=== PATIENT | male | born 1950 | race Caucasian/White ===

== ENCOUNTER 2019-09-14 17:38 | Emergency (ER) | payer MEDICARE, OTHER ==
[~2019-09-14] VITALS: Ht 180 cm; Wt 86.8 kg
[2019-09-14] MEDS ORDERED: NS IV 1000 ML 1,000 ML IV SCH (18:11)
[2019-09-14 18:12] LABS: BASOPHILS % (AUTO) 0 % (0-10); EOSINOPHILS # (AUTO) 0.1 10^3/uL (0.0-0.3); EOSINOPHILS % (AUTO) 1 % (0-10); HEMATOCRIT 42 % (40-54); HEMOGLOBIN 14.8 G/DL (13.3-17.7); LYMPHOCYTES # (AUTO) 1.3 X 10^3 (1.0-4.0); LYMPHOCYTES % (AUTO) 12 % (12-44); MEAN CORPUSCULAR HEMOGLOBIN 29 PG (25-34); MEAN CORPUSCULAR HGB CONC 36 G/DL (32-36); MEAN CORPUSCULAR VOLUME 82 FL (80-99); MEAN PLATELET VOLUME 10.9 FL (7.4-10.4); MONOCYTES # (AUTO) 0.8 X 10^3 (0.0-1.0); MONOCYTES % (AUTO) 8 % (0-12); NEUTROPHILS # (AUTO) 8.5 X 10^3 (1.8-7.8); NEUTROPHILS % (AUTO) 79 % (42-75); PLATELET COUNT 208 10^3/uL (130-400); WHITE BLOOD COUNT 10.7 10^3/uL (4.3-11.0)
[2019-09-14 18:16] LABS: ALBUMIN 4.2 GM/DL (3.2-4.5); CHLORIDE 102 MMOL/L (98-107); POTASSIUM 4.2 MMOL/L (3.6-5.0); SODIUM 138 MMOL/L (135-145)
[2019-09-14 18:17] LABS: CALCIUM 9.3 MG/DL (8.5-10.1)
[2019-09-14 18:18] LABS: GLUCOSE 229 MG/DL (70-105); TOTAL PROTEIN 7.4 GM/DL (6.4-8.2)
[2019-09-14 18:19] LABS: CARBON DIOXIDE 24 MMOL/L (21-32)
[2019-09-14 18:20] LABS: BILIRUBIN,TOTAL 0.8 MG/DL (0.1-1.0)
[2019-09-14 18:22] LABS: ALKALINE PHOSPHATASE 77 U/L (40-136); CREATININE SERUM 1.18 MG/DL (0.60-1.30); GFR ESTIMATED > 60
[2019-09-14 18:23] LABS: BUN/CREATININE RATIO 23
[2019-09-14 18:25] LABS: ALANINE AMINOTRANSFERASE 22 U/L (0-55)
[2019-09-14] MEDS ORDERED: ESCI20TA45 (18:28)
[2019-09-14] MEDS ORDERED: BUSP10TA95 (18:28)
[2019-09-14] MEDS ORDERED: METF500T19 (18:28)
[2019-09-14] MEDS ORDERED: GLIP10TA24 (18:28)
[2019-09-14] MEDS ORDERED: ROSU40TA23 (18:28)
--- NOTE | 2019-09-14 18:57 | ED Neurological Problem ---
General Chief Complaint: Altered Mental Status Stated Complaint: DIZZINESS/HX DIABETES AND DEMENTIA Nursing Triage Note: PT PRESENTS TO ED WITH COMPLAINTS OF NOT FEELING WELL/MALAISE SINCE YESTERDAY. PT SON REPORTS PT HAS BEEN DIZZY, GENRALLY WEAK, AND HAD TROUBLE WITH AMBULATION. Nursing Sepsis Screen: No Definite Risk History of Present Illness Date Seen by Provider: Sep 14, 2019 Time Seen by Provider: 18:00 Initial Comments 69-year-old male presents for vertigo. Patient has a history of dementia. He was brought by his son who reported by phone that he has been having some weakness when walking and unstable gait. He denies any falls. He does have a history of diabetes and his blood sugars have been 300-400. He was increased on his metformin to twice daily. He denies eating today. He does not use a walker or cane. He recently moved here (8 months ago) and his son had not contact with him over the last 10-15 years and is now his caregiver. Son reports a stroke, approx 8 years ago. He goes to [facility]. Timing/Duration: 24 hours Associated Symptoms: trouble walking Allergies and Home Medications Allergies Coded Allergies: No Known Drug Allergies (Unverified , 09/14/19) Patient Home Medication List Home Medication List Reviewed: Yes Review of Systems Review of Systems Constitutional: no symptoms reported, see HPI; No fever; malaise, weakness Eyes: No Symptoms Reported, Decreased Acuity (secondary to diabetic retinopathy) Ears, Nose, Mouth, Throat: no symptoms reported, see HPI Respiratory: no symptoms reported, see HPI; No cough Cardiovascular: no symptoms reported, see HPI Gastrointestinal: no symptoms reported, see HPI, loss of appetite Genitourinary: no symptoms reported, see HPI Musculoskeletal: see HPI; No muscle cramps, No muscle weakness All Other Systems Reviewed Negative Unless Noted: Yes Past Qqpqytu-Ponzel-Gljxkg Hx Past Med/Social Hx: Reviewed Nursing Past Med/Soc Hx Patient Social History Alcohol Use: Denies Use Recreational Drug Use: No Smoking Status: Former Smoker Former Smoker, Quit: Nov 25, 1984 Recent Foreign Travel: No Contact w/Someone Who Travel: No Recent Infectious Disease Expo: No Recent Hopitalizations: No Physical Abuse: No Sexual Abuse: No Mistreated: No Fear: No Seasonal Allergies Seasonal Allergies: No Past Medical History Surgeries: No Respiratory: No Cardiac: Yes High Cholesterol, Hypertension Neurological: Yes Dementia, Stroke Genitourinary: No Gastrointestinal: No Musculoskeletal: No Endocrine: Yes Diabetes, Non-Insulin dep Psychosocial: No Integumentary: No Blood Disorders: No Physical Exam Vital Signs Vital Signs - First Documented 09/14/19 17:57 Temp 36.0 Pulse 70 Resp 20 B/P (MAP) 171/97 (121) Pulse Ox 95 Capillary Refill : Less Than 3 Seconds Height, Weight, BMI Height: '" Weight: lbs. oz. kg; 26.00 BMI Method: General Appearance: WD/WN, no apparent distress HEENT: PERRL/EOMI, normal ENT inspection, TMs normal, pharynx normal, other (head normocephalic with no evidence of contusion or ecchymosis, oral mucosa pink and dry. No facial drooping. ) Neck: non-tender, full range of motion, supple, normal inspection Respiratory: chest non-tender, lungs clear, normal breath sounds, no respiratory distress Cardiovascular: normal peripheral pulses, regular rate, rhythm Gastrointestinal: normal bowel sounds, non tender, soft, no organomegaly Extremities: normal range of motion, non-tender, normal inspection Neurologic/Psychiatric: no motor/sensory deficits, alert, normal mood/affect, oriented x 3, abnormal gait (unsteady but no weakness. ) Crainal Nerves: normal hearing, normal speech, PERRL Coordination/Gait: normal finger to nose Motor/Sensory: no motor deficit, no sensory deficit, no pronator drift Skin: normal color, warm/dry Progress/Results/Core Measures Results/Orders Lab Results Laboratory Tests Test 09/14/19 17:56 09/14/19 17:57 Range/Units White Blood Count 10.7 4.3-11.0 10^3/uL Red Blood Count 5.10 4.35-5.85 10^6/uL Hemoglobin 14.8 13.3-17.7 G/DL Hematocrit 42 40-54 % Mean Corpuscular Volume 82 80-99 FL Mean Corpuscular Hemoglobin 29 25-34 PG Mean Corpuscular Hemoglobin Concent 36 32-36 G/DL Red Cell Distribution Width 14.0 10.0-14.5 % Platelet Count 208 130-400 10^3/uL Mean Platelet Volume 10.9 H 7.4-10.4 FL Neutrophils (%) (Auto) 79 H 42-75 % Lymphocytes (%) (Auto) 12 12-44 % Monocytes (%) (Auto) 8 0-12 % Eosinophils (%) (Auto) 1 0-10 % Basophils (%) (Auto) 0 0-10 % Neutrophils # (Auto) 8.5 H 1.8-7.8 X 10^3 Lymphocytes # (Auto) 1.3 1.0-4.0 X 10^3 Monocytes # (Auto) 0.8 0.0-1.0 X 10^3 Eosinophils # (Auto) 0.1 0.0-0.3 10^3/uL Basophils # (Auto) 0.0 0.0-0.1 10^3/uL Sodium Level 138 135-145 MMOL/L Potassium Level 4.2 3.6-5.0 MMOL/L Chloride Level 102 98-107 MMOL/L Carbon Dioxide Level 24 21-32 MMOL/L Anion Gap 12 5-14 MMOL/L Blood Urea Nitrogen 27 H 7-18 MG/DL Creatinine 1.18 0.60-1.30 MG/DL Estimat Glomerular Filtration Rate > 60 BUN/Creatinine Ratio 23 Glucose Level 229 H 70-105 MG/DL Calcium Level 9.3 8.5-10.1 MG/DL Corrected Calcium 9.1 8.5-10.1 MG/DL Total Bilirubin 0.8 0.1-1.0 MG/DL Aspartate Amino Transf (AST/SGOT) 20 5-34 U/L Alanine Aminotransferase (ALT/SGPT) 22 0-55 U/L Alkaline Phosphatase 77 40-136 U/L Troponin I < 0.028 <0.028 NG/ML Total Protein 7.4 6.4-8.2 GM/DL Albumin 4.2 3.2-4.5 GM/DL Glucometer 222 H 70-110 MG/DL My Orders Orders - GONZALO BUCK Accucheck Stat ONCE (09/14/19 17:46) Cbc With Automated Diff (09/14/19 18:05) Comprehensive Metabolic Panel (09/14/19 18:05) Troponin I (09/14/19 18:05) Ed Iv/Invasive Line Start (09/14/19 18:11) Ns Iv 1000 Ml (Sodium Chloride 0.9%) (09/14/19 18:11) Ct Head Wo-R/O Stroke (09/14/19 18:46) Vital Signs/I&O 09/14/19 17:57 Temp 36.0 Pulse 70 Resp 20 B/P (MAP) 171/97 (121) Pulse Ox 95 Blood Pressure Mean: 121 FSBG Bedside Testing Finger Stick Blood Glucose: 222 Progress Progress Note : Time: 18:00 Progress Note Patient seen and evaluated, will obtain labs, EKG and give 1 L normal saline per IV. 1844 spoke to patient, will Obtain CT of the Head. 1899 Ambulated patient, gait is unsteady. Discussed need for walker to prevent falls. 1929 Discharge plan discussed with patient and son by phone. Needs follow up with MRI if symptoms are not improving. May need to consider LTC or Assisted Living, as soon reports he is unable to live with him. Initial ECG Impression Date: Sep 14, 2019 Initial ECG Impression Time: 17:59 Initial ECG Rate: 71 Initial ECG Rhythm: Normal Sinus Initial ECG Intervals: Normal Initial ECG Intervals AR 179, QRSD 89, QTC 406, QTc 442. [place] P 42, QRS -34, T 85 Initial ECG Impression: Normal Initial ECG Comparisson: No Previous ECG Available Diagnostic Imaging Diagonstic Imaging: CT Plain Films/CT/US/NM/MRI: head Comments NAME: MOSHE WHEELER [facility] REC#: [id number] PT STATUS: REG ER : 1950 PHYSICIAN: GONZALO BUCK ADMIT DATE: 09/14/19/ER Draft Date of Exam:09/14/19 CT HEAD WO-R/O STROKE PROCEDURE: CT head wo r/o stroke. TECHNIQUE: Multiple contiguous axial images were obtained through the brain without the use of intravenous contrast. Auto Exposure Controls were utilized during the CT exam to meet ALARA standards for radiation dose reduction. INDICATION: Not feeling well, malaise since yesterday. Dizziness, generally weak and trouble with ambulation. CORRELATION STUDY: None FINDINGS: Generalized prominence of the ventricles and sulci is present. Cavum septum pellucidum vergae of no clinical significance. Rather prominent scattered areas of particularly periventricular hypoattenuation may reflect a small vessel ischemic disease. This is rather prominent in severity. More focal area of decreased attenuation at the left occipital lobe is noted and may reflect a previous area of infarct. Suspect for prior thalamic lacunar type infarcts. No midline shift or mass effect. No intracranial hemorrhage. No hyperdense MCA sign. Bony calvarium intact with paranasal sinuses generally clear. IMPRESSION: 1. Negative for acute intracranial abnormality. 2. There is, however, generalized atrophic changes with what appears to be likely significantly advanced changes reflecting small vessels ischemic disease. This could obscure potential subtle lesion. Given overall symptoms and findings, consideration for follow-up MRI would be recommended. 3. Findings compatible with likely prior infarct with more focal encephalomalacia left occipital lobe. Dictated on workstation # [id number] Dict: 09/14/191902 Trans: 09/14/191913 MARII [id number] Interpreted by: ASHLEY RESTREPO DO Electronically signed by: Departure Impression Primary Impression: Unsteady gait Disposition: 01 HOME, SELF-CARE Condition: Stable Departure-Patient Inst. Decision time for Depature: 19:30 Referrals: [facility] [place],LOCAL PHYSICIAN (PCP) Primary Care Physician Patient Instructions: Dementia (DC), Preventing Falls in the Older Adult Add. Discharge Instructions: Use a walker at all times. Follow up with [facility] for MRI, if symptoms are not improving. Eat regularly scheduled meals. Take your medications, as prescribed. Return to the emergency department for new, urgent health care needs. All discharge instructions reviewed with patient and/or family. Voiced understanding. Scripts Walker (Ultra-Light Rollator) 1 Each Each EACH BC DAILY PRN for DIZZINESS, #1 0 Refills Prov: GONZALO BUCK 09/14/19 GONZALO BUCK Sep 14, 2019 18:57
--- NOTE | 2019-09-14 19:16 | Diagnostic Imaging Report ---
PROCEDURE: CT head wo r/o stroke. TECHNIQUE: Multiple contiguous axial images were obtained through the brain without the use of intravenous contrast. Auto Exposure Controls were utilized during the CT exam to meet ALARA standards for radiation dose reduction. INDICATION: Not feeling well, malaise since yesterday. Dizziness, generally weak and trouble with ambulation. CORRELATION STUDY: None FINDINGS: Generalized prominence of the ventricles and sulci is present. Cavum septum pellucidum vergae of no clinical significance. Rather prominent scattered areas of particularly periventricular hypoattenuation may reflect a small vessel ischemic disease. This is rather prominent in severity. More focal area of decreased attenuation at the left occipital lobe is noted and may reflect a previous area of infarct. Suspect for prior thalamic lacunar type infarcts. No midline shift or mass effect. No intracranial hemorrhage. No hyperdense MCA sign. Bony calvarium intact with paranasal sinuses generally clear. IMPRESSION: 1. Negative for acute intracranial abnormality. 2. There is, however, generalized atrophic changes with what appears to be likely significantly advanced changes reflecting small vessels ischemic disease. This could obscure potential subtle lesion. Given overall symptoms and findings, consideration for follow-up MRI would be recommended. 3. Findings compatible with likely prior infarct with more focal encephalomalacia left occipital lobe. Dictated by: Dictated on workstation # [id number]
[2019-09-14] MEDS ORDERED: WALK1EAC23 BC (19:29)
[2019-09-14 20:00] VITALS: BP 167/87
--- OUTSIDE RECORDS SUMMARY | 2019-09-15 10:30 | XMS REPORT | Continuity of Care Document ---
Author Organization Unknown Address Unknown Phone Unavailable Allergies Active Description Code Type Severity Reaction Onset Reported/Identified Relationship to Patient Clinical Status Yes No Known Drug Allergies [id number] Drug Allergy Unknown N/A 09/14/2019 Medications There is no data. Problems There is no data. Procedures There is no data. Results Test Result Range CMP - 02/25/19 10:55 GLUCOSE 231 mg/dL 65-99 UREA NITROGEN (BUN) 26 mg/dL 7-25 CREATININE 1.08 mg/dL 0.70-1.25 eGFR NON-AFR. [place] 71 mL/min/1.73m2 > OR = 60 eGFR 82 mL/min/1.73m2 > OR = 60 BUN/CREATININE RATIO 24 (calc) 6-22 SODIUM 138 mmol/L 135-146 POTASSIUM 4.3 mmol/L 3.5-5.3 CHLORIDE 103 mmol/L 98-110 CARBON DIOXIDE 26 mmol/L 20-32 CALCIUM 9.1 mg/dL 8.6-10.3 PROTEIN, TOTAL 6.8 g/dL 6.1-8.1 ALBUMIN 4.1 g/dL 3.6-5.1 GLOBULIN 2.7 g/dL (calc) 1.9-3.7 ALBUMIN/GLOBULIN RATIO 1.5 (calc) 1.0-2. 5 BILIRUBIN, TOTAL 0.7 mg/dL 0.2-1.2 ALKALINE PHOSPHATASE 91 U/L 40-115 AST 20 U/L 10-35 ALT 24 U/L 9-46 A1C - 06/17/19 15:44 HEMOGLOBIN A1c 11.9 % of total Hgb <5.7 Complete blood count (CBC) with automate d white blood cell (WBC) differential - 09/14/19 17:56 Blood leukocytes automated count (number/volume) 10.7 10*3/uL 4.3-11.0 Blood erythrocytes automated count (number/volume) 5.10 10*6/uL 4.35-5.85 Venous blood hemoglobin measurement (mass/volume) 14.8 g/dL 13.3-17.7 Blood hematocrit (volume fraction) 42 % 40-54 Automated erythrocyte mean corpuscular volume 82 [ foz_us] 80-99 Automated erythrocyte mean corpuscular h emoglobin (mass per erythrocyte) 29 pg 25-34 Automated erythrocyte mean corpuscular h emoglobin concentration measurement (mass/volume) 36 g/dL 32-36 Automated erythrocyte distribution width ratio 14. 0 % 10.0- 14.5 Automated blood platelet count (count/volume) 208 10*3/uL 130-400 Automated blood platelet mean volume measurement 10.9 [foz_us] 7.4-10.4 Automated blood neutrophils/100 leukocytes 79 % 42-75 Automated blood lymphocytes/100 leukocytes 12 % 12-44 Blood monocytes/100 leukocytes 8 % 0-12 Automated blood eosinophils/100 leukocytes 1 % 0-10 Automated blood basophils/100 leukocytes 0 % 0-10 Blood neutrophils automated count (number/volume) 8.5 10*3 1.8-7.8 Blood lymphocytes automated count (number/volume) 1.3 10*3 1.0-4.0 Blood monocytes automated count (number/volume) 0. 8 10*3 0.0-1.0 Automated eosinophil count 0.1 10*3/uL 0 .0-0.3 Automated blood basophil count (count/volume) 0.0 10*3/uL 0.0-0.1 Comprehensive metabolic panel - 09/14/19 17:56 Serum or plasma sodium measurement (moles/volume) 138 mmol/L 135-145 Serum or plasma potassium measurement (moles/volume) 4.2 mmol/L 3.6-5.0 Serum or plasma chloride measurement (moles/volume) 102 mmol/L 98-107 Carbon dioxide 24 mmol/L 21-32 Serum or plasma anion gap determination (moles/volume) 12 mmol/L 5-14 Serum or plasma urea nitrogen measurement (mass/volume ) 27 mg/dL 7-18 Serum or plasma creatinine measurement (mass/volume) 1.18 mg/dL 0.60-1.30 Serum or plasma urea nitrogen/creatinine mass ratio 23 NRG Serum or plasma creatinine measurement w ith calculation of estimated glomerular filtration rate > NRG Serum or plasma glucose measurement (mass/volume) 229 mg/dL 70-105 Serum or plasma calcium measurement (mass/volume) 9.3 mg/dL 8.5-10.1 Serum or plasma total bilirubin measurement (mass/volu me) 0.8 mg/dL 0.1-1.0 Serum or plasma alkaline phosphatase alvaro surement (enzymatic activity/volume) 77 U/L 40-136 Serum or plasma aspartate aminotransfera se measurement (enzymatic activity/volume) 20 U/L 5-34 Serum or plasma alanine aminotransferase measurement (enzymatic activity/volume) 22 U/L 0-55 Serum or plasma protein measurement (mass/volume) 7.4 g/dL 6.4-8.2 Serum or plasma albumin measurement (mass/volume) 4.2 g/dL 3.2-4.5 CALCIUM CORRECTED 9.1 mg/dL 8.5-10.1 Serum or plasma troponin i.cardiac measu rement (mass/volume) - 09/14/19 17:56 Serum or plasma troponin i.cardiac measurement (mass/v olume) < ng/mL <0.028 Capillary blood glucose measurement by g lucometer (mass/volume) - 09/14/19 17:57 Capillary blood glucose measurement by glucometer (mas s/volume) 222 mg/dL 70-110 Encounters ACCT No. Visit Date/Time Discharge Status Pt. Type Provider Facility Loc./Unit Complaint [id number] 06/17/2019 15:20:00 06/17/2019 23:59: 59 [facility] Outpatient [facility] [id number] 06/17/2019 15:20:00 Document Registration [id number] 02/25/2019 10:20:00 Document Registration [id number] 09/14/2019 17:41:00 020 20:00:00 DIS Emergency GONZALO BUCK [facility] ER DIZZINESS/HX DIABETES A ND DEMENTIA
== END 2019-09-14 20:00 | disposition home or self-care (01) ==
LOC: ER 17:41
DX: R26.81 Unsteadiness on feet (principal); E11.9 Type 2 diabetes mellitus without complications; F03.90 Unspecified dementia, unspecified severity, without behavioral disturbance, psychotic disturbance, mood disturbance, and anxiety; E78.00 Pure hypercholesterolemia, unspecified; I10 Essential (primary) hypertension; Z79.84 Long term (current) use of oral hypoglycemic drugs; Z86.73 Personal history of transient ischemic attack (TIA), and cerebral infarction without residual deficits; Z87.891 Personal history of nicotine dependence
CPT/HCPCS: 36415; 70450; 80053; 82962; 84484; 85025; 93005

== ENCOUNTER 2019-09-17 17:29 | Inpatient (IN) | payer MEDICARE ==
[~2019-09-17] VITALS: Ht 180.3 cm; Wt 84.3 kg
[~2019-09-17 17:29] MED LIST: BUSP10TA95 PO; ESCI20TA45 PO; GLIP10TA24 PO; METF500T19 PO; ROSU40TA23 PO; WALK1EAC23 BC
[2019-09-17] MEDS ORDERED: CATHETER FLUSH 10 ML SYR IV PRN (18:15)
[2019-09-17] MEDS ORDERED: HOLD METFORMIN - RECEIVED CONTRAST 20 ML VIAL IV SCH (18:15)
[2019-09-17] MEDS ORDERED: IOHEXOL 350 MG/ML 100 ML (OMNIPAQUE 350) VIAL IV ONE (18:15)
[2019-09-17] MEDS ORDERED: NS 100 ML (IVPB) BAG IV ONE (18:15)
[2019-09-17 18:21] LABS: BASOPHILS % (AUTO) 0 % (0-10); EOSINOPHILS % (AUTO) 0 % (0-10); HEMATOCRIT 40 % (40-54); HEMOGLOBIN 13.7 G/DL (13.3-17.7); LYMPHOCYTES # (AUTO) 1.1 X 10^3 (1.0-4.0); LYMPHOCYTES % (AUTO) 12 % (12-44); MEAN CORPUSCULAR HEMOGLOBIN 29 PG (25-34); MEAN CORPUSCULAR HGB CONC 35 G/DL (32-36); MEAN CORPUSCULAR VOLUME 83 FL (80-99); MEAN PLATELET VOLUME 11.1 FL (7.4-10.4); MONOCYTES # (AUTO) 0.9 X 10^3 (0.0-1.0); MONOCYTES % (AUTO) 9 % (0-12); NEUTROPHILS # (AUTO) 7.7 X 10^3 (1.8-7.8); NEUTROPHILS % (AUTO) 79 % (42-75); PLATELET COUNT 202 10^3/uL (130-400); WHITE BLOOD COUNT 9.7 10^3/uL (4.3-11.0)
[2019-09-17 18:30] LABS: CHLORIDE 106 MMOL/L (98-107); POTASSIUM 4.1 MMOL/L (3.6-5.0); SODIUM 138 MMOL/L (135-145)
[2019-09-17 18:31] LABS: INR 0.9 (0.8-1.4); PROTHROMBIN TIME PATIENT 12.3 SEC (12.2-14.7)
[2019-09-17 18:32] LABS: CALCIUM 9.2 MG/DL (8.5-10.1)
[2019-09-17 18:33] LABS: GLUCOSE 176 MG/DL (70-105); TOTAL PROTEIN 7.1 GM/DL (6.4-8.2)
[2019-09-17 18:34] LABS: CARBON DIOXIDE 21 MMOL/L (21-32)
[2019-09-17 18:35] LABS: BILIRUBIN,TOTAL 0.9 MG/DL (0.1-1.0)
[2019-09-17 18:36] LABS: ALKALINE PHOSPHATASE 90 U/L (40-136)
[2019-09-17 18:37] LABS: CREATININE SERUM 1.26 MG/DL (0.60-1.30); GFR ESTIMATED 57
[2019-09-17 18:38] LABS: BUN/CREATININE RATIO 26
[2019-09-17 18:40] LABS: ALANINE AMINOTRANSFERASE 19 U/L (0-55)
--- OUTSIDE RECORDS SUMMARY | 2019-09-17 18:46 | XMS REPORT | Continuity of Care Document ---
Author Organization Unknown Address Unknown Phone Unavailable Allergies Active Description Code Type Severity Reaction Onset Reported/Identified Relationship to Patient Clinical Status Yes No Known Drug Allergies [id number] Drug Allergy Unknown N/A 09/14/2019 Medications There is no data. Problems Date Dx Coded Attending Type Code Diagnosis Diagnosed By 09/15/2019 GONZALO BUCKP Ot E11.9 TYPE 2 DIABETES MELLITUS WITHOUT COMPLIC 09/15/2019 [facility]O [facility] Ot E78.00 PURE HYPERCHOLESTEROLEMIA, UNSPECIFIED 09/15/2019 CIELO, GONZALO [facility] VOLUNTEER Ot F03.90 UNSPECIFIED DEMENTIA WITHOUT BEHAVIORAL 09/15/2019 CIELO GONZALO [facility] V[facility]UNTEER Ot I10 ESSENTIAL (PRIMARY) HYPERTENSION 09/15/2019 CIELO GONZALO [facility] VOLUNTEER Ot R26.81 UNSTEADINESS ON FEET 09/15/2019 CIELO GON[facility]ALO [facility]OSP[facility] VOLUNTEER Ot R42 DIZZINESS AND GIDDINESS 09/15/2019 CIELO GONZALO [facility] VOLUNTEER 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 Results Test Result Range CMP - 02/25/19 10:55 GLUCOSE 231 mg/dL 65-99 UREA NITROGEN (BUN) 26 mg/dL 7-25 CREATININE 1.08 mg/dL 0.70-1.25 eGFR NON-AFR. ETHIOPIAN 71 mL/min/1.73m2 > OR = 60 eGFR [...] by glucometer (mas s/volume) 222 mg/dL 70-110 Complete blood count (CBC) with automate d white blood cell (WBC) differential - 09/17/19 18:15 Blood leukocytes automated count (number/volume) 9.7 10*3/uL 4.3-11.0 Blood erythrocytes automated count (number/volume) 4.77 10*6/uL 4.35-5.85 Venous blood hemoglobin measurement (mass/volume) 13.7 g/dL 13.3-17.7 Blood hematocrit (volume fraction) 40 % 40-54 Automated erythrocyte mean corpuscular volume 83 [ foz_us] 80-99 Automated erythrocyte mean corpuscular h emoglobin (mass per erythrocyte) 29 pg 25-34 Automated erythrocyte mean corpuscular h emoglobin concentration measurement (mass/volume) 35 g/dL 32-36 Automated erythrocyte distribution width ratio 14. 0 % 10.0- 14.5 Automated blood platelet count (count/volume) 202 10*3/uL 130-400 Automated blood platelet mean volume measurement 11.1 [foz_us] 7.4-10.4 Automated blood neutrophils/100 leukocytes 79 % 42-75 Automated blood lymphocytes/100 leukocytes 12 % 12-44 Blood monocytes/100 leukocytes 9 % 0-12 Automated blood eosinophils/100 leukocytes 0 % 0-10 Automated blood basophils/100 leukocytes 0 % 0-10 Blood neutrophils automated count (number/volume) 7.7 10*3 1.8-7.8 Blood lymphocytes automated count (number/volume) 1.1 10*3 1.0-4.0 Blood monocytes automated count (number/volume) 0. 9 10*3 0.0-1.0 Automated eosinophil count 0.0 10*3/uL 0 .0-0.3 Automated blood basophil count (count/volume) 0.0 10*3/uL 0.0-0.1 Comprehensive metabolic panel - 09/17/19 18:15 Serum or plasma sodium measurement (moles/volume) 138 mmol/L 135-145 Serum or plasma potassium measurement (moles/volume) 4.1 mmol/L 3.6-5.0 Serum or plasma chloride measurement (moles/volume) 106 mmol/L 98-107 Carbon dioxide 21 mmol/L 21-32 Serum or plasma anion gap determination (moles/volume) 11 mmol/L 5-14 Serum or plasma urea nitrogen measurement (mass/volume ) 33 mg/dL 7-18 Serum or plasma creatinine measurement (mass/volume) 1.26 mg/dL 0.60-1.30 Serum or plasma urea nitrogen/creatinine mass ratio 26 NRG Serum or plasma creatinine measurement w ith calculation of estimated glomerular filtration rate 57 NRG Serum or plasma glucose measurement (mass/volume) 176 mg/dL 70-105 Serum or plasma calcium measurement (mass/volume) 9.2 mg/dL 8.5-10.1 Serum or plasma total bilirubin measurement (mass/volu me) 0.9 mg/dL 0.1-1.0 Serum or plasma alkaline phosphatase alvaro surement (enzymatic activity/volume) 90 U/L 40-136 Serum or plasma aspartate aminotransfera se measurement (enzymatic activity/volume) 20 U/L 5-34 Serum or plasma alanine aminotransferase measurement (enzymatic activity/volume) 19 U/L 0-55 Serum or plasma protein measurement (mass/volume) 7.1 g/dL 6.4-8.2 Serum or plasma albumin measurement (mass/volume) 4.0 g/dL 3.2-4.5 CALCIUM CORRECTED 9.2 mg/dL 8.5-10.1 PT panel in platelet poor plasma by coag ulation assay - 09/17/19 18:15 Prothrombin time (PT) in platelet poor plasma by coagu lation assay 12.3 s 12.2-14.7 INR in platelet poor plasma or blood by coagulation as say 0.9 0.8-1.4 Encounters ACCT No. Visit Date/Time Discharge Status Pt. Type Provider Facility Loc./Unit Complaint [id number] 06/17/2019 15:20:00 06/17/2019 23:59: 59 [facility] Outpatient [facility] [id number] 06/17/2019 15:20:00 Document Registration [id number] 02/25/2019 10:20:00 Document Registration [id number] 09/14/2019 17:41:00 020 20:00:00 DIS Outpatient GONZALO BUCK Vi a [facility] ER DIZZINESS/HX DIABETES A ND DEMENTIA [id number] 09/17/2019 18:24:00 Document Registration
--- NOTE | 2019-09-17 19:08 | Diagnostic Imaging Report ---
PROCEDURE: CT angiography of the head and CT angiography of the neck with and without contrast. TECHNIQUE: Contiguous noncontrast images were obtained from the skull base through the vertex. After intravenous contrast administration, helical CT angiography of the neck was performed. Source data was reformatted into 3D MIP projections. Delayed post contrast acquisition was also obtained. Auto Exposure Controls were utilized during the CT exam to meet ALARA standards for radiation dose reduction. INDICATION: Left-sided weakness times approximately 4 days. COMPARISON: CT head 09/14/2019 FINDINGS: CT HEAD: Generalized atrophic changes mild prominence of ventricles and sulci. Cavum septum pellucidum vergae of no clinical significance. Prominent scattered patchy areas decreased attenuation are again demonstrated while nonspecific likely reflect small vessel ischemic disease. There is again demonstration more focal area at the left occipital lobe likely owing to prior area of infarct. Definitive new areas decreased attenuation suggest edema is not demonstrated. No midline shift or mass effect. No intracranial hemorrhage. CTA NECK: Aorta: Aortic arch is limited in evaluation with artifact present. Does appear relatively normal, with standard three vessel branching pattern. Right Common/Internal/External Carotid Artery: Brachycephalic trunk patent. Mild calcification distally. The carotid bifurcation does demonstrate mild calcified soft tissue plaque. However, high degree stenosis does not appear to be suggested. The internal and external carotid arteries are patent. Left Common/Internal/External Carotid Artery: Mild soft plaque at the origin of the left common carotid artery without significant stenosis. Remainder of the common carotid arteries are patent. There is mild plaquing at the carotid bifurcation without significant stenosis. Internal and external carotid arteries are patent. Vertebral arteries: Very slightly dominant left vertebral artery is present. Vertebral arteries appear to terminate level of the basilar artery. Non-vascular: Lung apices demonstrates minimal hypoventilation adjacent pleural surface dependently. Airway is patent within the neck. Soft tissue neck otherwise relatively unremarkable. Cervical spine with minimal degenerative changes given the patient's age. CTA HEAD: Anterior Circulation: There is [id number] calcification of the terminal ICAs but without high degree stenosis. The bilateral middle cerebral arteries are patent and without stenosis. The anterior cerebral arteries are patent and without stenosis. Posterior Circulation: The bilateral intracranial segments of the vertebral arteries are patent. The basilar artery is patent and without stenosis. The posterior cerebral arteries are patent. Post Contrast Head: No concerning enhancement on delayed post-contrast imaging. IMPRESSION: 1. Mild intracranial ICA calcification. Otherwise, negative appearing CTA of the head. 2. Mild calcification carotid bifurcations. Otherwise, negative appearing CTA of the neck. 3. Given the overall findings and continued symptoms, if further imaging evaluation is desired, MRI is recommended. Dictated by: Dictated on workstation # [id number]
--- NOTE | 2019-09-17 19:37 | NUR ---
Pt son, Zain Cleveland called at this time to get verbal consent to [facility] and this RN for lumbar puncture procedure.
[2019-09-17 19:45] LABS: BILIRUBIN,URINE NEGATIVE (NEGATIVE); CLARITY,URINE CLEAR; COLOR,URINE YELLOW; GLUCOSE, URINE (UA) NEGATIVE (NEGATIVE); KETONES,URINE TRACE (NEGATIVE); LEUKOCYTE ESTERASE ,URINE TRACE (NEGATIVE); NITRITE,URINE POSITIVE (NEGATIVE); PROTEIN,URINE 1+ (NEGATIVE)
[2019-09-17] MEDS ORDERED: cloNIDine 0.1 MG (CATAPRES) TAB PO ONE (19:45)
[2019-09-17 19:58] LABS: AMPHETAMINE SCREEN, URINE NEGATIVE (NEGATIVE); BARBITURATE SCREEN URINE NEGATIVE (NEGATIVE); BENZODIAZEPINES SCREEN URINE NEGATIVE (NEGATIVE); CANNABINOID SCREEN, URINE NEGATIVE (NEGATIVE); COCAINE SCREEN URINE NEGATIVE (NEGATIVE); METHADONE STAT NEGATIVE (NEGATIVE); METHAMPHETAMINE SCREEN URINE S NEGATIVE (NEGATIVE); OPIATE SCREEN URINE NEGATIVE (NEGATIVE); OXYCODONE STAT NEGATIVE (NEGATIVE); PROPOXYPHENE STAT NEGATIVE (NEGATIVE); TRICYCLIC ANTIDEPRESSANTS SCRE NEGATIVE (NEGATIVE)
[2019-09-17 20:14] LABS: BACTERIA,URINE MODERATE /HPF; HYALINE CASTS, URINE RARE /LPF; WBC,URINE 50-100 /HPF
[2019-09-17] MEDS ORDERED: cefTRIAXone FOR IV USE 1,000 MG in WATER (STERILE) FOR INJECTION 10 ML IV ONE (20:30)
[2019-09-17] MEDS ORDERED: ONDANSETRON 4 MG (ZOFRAN) ORAL DISSOLVE TAB PO PRN (21:30)
[2019-09-17] MEDS ORDERED: fentaNYL INJECTION 100 MCG/2 ML AMP IVP PRN (21:30)
[2019-09-17] MEDS ORDERED: ONDANSETRON 4 MG/2 ML (SDV) Z0FRAN IVP PRN (21:30)
[2019-09-17] MEDS ORDERED: MELATONIN 3 MG TABLET PO PRN (21:30)
[2019-09-17] MEDS ORDERED: ALPRAZolam 0.25 MG (XANAX) TAB PO PRN (21:30)
[2019-09-17] MEDS ORDERED: cloNIDine 0.1 MG (CATAPRES) TAB PO PRN (21:30)
[2019-09-17] MEDS ORDERED: LOPERAMIDE 2 MG (IMODIUM) TABLET PO PRN (21:30)
[2019-09-17] MEDS ORDERED: diphenhydrAMINE 25 MG TAB (BENADRYL) PO PRN (21:30)
[2019-09-17] MEDS ORDERED: HYDROcodone/APAP 5 MG/325 MG (LORTAB) TAB PO PRN (21:30)
[2019-09-17] MEDS ORDERED: cefTRIAXone FOR IV USE 1,000 MG in WATER (STERILE) FOR INJECTION 10 ML IV SCH (21:30)
[2019-09-17] MEDS ORDERED: ACETAMINOPHEN 500 MG TAB (TYLENOL) PO PRN (21:30)
[2019-09-17] MEDS ORDERED: DOCUSATE SODIUM 100 MG (COLACE) CAP PO PRN (21:30)
[2019-09-17] MEDS ORDERED: CALCIUM CARBONATE 500 MG (TUMS) TAB.CHEW PO PRN (21:30)
--- OUTSIDE RECORDS SUMMARY | 2019-09-17 21:34 | XMS REPORT | Continuity of Care Document ---
Author Organization Unknown Address Unknown Phone Unavailable Allergies Active Description Code Type Severity Reaction Onset Reported/Identified Relationship to Patient Clinical Status Yes No Known Drug Allergies [id number] Drug Allergy Unknown N/A 09/14/2019 Medications There is no data. Problems Date Dx Coded Attending Type Code Diagnosis Diagnosed By 09/15/2019 GONZALO BUCKP Ot E11.9 TYPE 2 DIABETES MELLITUS WITHOUT COMPLIC 09/15/2019 CIELO GONZALO HORTICULTURE/FLORICULTURE TEACHER Ot E78.00 PURE HYPERCHOLESTEROLEMIA, UNSPECIFIED 09/15/2019 CIELO, GONZALO HORTICULTURE/FLORICULTURE TEACHER Ot F03.90 UNSPECIFIED DEMENTIA WITHOUT BEHAVIORAL 09/15/2019 CIELO GONZALO HORTICULTURE/FLORICULTURE TEACHER Ot I10 ESSENTIAL (PRIMARY) HYPERTENSION 09/15/2019 CIELO GONZALO HORTICULTURE/FLORICULTURE TEACHER Ot R26.81 UNSTEADINESS ON FEET 09/15/2019 CIELO GONZALO HORTICULTURE/FLORICULTURE TEACHER Ot R42 DIZZINESS AND GIDDINESS 09/15/2019 CIELO GONZALO HORTICULTURE/FLORICULTURE TEACHER Ot 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 Results Test Result Range CMP - 02/25/19 10:55 GLUCOSE 231 mg/dL 65-99 UREA NITROGEN (BUN) 26 mg/dL 7-25 CREATININE 1.08 mg/dL 0.70-1.25 eGFR NON-AFR. IRISH 71 mL/min/1.73m2 > OR = 60 eGFR [...] blood by coagulation as say 0.9 0.8-1.4 Serum or plasma ethanol measurement (mas s/volume) - 09/17/19 18:15 Serum or plasma ethanol measurement (mass/volume) < mg/dL <10 Urine drug screening test - 09/17/19 19: 39 Urine phencyclidine detection by screening method NEGATIVE NEGATIVE Urine benzodiazepines detection by screening method NEGATIVE NEGATIVE Urine cocaine detection NEGATIVE NEGATI VE Urine amphetamines detection by screening method N EGATIVE NEGATIVE Urine methamphetamine detection by screening method NEGATIVE NEGATIVE Urine cannabinoids detection by screening method N EGATIVE NEGATIVE Urine opiates detection by screening method NEGATI VE NEGATIVE Urine barbiturates detection NEGATIVE N EGATIVE Screening urine tricyclic antidepressants detection NEGATIVE NEGATIVE Urine methadone detection by screening method NEGA TIVE NEGATIVE Urine oxycodone detection NEGATIVE NEGA TIVE Urine propoxyphene detection NEGATIVE N EGATIVE Complete urinalysis with reflex to cultu re - 09/17/19 19:39 Urine color determination YELLOW NRG Urine clarity determination CLEAR NR G Urine pH measurement by test strip 5.0 5-9 Specific gravity of urine by test strip 1.015 1.016-1.022 Urine protein assay by test strip, semi-quantitative 1+ NEGATIVE Urine glucose detection by automated test strip NE GATIVE NEGATIVE Erythrocytes detection in urine sediment by light micr oscopy TRACE-I NEGATIVE Urine ketones detection by automated test strip TR ZAC NEGATIVE Urine nitrite detection by test strip POSITIVE NEGATIVE Urine total bilirubin detection by test strip NEGA TIVE NEGATIVE Urine urobilinogen measurement by automated test strip (mass/volume) 0.2 mg/dL < = 1.0 Urine leukocyte esterase detection by dipstick TRA CE NEGATIVE Automated urine sediment erythrocyte cou nt by microscopy (number/high power field) NONE NRG Automated urine sediment leukocyte count by microscopy (number/high power field) [HPF] NRG Bacteria detection in urine sediment by light microsco py MODERATE NRG Crystals detection in urine sediment by light microsco py NONE NRG Casts detection in urine sediment by light microscopy PRESENT NRG Mucus detection in urine sediment by light microscopy NEGATIVE NRG Complete urinalysis with reflex to culture YES NRG Hyaline casts detection in urine sediment by light mimi roscopy RARE NRG Renal epithelial cells detection in urin e sediment by light microscopy 5-10 NRG Encounters ACCT No. Visit Date/Time Discharge Status Pt. Type Provider Facility Loc./Unit Complaint [id number] 06/17/2019 15:20:00 06/17/2019 23:59: 59 [id number] 06/17/2019 15:20:00 Document Registration [id number] 02/25/2019 10:20:00 Document Registration [id number] 09/14/2019 17:41:00 020 20:00:00 DIS Outpatient GONZALO BUCK a [facility] ER DIZZINESS/HX DIABETES A ND DEMENTIA [id number] 09/17/2019 18:24:00 Document Registration
[2019-09-17 21:39] LABS: APPEARANCE,CSF CLEAR
[2019-09-17 21:40] LABS: COLOR,CSF PINK; LYMPHOCYTES,CSF 32 %; RED BLOOD CELL,CSF 4850 CELLS (0-0); WHITE BLOOD CELL,CSF 6 CELLS (0-5)
[2019-09-17 21:41] LABS: CSF TUBE NUMBER 4
[2019-09-17 21:42] LABS: CSF GLUCOSE 94 MG/DL (50-80); CSF TOTAL PROTEIN 40 MG/DL (15-40)
--- NOTE | 2019-09-17 21:50 | NUR ---
MOSHE WHEELER admitted to room 414-1, with an admitting diagnosis of UTI and Gait Instability, on 09/17/19 from ED via wheelchair, accompanied by staff.MOSHE WHEELER introduced to surroundings, call light, bed controls, phone, TV, temperature control, lights, meal times, smoking policy, visitor policy, side rail policy, bathrooms and showers. Patient Rights given to patient in the handbook. MOSHE WHEELER verbalizes understanding that [facility] is not responsible for the loss or damage to any personal effects or valuables that are kept in the patients posession during their hospitalization. MOSHE WHEELER verbalizes understanding of Interdisciplinary Patient Education. Patient and/or family were informed about the Rapid Response Team and its purpose.
[2019-09-17 21:56] VITALS: BP 160/86
[2019-09-17] MEDS: ENOXAPARIN 40 MG/0.4 ML (LOVENOX) SYR SC SCH (22:36)
[2019-09-17] MEDS: NS IV 1000 ML 1,000 ML IV SCH (22:37)
[2019-09-18 00:13] VITALS: BP 146/78
[2019-09-18 04:00] VITALS: BP 147/79
--- NOTE | 2019-09-18 05:12 | NUR ---
Changed Rocephin medication time. First dose given at ED at 09/17 2029. Originally scheduled another dose for 09/16 2129. Changed dose date and time to 09/17 2129.
[2019-09-18 05:23] LABS: BASOPHILS % (AUTO) 0 % (0-10); EOSINOPHILS # (AUTO) 0.1 10^3/uL (0.0-0.3); EOSINOPHILS % (AUTO) 1 % (0-10); HEMATOCRIT 38 % (40-54); HEMOGLOBIN 12.8 G/DL (13.3-17.7); LYMPHOCYTES # (AUTO) 1.6 X 10^3 (1.0-4.0); LYMPHOCYTES % (AUTO) 21 % (12-44); MEAN CORPUSCULAR HEMOGLOBIN 28 PG (25-34); MEAN CORPUSCULAR HGB CONC 34 G/DL (32-36); MEAN CORPUSCULAR VOLUME 84 FL (80-99); MEAN PLATELET VOLUME 11.3 FL (7.4-10.4); MONOCYTES # (AUTO) 0.9 X 10^3 (0.0-1.0); MONOCYTES % (AUTO) 11 % (0-12); NEUTROPHILS # (AUTO) 5.1 X 10^3 (1.8-7.8); NEUTROPHILS % (AUTO) 67 % (42-75); PLATELET COUNT 187 10^3/uL (130-400); WHITE BLOOD COUNT 7.6 10^3/uL (4.3-11.0)
[2019-09-18 05:36] LABS: ALANINE AMINOTRANSFERASE 16 U/L (0-55); ALBUMIN 3.7 GM/DL (3.2-4.5); ALKALINE PHOSPHATASE 80 U/L (40-136); BILIRUBIN,TOTAL 0.7 MG/DL (0.1-1.0); BUN/CREATININE RATIO 26; CALCIUM 8.8 MG/DL (8.5-10.1); CARBON DIOXIDE 22 MMOL/L (21-32); CHLORIDE 105 MMOL/L (98-107); CREATININE SERUM 1.16 MG/DL (0.60-1.30); GFR ESTIMATED > 60; GLUCOSE 156 MG/DL (70-105); POTASSIUM 3.7 MMOL/L (3.6-5.0); SODIUM 139 MMOL/L (135-145); TOTAL PROTEIN 6.4 GM/DL (6.4-8.2)
[2019-09-18] MEDS: inSUlin ASPART (NovoLOG) 1 UNIT/0.01 ML (CHARGE PER UNIT) SC SCH ×4 (06:26→22:36)
[2019-09-18 08:00] VITALS: BP 149/66
[2019-09-18] MEDS: SENNA W/DOCUSATE (SENOKOT S) TABLET PO SCH ×2 (08:22→22:07)
--- NOTE | 2019-09-18 09:29 | Diagnostic Imaging Report ---
CLINICAL HISTORY: Gait instability. COMPARISON: 09/17/2019. TECHNIQUE: 3 views of the cervical spine. FINDINGS: There is no acute fracture or dislocation of the cervical spine. Alignment is anatomic. The vertebral body heights are normal. Views of the dens demonstrate no acute abnormalities. The surrounding soft tissues are unremarkable. IMPRESSION: 1. No acute fracture or dislocation in the cervical spine. Dictated by: Dictated on workstation # [id number]
--- NOTE | 2019-09-18 09:29 | Diagnostic Imaging Report ---
EXAMINATION: Lumbosacral spine 2 or 3 views HISTORY: Gait instability. COMPARISON: None available. FINDINGS: There is no acute fracture or dislocation of the lumbar spine. Alignment is anatomic. The vertebral body heights are well maintained. Mild degenerative changes are present in the lumbar spine. Endplate degenerative changes are present at the L3-L4 level. The included soft tissues are unremarkable. IMPRESSION: 1. No acute fracture or dislocation in the lumbar spine. 2. Mild degenerative changes in the lumbar spine with endplate degenerative changes at the L3-L4 level. Dictated by: Dictated on workstation # [id number]
--- NOTE | 2019-09-18 10:11 | Physical Therapy Evaluation ---
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 6-Fyeerhrtib-szulfas completes the activity by him/herself with no assistance from a helper. 5-Set-up or Clean-up Assistance-helper sets up or cleans up; patient completes activity. [place] assists only prior to or following the activity. 4-Supervision or Touching Assistance-helper provides verbal cues and/or touching/steadying and/or contact guard assistance as patient completes activity. Assistance may be provided throughout the activity or intermittently. 3-Partial/Moderate Assistance-helper does LESS THAN HALF the effort. [place] lifts, holds or supports trunk or limbs, but provides less than half the effort. 2-Substantial/Maximal Assistance-helper does MORE THAN HALF the effort. [place] lifts or holds trunk or limbs and provides more than half the effort. 6-Jokszqsib-admedj does ALL the effort. Patient does none of the effort to complete the activity. Or, the assistance of 2 or more helpers is required for the patient to complete the activity. If activity was not attempted, code reason: 7-Patient Refused. 9-Not Applicable-not attempted and the patient did not perform the activity before the current illness, exacerbation or injury. 10-Not Attempted due to Environmental Limitations-(lack of equipment, weather restraints, etc.). 88-Not Attempted due to Medical Conditions or Safety Concerns. Bed Mobility: 5 Transfers (B,C,W/C): 5 Gait: 5 Indoor Mobility (Ambulation): Independent Stairs: Not Applicalbe Prior Devices Use: None patient reports he does not use a FWW PT Evaluation-Current Subjective Patient agrees to PT. Objective Patient Orientation: Confused Attachments: IV ROM/Strength ROM Lower Extremities bilateral LE WFL Strength Lower Extremities left LE 3+/5 grossly/right LE 4/5 grossly Integumentary/Posture Integumentary refer to nursing notes Bowel Incontinence: No Bladder Incontinence: No Posture WFL Neuromuscular (Tone, Coordination, Reflexes) noted left lean in sit and stand with inability to self correct Sensory Vision: Functional Hearing: Impaired Sensation Right Lower Extremit: Impaired Sensation Left Lower Extremity: Impaired Transfers Roll Left to Right (QC): 5 Sit to Lying (QC): 5 Lying to Sitting/Side of Bed(Q: 5 Sit to Stand (QC): 3 patient requires assistance to maintain upright sitting EOB and in stand due to left lean Gait Does the Patient Walk?: Yes Mode of Locomotion: Walk Anticipated Mode of Locomotion: Walk Walk 10 feet (QC): 2 Walk 50 ft with 2 Turns(QC): 2 Walk 150 ft (QC): 2 Gait Assistive Device: FWW Comments/Gait Description noted left foot inversion with gait and severe left lean with PT correct Balance Sitting Static: Fair Sitting Dynamic: Fair Standing Static: Fair Standing Dynamic: Fair (Fair-) Assessment/Needs 69 y.o. male, will benefit from skilled PT to address functional strength and mobility to return to home or care facility at maximum LOF. Patient is currently not safe to return to home due to severity of left lean and confusion. Rehab Potential: Guarded PT Senior Care Goals Senior Care Goals PT Senior Care Goals Time Frame: October 03, 2019 Roll Left & Right (QC): 5 Sit to Lying (QC): 5 Lying-Sitting on Side/Bed(QC): 5 Sit to Stand (QC): 5 Chair/Ylv-fp-Uzlna Xfer(QC): 5 Toilet Transfer (QC): 5 Walk 10 feet (QC): 5 Walk 50ft with 2 Turns (QC): 5 Walk 150 ft (QC): 5 PT Plan Problem List Problem List: Activity Tolerance, Functional Strength, Safety, Balance, Gait, Transfer Treatment/Plan Treatment Plan: Continue Plan of Care Treatment Plan: Bed Mobility, Education, Functional Activity [place], Functional Strength, Gait, Safety, Therapeutic Exercise, Transfers Treatment Duration: October 03, 2019 Frequency: 6 times per week Estimated Hrs Per Day: .5 hour per day Discharge Recommendations Therapy Discharge Recommendati: Other, See Comments (usp facility) Time/GCodes Time In: 920 Time Out: 930 Total Billed Treatment Time: 10 [facility] Sep 18, 2019 10:11
--- NOTE | 2019-09-18 10:42 | NUR ---
ANNIE/SAE visited with patient for social service consult. The patient was in bed but it appeared that he was attempting to get out of the bed when this ss walked in. He started asking this ss if she found the phone numbers. ANNIE/SS informed him of who this ss was and that he had not met this ss before. He verbalized understanding and was willing to talk with this ss. The patient verbalized that believes he is living with his son and is able to get around well at this time. He reports that he is here in the hospital due to a fall at home. ANNIE/SS discussed with the patient if he uses any devices at home to help him get around. He reports that he is able to get around on his own without a wheelchair or walker; however, he stated his daughter was looking into getting him a walker. The patient reported that he is able to bath and dress himself at this time without any assistance. ANNIE/SS asked the patient if he ever had home health in the past and he stated he did not believe so. ANNIE/SAE is unsure if any of this information is accurate due to reported confusion from the patients nurse. ANNIE/SS asked permission to contact the patients son Zain Sanchez for updates and discharge planning. The patient verbalized "yes". ANNIE/SS attempted to contact Rolando Sanchez ([phone]) but he did not answer. A voice mail was left with contact information. Will continue to follow. Addendum: 09/18/19 at 1539 by [facility] ANNIE/SAE contacted the patients son to inform him that the patient will go to Inpatient Rehab tomorrow morning. He verbalized understanding. ANNIE/SS also called Suhas BARRY in [place] ([phone]) to follow up on a walker per the sons request. ANNIE/SS spoke with Dary who stated Lauren Pratt is the one who wrote the script and she would follow up with her to get additional information and documentation. Dary is calling the son to inform him of this. No other needs.
[2019-09-18] MEDS ORDERED: GADOBUTROL 10 MMOL/10 ML (GADAVIST) VIAL IV ONE (11:00)
--- NOTE | 2019-09-18 11:11 | ED General ---
General Chief Complaint: General Problems/Pain Stated Complaint: UTI, GAIT INSTABILITY Nursing Triage Note: PT TO [facility] 5 WITH COMPLAINT OF LEFT SIDED WEAKNESS. STATES HAS BEEN GOING ON SINCE SATURDAY AFTER BEING DISCHARGED FROM ER. Nursing Sepsis Screen: No Definite Risk Source of Information: Patient, Family Exam Limitations: No Limitations History of Present Illness Date Seen by Provider: Sep 17, 2019 Time Seen by Provider: 17:42 Initial Comments 69-year-old male with history of CVA about 8 years ago who moved here to live with his son about 8 months ago presents to ER 3 days ago for unsteady gait. Workup here was unremarkable he was discharged home. Comes back today by son his caregiver reports of left facial droop and unsteady gait, not improved and maybe a bit worsened since Saturday. Patient has some dementia, doesn't report any complaints.Spoke with son who states pt lives by himself because they dont have room in their house. Reports this was a rather sudden in onset gait instability on Saturday morning Timing/Duration: 2-3 Days Severity: Moderate Associated Systoms: Denies Symptoms Allergies and Home Medications Allergies Coded Allergies: No Known Drug Allergies (Unverified , 09/14/19) Patient Home Medication List Home Medication List Reviewed: Yes Review of Systems Review of Systems Constitutional: see HPI; No chills, No fever; other (not sure of the accuracy of this review of systems given his mild dementia) EENTM: see HPI Respiratory: no symptoms reported Cardiovascular: no symptoms reported Genitourinary: no symptoms reported Musculoskeletal: no symptoms reported Skin: no symptoms reported Psychiatric/Neurological: No Symptoms Reported Hematologic/Lymphatic: No Symptoms Reported Immunological/Allergic: no symptoms reported Past Ptkwiab-Reraiw-Stlkgk Hx Patient Social History Alcohol Use: Denies Use Recreational Drug Use: No Smoking Status: Former Smoker Former Smoker, Quit: Nov 25, 1984 Recent Foreign Travel: No Contact w/Someone Who Travel: No Recent Infectious Disease Expo: No Recent Hopitalizations: No Immunizations Up To Date Tetanus Booster (TDap): Unknown PED Vaccines UTD: Yes Seasonal Allergies Seasonal Allergies: No Past Medical History Surgeries: No Respiratory: No Cardiac: Yes High Cholesterol, Hypertension Neurological: Yes Dementia, Stroke Genitourinary: No Gastrointestinal: No Musculoskeletal: No Endocrine: Yes Diabetes, Non-Insulin dep Psychosocial: No Integumentary: No Blood Disorders: No Physical Exam Vital Signs Vital Signs - First Documented 09/17/19 17:33 Temp 36.5 Pulse 75 Resp 21 B/P (MAP) 168/103 (124) Pulse Ox 98 O2 Delivery Room Air Capillary Refill : Less Than 3 Seconds Height, Weight, BMI Height: '" Weight: lbs. oz. kg; 25.93 BMI Method: General Appearance: No Apparent Distress, WD/WN, Other (there is no nystagmus. There is no upper extremities ataxia with a normal finger to nose test. However upon standing, he stands up with plenty of enthusiasm out of the wheelchair but upon standing nearly falls over and is unable to transfer to the bed without standby assistance steadying him.) Eyes: Bilateral Eye Normal Inspection, Bilateral Eye PERRL, Bilateral Eye EOMI HEENT: PERRL/EOMI, Normal ENT Inspection Neck: Full Range of Motion, Normal Inspection Respiratory: Normal Breath Sounds, No Accessory Muscle Use Cardiovascular: Regular Rate, Rhythm, Normal Peripheral Pulses Gastrointestinal: Normal Bowel Sounds, Non Tender, Soft Extremity: Normal Capillary Refill, Normal Inspection Neurologic/Psychiatric: Alert, Other (nose the month is August, believes the year is 2004.) Skin: Normal Color, Warm/Dry, Other (minor ecchymosis superior aspect gluteal cleft and minor ecchymosis left posterior thorax.) Focused Exam Lactate Level 09/17/19 20:54: Lactic Acid Level 1.38 Procedures/Interventions Discussed Risk,Benefits: Yes Patient Consents: Yes Position: Lying, L4-5 Sterile Technique: Yes Opening Pressure: 8cmh20 Fluid Color: clear bloody traumatic tap-clearing of blood between first and fourth tubes Progress/Results/Core Measures Suspected Sepsis Recent Fever Within 48 Hours: No Infection Criteria Present: Documented Infection New/Unexplained Altered Menta: No Sepsis Screen: No Definite Risk SIRS Temperature: Pulse: 64 Respiratory Rate: 16 Laboratory Tests 09/17/19 18:15: White Blood Count 9.7 09/18/19 04:57: White Blood Count 7.6 Blood Pressure 149 /66 Mean: 93 09/17/19 20:54: Lactic Acid Level 1.38 Laboratory Tests 09/17/19 18:15: Creatinine 1.26, INR Comment 0.9, Platelet Count 202, Total Bilirubin 0.9 09/18/19 04:57: Creatinine 1.16, Platelet Count 187, Total Bilirubin 0.7 Results/Orders Lab Results Laboratory Tests Test 09/17/19 18:15 09/17/19 19:39 09/17/19 20:16 09/17/19 20:54 Range/Units White Blood Count 9.7 4.3-11.0 10^3/uL Red Blood Count 4.77 4.35-5.85 10^6/uL Hemoglobin 13.7 13.3-17.7 G/DL Hematocrit 40 40-54 % Mean Corpuscular Volume 83 80-99 FL Mean Corpuscular Hemoglobin 29 25-34 PG Mean Corpuscular Hemoglobin Concent 35 32-36 G/DL Red Cell Distribution Width 14.0 10.0-14.5 % Platelet Count 202 130-400 10^3/uL Mean Platelet Volume 11.1 H 7.4-10.4 FL Neutrophils (%) (Auto) 79 H 42-75 % Lymphocytes (%) (Auto) 12 12-44 % Monocytes (%) (Auto) 9 0-12 % Eosinophils (%) (Auto) 0 0-10 % Basophils (%) (Auto) 0 0-10 % Neutrophils # (Auto) 7.7 1.8-7.8 X 10^3 Lymphocytes # (Auto) 1.1 1.0-4.0 X 10^3 Monocytes # (Auto) 0.9 0.0-1.0 X 10^3 Eosinophils # (Auto) 0.0 0.0-0.3 10^3/uL Basophils # (Auto) 0.0 0.0-0.1 10^3/uL Prothrombin Time 12.3 12.2-14.7 SEC INR Comment 0.9 0.8-1.4 Sodium Level 138 135-145 MMOL/L Potassium Level 4.1 3.6-5.0 MMOL/L Chloride Level 106 98-107 MMOL/L Carbon Dioxide Level 21 21-32 MMOL/L Anion Gap 11 5-14 MMOL/L Blood Urea Nitrogen 33 H 7-18 MG/DL Creatinine 1.26 0.60-1.30 MG/DL Estimat Glomerular Filtration Rate 57 BUN/Creatinine Ratio 26 Glucose Level 176 H 70-105 MG/DL Calcium Level 9.2 8.5-10.1 MG/DL Corrected Calcium 9.2 8.5-10.1 MG/DL Total Bilirubin 0.9 0.1-1.0 MG/DL Aspartate Amino Transf (AST/SGOT) 20 5-34 U/L Alanine Aminotransferase (ALT/SGPT) 19 0-55 U/L Alkaline Phosphatase 90 40-136 U/L Total Protein 7.1 6.4-8.2 GM/DL Albumin 4.0 3.2-4.5 GM/DL Serum Alcohol < 10 <10 MG/DL Urine Color YELLOW Urine Clarity CLEAR Urine pH 5.0 5-9 Urine Specific [place] 1.015 L 1.016-1.022 Urine Protein 1+ H NEGATIVE Urine Glucose (UA) NEGATIVE NEGATIVE Urine Ketones TRACE H NEGATIVE Urine Nitrite POSITIVE H NEGATIVE Urine Bilirubin NEGATIVE NEGATIVE Urine Urobilinogen 0.2 < = 1.0 MG/DL Urine Leukocyte Esterase TRACE H NEGATIVE Urine RBC (Auto) TRACE-I NEGATIVE Urine RBC NONE /HPF Urine WBC 50-100 H /HPF Urine Renal Epithelial Cells 5-10 /HPF Urine Crystals NONE /LPF Urine Bacteria MODERATE H /HPF Urine Casts PRESENT /LPF Urine Hyaline Casts RARE /LPF Urine Mucus NEGATIVE /LPF Urine Culture Indicated YES Urine Opiates Screen NEGATIVE NEGATIVE Urine Oxycodone Screen NEGATIVE NEGATIVE Urine Methadone Screen NEGATIVE NEGATIVE Urine Propoxyphene Screen NEGATIVE NEGATIVE Urine Barbiturates Screen NEGATIVE NEGATIVE Ur Tricyclic Antidepressants Screen NEGATIVE NEGATIVE Urine Phencyclidine Screen NEGATIVE NEGATIVE Urine Amphetamines Screen NEGATIVE NEGATIVE Urine Methamphetamines Screen NEGATIVE NEGATIVE Urine Benzodiazepines Screen NEGATIVE NEGATIVE Urine Cocaine Screen NEGATIVE NEGATIVE Urine Cannabinoids Screen NEGATIVE NEGATIVE CSF Tube Number 4 CSF Appearance CLEAR CSF Color PINK CSF WBC 6 H 0-5 CELLS CSF RBC 4850 H 0-0 CELLS CSF Lymphocytes 32 % CSF Mononuclear WBCs 25 % CSF Polynuclear WBCs 9 % CSF Glucose 94 H 50-80 MG/DL CSF Total Protein 40 15-40 MG/DL Lactic Acid Level 1.38 0.50-2.00 MMOL/L Test 09/18/19 04:57 09/18/19 05:30 Range/Units White Blood Count 7.6 4.3-11.0 10^3/uL Red Blood Count 4.51 4.35-5.85 10^6/uL Hemoglobin 12.8 L 13.3-17.7 G/DL Hematocrit 38 L 40-54 % Mean Corpuscular Volume 84 80-99 FL Mean Corpuscular Hemoglobin 28 25-34 PG Mean Corpuscular Hemoglobin Concent 34 32-36 G/DL Red Cell Distribution Width 14.0 10.0-14.5 % Platelet Count 187 130-400 10^3/uL Mean Platelet Volume 11.3 H 7.4-10.4 FL Neutrophils (%) (Auto) 67 42-75 % Lymphocytes (%) (Auto) 21 12-44 % Monocytes (%) (Auto) 11 0-12 % Eosinophils (%) (Auto) 1 0-10 % Basophils (%) (Auto) 0 0-10 % Neutrophils # (Auto) 5.1 1.8-7.8 X 10^3 Lymphocytes # (Auto) 1.6 1.0-4.0 X 10^3 Monocytes # (Auto) 0.9 0.0-1.0 X 10^3 Eosinophils # (Auto) 0.1 0.0-0.3 10^3/uL Basophils # (Auto) 0.0 0.0-0.1 10^3/uL Sodium Level 139 135-145 MMOL/L Potassium Level 3.7 3.6-5.0 MMOL/L Chloride Level 105 98-107 MMOL/L Carbon Dioxide Level 22 21-32 MMOL/L Anion Gap 12 5-14 MMOL/L Blood Urea Nitrogen 30 H 7-18 MG/DL Creatinine 1.16 0.60-1.30 MG/DL Estimat Glomerular Filtration Rate > 60 BUN/Creatinine Ratio 26 Glucose Level 156 H 70-105 MG/DL Calcium Level 8.8 8.5-10.1 MG/DL Corrected Calcium 9.0 8.5-10.1 MG/DL Total Bilirubin 0.7 0.1-1.0 MG/DL Aspartate Amino Transf (AST/SGOT) 17 5-34 U/L Alanine Aminotransferase (ALT/SGPT) 16 0-55 U/L Alkaline Phosphatase 80 40-136 U/L Total Protein 6.4 6.4-8.2 GM/DL Albumin 3.7 3.2-4.5 GM/DL Glucometer 157 H 70-110 MG/DL Micro Results Microbiology 09/17/19 Gram Stain - Final, Resulted 09/17/19 CSF Culture - Preliminary, Resulted No growth My Orders Orders - MACY ORONA ADMINISTRATION ASSISTANT Cbc With Automated Diff (09/17/19 17:32) Comprehensive Metabolic Panel (09/17/19 17:32) Protime With Inr (09/17/19 17:32) Alcohol (09/17/19 17:32) Ua Culture If Indicated (09/17/19 17:32) Drug Screen Stat (Urine) (09/17/19 17:32) Ekg Tracing (09/17/19 17:32) Ct Angio Head/Neck (09/17/19 17:41) Iohexol Injection (Omnipaque 350 Mg/Ml 1 (09/17/19 18:15) Received Contrast (Hold Metformin- Contr (09/17/19 18:15) Sodium Chloride Flush (Catheter Flush Sy (09/17/19 18:15) Ns (Ivpb) (Sodium Chloride 0.9% Ivpb Bag (09/17/19 18:15) Csf Cell Count (09/17/19 19:32) Csf Glucose (09/17/19 19:32) Csf Total Protein (09/17/19 19:32) Csf Culture (09/17/19 19:32) Multiple Sclerosis Panel (09/17/19 19:32) Oligoclonal Bands Csf (09/17/19 19:32) Clonidine Tablet (Catapres Tablet) (09/17/19 19:45) Urine Culture (09/17/19 19:39) Ceftriaxone For Iv Use (Rocephin For I (09/17/19 20:30) Blood Culture (09/17/19 20:49) Lactic Acid Analyzer (09/17/19 20:49) Vital Signs/I&O 09/18/19 09/18/19 09/18/19 09/18/19 00:13 01:00 04:00 06:37 Temp 37.3 37.0 Pulse 75 72 64 61 Resp 22 20 B/P (MAP) 146/78 (100) 147/79 (101) Pulse Ox 94 96 O2 Delivery Room Air Room Air 09/18/19 09/18/19 08:00 08:00 Temp 36.6 Pulse 64 Resp 16 B/P (MAP) 149/66 (93) Pulse Ox 96 96 O2 Delivery Room Air Room Air Capillary Refill : Less Than 3 Seconds Blood Pressure Mean: 93 Point of Care Testing Finger Stick Blood Glucose: 157 Blood Glucose Action Taken: RN Notified Diagnostic Imaging Diagonstic Imaging: CT Time of Consult: 20:23 Departure Communication (Admissions) Family Conversation Spoke with Dr. Tomlin, will admit, she would like MRI ordered for the morning, physical therapy consult, lumbar puncture. Lumbar puncture was done with Dr. Little at the bedside. We obtained telephone consent from the patient's son Rolando by myself and RN Yadira, discussed with him the risks of bleeding infection and post dural puncture headache. He agrees to proceed. There is questionable at best left facial droop, when asked to smile is not noticeable at all. His NIH score is 3, that's 1 point for level of consciousness questions. He gets 1 point for motor function of the leg. There is minor drift of the right leg when holding and off the bed, the left leg is normal. Gets 1 point for mild to moderate aphasia when he describes what is happening in the picture. Impression Primary Impression: Gait instability Additional Impressions: Urinary tract infection Dementia Disposition: ADMITTED INPATIENT Condition: Stable Admissions Decision to Admit Reason: Admit from ER (General) Decision to Admit/Date: Sep 17, 2019 Time/Decision to Admit Time: 19:39 Departure-Patient Inst. Referrals: BELINDA WILSON (PCP) Primary Care Physician MACY ORONA APRN Sep 18, 2019 11:11
[2019-09-18] MEDS: NS IV 1000 ML 1,000 ML IV SCH (11:28)
--- NOTE | 2019-09-18 11:32 | Diagnostic Imaging Report ---
PROCEDURE: MR imaging of the brain with and without contrast. TECHNIQUE: Multiplanar, multisequence MR imaging of the brain was performed with and without contrast. INDICATION: Gait instability. COMPARISON: No prior MRI brain studies available for comparison. Comparison is made with recent head CT performed one day earlier. Diffusion weighted images demonstrate several small foci of diffusion restriction consistent with acute infarcts. There is a small focus of diffusion restriction in the right para midline brainstem. Two tiny foci adjacent to one another in the left parietal subcortical white matter are noted consistent with small infarcts. There is a tiny focus of diffusion restriction in the splenium of the corpus callosum in the right para midline location. No acute intra-axial or extra-axial hemorrhage is identified. The normal expected flow-voids within the carotid siphons are seen. There are extensive periventricular and subcortical white matter changes consistent with chronic microvascular ischemia. Postcontrast images demonstrate a small ill-defined region of enhancement in the left thalamus. There is also minimal enhancement in the right benitez radiata adjacent to the caudate head. This most likely represents enhancement within subacute infarcts. No other abnormality is seen. IMPRESSION: Findings consistent with acute and subacute infarcts, as described. Follow-up MRI brain with and without contrast in 3-4 months to confirm clearing/stability is recommended. Extensive chronic white matter changes are noted. No acute intracranial hemorrhage is detected. Dictated by: Dictated on workstation # [id number]
--- NOTE | 2019-09-18 11:47 | NUR ---
SPOKE WITH THE PT, WENT THRU THE EXT MED HISTORY,AND SPOKE WITH [facility] TO COMPLETE THE MED REC THE PT WAS NOT ABLE TO TELL ME HIS MEDICATIONS OR EVEN WHERE HE GETS THEM (EXT MED HISTORY SHOWS [facility]) BUT SAID I SHOULD CALL HIS SON HE COULD TELL ME THE INFORMATION. I TRIED TO CALL HIS SON FARZAD AND HAD TO LEAVE A MESSAGE. I SPOKE WITH THE NURSE AT [facility] AND SHE FAXED ME A CURRENT MED LIST (I ATTACHED A COPY TO HIS CHART) ALL THE MEDICATIONS MATCHED THE EXT MED HISTORY. I COMPLETED THE MED REC TO THE BEST OF MY ABILITY USING THIS INFORMATION Addendum: 09/18/19 at 1326 by NGA SHUKLA [facility] THE PATIENTS SON DID CALL ME BACK AND LET ME KNOW THAT THE PT TAKES ASPIRIN 81MG DAILY AND WE WENT THRU THE EXT MED HISTORY AND ALL WAS CORRECT.
--- NOTE | 2019-09-18 11:48 | History & Physical-Hospitalist ---
History of Present Illness HPI/Chief Complaint CC: Instability with AMS HPI: This is a 69yoWM who recently moved here to live with his son for additional support who presented to the ER the day after he was seen for instability and given a walker when all w/u was negative. Patient could not walk so he met criteria for admit so an LP was performed at my request to complete w/u and he was admitted and placed on Rocephin for UTI and MRI obtained revealed acute on chronic cortical strokes so stroke protocol was initiated and will be assessed for IRF admit. Patient slightly confused so I attempted to maryanne his son twice but no answer. Patient will start home meds and will be monitored closely after seen by therapies. Source: RN/MD, old records Exam Limitations: clinical condition Date Seen 09/18/19 Time Seen by a Provider: 10:00 Attending Physician Nelda Tomlin David M Pa Referring Physician Date of Admission Sep 17, 2019 at 20:22 Home Medications & Allergies Home Medications Reviewed patient Home Medication Reconciliation performed by pharmacy medication reconciliations centrifugal chiller technician and/or nursing. Patients Allergies have been reviewed. Allergies Allergies Coded Allergies No Known Drug Allergies (Unverified09/14/19) Past Kmqgpzf-Ymivze-Sszgli Hx Past Med/Social Hx: Reviewed Nursing Past Med/Soc Hx, Reviewed and Corrections made Patient Social History Marrital Status: single Employed/Student: retired Alcohol Use: Denies Use Recreational Drug Use: No Smoking Status: Former Smoker Former Smoker, Quit: Nov 25, 1984 Recent Foreign Travel: No Contact w/other who traveled: No Recent Hopitalizations: No Recent Infectious Disease Expo: No Immunizations Up To Date Tetanus Booster (TDap): Unknown Pediatric: Yes Seasonal Allergies Seasonal Allergies: No Past Medical History Cardiac: High Cholesterol, Hypertension Neurological: Dementia, Stroke Endocrine: Diabetes, Non-Insulin dep History of Blood Disorders: No Review of Systems Constitutional: see HPI, dizziness, malaise, weakness Psychiatric/Neurological: Anxiety, Numbness, Tingling, Tremors, Weakness Physical Exam Physical Exam Vital Signs Vital Signs - First Documented 09/17/19 17:33 Temp 36.5 Pulse 75 Resp 21 B/P (MAP) 168/103 (124) Pulse Ox 98 O2 Delivery Room Air Capillary Refill : Less Than 3 Seconds Height, Weight, BMI Height: '" Weight: lbs. oz. kg; 25.93 BMI Method: General Appearance: No Apparent Distress, WD/WN, Chronically ill Eyes: Right Eye Normal Inspection, Right Eye PERRL HEENT: PERRL/EOMI, Normal ENT Inspection, Pharynx Normal, Moist Mucous Membranes Neck: Full Range of Motion, Normal Inspection, Non Tender Respiratory: Chest Non Tender, Lungs Clear, Normal Breath Sounds, No Accessory Muscle Use, No Respiratory Distress Cardiovascular: Regular Rate, Rhythm, No Edema, No Gallop, No JVD, No Murmur, Normal Peripheral Pulses Gastrointestinal: Normal Bowel Sounds, No Organomegaly, No Pulsatile Mass, Non Tender, Soft Back: Normal Inspection, No CVA Tenderness, No Vertebral Tenderness Extremity: Normal Capillary Refill, Normal Inspection, Normal Range of Motion, Non Tender, No Calf Tenderness, No Pedal Edema Neurologic/Psychiatric: Alert, Oriented x3, Normal Mood/Affect, Abnormal Gait, Motor Weakness (generalized all extremities) Skin: Normal Color, Warm/Dry Lymphatic: No Adenopathy Results Results/Procedures Labs Laboratory Tests 09/17/19 18:15 09/18/19 04:57 Patient resulted labs reviewed. Assessment/Plan Admission Diagnosis Assessment: Acute and subacute strokes on MRI with negative CT scan Instability unable to walk in previous independent patient Dementia DM HTN HLP Plan: CVA protocol Rehab tomorrow Admission Status: Inpatient Order (span 2 midnights) Reason for Inpatient Admission: CVA Diagnosis/Problems Diagnosis/Problems (1) CVA (cerebrovascular accident) (2) Diabetes (3) Hyperlipemia (4) Risk for falls (5) Gait instability Status: Acute (6) Urinary tract infection Status: Acute (7) Dementia Status: Acute Clinical Quality Measures DVT/VTE Risk/Contraindication: Risk Factor Score Per Nursin RFS Level Per Nursing on Admit: 4+=Very High NELDA TOMLIN DO Sep 18, 2019 11:48
--- NOTE | 2019-09-18 11:58 | Occupational Therapy Eval ---
OT Evaluation-General/PLF Medical Diagnosis Admission Date Sep 17, 2019 at 20:22 Medical Diagnosis: UIT/gait instability Onset Date: Sep 17, 2019 Therapy Diagnosis Therapy Diagnosis: decreased self care skills Precautions Precautions/Isolations: Fall Prevention Safety Interventions: Bed Exit Alarm Referral Physician: Nabor Medical History Pertinent Medical History: CVA (10 years old), DM, Dementia, HTN Reviewed History: Yes Social History Home: Single Level (son reports patient lives independently?) ADL-Prior Level of Function SCALE: Activities may be completed with or without assistive devices. 7-Tljnfwfccu-eylqukr completes the activity by him/herself with no assistance from a helper. 5-Set-up or Clean-up Assistance-helper sets up or cleans up; patient completes activity. [place] assists only prior to or following the activity. 4-Supervision or Touching Assistance-helper provides verbal cues and/or touching/steadying and/or contact guard assistance as patient completes activity. Assistance may be provided throughout the activity or intermittently. 3-Partial/Moderate Assistance-helper does LESS THAN HALF the effort. [place] lifts, holds or supports trunk or limbs, but provides less than half the effort. 2-Substantial/Maximal Assistance-helper does MORE THAN HALF the effort. [place] lifts or holds trunk or limbs and provides more than half the effort. 1-Ocwskcwfd-nhzjfa does ALL the effort. Patient does none of the effort to complete the activity. Or, the assistance of 2 or more helpers is required for the patient to complete the activity. If activity was not attempted, code reason: 7-Patient Refused. 9-Not Applicable-not attempted and the patient did not perform the activity before the current illness, exacerbation or injury. 10-Not Attempted due to Environmental Limitations-(lack of equipment, weather restraints, etc.). 88-Not Attempted due to Medical Conditions or Safety Concerns. ADL PLOF Comments Pt reports being independent with basic self care. States he does not drive and has assist with shopping. Self Care: Independent DME/Equipment: Shower Drive Self: No OT Current Status Subjective Pt in bed, agrees to therapy. Pt has no reports of pain. Mental Status/Objective Patient Orientation: Person, Confused (oriented to person only. States he is in [place] and it is 1994.) Attachments: IV Current Glasses/Contacts: Yes Hand Dominance: Right Upper Extremity ROM grossly WFL Upper Extremity Coordination Decreased ADL-Treatment ADL-Current Pt supine to sit with SBA and increased time using bed rail. Pt sat EOB during UE assessment. Pt leans to left in sitting and requires occasional assistance to correct. Pt attempted to don sock, but has impaired balance and unable to complete task without assist. Sit to stand with min assist. Pt leans to left in standing. Able to take sidesteps to HOB with FWW and assist to maintain balance. Sit to supine with SBA. Pt resting in bed with needs met after session. Education OT Patient Education: Rehab process Teaching Methods: Discussion Response to Teaching: Reinforcement Needed OT Climatologist Goals [facility] Goals Time Frame: October 02, 2019 Eating (QC): 6 Oral Hygiene (QC): 6 Toileting Hygiene (QC): 5 Upper Body Dressing (QC): 5 Lower Body Dressing (QC): 5 Additional Goals: 2-Verbalize Understanding, 3-ImproveStrength/[place] 1=Demonstrate adherence to instructed precautions during ADL tasks. 2=Patient will verbalize/demonstrate understanding of assistive devices/modifications for ADL. 3=Patient will improve strength/tolerance for activity to enable patient to perform ADL's. OT Education/Plan Problem List/Assessment Assessment: Decreased Activ Tolerance, Decreased Safety Aware, Decreased UE Strength, Dependent Transfers, Impaired Funct Balance, Impaired I ADL's, Impaired Self-Care Skills Pt demonstrates decreased strength, ADL functioning, balance, mobility, and activity tolerance. Pt to benefit from skilled OT intervention for ADL training, transfers, strengthening, and safety education to increase level of independence and allow safe discharge Discharge Recommendations Plan/Recommendations: Continue POC Treatment Plan/Plan of Care Treatment,Training & Education: Yes Patient would benefit from OT for education, treatment and training to promote independence in ADL's, mobility, safety and/or upper extremity function for ADL's. Plan of Care: ADL Retraining, Functional Mobility, UE Funct Exercise/Act Treatment Duration: October 02, 2019 Frequency: 5 times per week Estimated Hrs Per Day: .25 hour per day Rehab Potential: Fair Time/GCodes Start Time: 11:25 Stop Time: 11:41 Total Time Billed (hr/min): 16 Billed Treatment Time 1 visit, EVM(16minutes) GARRY CLARK OT Sep 18, 2019 11:58
[2019-09-18 12:00] VITALS: BP 142/73
[2019-09-18 12:24] LABS: HDL CHOLESTEROL 31 MG/DL (40-60)
[2019-09-18 12:27] LABS: TRIGLYCERIDES 158 MG/DL (<150); VLDL CHOLESTEROL 32 MG/DL (5-40)
[2019-09-18 12:32] LABS: CHOLESTEROL 113 MG/DL (< 200)
[2019-09-18] MEDS: busPIRone 10 MG (BUSPAR) TAB PO SCH ×2 (12:42→22:07)
[2019-09-18] MEDS: ASPIRIN E.C. 81 MG (ECOTRIN) TAB PO SCH (12:42)
--- NOTE | 2019-09-18 13:14 | NUR ---
"RD ASSESSMENT PMHx: CVA; dementia; hypercholesterolemia; HTN; DM PT INTERACTION: Pt was awake and pleasant during consult for MST score. Note pt has PMH of dementia, per chart review. Pt states current appetite is alright, and has been this way for some time. Note PO intake of 75% x1meal, per chart review. Pt states following a regular diet at home, and has no issues with chewing/swallowing food. Pt states no recent issues with nausea, vomiting, constipation, or diarrhea at this time, and that his last BM was 09/16. Note pt currently on bowel regimen of Senna BID, per chart review. Pt states unsure of recent wt changes. Note unable to determine recent wt hx, per chart review. Pt states current DM management is pretty good. Note unable to determine recent HbA1c, per chart review. ABNORMAL NUTRITION-RELATED LAB VALUES LOW: HIGH: BUN 30; glu 156 Est. kcal needs: 3753-3217 kcal | 25-30 kcal/kg Est. Pro needs: 67-84 g Pro | 0.8-1.0 g Pro/kg PES STATEMENT: Given current PO intake, no nutrition diagnosis at this time (NO-1.1) INTERVENTION: Continue with current diet order of CHO 45g/m 3snack diet. Discontinue current supplementation order of Ensure Enlive with meals, as pt's PO intake is 75%. Offered DM education and pt declined at this time. Will attempt to offer again prior to discharge. Will continue to follow and reassess as pt needs, intake, and status change. MONITOR/EVALUATE: PO Intake; Plan of Care; Hydration Status; Weight Status; Lab Values Lenore Bentley, MS, RD, LD"
[2019-09-18] MEDS ORDERED: ASPI-983 PO (13:24)
--- NOTE | 2019-09-18 13:34 | Consultation-Cardiology ---
HPI-Cardiology Cardiology Consultation: Date of Consultation 09/18/19 Date of Admission Attending Physician Nelda Duggan DO Admitting Physician Marshal Messer Consulting Physician Jaiden VELIZ MD HPI: Time Seen by a Provider: 12:00 Chief Complaint: Stroke 69-year-old gentleman with previous history of CVA 8 years ago, patient also has history of diabetes, hypertension and hyperlipidemia. He presented to the ER with unsteady gait previously use to walk on his own. Also his son gives a history of left facial droop and unsteady gait not improving, actually getting worse. Mild dementia. Patient lives on his own independently. Patient denied any cardiac symptoms including syncope, near-syncope, chest pain, shortness of breath. Denied active smoking. No pertinent family history. Review of Systems-Cardiology Review of Systems Constitutional: As described under HPI; No As described under HPI, No no symptoms reported, No chills, No fever, No lightheadedness Eyes: No As described under HPI, No no symptoms reported, No blindness, No blurred vision, No contact lenses, No drainage, No decreased acuity, No foreign body sensation, No pain, No vision change Ears/Nose/Throat: No As described under HPI, No no symptoms reported, No chronic hearing loss, No ear discharge, No ear pain, No nasal drainage, No ulcerations Respiratory: No no symptoms reported; As described under HPI; No As described under HPI, No cough, No orthopnea, No shortness of breath, No SOB with excertion Cardiovascular: No no symptoms reported; As described under HPI; No As described under HPI, No chest pain, No edema, No irregular heart rate, No lightheadedness, No palpitations Gastrointestinal: No no symptoms reported, No As described under HPI, No abdomen distended, No abdominal pain, No blood streaked bowels, No constipation, No diarrhea, No nausea, No vomiting, No stool coloration changes Genitourinary: No As described under HPI, No burning, No dysuria, No discharge, No frequency, No flank pain, No hematuria, No urgency Skin: No rash, No skin related problems, No ulcerations Psychiatric/Neurological: As described under HPI; No anxiety, No depression, No seizure, No focal weakness, No syncope Hematologic: No bleeding abnormalities GAD-Duksjf-Vxctfw Hx Patient Social History Alcohol Use: Denies Use Recreational Drug Use: No Smoking Status: Former Smoker Recent Foreign Travel: No Recent Infectious Disease Expo: No Hospitalization with Isolation: Denies Immunizations Up To Date Tetanus Booster (TDap): Unknown Past Medical History PMH As described under Assessment. Allergies and Home Medications Allergies Coded Allergies: No Known Drug Allergies (Unverified , 09/14/19) Home Medications Aspirin 81 Mg Tablet.dr, 81 MG PO DAILY, (Reported) Atorvastatin Calcium 80 Mg Tablet, 80 MG PO HS Prescribed by: NELDA DUGGAN on 09/18/19 1351 Buspirone HCl 10 Mg Tablet, 10 MG PO TID, (Reported) Clonidine HCl 0.1 Mg Tablet, 0.1 MG PO Q4HR PRN for SBP>160 Prescribed by: NELDA DUGGAN on 09/18/19 135 Enoxaparin Sodium 40 Mg/0.4 Ml Syringe, 40 MG SC Q24H Prescribed by: NELDA DUGGAN on 09/18/19 1351 Escitalopram Oxalate 20 Mg Tablet, 20 MG PO DAILY, (Reported) Glipizide 10 Mg Tab.er.24, 10 MG PO DAILY W/ BREAKFAST, (Reported) Metformin HCl 500 Mg Tab.er.24h, 1,000 MG PO BID, (Reported) TAKES 2 (500MG) TABS TWICE DAILY Patient Home Medication List Home Medication List Reviewed: Yes Physical Exam-Cardiology Physical Exam Vital Signs/I&O 09/19/19 09/19/19 09/19/19 09/19/19 04:59 06:46 08:00 08:00 Temp 36.6 36.6 Pulse 60 70 64 Resp 19 20 B/P (MAP) 144/73 (96) 154/70 (98) Pulse Ox 96 97 96 O2 Delivery Room Air Room Air Room Air 09/19/19 10:05 Temp 36.6 Pulse 64 Resp 20 B/P (MAP) 154/70 Pulse Ox 96 O2 Delivery Room Air 09/19/19 00:00 Intake Total 400 ml Output Total 325 ml Balance 75 ml Capillary Refill : Less Than 3 Seconds Constitutional: appears stated age, AAO x 3; No apparent distress; well- developed, well-nourished HEENT: PERRL; No discharge; hearing is well preserved, oral hygience is good; No ulceration, No xanthelasmas are seen Neck: No carotid bruit; carotid pulses are 2 + bilaterally Respiratory: chest is bilaterally symmetric, lungs clear to auscultation Cardiovascular: regular rate-rhythm, S1 and S2 Gastrointestinal: soft, audible bowel sounds; No spleenomegaly Rectal: deferred Extremities: normal range of motion, non-tender, normal inspection; No clubbing, No cyanosis; no lower extremity edema bilateral; No significant edema Neurologic/Psychiatric: alert, normal mood/affect, power is 5/5 both on sides Skin: No rash, No ulcerations Data Review Labs Laboratory Tests 09/18/19 15:43: Glucometer 203H 09/18/19 20:35: Glucometer 208H 09/19/19 06:43: Glucometer 133H Microbiology 09/17/19 Blood Culture - Preliminary, Resulted No growth 09/17/19 Gram Stain - Final, Resulted 09/17/19 CSF Culture - Preliminary, Resulted No growth 09/17/19 Urine Culture - Final, Complete 3 or more isolates ECG Impression ECG Initial ECG Rhythm: Normal Sinus, PVC A/P-Cardiology Assessment/Admission Diagnosis Acute stroke, Mild dementia, Diabetes, Hyperlipidemia, PVCs Plan Acute stroke, 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 Telemetry for 48 hours for atrial fibrillation. Echocardiogram to rule out intracardiac shunting. No carotid atherosclerotic disease noted. If telemetry for 48 hours is negative for atrial fibrillation, this patient will be considered as cryptogenic stroke and long-term surveillance of atrial fibrillation will be recommended. I spoke to the patient about implantable loop recorder he understood what I was talking about. He asked appropriate questions. Informed consent was taken. Mild dementia, deferred to the primary team. Diabetes, was on metformin. Hyperlipidemia, atorvastatin. PVCs, will follow clinically. Thank you for your consultation. Please call me if you have any questions. Sulma Veliz MD, FACP, FACC, FSCAI, FHRS, CCDS Interventional Cardiology Cardiac Electrophysiology Vascular Medicine and Endovascular Interventions Clinical Quality Measures DVT/VTE Risk/Contraindication: Risk Factor Score Per Nursin RFS Level Per Nursing on Admit: 4+=Very High Jaiden VELIZ MD Sep 18, 2019 13:34
[2019-09-18] MEDS ORDERED: ATOR80TA76 PO (13:51)
[2019-09-18] MEDS ORDERED: ENOX40DI8 SC (13:51)
[2019-09-18] MEDS ORDERED: CLON0.1T PO (13:51)
[2019-09-18 16:00] VITALS: BP 138/69
[2019-09-18 19:28] VITALS: BP 159/80
[2019-09-18] MEDS ORDERED: cefTRIAXone FOR IV USE 1,000 MG in WATER (STERILE) FOR INJECTION 10 ML IV SCH (21:30)
[2019-09-19 00:05] VITALS: BP 153/70
[2019-09-19] MEDS: metFORMIN XR 500 MG (GLUCOPHAGE XR) TAB PO SCH ×2 (00:13→08:27)
[2019-09-19] MEDS: inSUlin ASPART (NovoLOG) 1 UNIT/0.01 ML (CHARGE PER UNIT) SC SCH ×2 (00:21→06:44)
[2019-09-19] MEDS: ENOXAPARIN 40 MG/0.4 ML (LOVENOX) SYR SC SCH (00:22)
[2019-09-19 04:59] VITALS: BP 144/73
[2019-09-19 08:00] VITALS: BP 154/70
[2019-09-19] MEDS ORDERED: glipiZIDE XL 10 MG (GLUCOTROL XL) TAB PO SCH (08:00)
[2019-09-19] MEDS: SENNA W/DOCUSATE (SENOKOT S) TABLET PO SCH (08:27)
[2019-09-19] MEDS: ASPIRIN E.C. 81 MG (ECOTRIN) TAB PO SCH (08:27)
[2019-09-19] MEDS: busPIRone 10 MG (BUSPAR) TAB PO SCH (08:28)
[2019-09-19 10:05] VITALS: BP 154/70
--- NOTE | 2019-09-19 10:05 | NUR ---
REPORT GIVEN TO JUAN STARR
== END 2019-09-19 10:15 | DRG 65 ==
LOC: EDUNIT# 17:29 → ER 17:30 → 4TH 20:22
PROVIDERS: ADMIT Internal Medicine; ATTEND Internal Medicine
PROC: 009U3ZX Drainage of Spinal Canal, Percutaneous Approach, Diagnostic (ICD-10-PCS; principal; 2019-09-17)
DX: I63.9 Cerebral infarction, unspecified (principal); R26.0 Ataxic gait; R29.810 Facial weakness; R47.01 Aphasia; N39.0 Urinary tract infection, site not specified; F03.90 Unspecified dementia, unspecified severity, without behavioral disturbance, psychotic disturbance, mood disturbance, and anxiety; R29.703 NIHSS score 3; I10 Essential (primary) hypertension; E11.9 Type 2 diabetes mellitus without complications; E78.5 Hyperlipidemia, unspecified; Z86.73 Personal history of transient ischemic attack (TIA), and cerebral infarction without residual deficits; I49.3 Ventricular premature depolarization; Z87.891 Personal history of nicotine dependence
CPT/HCPCS: 36415; 70496; 70498; 70553; 72040; 72100; 80053; 80061; 80306; 80320; 81000; 82040; 82042; 82784; 82945; 82962; 83605; 83873; 83916; 84157; 85025; 85610; 87040; 87070; 87088; 87205; 89051; 93005; 93306

== ENCOUNTER 2019-09-19 10:20 | Inpatient (IN) | payer MEDICARE ==
[~2019-09-19] VITALS: Ht 180.3 cm; Wt 87.0 kg
[~2019-09-19 10:20] MED LIST changes: +ACETAMINOPHEN 500 MG TAB (TYLENOL) PO PRN; +ALPRAZolam 0.25 MG (XANAX) TAB PO PRN; +ASPI-983 PO; +ATOR80TA76 PO; +BISACODYL 10 MG SUPP (DULCOLAX) PR PRN; +CALCIUM CARBONATE 500 MG (TUMS) TAB.CHEW PO PRN; +CLON0.1T PO; +DOCUSATE SODIUM 100 MG (COLACE) CAP PO PRN; +DOCUSATE SODIUM 100 MG (COLACE) CAP PO SCH; +ENOX40DI8 SC; +ENOXAPARIN 40 MG/0.4 ML (LOVENOX) SYR SC SCH; +FLEET ENEMA ADULT 1 EA BTL PR PRN; +LACTULOSE SYRUP 10GM/15ML (ENULOSE) 30ML UDC PO PRN; +LOPERAMIDE 2 MG (IMODIUM) TABLET PO PRN; +MELATONIN 3 MG TABLET PO PRN; +ONDANSETRON 4 MG (ZOFRAN) ORAL DISSOLVE TAB PO PRN; +SENNA W/DOCUSATE (SENOKOT S) TABLET PO SCH; +diphenhydrAMINE 25 MG TAB (BENADRYL) PO PRN; +guaiFENesin/CODEINE (ROBITUSSIN AC) 10ML UDC PO PRN; +polyethylene glycoL POWDER 17 GM (MIRALAX) PACK PO SCH
--- NOTE | 2019-09-19 10:20 | NUR ---
MOSHE WHEELER admitted to room 231, with an admitting diagnosis of CVA, on 09/19/19 from [facility] via WHEELCHAIR, accompanied by THERAPY. MOSHE WHEELER introduced to surroundings, call light, bed controls, phone, TV, temperature control, lights, meal times, smoking policy, visitor policy, side rail policy, bathrooms and showers. Patient Rights given to patient in the handbook. MOSHE WHEELER Miguel Ángel verbalizes understanding that [facility] is not responsible for the loss or damage to any personal effects or valuables that are kept in the patient's possession during their hospitalization. The following Patient Care Plans were discussed with the PATIENT: Discharge Planning, ALTERED CEREBRAL TISSUE PERFUSION, IMPAIRED MOBILITY, SELF CARE DEFICIT, KNOWLEDGE DEFICIT: CVA. MOSHE WHEELER Miguel Ángel verbalizes understanding of Interdisciplinary Patient Education. Patient received Patient Rights Booklet, which includes Privacy Act Statement and Data Collection Information Summary.
[2019-09-19] MEDS ORDERED: ENOXAPARIN 40 MG/0.4 ML (LOVENOX) SYR SC SCH (10:45)
[2019-09-19] MEDS ORDERED: CATHETER FLUSH 10 ML SYR IV PRN (10:45)
[2019-09-19] MEDS ORDERED: cefTRIAXone FOR IV USE 1,000 MG in WATER (STERILE) FOR INJECTION 10 ML IV SCH ×2 (10:45→21:00)
[2019-09-19] MEDS ORDERED: HOLD METFORMIN - RECEIVED CONTRAST 20 ML VIAL IV SCH (10:45)
[2019-09-19] MEDS ORDERED: ONDANSETRON 4 MG/2 ML (SDV) Z0FRAN IVP PRN (10:45)
[2019-09-19] MEDS ORDERED: ONDANSETRON 4 MG (ZOFRAN) ORAL DISSOLVE TAB PO PRN (10:45)
[2019-09-19] MEDS ORDERED: MELATONIN 3 MG TABLET PO PRN (10:45)
[2019-09-19] MEDS ORDERED: CALCIUM CARBONATE 500 MG (TUMS) TAB.CHEW PO PRN (10:45)
[2019-09-19] MEDS ORDERED: diphenhydrAMINE 25 MG TAB (BENADRYL) PO PRN (10:45)
[2019-09-19] MEDS ORDERED: ALPRAZolam 0.25 MG (XANAX) TAB PO PRN (10:45)
[2019-09-19] MEDS ORDERED: ACETAMINOPHEN 500 MG TAB (TYLENOL) PO PRN (10:45)
[2019-09-19] MEDS ORDERED: LOPERAMIDE 2 MG (IMODIUM) TABLET PO PRN (10:45)
[2019-09-19] MEDS ORDERED: DOCUSATE SODIUM 100 MG (COLACE) CAP PO PRN (10:45)
[2019-09-19] MEDS ORDERED: HYDROcodone/APAP 5 MG/325 MG (LORTAB) TAB PO PRN (10:45)
[2019-09-19] MEDS ORDERED: fentaNYL INJECTION 100 MCG/2 ML AMP IVP PRN (10:45)
--- NOTE | 2019-09-19 10:48 | Physical Therapy Evaluation ---
PT Evaluation-General Medical Diagnosis Admission Date Sep 19, 2019 at 10:20 Medical Diagnosis: CVA Onset Date: Sep 17, 2019 Therapy Diagnosis Therapy Diagnosis: decreased gait steadiness, weakness Precautions Precautions/Isolations: Standard Precautions Weight Bear Status Right Lower Extremity: Right Full Weight Bearing Left Lower Extremity: Left Full Weight Bearing Referral Physician: Dr. Tomlin Reason for Referral: Evaluation/Treatment Medical History Pertinent Medical History: CVA, DM, Dementia, HTN Current History Pt. presented to ER with unsteady gait, transfer to ARU for progressive strengthening and mobility training. Reviewed History: Yes Social History Home: Single Level Current Living Status: Alone Entry Into Home: Stairs With Railing PT Steps Into Home: 6 Prior Prior Level of Function SCALE: Activities may be completed with or without assistive devices. 2-Jigkvfjgev-raeyvom completes the activity by him/herself with no assistance from a helper. 5-Set-up or Clean-up Assistance-helper sets up or cleans up; patient completes activity. Cornish assists only prior to or following the activity. 4-Supervision or Touching Assistance-helper provides verbal cues and/or touching/steadying and/or contact guard assistance as patient completes activity. Assistance may be provided throughout the activity or intermittently. 3-Partial/Moderate Assistance-helper does LESS THAN HALF the effort. Cornish lifts, holds or supports trunk or limbs, but provides less than half the effort. 2-Substantial/Maximal Assistance-helper does MORE THAN HALF the effort. Cornish lifts or holds trunk or limbs and provides more than half the effort. 4-Daietzxgs-fjntoo does ALL the effort. Patient does none of the effort to complete the activity. Or, the assistance of 2 or more helpers is required for the patient to complete the activity. If activity was not attempted, code reason: 7-Patient Refused. 9-Not Applicable-not attempted and the patient did not perform the activity before the current illness, exacerbation or injury. 10-Not Attempted due to Environmental Limitations-(lack of equipment, weather restraints, etc.). 88-Not Attempted due to Medical Conditions or Safety Concerns. Bed Mobility: 6 Transfers (B,C,W/C): 6 Gait: 6 Stairs: 6 Indoor Mobility (Ambulation): Independent Stairs: Independent Prior Devices Use: None PT Evaluation-Current Subjective Pt. agrees to therapy, he denies pain, does not recall being told about transfer to ARU today. Pt/Family Goals home alone, son close by per report Objective Patient Orientation: Person ROM/Strength ROM Upper Extremities See OT ROM Lower Extremities WNL (B) Strength Upper Extremities See OT Strength Lower Extremities 4-/5 on L, 4+/5 on R Integumentary/Posture Integumentary grossly intact Bowel Incontinence: No Posture WFL Neuromuscular (Tone, Coordination, Reflexes) diminished Sensory Vision: Wears Glasses Hearing: Impaired Sensation Right Upper Extremit: Impaired Sensation Left Upper Extremity: Impaired Sensation Right Lower Extremit: Impaired Sensation Left Lower Extremity: Impaired Transfers Roll Left to Right (QC): 6 Sit to Lying (QC): 5 Lying to Sitting/Side of Bed(Q: 5 Sit to Stand (QC): 4 Chair/Xbp-xw-Alwhg Xfer(QC): 4 Toilet Transfer (QC): 4 Car Transfer (QC): 3 Gait Does the Patient Walk?: Yes Mode of Locomotion: Walk Anticipated Mode of Locomotion: Walk Walk 10 feet (QC): 4 Walk 50 ft with 2 Turns(QC): 3 Walk 150 ft (QC): 3 Walking 10ft/uneven surface-QC: 3 Distance: 200 ft Gait Assistive Device: FWW Comments/Gait Description leans more progressively to the L with duration of gait; ambulates on lateral edge of L foot with foot inverted; several cues needed for direction and avoiding stationary objects Wheelchair Training Wheel 50 ft with 2 turns (QC): 9 Wheel 150 ft (QC): 9 Stairs 1 Step (curb) (QC): 3 4 Steps (QC): 88 12 Steps (QC): 88 Balance Sitting Static: Good Sitting Dynamic: Fair Standing Static: Fair Standing Dynamic: Fair Picking up an Object (QC): 3 Assessment/Needs Pt. is a 69 y.o. male with CVA and who presents with decreased gait steadiness, weakness, and impulsiveness with mobility. Pt. is currently mod A for ambulation due to leaning to left and has several unsafe tendencies with transfers/ambulation. Pt. would benefit from skilled PT to improve mobility and strength for return home at prior level. Rehab Potential: Guarded PT Display Mechanic Goals Display Mechanic Goals PT Longterm Goals Time Frame: October 03, 2019 Roll Left & Right (QC): 6 Sit to Lying (QC): 6 Lying-Sitting on Side/Bed(QC): 6 Sit to Stand (QC): 6 Chair/Ikw-xh-Iohcs Xfer(QC): 6 Toilet Transfer (QC): 6 Car Transfer (QC): 6 Does the Patient Walk: Yes Walk 10 feet (QC): 6 Walk 50ft with 2 Turns (QC): 6 Walk 150 ft (QC): 6 Walking 10ft on Uneven Surface: 6 1 Step (curb) (QC): 6 4 Steps (QC): 4 12 Steps (QC): 4 Picking up an Object (QC): 6 Wheel 50 feet with 2 turns (QC: 9 Wheel 150 feet: 9 PT Plan Problem List Problem List: Activity Tolerance, Functional Strength, Safety, Balance, Gait, Transfer, Bed Mobility, ROM Treatment/Plan Treatment Plan: Continue Plan of Care Treatment Plan: Bed Mobility, Education, Functional Activity [place], Functional Strength, Gait, Safety, Therapeutic Exercise, Transfers Treatment Duration: October 03, 2019 Frequency: 6 times per week Estimated Hrs Per Day: 1.5 hours per day Patient and/or Family Agrees t: Yes Time/GCodes Time In: 1000 Time Out: 1035 Total Billed Treatment Time: 35 Total Billed Treatment 1, CHEL 35' ERMELINDA SHOOK PT Sep 19, 2019 10:48
[2019-09-19 11:22] VITALS: BP 168/73
[2019-09-19 11:24] VITALS: BP 168/73
[2019-09-19] MEDS: cloNIDine 0.1 MG (CATAPRES) TAB PO PRN (11:34)
--- NOTE | 2019-09-19 12:14 | PM&R Post Admission Assessment ---
PM&R HP Date of Visit: Sep 19, 2019 Time of Visit: 12:15 History of Present Illness CC: CVA w/debility HPI: This is a 69yoWM clinic patient of [facility] who had recently moved here to live with his son who had presented to the ER with unstable gait and w/u was unrevealing so he was sent home only to be sent back to the ER with worsened symptoms and w/u in ER was negative including CT brain so he was admitted and MRI the next day revealed acute and subacute CVA's consistent with the deficits he was experiencing with gait disturbance and fall risk and confusion. Patient does have dementia and is very [place] both contributing to the acute issue's residual. Patient was placed on ASA and statin and home meds and Dr Veliz was consulted for evaluation of cryptogenic CVA. 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 Patient quit smoking in 1984. No significant ETOH use reported. Patient has had some high BP's during his hospital stay and I will add Norvasc for that new condition. Labs remains stable. Accuchecks are monitored closely. PLOF was independent. 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) Alcohol Use: Denies Use Smoking Status: Former Smoker (quit 1984) Former Smoker, Quit: Nov 25, 1984 Recent Foreign Travel: No Contact w/other who traveled: No Recent Hopitalizations: No Recent Infectious Disease Expo: No Immunizations Up To Date Tetanus Booster (TDap): Unknown Pediatric: Yes Seasonal Allergies Seasonal Allergies: No Past Medical History Cardiac: High Cholesterol, Hypertension Neurological: Dementia, Stroke Endocrine: Diabetes, Non-Insulin dep History of Blood Disorders: No Prior Level of Function Bed Mobility: 6 Transfers: 6 Gait: 6 Stairs: 6 Indoor Mobility (Ambulation): Independent Stairs: Independent Prior Devices Use: None Current Level of Fuctioning Roll Left to Right: 6 Sit to Lyin Lying to Sitting/Side of Bed: 5 Sit to Stand: 4 Chair/Llp-up-Yhrpw Xfer: 4 Car Transfer: 3 Does the Patient Walk: Yes Mode of Locomotion: Walk Anticipated Mode of Locomotion: Walk Walk 10 feet: 4 Walk 50 ft with 2 Turns: 3 Walk 150 ft: 3 Walking 10ft on uneven surface: 3 Gait Assistive Device: FWW Wheel 50 ft with 2 turns: 9 Wheel 150 ft: 9 1 Step (curb): 3 4 Steps: 88 12 Steps: 88 Picking up an Object: 3 PM&R Allergy/Meds/Data Review Allergies Coded Allergies: No Known Drug Allergies (Unverified , 09/14/19) Home Medications Scheduled Aspirin (Aspirin EC), 81 MG PO DAILY, (Reported) Atorvastatin Calcium (Atorvastatin Calcium), 80 MG PO HS Buspirone HCl (Buspirone HCl), 10 MG PO TID, (Reported) Enoxaparin Sodium (Enoxaparin Sodium), 40 MG SC Q24H Escitalopram Oxalate (Escitalopram Oxalate), 20 MG PO DAILY, (Reported) Glipizide (Glipizide ER), 10 MG PO DAILY W/ BREAKFAST, (Reported) Metformin HCl (Metformin HCl ER), 1,000 MG PO BID, (Reported) Scheduled PRN Clonidine HCl (Clonidine HCl), 0.1 MG PO Q4HR PRN for SBP>160 Discontinued Medications Rosuvastatin Calcium (Rosuvastatin Calcium), 40 MG PO DAILY, (Reported) Current Medications Current Medications Reviewed Review of Systems Constitutional: see HPI, dizziness, malaise, weakness EENTM: no symptoms reported Respiratory: no symptoms reported Cardiovascular: no symptoms reported Gastrointestinal: no symptoms reported Genitourinary: no symptoms reported Musculoskeletal: muscle stiffness, muscle cramps, muscle twitching, muscle weakness Skin: no symptoms reported Psychiatric/Neurological: Numbness, Paresthesia, Tingling, Tremors, Weakness Physical Exam Physical Exam Vital Signs Vital Signs - First Documented 09/19/19 11:22 Temp 36.8 Pulse 61 Resp 18 B/P (MAP) 168/73 (104) Pulse Ox 96 O2 Delivery Room Air Capillary Refill : Height, Weight, BMI Height: '" Weight: lbs. oz. kg; 27.90 BMI Method: General Appearance: No Apparent Distress, WD/WN, Chronically ill Eyes: Bilateral Eye Normal Inspection, Bilateral Eye PERRL HEENT: PERRL/EOMI, Normal ENT Inspection, Pharynx Normal, Other (presbycusis) Neck: Full Range of Motion, Normal Inspection, Non Tender, Supple, Carotid Bruit Respiratory: Chest Non Tender, Lungs Clear, Normal Breath Sounds, No Accessory Muscle Use, No Respiratory Distress Cardiovascular: Regular Rate, Rhythm, No Edema, No Gallop, No JVD, No Murmur, Normal Peripheral Pulses Gastrointestinal: Normal Bowel Sounds, No Organomegaly, No Pulsatile Mass, Non Tender, Soft Back: Normal Inspection, No CVA Tenderness, No Vertebral Tenderness Extremity: Normal Capillary Refill, Normal Inspection, Normal Range of Motion, Non Tender, No Calf Tenderness, No Pedal Edema Neurologic/Psychiatric: Alert, Oriented x3, Normal Mood/Affect, sanitarian inspector II-XII Norm as Tested, Abnormal Gait, Motor Weakness (generalized weak strength bilateral legs) Skin: Normal Color, Warm/Dry Lymphatic: No Adenopathy PM&R Medical Assessment & Plan REHAB/MEDICAL ASSESSMENT AND PLAN: REHAB IMPAIRMENT GROUP: CVA ETIOLOGIC DIAGNOSIS: CVA The comorbidities that impact the patients function and/or functional outcome by: baseline dementia, DM OOC, HTN OOC, fall risk, lives alone/lives with son? REHAB PLAN: The patient is being admitted to our comprehensive inpatient rehabilitation facility and can tolerate the intensity of service consisting of at least: 180 minutes of therapy a day, 5 out of 7 days a week Rehab treatment will consist of: PT OT ST will focus on regaining deficient function from CVA in order to regain ADL's to be able to live independently The patient/family has a good understanding of our discharge process and will benefit from an interdisciplinary inpatient rehabilitation program. The patient has potential to make improvement and is in need of at least two of the following multidisciplinary therapies including but not limited to physical, occupational, speech, and prosthetics and orthotics. Additionally the patient will need services from respiratory, nutritional services, wound care, psychology, etc. (Customize this to each patient). Given the patients complex condition and risk of further medical complications, rehabilitation services cannot be safely or effectively provided at a lower level of care such as a senior living facility. BARRIERS TO DISCHARGE: Questionable living status alone versus with son, dementia, fall risk ESTIMATED LOS: 14 days DISPOSITION: Home? RELEVANT CHANGES SINCE PREADMISSION SCREENING: I have compared the patients medical and functional status at the time of the preadmission screening and there are: no changes PROGNOSIS: Good REHABILITATION GOALS: 1. PT OT ST will focus on regaining deficient function from CVA in order to regain ADL's to be able to live independently All the above goals were reviewed with the patient and he/she is in agreement. By signing this document, I acknowledge that I have personally performed a full physical examination on this patient within 24 hours of admission to this inpatient rehabilitation facility and have determined the patient to be able to tolerate the above course of treatment at an intensive level for a reasonable period of time. I will be completing a detailed individualized Plan of Care for this patient by day #4 of the patients stay based upon the Preadmission Screen, the Post-Admission Evaluation, and the therapy evaluations. Admission Dx/Comorbidities: (1) CVA (cerebrovascular accident) ICD Codes: I63.9 - Cerebral infarction, unspecified (2) Risk for falls ICD Codes: Z91.81 - History of falling (3) Hyperlipemia ICD Codes: E78.5 - Hyperlipidemia, unspecified (4) Diabetes ICD Codes: E11.9 - Type 2 diabetes mellitus without complications (5) Unsteady gait Status: Acute ICD Codes: R26.81 - Unsteadiness on feet (6) Dementia Status: Acute ICD Codes: F03.90 - Unspecified dementia without behavioral disturbance Assessment/Plan Assessment and Plan Assess & Plan/Chief Complaint Assessment: Acute and subacute strokes on MRI with negative CT scan Instability unable to walk in previous independent patient Dementia DM HTN HLP Abnl UA but Cx no pathological bacteria so will DC Rocephin Plan: CVA protocol Rehab protocol Statin ASA Cardiology consultation is appreciated SIA DUGGAN DO Sep 19, 2019 12:14
[2019-09-19] MEDS: inSUlin ASPART (NovoLOG) 1 UNIT/0.01 ML (CHARGE PER UNIT) SC SCH ×3 (12:35→21:21)
[2019-09-19] MEDS ORDERED: LIDOCAINE 1% INJ 20 ML 20 ML VIAL ONE (12:40)
[2019-09-19] MEDS ORDERED: amLODIPine 5 MG (NORVASC) TAB PO NR (12:45)
--- NOTE | 2019-09-19 13:05 | NUR ---
spoke with son Zain about planned LINQ implant agrees with plan.
--- NOTE | 2019-09-19 13:08 | Cardiology Progress Note ---
Cardiology SOAP Progress Note Subjective: No cardiac complaints. Objective: I&O/Vital Signs 09/19/19 09/19/19 11:22 11:24 Temp 36.8 36.8 Pulse 61 61 Resp 18 18 B/P (MAP) 168/73 (104) 168/73 Pulse Ox 96 96 O2 Delivery Room Air Room Air Constitutional: appears stated age, well-developed, well-nourished Respiratory: chest is bilaterally symmetric, lungs clear to auscultation Cardiovascular: regular rate-rhythm, S1 and S2 Gastrointestional: soft, audible bowel sounds Extremities: normal range of motion, non-tender, normal inspection, no lower extremity edema bilateral Neurologic/Psychiatric: alert, normal mood/affect Skin: normal color Results/Procedures: Labs Laboratory Tests 09/19/19 12:18: Glucometer 202H A/P: Assessment/Dx: Acute stroke, 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 Negative telemetry for 48 hours for atrial fibrillation. Echocardiogram showed normal LV function with negative bubble study ruling out intracardiac shunting. No significant carotid atherosclerotic disease. Very likely cryptogenic stroke. Long-term surveillance for atrial fibrillation is recommended. Implantable loop recorder was discussed with the patient. Informed consent was taken. Mild dementia, deferred to the primary team. Diabetes, was on metformin. Hyperlipidemia, atorvastatin. PVCs, will follow clinically. Thank you for your consultation. Please call me if you have any questions. Sulma Veliz MD, FACP, FACC, FSCAI, FHRS, CCDS Interventional Cardiology Cardiac Electrophysiology Vascular Medicine and Endovascular Interventions Jaiden VELIZ MD Sep 19, 2019 13:08
[2019-09-19 14:55] VITALS: BP 133/73
[2019-09-19] MEDS: busPIRone 10 MG (BUSPAR) TAB PO SCH ×2 (14:56→21:20)
[2019-09-19] MEDS: metFORMIN XR 500 MG (GLUCOPHAGE XR) TAB PO SCH (17:21)
[2019-09-19] MEDS: CATHETER FLUSH 10 ML SYR IV SCH ×2 (21:20→22:00)
[2019-09-19] MEDS: DOCUSATE SODIUM 100 MG (COLACE) CAP PO SCH (21:21)
[2019-09-19] MEDS: SENNA W/DOCUSATE (SENOKOT S) TABLET PO SCH (21:21)
[2019-09-19] MEDS: ENOXAPARIN 40 MG/0.4 ML (LOVENOX) SYR SC SCH (21:21)
[2019-09-20] MEDS: CATHETER FLUSH 10 ML SYR IV SCH (02:51)
[2019-09-20 05:02] LABS: BASOPHILS % (AUTO) 0 % (0-10); EOSINOPHILS # (AUTO) 0.1 10^3/uL (0.0-0.3); EOSINOPHILS % (AUTO) 1 % (0-10); HEMATOCRIT 37 % (40-54); HEMOGLOBIN 12.3 G/DL (13.3-17.7); LYMPHOCYTES # (AUTO) 1.3 X 10^3 (1.0-4.0); LYMPHOCYTES % (AUTO) 18 % (12-44); MEAN CORPUSCULAR HEMOGLOBIN 28 PG (25-34); MEAN CORPUSCULAR HGB CONC 33 G/DL (32-36); MEAN CORPUSCULAR VOLUME 83 FL (80-99); MEAN PLATELET VOLUME 11.4 FL (7.4-10.4); MONOCYTES # (AUTO) 0.8 X 10^3 (0.0-1.0); MONOCYTES % (AUTO) 10 % (0-12); NEUTROPHILS # (AUTO) 5.4 X 10^3 (1.8-7.8); NEUTROPHILS % (AUTO) 71 % (42-75); PLATELET COUNT 191 10^3/uL (130-400); RED CELL DISTRIBUTION WIDTH 13.9 % (10.0-14.5); WHITE BLOOD COUNT 7.6 10^3/uL (4.3-11.0)
[2019-09-20 05:27] LABS: ALANINE AMINOTRANSFERASE 13 U/L (0-55); ALBUMIN 3.5 GM/DL (3.2-4.5); ALKALINE PHOSPHATASE 71 U/L (40-136); BILIRUBIN,TOTAL 0.8 MG/DL (0.1-1.0); BUN/CREATININE RATIO 24; CALCIUM 8.7 MG/DL (8.5-10.1); CARBON DIOXIDE 24 MMOL/L (21-32); CHLORIDE 106 MMOL/L (98-107); CREATININE SERUM 1.08 MG/DL (0.60-1.30); GFR ESTIMATED > 60; GLUCOSE 81 MG/DL (70-105); POTASSIUM 3.6 MMOL/L (3.6-5.0); SODIUM 140 MMOL/L (135-145); TOTAL PROTEIN 6.1 GM/DL (6.4-8.2)
[2019-09-20] MEDS: inSUlin ASPART (NovoLOG) 1 UNIT/0.01 ML (CHARGE PER UNIT) SC SCH ×4 (05:50→20:47)
[2019-09-20] MEDS: metFORMIN XR 500 MG (GLUCOPHAGE XR) TAB PO SCH ×2 (06:05→17:08)
[2019-09-20 09:53] VITALS: BP 166/67
[2019-09-20] MEDS: DOCUSATE SODIUM 100 MG (COLACE) CAP PO SCH ×2 (09:54→20:39)
[2019-09-20] MEDS: glipiZIDE XL 10 MG (GLUCOTROL XL) TAB PO SCH (09:54)
[2019-09-20] MEDS: amLODIPine 5 MG (NORVASC) TAB PO SCH (09:54)
[2019-09-20] MEDS: busPIRone 10 MG (BUSPAR) TAB PO SCH ×3 (09:54→20:39)
[2019-09-20] MEDS: ASPIRIN E.C. 81 MG (ECOTRIN) TAB PO SCH (09:54)
[2019-09-20] MEDS: SENNA W/DOCUSATE (SENOKOT S) TABLET PO SCH ×2 (10:00→20:39)
--- NOTE | 2019-09-20 10:43 | Cardiology Progress Note ---
Cardiology SOAP Progress Note Subjective: No cardiac complaints. Objective: I&O/Vital Signs 09/20/19 09:53 Pulse 69 B/P (MAP) 166/67 (100) 09/20/19 00:00 Intake Total 500 ml Output Total 1 ml Balance 499 ml Constitutional: appears stated age, well-developed, well-nourished Respiratory: chest is bilaterally symmetric, lungs clear to auscultation Cardiovascular: regular rate-rhythm, S1 and S2 Gastrointestional: soft, audible bowel sounds Extremities: normal range of motion, non-tender, normal inspection, no lower extremity edema bilateral Neurologic/Psychiatric: alert, normal mood/affect Skin: normal color Results/Procedures: Labs Laboratory Tests 09/19/19 12:18: Glucometer 202H 09/19/19 16:53: Glucometer 188H 09/19/19 21:13: Glucometer 134H 09/20/19 04:54: White Blood Count 7.6, Red Blood Count 4.45, Hemoglobin 12.3L, Hematocrit 37L, Mean Corpuscular Volume 83, Mean Corpuscular Hemoglobin 28, Mean Corpuscular Hemoglobin Concent 33, Red Cell Distribution Width 13.9, Platelet Count 191, Mean Platelet Volume 11.4H, Neutrophils (%) (Auto) 71, Lymphocytes (%) (Auto) 18, Monocytes (%) (Auto) 10, Eosinophils (%) (Auto) 1, Basophils (%) (Auto) 0, Neutrophils # (Auto) 5.4, Lymphocytes # (Auto) 1.3, Monocytes # (Auto) 0.8, Eosinophils # (Auto) 0.1, Basophils # (Auto) 0.0, Sodium Level 140, Potassium Level 3.6, Chloride Level 106, Carbon Dioxide Level 24, Anion Gap 10, Blood Urea Nitrogen 26H, Creatinine 1.08, Estimat Glomerular Filtration Rate > 60, BUN/Creatinine Ratio 24, Glucose Level 81, Calcium Level 8.7, Corrected Calcium 9.1, Total Bilirubin 0.8, Aspartate Amino Transf (AST/SGOT) 18, Alanine Aminotransferase (ALT/SGPT) 13, Alkaline Phosphatase 71, Total Protein 6.1L, Albumin 3.5 A/P: Assessment/Dx: Acute stroke, 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 Negative telemetry for 48 hours for atrial fibrillation. Echocardiogram showed normal LV function with negative bubble study ruling out intracardiac shunting. No significant carotid atherosclerotic disease. Very likely cryptogenic stroke. Long-term survei llance for atrial fibrillation is recommended. Implantable loop recorder was discussed with the patient. Informed consent was taken. Implantable loop recorder done on 09/19/2019. DC telemetry. Mild dementia, deferred to the primary team. Diabetes, was on metformin. Hyperlipidemia, atorvastatin. PVCs, will follow clinically. Patient will see my nurse in one week from the procedure for wound check. If the patient is still here the wound check can be done in the hospital and the dressing taken off. Follow-up in 4-6 weeks. Thank you for your consultation. Please call me if you have any questions. Sulma Veliz MD, FACP, FACC, FSCAI, FHRS, CCDS Interventional Cardiology Cardiac Electrophysiology Vascular Medicine and Endovascular Interventions Jaiden VELIZ MD Sep 20, 2019 10:43
--- NOTE | 2019-09-20 13:25 | PM&R Progress Note ---
Subjective HPI/CC On Admission Date Seen by Provider: Sep 20, 2019 Time Seen by Provider: 13:00 Subjective/Events-last exam Patient sleeping a lot today Denies pain No major coughing noted Decreased impulsiveness noted No No falls Loop records placed yesterday Checked meds and labs Reviewed therapy notes Conferred with professor of environmental science of Systems General: Fatigue Neurological: Weakness, Numbness, Incoordination, Confusion Objective Exam Vital Signs Vital Signs Date Time Temp Pulse Resp B/P (MAP) Pulse Ox O2 Delivery O2 Flow Rate FiO2 09/20/19 09:53 69 166/67 (100) 09/20/19 09:00 Room Air 09/19/19 11:24 36.8 18 96 Capillary Refill : Less Than 3 Seconds General Appearance: No Apparent Distress, WD/WN, Chronically ill HEENT: PERRL/EOMI, Normal ENT Inspection, Pharynx Normal, Other (presbycusis) Neck: Full Range of Motion, Normal Inspection, Non Tender, Supple, Carotid Bruit Respiratory: Chest Non Tender, Lungs Clear, Normal Breath Sounds, No Accessory Muscle Use, No Respiratory Distress Cardiovascular: Regular Rate, Rhythm, No Edema, No Gallop, No JVD, No Murmur, Normal Peripheral Pulses Gastrointestinal: Normal Bowel Sounds, No Organomegaly, No Pulsatile Mass, Non Tender, Soft Back: Normal Inspection, No CVA Tenderness, No Vertebral Tenderness Extremity: Normal Capillary Refill, Normal Inspection, Normal Range of Motion, Non Tender, No Calf Tenderness, No Pedal Edema Neurologic/Psychiatric: Alert, Oriented x3, Normal Mood/Affect, field advisor II-XII Norm as Tested, Abnormal Gait, Motor Weakness (generalized weak strength bilateral legs) Skin: Normal Color, Warm/Dry Lymphatic: No Adenopathy Results/Procedures Lab Laboratory Tests 09/20/19 04:54 Patient resulted labs reviewed. FIM Transfers Therapy Code Descriptions/Definitions Functional [place] Measure: 0=Not Assessed/NA 4=Minimal Assistance 1=Total Assistance 5=Supervision or Setup 2=Maximal Assistance 6=Modified [place] 3=Moderate Assistance 7=Complete IndependenceSCALE: Activities may be completed with or without assistive devices. 5-Nfqwcfigvv-axuyrvu completes the activity by him/herself with no assistance from a helper. 5-Set-up or Clean-up Assistance-helper sets up or cleans up; patient completes activity. [place] assists only prior to or following the activity. 4-Supervision or Touching Assistance-helper provides verbal cues and/or touching/steadying and/or contact guard assistance as patient completes activity. Assistance may be provided throughout the activity or intermittently. 3-Partial/Moderate Assistance-helper does LESS THAN HALF the effort. [place] lifts, holds or supports trunk or limbs, but provides less than half the effort. 2-Substantial/Maximal Assistance-helper does MORE THAN HALF the effort. [place] lifts or holds trunk or limbs and provides more than half the effort. 9-Rqwihdmul-swqhhn does ALL the effort. Patient does none of the effort to complete the activity. Or, the assistance of 2 or more helpers is required for the patient to complete the activity. If activity was not attempted, code reason: 7-Patient Refused. 9-Not Applicable-not attempted and the patient did not perform the activity before the current illness, exacerbation or injury. 10-Not Attempted due to Environmental Limitations-(lack of equipment, weather restraints, etc.). 88-Not Attempted due to Medical Conditions or Safety Concerns. Roll Left to Right (QC): 6 Sit to Lying (QC): 5 Sit to Stand (QC): 4 Chair/Oxb-ut-Dvrdr Xfer(QC): 4 Car Transfer (QC): 3 Gait Training Does the Patient Walk?: Yes Walk 10 feet (QC): 4 Walk 50 ft with 2 Turns(QC): 3 Walk 150 ft (QC): 3 Walking 10ft/uneven surface-QC: 3 Gait Assistive Device: FWW Wheelchair Training Wheel 50 ft with 2 turns (QC): 9 Wheel 150 ft (QC): 9 Stair Training 1 Step (curb) (QC): 3 4 Steps (QC): 88 12 Steps (QC): 88 Balance Picking up an Object (QC): 3 Assessment/Plan Assessment and Plan Assess & Plan/Chief Complaint Assessment: Acute and subacute strokes on MRI with negative CT scan Instability unable to walk in previous independent patient Dementia DM HTN HLP Abnl UA but Cx no pathological bacteria so will DC Rocephin Plan: CVA protocol Rehab protocol Statin ASA Cardiology consultation is appreciated (1) CVA (cerebrovascular accident) (2) Risk for falls (3) Hyperlipemia (4) Diabetes (5) Unsteady gait Status: Acute (6) Dementia Status: Acute SIA DUGGAN DO Sep 20, 2019 13:25
[2019-09-20 17:06] VITALS: BP 170/84
[2019-09-20] MEDS: cloNIDine 0.1 MG (CATAPRES) TAB PO PRN (17:08)
[2019-09-20] MEDS: ENOXAPARIN 40 MG/0.4 ML (LOVENOX) SYR SC SCH (20:39)
--- NOTE | 2019-09-20 21:53 | NUR ---
REPORT GIVEN TO RO MARCUS D/T STAFFING CHANGES
[2019-09-21 05:08] VITALS: BP 147/83
[2019-09-21] MEDS: inSUlin ASPART (NovoLOG) 1 UNIT/0.01 ML (CHARGE PER UNIT) SC SCH ×5 (05:31→22:18)
[2019-09-21 06:12] LABS: BASOPHILS % (AUTO) 0 % (0-10); EOSINOPHILS # (AUTO) 0.1 10^3/uL (0.0-0.3); EOSINOPHILS % (AUTO) 2 % (0-10); HEMATOCRIT 39 % (40-54); LYMPHOCYTES # (AUTO) 1.9 X 10^3 (1.0-4.0); LYMPHOCYTES % (AUTO) 25 % (12-44); MEAN CORPUSCULAR HEMOGLOBIN 28 PG (25-34); MEAN CORPUSCULAR HGB CONC 34 G/DL (32-36); MEAN CORPUSCULAR VOLUME 84 FL (80-99); MEAN PLATELET VOLUME 11.3 FL (7.4-10.4); MONOCYTES # (AUTO) 0.8 X 10^3 (0.0-1.0); MONOCYTES % (AUTO) 10 % (0-12); NEUTROPHILS # (AUTO) 4.7 X 10^3 (1.8-7.8); NEUTROPHILS % (AUTO) 63 % (42-75); PLATELET COUNT 197 10^3/uL (130-400); RED CELL DISTRIBUTION WIDTH 13.7 % (10.0-14.5); WHITE BLOOD COUNT 7.5 10^3/uL (4.3-11.0)
[2019-09-21 06:33] LABS: ALBUMIN 3.6 GM/DL (3.2-4.5)
[2019-09-21 06:34] LABS: CHLORIDE 106 MMOL/L (98-107); POTASSIUM 3.8 MMOL/L (3.6-5.0); SODIUM 141 MMOL/L (135-145)
[2019-09-21 06:35] LABS: CALCIUM 9.1 MG/DL (8.5-10.1)
[2019-09-21 06:36] LABS: GLUCOSE 69 MG/DL (70-105); TOTAL PROTEIN 6.5 GM/DL (6.4-8.2)
[2019-09-21 06:37] LABS: CARBON DIOXIDE 24 MMOL/L (21-32)
[2019-09-21 06:38] LABS: BILIRUBIN,TOTAL 0.8 MG/DL (0.1-1.0)
[2019-09-21 06:39] LABS: ALKALINE PHOSPHATASE 78 U/L (40-136)
[2019-09-21] MEDS: metFORMIN XR 500 MG (GLUCOPHAGE XR) TAB PO SCH ×2 (06:39→18:07)
[2019-09-21 06:40] LABS: CREATININE SERUM 1.04 MG/DL (0.60-1.30); GFR ESTIMATED > 60
[2019-09-21 06:41] LABS: BUN/CREATININE RATIO 22
[2019-09-21 06:43] LABS: ALANINE AMINOTRANSFERASE 19 U/L (0-55)
--- NOTE | 2019-09-21 08:50 | ST Cognitive Linguistic Eval ---
Speech Evaluation-General Medical Diagnosis CVA Onset Date: Sep 17, 2019 Therapy Diagnosis Therapy Diagnosis: Cognitive-communication Referral Referring Physician: Dr. Tomlin Medical History Pertinent Medical History: CVA, DM, Dementia, HTN Reviewed History: Yes Social History Current Living Status: Alone Speech PLF-Current Status Prior Level of Function Patient states he lives alone, however his son assists him with his daily needs. Subjective Patient was pleasant with cognitive assessment. Language Eval: Auditory Comprehends Simple Yes/No Ques: Functional Indent/Objects Multiple [place]: Functional Ident/Pics in Multiple [place]: Functional Follows 1-Step Commands: Mild Follows Complex Directions: Moderate Follows General Conversations: Mild Language Eval: Verbal Language Completes Spontaneous Greeting: Functional Produces Auto, Serial Info: Mild Imitates Simple Words/Phrases: Mild Word Finding: Mild Requests Basic Needs: Functional States Basic Personal Info: Mild Expresses Complex Ideas: Moderate Objective Cognitive Domain Attention: WNL Memory: Moderate Problem Solving: Moderate Executive Functions: Moderate Visuospatial Skills: Mild Composite Severity Rating: Moderate Clock Drawing Severity Rating: Moderate Objective Formal/Standardized Tests [facility] Status ([facility]) Results 14/30, moderate dementia range of function Oral Motor/Speech Production Within Normal Limits Impression Patient is a pleasant 69 year old male who was admitted to the ARU s/p CVA. Patient was given the SLUMS at bedside with a score of 14/90 obtained. This score falls in the moderate dementia range of function level. Patient will require ST services for improving cognitive level of function for safety and independence. Speech Patient Assess Expression of Ideas/Wants: Frequently (2) Understanding Verbal Content: Usually Understands (3) Brief Interview-Mental Status: Yes Repetition of Three Words: Three (3) Temporal Orientation: Year: Missed by 1 year (2) Temporal Orientation: Month: Accurate within 5 days(2) Temporal Orientation: Day: Correct (1) Recall : Wear to say "Sock": No, could not recall (0) Recall : Color: No, could not recall (0) Recall : Bed: No, could not recall (0) Memory/Recall Ability: That he or she is in a hsp/hsp unit Speech Short Term Goals Short Term Goals Short Term Goals 1) Patient will complete memory tasks related to his daily needs at 80% with minimal cues. 2) Patient will complete problem solving tasks related to his daily needs at 80% with minimal cues. 3) Patient will complete safety awareness tasks related to his daily needs at 80% with minimal cues. Speech Care Home Goals Sales Account Executive Goals Patient will improve cognitive-communication necessary for safety and daily living tasks with minimal assist. Speech-Plan Patient/Family Goals Patient/Family Goals: Patient plans on returning to his prior living situation, however that will be determined at a later date with team and family input. Treatment Plan Speech Therapy Treatment Plan: Continue Plan of Care Frequency: 5 times per week Estimated Hrs Per Day: .5 hour per day Rehab Potential: Guarded Barriers to Learning: Patient's recent CVA, dementia Pt/Family Agrees to Plan: Yes Safety Risks/Education Teaching Recipient: Patient Teaching Methods: Discussion Response to Teaching: Verbalize Understanding Education Topics Provided: Safety within his room and utilization of the call light when needed Time Speech Therapy Time In: 08:30 Speech Therapy Time Out: 09:00 Total Billed Time: 15 Billed Treatment Time 1, EMIL Diamond Sep 21, 2019 08:50
--- NOTE | 2019-09-21 09:37 | PM&R Progress Note ---
Subjective HPI/CC On Admission Date Seen by Provider: Sep 21, 2019 Time Seen by Provider: 09:30 Subjective/Events-last exam Pt doing pretty well. Dementia precludes a lot of details. Bowels move about every other day. No pain is reported. Working with PT but it doesn't appear he is very active at home to begin with. Labs checked and everything is good. Blood sugar is much improved. Overall doing pretty well with a loop recorder, no complaints. Loop recorder placed Saturday Checked meds and labs Reviewed therapy notes Conferred with pomologist of Systems General: Fatigue Neurological: Weakness, Numbness, Incoordination, Confusion Objective Exam Vital Signs Vital Signs Date Time Temp Pulse Resp B/P (MAP) Pulse Ox O2 Delivery O2 Flow Rate FiO2 09/21/19 17:36 36.8 77 18 173/78 (109) 96 Room Air Capillary Refill : Less Than 3 Seconds General Appearance: No Apparent Distress, WD/WN, Chronically ill HEENT: PERRL/EOMI, Normal ENT Inspection, Pharynx Normal, Other (presbycusis) Neck: Full Range of Motion, Normal Inspection, Non Tender, Supple, Carotid Bruit Respiratory: Chest Non Tender, Lungs Clear, Normal Breath Sounds, No Accessory Muscle Use, No Respiratory Distress Cardiovascular: Regular Rate, Rhythm, No Edema, No Gallop, No JVD, No Murmur, Normal Peripheral Pulses Gastrointestinal: Normal Bowel Sounds, No Organomegaly, No Pulsatile Mass, Non Tender, Soft Back: Normal Inspection, No CVA Tenderness, No Vertebral Tenderness Extremity: Normal Capillary Refill, Normal Inspection, Normal Range of Motion, Non Tender, No Calf Tenderness, No Pedal Edema Neurologic/Psychiatric: Alert, Oriented x3, Normal Mood/Affect, high school librarian II-XII Norm as Tested, Abnormal Gait, Motor Weakness (generalized weak strength bilateral legs) Skin: Normal Color, Warm/Dry Lymphatic: No Adenopathy Results/Procedures Lab Laboratory Tests 09/21/19 05:53 Patient resulted labs reviewed. FIM Transfers Therapy Code Descriptions/Definitions Functional [place] Measure: 0=Not Assessed/NA 4=Minimal Assistance 1=Total Assistance 5=Supervision or Setup 2=Maximal Assistance 6=Modified [place] 3=Moderate Assistance 7=Complete IndependenceSCALE: Activities may be completed with or without assistive devices. 2-Uwkpaxzvzj-ofgamcz completes the activity by him/herself with no assistance from a helper. 5-Set-up or Clean-up Assistance-helper sets up or cleans up; patient completes activity. [place] assists only prior to or following the activity. 4-Supervision or Touching Assistance-helper provides verbal cues and/or touching/steadying and/or contact guard assistance as patient completes activity. Assistance may be provided throughout the activity or intermittently. 3-Partial/Moderate Assistance-helper does LESS THAN HALF the effort. [place] lifts, holds or supports trunk or limbs, but provides less than half the effort. 2-Substantial/Maximal Assistance-helper does MORE THAN HALF the effort. [place] lifts or holds trunk or limbs and provides more than half the effort. 5-Omjurfuwy-bhlywm does ALL the effort. Patient does none of the effort to complete the activity. Or, the assistance of 2 or more helpers is required for the patient to complete the activity. If activity was not attempted, code reason: 7-Patient Refused. 9-Not Applicable-not attempted and the patient did not perform the activity before the current illness, exacerbation or injury. 10-Not Attempted due to Environmental Limitations-(lack of equipment, weather restraints, etc.). 88-Not Attempted due to Medical Conditions or Safety Concerns. Roll Left to Right (QC): 6 Sit to Lying (QC): 5 Sit to Stand (QC): 4 Chair/Enp-oi-Rvihv Xfer(QC): 4 Car Transfer (QC): 3 Gait Training Does the Patient Walk?: Yes Walk 10 feet (QC): 4 Walk 50 ft with 2 Turns(QC): 3 Walk 150 ft (QC): 3 Walking 10ft/uneven surface-QC: 3 Gait Assistive Device: FWW Wheelchair Training Wheel 50 ft with 2 turns (QC): 9 Wheel 150 ft (QC): 9 Stair Training 1 Step (curb) (QC): 3 4 Steps (QC): 88 12 Steps (QC): 88 Balance Picking up an Object (QC): 3 Assessment/Plan Assessment and Plan Assess & Plan/Chief Complaint Assessment: Acute and subacute strokes on MRI with negative CT scan Instability unable to walk in previous independent patient Dementia DM HTN HLP Abnl UA but Cx no pathological bacteria so will DC Rocephin s/p Loop recorder 09/19/19 Plan: CVA protocol Rehab protocol Statin ASA Cardiology consultation is appreciated (1) CVA (cerebrovascular accident) (2) Risk for falls (3) Hyperlipemia (4) Diabetes (5) Unsteady gait Status: Acute (6) Dementia Status: Acute (7) Status post placement of implantable loop recorder SIA DUGGAN DO Sep 21, 2019 09:37
--- NOTE | 2019-09-21 09:41 | Cardiology Progress Note ---
Subjective Date Seen by Provider: Sep 21, 2019 Time Seen by Provider: 09:00 Subjective/Events-last exam Patient is in bed, denies any chest pain or dyspnea, reports generalized weakness. Review of Systems General: No Chills, No Night Sweats, No Fatigue, No Malaise, No Appetite, No Other HEENT: No Head Aches, No Visual Changes, No Eye Pain, No Ear Pain, No Dysphasia, No Sinus Congestion, No Post Nasal Drip, No Sore Throat, No Other Pulmonary: No Dyspnea, No Cough, No Pleuritic Chest Pain, No Other Cardiovascular: No: Chest Pain, Palpitations, Orthopnea, Paroxysmal Noc. Dyspnea, Edema, Lt Headedness, Other Objective-Cardiology Exam Last Set of Vital Signs Vital Signs 09/21/19 09/21/19 05:08 08:20 Temp 36.7 Pulse 57 Resp 16 B/P (MAP) 147/83 (104) Pulse Ox 97 O2 Delivery Room Air Capillary Refill : Less Than 3 Seconds I&O Intake and Output 09/21/19 00:00 Intake Total 1090 ml Balance 1090 ml Intake Oral 1090 ml # Voids 4 General: Alert, Oriented X3, Cooperative HEENT: Atraumatic, PERRLA Neck: Supple, No JVD, No Thyromegaly Lungs: Clear to Auscultation, Normal Air Movement Heart: Regular Rate, Normal S1, Normal S2, No Murmurs Abdomen: Normal Bowel Sounds, Soft, No Tenderness, No Hepatosplenomegaly, No Masses Extremities: No Clubbing, No Cyanosis, No Edema, Normal Pulses, No Tenderness/S welling Skin: No Rashes, No Breakdown, No Significant Lesion Neuro: Normal Speech, Cranial Nerves 3-12 NL, Other (gait instablility) Psych/Mental Status: Mental Status NL, Mood NL Results Lab Laboratory Tests 09/21/19 05:53 A/P-Cardiology Admission Diagnosis Cryptogenic CVA Hyperlipidemia PVC's Dementia Assessment/Plan Acute stroke, Cryptogenic CVA, 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 Negative telemetry for 48 hours for atrial fibrillation. Echocardiogram showed normal LV function with negative bubble study ruling out intracardiac shunting. No significant carotid atherosclerotic disease. Long-term surveillance for atrial fibrillation is recommended. Implantable loop recorder done on 09/19/2019. Continue on current medications and continue to monitor. Mild dementia, deferred to the primary team. Diabetes, was on metformin. Hyperlipidemia, atorvastatin. PVCs, will follow clinically. Patient was seen and evaluated with Lilian, examination performed, management plan was discussed, agree with the current scribed note, I made few changes to the note using Italic font Patient was seen at bedside, doing well, no new complaint On examination lungs were clear to auscultation, heart is regular Loop recorder site is healing well Continue on current medications and monitor Clinical Quality Measures DVT/VTE Risk/Contraindication: Risk Factor Score Per Nursin RFS Level Per Nursing on Admit: 3=High LILIAN BLANKENSHIP Sep 21, 2019 09:41 MARTHA ZHU MD Sep 21, 2019 13:17
[2019-09-21] MEDS: ASPIRIN E.C. 81 MG (ECOTRIN) TAB PO SCH (09:46)
[2019-09-21] MEDS: SENNA W/DOCUSATE (SENOKOT S) TABLET PO SCH ×2 (09:47→20:53)
[2019-09-21] MEDS: DOCUSATE SODIUM 100 MG (COLACE) CAP PO SCH ×2 (09:47→20:53)
[2019-09-21] MEDS: glipiZIDE XL 10 MG (GLUCOTROL XL) TAB PO SCH (09:47)
[2019-09-21] MEDS: amLODIPine 5 MG (NORVASC) TAB PO SCH (09:47)
[2019-09-21] MEDS: busPIRone 10 MG (BUSPAR) TAB PO SCH ×3 (09:47→20:52)
[2019-09-21] MEDS ORDERED: ROSU40TA PO (12:14)
--- NOTE | 2019-09-21 12:15 | NUR ---
THE PATIENT TRANSFERRED DOWN FROM 4TH FLOOR AND I HAD ENTERED THE MED REC ON 09-18-2019- NEW MEDICATIONS HAD BEEN ORDERED AND CHANGED-SINCE ALL THE MEDICATIONS HAD BEEN REORDERED I SET THE MED REC TO WHAT THE PT WAS TAKING BEFORE HE WAS ADMITTED. I REMOVED THE FOLLOWING MEDICATIONS SINCE THE PT WAS NOT ON THEM BEFORE BEING ADMITTED: CLONIDINE 0.1MG LOVENOX 40MG/0.4ML PT HAD BEEN TAKING ROSUVASTATIN 40MG BUT WHEN HE WAS DISCHARGED AND WENT TO IRF IT WAS CHANGED TO ATORVASTATIN 80MG (I CHANGED THIS ON THE MED REC BACK TO ROSUVASTATIN FOR DISCHARGE PURPOSES)
--- NOTE | 2019-09-21 12:59 | Physical Therapy Daily Note ---
PT Daily Note-Current Subjective Patient in bed pre tx, agrees to PT, has no complaints of pain, will be co- treating with OT due to poor patient mobility, balance, impulsiveness, high fall risk, left neglect, the need to coordinate UE and LE during activity. Appearance Patient in recliner post tx with nurse call, phone, tray, all needs met, chair alarm on. Mental Status Patient Orientation: Person, Place Transfers SCALE: Activities may be completed with or without assistive devices. 3-Axkcycqtpt-adejuwr completes the activity by him/herself with no assistance from a helper. 5-Set-up or Clean-up Assistance-helper sets up or cleans up; patient completes activity. [place] assists only prior to or following the activity. 4-Supervision or Touching Assistance-helper provides verbal cues and/or touching/steadying and/or contact guard assistance as patient completes activity. Assistance may be provided throughout the activity or intermittently. 3-Partial/Moderate Assistance-helper does LESS THAN HALF the effort. [place] lifts, holds or supports trunk or limbs, but provides less than half the effort. 2-Substantial/Maximal Assistance-helper does MORE THAN HALF the effort. [place] lifts or holds trunk or limbs and provides more than half the effort. 5-Mgkpmmiwo-vvdrbh does ALL the effort. Patient does none of the effort to complete the activity. Or, the assistance of 2 or more helpers is required for the patient to complete the activity. If activity was not attempted, code reason: 7-Patient Refused. 9-Not Applicable-not attempted and the patient did not perform the activity before the current illness, exacerbation or injury. 10-Not Attempted due to Environmental Limitations-(lack of equipment, weather restraints, etc.). 88-Not Attempted due to Medical Conditions or Safety Concerns. Roll Left & Right (QC): 6 Sit to Lying (QC): 6 Lying to Sitting/Side of Bed(Q: 6 Sit to Stand (QC): 4 Chair/Mzw-ax-Rbrea Xfer(QC): 4 Patient ambulated to the shower, patient showered, needed PT assist when changing position and standing during shower and for dressing, standing balance. Weight Bearing Right Lower Extremity: Right Full Weight Bearing Left Lower Extremity: Left Full Weight Bearing Gait Training Distance: 150', 120' Walk 10 feet (QC): 3 Walk 50 ft with 2 Turns(QC): 3 Walk 150 ft (QC): 3 Gait Assistive Device: FWW Min assist, left neglect, impulsive, needs constant redirection. Exercises standing balance activity catching ball and reaching for cones. Treatments bed mobility and transfers, ambulation, balance activity, bathing, dressing. PT performed bed mobility and transfers, ambulation, assist with balance during dressing and bathing and balance training, OT performed bathing, dressing, assist with balance training. Assessment Current Status: Fair Progress Patient is impulsive, needs constant cues and redirection. PT Sales Support Administrator Goals Half-Way Goals PT Sales Support Administrator Goals Time Frame: October 03, 2019 Roll Left & Right (QC): 6 Sit to Lying (QC): 6 Lying-Sitting on Side/Bed(QC): 6 Sit to Stand (QC): 6 Chair/Dbt-qz-Daxrl Xfer(QC): 6 Toilet Transfer (QC): 6 Car Transfer (QC): 6 Does the Patient Walk: Yes Walk 10 feet (QC): 6 Walk 50ft with 2 Turns (QC): 6 Walk 150 ft (QC): 6 Walking 10ft on Uneven Surface: 6 1 Step (curb) (QC): 6 4 Steps (QC): 4 12 Steps (QC): 4 Picking up an Object (QC): 6 Wheel 50 feet with 2 turns (QC: 9 Wheel 150 feet: 9 PT Plan Problem List Problem List: Activity Tolerance, Functional Strength, Safety, Balance, Gait, Transfer, Bed Mobility Treatment/Plan Treatment Plan: Continue Plan of Care Treatment Plan: Bed Mobility, Education, Functional Activity [place], Functional Strength, Gait, Safety, Therapeutic Exercise, Transfers Treatment Duration: October 03, 2019 Frequency: 6 times per week Estimated Hrs Per Day: 1.5 hours per day Patient and/or Family Agrees t: Yes Safety Risks/Education Patient Education: Gait Training, Transfer Techniques, Correct Positioning, Safety Issues Teaching Recipient: Patient Teaching Methods: Demonstration, Discussion Response to Teaching: Reinforcement Needed Time/GCodes Time In: 1100 Time Out: 1200 Total Billed Treatment Time: 60 Total Billed Treatment 1 visit FA 45' NM 15' Co-treated with OT from 1605-6780. CHA ORR PT Sep 21, 2019 12:59
--- NOTE | 2019-09-21 13:11 | Occupational Therapy Eval ---
OT Evaluation-General/PLF Medical Diagnosis Admission Date Sep 19, 2019 at 10:20 Medical Diagnosis: CVA Onset Date: Sep 17, 2019 Therapy Diagnosis Therapy Diagnosis: impaired ADLs/functional mobility Precautions Precautions/Isolations: Fall Prevention, Standard Precautions Safety Interventions: Bed Exit Alarm, Reorient-PRN Referral Physician: Dr. Tomlin Referral Reason: Evaluation/Treatment Medical History Pertinent Medical History: CVA, DM, Dementia, HTN Additional Medical History high cholesterol Current History pt present to ER with unstready gait. He transferred to ARU for continued medication management and skilled therapies. Reviewed History: Yes Social History Home: Single Level Current Living Status: Alone Entry Into Home: Stairs With Railing Steps Into Home: 6 ADL-Prior Level of Function SCALE: Activities may be completed with or without assistive devices. 2-Sadbmzhlsc-cwdopws completes the activity by him/herself with no assistance from a helper. 5-Set-up or Clean-up Assistance-helper sets up or cleans up; patient completes activity. [place] assists only prior to or following the activity. 4-Supervision or Touching Assistance-helper provides verbal cues and/or yousuf rena/steadying and/or contact guard assistance as patient completes activity. Assistance may be provided throughout the activity or intermittently. 3-Partial/Moderate Assistance-helper does LESS THAN HALF the effort. [place] lifts, holds or supports trunk or limbs, but provides less than half the effort. 2-Substantial/Maximal Assistance-helper does MORE THAN HALF the effort. [place] lifts or holds trunk or limbs and provides more than half the effort. 3-Epvrhxczy-zlpgqj does ALL the effort. Patient does none of the effort to complete the activity. Or, the assistance of 2 or more helpers is required for the patient to complete the activity. If activity was not attempted, code reason: 7-Patient Refused. 9-Not Applicable-not attempted and the patient did not perform the activity before the current illness, exacerbation or injury. 10-Not Attempted due to Environmental Limitations-(lack of equipment, weather restraints, etc.). 88-Not Attempted due to Medical Conditions or Safety Concerns. ADL PLOF Comments Pt reports being independent with all ADLs and functional mobility at prior level, no AE/AD. He has a tub/shower without a bath chair. Pt's son lives in town, pt enjoys going over to his son's house most evenings for a while. Self Care: Independent Functional Cognition: Independent OT Current Status Subjective Pt laying in bed at start of session, agreeable to OT evaluation and tx. Pt did not report any pain. Mental Status/Objective Patient Orientation: Person, Place, Situation Current Glasses/Contacts: Yes Hearing Aids: Yes (states he does not wear) Dentures/Partials: Yes (initially declined having dentures, took dentures out with oral hygiene) Hand Dominance: Right Upper Extremity ROM WFL, BUE shoulder flexion to approx 165 degrees, he is able to touch back of his head with his hands. Upper Extremity Coordination slightly impaired Upper Extremity Sensation pt denies tingling/numbness Upper Extremity Strength grossly 4/5 MMT ADL-Treatment Eating (QC): 6 (Per pt report he had no difficulty with breakfast. Pt able to open cheese package without difficulties) Oral Hygiene (QC): 3 (Pt brushed his teeth at tray table. He required min A for rinsing/brushing dentures.) Shower/Bathe Self (QC): 4 (CGA during stand at [facility]. pt impulsively stood without warning requiring cues for safety.) Upper Body Dressing (QC): 5 (set up) Lower Body Dressing (QC): 4 (CGA during stand at [facility]. Pt able to thread pants/underwear) On/Off Footwear (QC): 3 (Pt able to doff socks, and don with min A for orientation. OT dependently donned TEDhose for pt.) Toileting Hygiene (QC): 4 (CGA, pt able to manage clothes and hygiene.) Other Treatments [id number] OT EVAL: Pt laying in bed at start of session, OT educated pt on purpose and benefits of OT, he verbalized understanding. Pt provided information about PLOF and home set up, then participated in UE screen. Pt then transferred EOB with SBA in order to brush his teeth seated EOB. During evaluation, pt reports not having dentures, but with oral hygiene pt removed dentures with cleaning. After oral care, pt transferred back to supine with SBA. [id number] OT/PT COTREAT: OT/PT cotreat due to poor patient mobility, balance, impulsiveness, high fall risk, the need to coordinate UE and LE during activity. OT focused on UE placement, cues for safety, and ADLs while PT focused on overall gross movement, LE placement, and transfers. Pt transferred from bed into the bathroom where he completed showering/dressing/toileting. During ADLs pt impulsively stood without warning multiple times, although OT informed pt to notify her prior to stanidng. Pt then went to the therapy area in order for work on dynamic standing balance. Pt stood to catch/toss ball back and forth, as well as functional reaching with cones in all planes. Pt returned to his room. Post OT/PT cotreat, pt seated in recliner, call light in reach, all needs met with chair alarm on. Education OT Patient Education: Correct positioning, Energy conservation, Exercise program, Modified ADL techniques, Progress toward Goal/Update tx plan, Purpose of tx/functional activities, Safety issues, Transfer techniques Teaching Recipient: Patient Teaching Methods: Discussion Response to Teaching: Verbalize Understanding, Reinforcement Needed OT Life [employer] Sales Goals [facility] Goals Time Frame: October 16, 2019 Eating (QC): 6 Oral Hygiene (QC): 6 Toileting Hygiene (QC): 6 Shower/Bathe Self (QC): 6 Upper Body Dressing (QC): 6 Lower Body Dressing (QC): 6 On/Off Footwear (QC): 6 Additional Goals: 1-Demonstrate ADL Tasks, 2-Verbalize Understanding, 3- ImproveStrength/[place] 1=Demonstrate adherence to instructed precautions during ADL tasks. 2=Patient will verbalize/demonstrate understanding of assistive devices/modifications for ADL. 3=Patient will improve strength/tolerance for activity to enable patient to perform ADL's. OT Education/Plan Problem List/Assessment Assessment: Decreased Activ Tolerance, Decreased UE Strength, Impaired Funct Balance, Impaired I ADL's, Impaired Self-Care Skills Discharge Recommendations Plan/Recommendations: Continue POC Treatment Plan/Plan of Care Treatment,Training & Education: Yes Patient would benefit from OT for education, treatment and training to promote independence in ADL's, mobility, safety and/or upper extremity function for ADL's. Plan of Care: ADL Retraining, Functional Mobility, Group Exercise/Act as Ind, UE Funct Exercise/Act Treatment Duration: October 16, 2019 Frequency: At least 5 of 7 days/Wk (IRF) Estimated Hrs Per Day: 1.5 hours per day Agreement: Yes Rehab Potential: Guarded Time/GCodes Start Time: 10:30 Stop Time: 12:00 Total Time Billed (hr/min): 90 Billed Treatment Time 5570-3127 OT eval/tx [id number] OT/PT cotreat 1, EVM (15'), ADL 3 (45'), FA 2 (30') FABIO ROTHMAN OT Sep 21, 2019 13:11
--- NOTE | 2019-09-21 13:29 | NUR ---
CM/SS ADMISSION Patient admitted to ARU 09/19/19 from [facility] for CVA, acute and subacute infarcts. Additional comorbidities are, in part, NIDDM and dementia without behavioral disturbance. Patient apparently moved here about 8 months ago from [place] to be near his only child, Rolando Hoover Jr. Prior to acute onset of symptoms and hospitalization, he was reportedly independently functional. He indicates he does not drive, that his son does all errands or takes him as needed. Confirmed with son Rolando that he picks patient up everyday 5 p.m. and takes him to his house for dinner, television/visiting, then back to his apartment around 2200 for bedtime. PCP: TERE SEYMOUR, RIAZ [place] PHARMACY: [facility] INSURANCE: [employer] Medicare DME: Patient has none at this time. Will continue to explore therapy recommendations as patient progresses toward discharge. Rolando had gotten an order from Lauren Pratt for walker during one of the ED presentations. Rolando took that to [facility], they were trying to reach Lauren for paperwork. Recovery Collector contacted [facility] and will work in partnership with them to get patient a walker for discharge. BARRIERS TO DISCHARGE: Patient resides alone with intermittent visits/assistance from son. SLUMS score 14/30, moderate dementia. Risk for falls with unsteady gait as well as impulsiveness due to difference in functional status from before acute CVA. Both patient and son verbalize the goal is for him to return to his apartment as before. CONTACTS: Rolando Hoover Jr., [address] [place] [address] Visited with Rolando, he is with patient daily as noted above, 5-10 p.m. Rolando works, his fiance of 12 years takes care of her father in the evening, so Rolando and patient are alone at home during their time. Patient indicated he understood purpose and process of weekly team conference relative to discharge planning. In general, patient conversed well with sheet writer to answer simple questions and also recited his SS# without hesitation when it was needed for benefit verification.
--- NOTE | 2019-09-21 15:01 | Physical Therapy Daily Note ---
PT Daily Note-Current Subjective Patient in bed pre tx, agrees to PT, has no complaints of pain, patient seems a little more confused this afternoon. Appearance Patient in bed post tx with nurse call, phone, tray, all needs met, bed alarm on. Mental Status Patient Orientation: Person Transfers SCALE: Activities may be completed with or without assistive devices. 5-Atjhrzysat-tulfxtu completes the activity by him/herself with no assistance from a helper. 5-Set-up or Clean-up Assistance-helper sets up or cleans up; patient completes activity. [place] assists only prior to or following the activity. 4-Supervision or Touching Assistance-helper provides verbal cues and/or touching/steadying and/or contact guard assistance as patient completes activity. Assistance may be provided throughout the activity or intermittently. 3-Partial/Moderate Assistance-helper does LESS THAN HALF the effort. [place] lifts, holds or supports trunk or limbs, but provides less than half the effort. 2-Substantial/Maximal Assistance-helper does MORE THAN HALF the effort. [place] lifts or holds trunk or limbs and provides more than half the effort. 7-Bzuxrqgkg-iyuhas does ALL the effort. Patient does none of the effort to complete the activity. Or, the assistance of 2 or more helpers is required for the patient to complete the activity. If activity was not attempted, code reason: 7-Patient Refused. 9-Not Applicable-not attempted and the patient did not perform the activity before the current illness, exacerbation or injury. 10-Not Attempted due to Environmental Limitations-(lack of equipment, weather restraints, etc.). 88-Not Attempted due to Medical Conditions or Safety Concerns. Roll Left & Right (QC): 6 Sit to Lying (QC): 6 Lying to Sitting/Side of Bed(Q: 6 Sit to Stand (QC): 4 Chair/Qmf-qk-Xfmbt Xfer(QC): 3 Assist with balance during transfers, has left neglect Weight Bearing Right Lower Extremity: Right Full Weight Bearing Left Lower Extremity: Left Full Weight Bearing Gait Training Distance: 150'x2 Walk 10 feet (QC): 3 Walk 50 ft with 2 Turns(QC): 3 Walk 150 ft (QC): 3 Gait Persons Needed: 1 Gait Assistive Device: FWW Ambulates briskly but with decreased safety awareness, needs near constant cues for safety and direction, left neglect Exercises NuStep Minutes: 15 NuStep Workload: 4 Treatments bed mobility and transfers, ambulation, functional strengthening Assessment Current Status: Poor Progress Patient struggles with left neglect and safety. PT Butter Liquefier Goals Fpc Goals PT Fpc Goals Time Frame: October 03, 2019 Roll Left & Right (QC): 6 Sit to Lying (QC): 6 Lying-Sitting on Side/Bed(QC): 6 Sit to Stand (QC): 6 Chair/Tlq-av-Abjcb Xfer(QC): 6 Toilet Transfer (QC): 6 Car Transfer (QC): 6 Does the Patient Walk: Yes Walk 10 feet (QC): 6 Walk 50ft with 2 Turns (QC): 6 Walk 150 ft (QC): 6 Walking 10ft on Uneven Surface: 6 1 Step (curb) (QC): 6 4 Steps (QC): 4 12 Steps (QC): 4 Picking up an Object (QC): 6 Wheel 50 feet with 2 turns (QC: 9 Wheel 150 feet: 9 PT Plan Problem List Problem List: Activity Tolerance, Functional Strength, Safety, Balance, Gait, Transfer, Bed Mobility Treatment/Plan Treatment Plan: Continue Plan of Care Treatment Plan: Bed Mobility, Education, Functional Activity [place], Functional Strength, Gait, Safety, Therapeutic Exercise, Transfers Treatment Duration: October 03, 2019 Frequency: 6 times per week Estimated Hrs Per Day: 1.5 hours per day Patient and/or Family Agrees t: Yes Safety Risks/Education Patient Education: Gait Training, Transfer Techniques, Correct Positioning, Safety Issues Teaching Recipient: Patient Teaching Methods: Demonstration, Discussion Response to Teaching: Reinforcement Needed Time/GCodes Time In: 1430 Time Out: 1500 Total Billed Treatment Time: 30 Total Billed Treatment 1 visit EX 15' GT 15' CHA ORR PT Sep 21, 2019 15:01
--- NOTE | 2019-09-21 15:36 | NUR ---
"RD ASSESSMENT PMHx: hypercholesterolemia; HTN; dementia; stroke; DM PT INTERACTION: Pt was awake and pleasant during nutrition follow-up. Note pt has AMS, per chart review. Pt states he has been eating alright since last assessment. Note avg PO intake 81% x2d, per chart review. Pt states no issues with nausea, vomiting, constipation, or diarrhea since last assessment. Note no BM has been recorded and pt currently on bowel regimen of colace BID; and senna BID, per chart review. ABNORMAL NUTRITION-RELATED LAB VALUES LOW: glu 69 HIGH: BUN 23 Est. kcal needs: 5653-9595 kcal | 20-25 kcal/kg Est. Pro needs: 73-91 g Pro | 0.8-1.0 g Pro/kg PES STATEMENT: Given current PO intake, no nutrition diagnosis at this time (NO-1.1) INTERVENTION: Continue with current diet order of CHO 45g/m 3snack diet. Pt may benefit from more aggressive bowel regimen if constipation persists. Will continue to follow and reassess as pt needs, intake, and status change. MONITOR/EVALUATE: PO Intake; Plan of Care; Hydration Status; Weight Status; Lab Values Lenore Bentley, MS, RD, LD"
[2019-09-21] MEDS: cloNIDine 0.1 MG (CATAPRES) TAB PO PRN (16:36)
[2019-09-21 17:36] VITALS: BP 173/78
--- NOTE | 2019-09-21 20:46 | Individualized Plan of Care ---
Individualized Plan of Care Rehab Nursing IPOC Order Admission Date Sep 19, 2019 at 10:20 Current Orders Orders Admission Order(Inpt,Obs,Sdc) (09/18/19 16:31) Vital Signs: Per Unit Policy ( 08,16,00 (09/18/19 16:31) Yaya Feliciano 09,21 (09/18/19 16:31) Sequential Compression Device Q4H (09/18/19 16:31) County Manager-Inpt Rehab Con (09/18/19 16:31) Rehab Nursing Orders-Ipoc (09/18/19 16:31) Physical Therapy Rehab Orders (09/18/19 16:31) Occupational Therapy Rehab Ord (09/18/19 16:31) Speech Therapy Rehab Orders (09/18/19 16:31) Intake & Output 06,14,22 (09/18/19 16:31) Precautions (Aru) (09/18/19 16:31) Weekly Weight WEEK (09/18/19 16:31) Rehab-Intensity Of Therapy (09/18/19 16:31) Cho 60g/M 3snack (16-2000 Cesar) (09/19/19 Breakfast) Initiate Admission Nursing Pro .admission (09/18/19 16:31) Acetaminophen Tablet (Tylenol Tablet) (09/18/19 16:45) Alprazolam Tablet (Xanax Tablet) (09/18/19 16:45) Calcium Carbonate Chew Tablet (Antacid C (09/18/19 16:45) Diphenhydramine Tablet (Benadryl Tablet) (09/18/19 16:45) Docusate Sodium Capsule (Colace Capsule) (09/18/19 16:45) Bisacodyl Suppository (Dulcolax Supposit (09/18/19 16:45) Lactulose Oral Solution (Enulose Oral So (09/18/19 16:45) Na Phos/Na Biphos Enema (Fleet Enema [place] (09/18/19 16:45) Guaifenesin/Codeine Syrup (Robitussin Ac (09/18/19 16:45) Loperamide Tablet (Imodium Tablet) (09/18/19 16:45) Enoxaparin Injection (Lovenox Injection) (09/18/19 16:45) Melatonin Tablet (Melatonin Tablet) (09/18/19 16:45) Polyethylene Glycol Powder Pkt (Miralax (09/18/19 21:00) Ondansetron Oral Dissolve Tab (Zofran (09/18/19 16:45) Senna S Tablet (Senokot S Tablet) (09/18/19 21:00) Initiate Admission Nursing Pro .admission (09/18/19 16:31) Admission Arrival Bed Request (09/19/19 10:25) Patient Visit (09/19/19 ) Pt Eval High Complexity (09/19/19 ) Code/Resuscitation (09/19/19 10:34) Accucheck Achs ACHS (09/19/19 10:34) Activity (09/19/19 10:34) Ambulate 08,12,20 (09/19/19 10:34) Telemetry (09/19/19 10:34) Vital Signs: Every 4 Hours (Or (09/19/19 10:34) Cho 45g/M 3snack (12-1500 Cesar) (09/19/19 Dinner) Alprazolam Tablet (Xanax Tablet) (09/19/19 10:45) Acetaminophen Tablet (Tylenol Tablet) (09/19/19 10:45) Aspirin Enteric Coated Tablet (Ecotrin T (09/20/19 09:00) Atorvastatin Tablet (Lipitor Tablet) (09/19/19 21:00) Citalopram Tablet (Celexa Tablet) (09/20/19 09:00) Calcium Carbonate Chew Tablet (Antacid C (09/19/19 10:45) Docusate Sodium Capsule (Colace Capsule) (09/19/19 10:45) Hydrocodone/Apap 5/325 Tablet (Lortab 5 (09/19/19 10:45) Loperamide Tablet (Imodium Tablet) (09/19/19 10:45) Enoxaparin Injection (Lovenox Injection) (09/19/19 10:45) Melatonin Tablet (Melatonin Tablet) (09/19/19 10:45) Insulin Aspart (Novolog) (Novolog (Charg (09/19/19 11:00) Ondansetron Injection (Zofran Injectio (09/19/19 10:45) Ondansetron Oral Dissolve Tab (Zofran (09/19/19 10:45) Ceftriaxone For Iv Use (Rocephin For I (09/19/19 10:45) Received Contrast (Hold Metformin- Contr (09/19/19 10:45) Senna S Tablet (Senokot S Tablet) (09/19/19 21:00) Buspirone Tablet (Buspar Tablet) (09/19/19 13:00) Clonidine Tablet (Catapres Tablet) (09/19/19 10:45) Diphenhydramine Tablet (Benadryl Tablet) (09/19/19 10:45) Fentanyl Injection (Sublimaze Injection (09/19/19 10:45) Glipizide Xl Tablet (Glucotrol Xl Tablet (09/20/19 08:00) Metformin Xr Tablet (Glucophage Xr Table (09/19/19 17:00) Consult Cardiology (09/19/19 10:34) Docusate Sodium Capsule (Colace Capsule) (09/19/19 21:00) Ceftriaxone For Iv Use (Rocephin For I (09/19/19 21:00) Sodium Chloride Flush (Catheter Flush Sy (09/19/19 14:00) Enoxaparin Injection (Lovenox Injection) (09/19/19 21:00) Ambulate 08,12,20 (09/19/19 11:23) Sequential Compression Device Q4H (09/19/19 11:23) Dvt/Vte Risk - Notifiy Physici Q4H (09/19/19 11:23) Amlodipine Tablet (Norvasc Tablet) (09/20/19 09:00) Amlodipine Tablet (Norvasc Tablet) (09/19/19 12:45) Cbc With Automated Diff (09/20/19 06:00) Comprehensive Metabolic Panel (09/20/19 06:00) Lidocaine 1% Inj 20 Ml (Xylocaine 1% Inj (09/19/19 12:40) Cbc With Automated Diff (09/21/19 06:00) Comprehensive Metabolic Panel (09/21/19 06:00) Patient Visit (09/21/19 ) Speech Sound Lang Comp (09/21/19 ) Patient Visit (09/21/19 ) Functional Activities, Ea 15 (09/21/19 ) Ex Neuromuscular, Ea 15 Min (09/21/19 ) Exercise Therap, Ea 15 Min (09/21/19 ) Gait Training, Ea 15 Min (09/21/19 ) Rehab Nursing Orders: Ongoing Assess. of Cognitive Status, Ongoing Assess. of Function Status, Bladder Management, Bladder Scan, Bladder Training, Bowel Management, Bowel Training, Disease Management & Educaiton, DVT Prophylaxis, Fall Prevention, Fluid/Electrolyte/Nutrition Mgmt, Infection Prevention, Medication Management & Education, Management of Risks & Complications, Management of Skin Intergrity, Nutrition Management, Pain Management, Patient/Family Support, Safety Management, Swallow Precautions Intensity of Therapy to be met Patient to be seen: Min.3h per day/5 of 7d PT IPOC Problem List: Activity Tolerance, Functional Strength, Safety, Balance, Gait, Transfer, Bed Mobility Treatment Plan: Continue Plan of Care Bed Mobility, Education, Functional Activity [place], Functional Strength, Gait, Safety, Therapeutic Exercise, Transfers Treatment Duration: October 03, 2019 Frequency: 6 times per week Estimated Hrs Per Day: 1.5 hours per day OT IPOC Problems: Decreased Activ Tolerance, Decreased UE Strength, Impaired Funct Balance, Impaired I ADL's, Impaired Self-Care Skills OT Treatment, Training and Edu: Yes Plan of Care: ADL Retraining, Functional Mobility, Group Exercise/Act as Ind, UE Funct Exercise/Act Treatment Duration: October 16, 2019 Frequency: At least 5 of 7 days/Wk (IRF) Estimated Hrs Per Day: 1.[address] IPOC Speech Therapy Treatment Plan: Continue Plan of Care Treatment Duration: Sep 21, 2019 Frequency: Modified Program (IRF) Estimated Hrs Per Day: .5 hour per day County Manager/Case Mgmt County Manager/Case Managemen: Discharge Planning Dietitian/Farm Adviser Dietitian/Farm Adviser to monitor nutritional status and make changes and/or recommendations as needed and work with speech pathology on dietary upgrades as the occur. Physician IPOC Medical Issues being managed closely and that require the 24 hour availability of a physician: Multiple CVA's with loss of mobility with dementia and DM at high risk for decompensation due to recurrent CVA Medical Issues: Bowel/Bladder Function, DVT Prophylaxis, Falls Precautions, Fluid/Electrolyte/Nutrition Balance, Infection Protection, Pain Management Brief Synthesis of Preadmission Screen, Post-Admission Evaluation, and Therapy Evaluations: PT OT ST will focus on regaining lost function from CVA superimposed on dementia and poor functional status in order to return home with family Medical Prognosis: Good Anticipated Length of Stay: 10 days SIA DUGGAN DO Sep 21, 2019 20:46
[2019-09-21] MEDS: ENOXAPARIN 40 MG/0.4 ML (LOVENOX) SYR SC SCH (20:53)
[2019-09-22 05:47] VITALS: BP 167/89
[2019-09-22] MEDS: cloNIDine 0.1 MG (CATAPRES) TAB PO PRN (06:00)
--- NOTE | 2019-09-22 06:00 | NUR ---
0545:PATIENT FSBS 65MG/DL. GIVEN JUICE, PEANUT BUTTER AND ZANDER CRACKERS. PATIENT ANSWERING APPROPRIATELY AND IS ASYMPTOMATIC. RECHECK 89MG/DL. CATAPRES ADMINISTERED FOR BP 167/89MG/DL. DENIES NEEDS OR C/O AT THIS TIME. CONT TO MONITOR.
[2019-09-22] MEDS: inSUlin ASPART (NovoLOG) 1 UNIT/0.01 ML (CHARGE PER UNIT) SC SCH (06:10)
--- NOTE | 2019-09-22 06:13 | NUR ---
DR DUGGAN NOTIFIED OF HYPOGLYCEMIA 65 PER PROTOCOL. ORDERS TO HOLD SSI, METFORMIN AND GLUCOTROL. ENTERED AND PATIENT EDUCATED ON NEW ORDERS. DENIES NEEDS OR C/O. CONT TO MONIT.R
--- NOTE | 2019-09-22 07:52 | Speech Therapy Daily Note ---
Speech Daily Progress Note Subjective Date Seen by Provider: Sep 22, 2019 Time Seen by Provider: 00:30 Patient was sleeping following breakfast, however he was able to awaken and participate with therapy. Objective Patient completed a series of q/a related to his daily needs with 70% given mode rate cues and/or repetition. Assessment Assessment Current Status: Fair Progress Treatment Plan Continue Plan of Care Speech Short Term Goals Short Term Goals Short Term Goals 1) Patient will complete memory tasks related to his daily needs at 80% with minimal cues. 2) Patient will complete problem solving tasks related to his daily needs at 80% with minimal cues. 3) Patient will complete safety awareness tasks related to his daily needs at 80% with minimal cues. Speech Nursing Home Goals Nursing Home Goals Patient will improve cognitive-communication necessary for safety and daily living tasks with minimal assist. Speech-Plan Patient/Family Goals Patient/Family Goals: Patient plans on returning to his prior living situation, however at this time it is unknown if this is going to be safe due to dementia and cogntive deficits. Treatment Plan Speech Therapy Treatment Plan: Continue Plan of Care Treatment Duration: Sep 21, 2019 Frequency: Modified Program (IRF) Estimated Hrs Per Day: .5 hour per day Rehab Potential: Guarded Barriers to Learning: Dementia, cognitive deficits, decreased recall of information Pt/Family Agrees to Plan: Yes Safety Risks/Education Teaching Recipient: Patient Teaching Methods: Demonstration, Discussion Response to Teaching: Verbalize Understanding, Return Demonstration Education Topics Provided: Safety within his room and utilizing call light for assistance Time Speech Therapy Time In: 07:15 Speech Therapy Time Out: 07:45 Total Billed Time: 30 Billed Treatment Time 1, EMIL Newby Sep 22, 2019 07:52
--- NOTE | 2019-09-22 09:29 | Cardiology Progress Note ---
Subjective Date Seen by Provider: Sep 22, 2019 Time Seen by Provider: 08:50 Subjective/Events-last exam Patient is in bed, no new complaint. Denies any chest pain or dyspnea. Review of Systems General: No Chills, No Night Sweats, No Fatigue, No Malaise, No Appetite, No Other HEENT: No Head Aches, No Visual Changes, No Eye Pain, No Ear Pain, No Dysphasia, No Sinus Congestion, No Post Nasal Drip, No Sore Throat, No Other Pulmonary: No Dyspnea, No Cough, No Pleuritic Chest Pain, No Other Cardiovascular: No: Chest Pain, Palpitations, Orthopnea, Paroxysmal Noc. Dyspnea, Edema, Lt Headedness, Other Objective-Cardiology Exam Last Set of Vital Signs Vital Signs 09/22/19 05:47 Temp 36.8 Pulse 64 Resp 20 B/P (MAP) 167/89 (115) Pulse Ox 97 O2 Delivery Room Air Capillary Refill : Less Than 3 Seconds I&O Intake and Output 09/22/19 00:00 Intake Total 1000 ml Balance 1000 ml Intake Oral 1000 ml # Voids 5 # Bowel Movements 1 General: Alert, Oriented X3, Cooperative HEENT: Atraumatic, PERRLA Neck: Supple, No JVD, No Thyromegaly Lungs: Clear to Auscultation, Normal Air Movement Heart: Regular Rate, Normal S1, Normal S2, No Murmurs Abdomen: Normal Bowel Sounds, Soft, No Tenderness, No Hepatosplenomegaly, No Masses Extremities: No Clubbing, No Cyanosis, No Edema, Normal Pulses, No Tenderness/Swelling Skin: No Rashes, No Breakdown, No Significant Lesion Neuro: Normal Speech, Cranial Nerves 3-12 NL, Other (gait instablility) Psych/Mental Status: Mental Status NL, Mood NL Results Lab Laboratory Tests Test 09/21/19 15:24 09/21/19 20:42 09/22/19 05:41 09/22/19 06:00 Range/Units Glucometer 155 H 184 H 65 L 89 70-110 MG/DL Test 09/22/19 11:09 Range/Units Glucometer 210 H 70-110 MG/DL A/P-Cardiology Admission Diagnosis Cryptogenic CVA Hyperlipidemia PVC's Dementia Assessment/Plan Acute stroke, Cryptogenic CVA, 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 Negativ e telemetry for 48 hours for atrial fibrillation. Echocardiogram showed normal LV function with negative bubble study ruling out intracardiac shunting. No significant carotid atherosclerotic disease. Long-term surveillance for atrial fibrillation is recommended. Implantable loop recorder done on 09/19/2019. Continue on current medications and continue to monitor. Mild dementia, deferred to the primary team. Diabetes, was on metformin. Hyperlipidemia, atorvastatin. PVCs, will follow clinically. Patient was seen and evaluated with Lilian, examination performed, management plan was discussed, agree with the current scribed note, I made few changes to the note using Italic font Patient was laying down in bed, no new complaint Continue current medication, no changes are Clinical Quality Measures DVT/VTE Risk/Contraindication: Risk Factor Score Per Nursin RFS Level Per Nursing on Admit: 3=High LILIAN BLANKENSHIP Sep 22, 2019 09:29 MARTHA ZHU MD Sep 22, 2019 13:25
--- NOTE | 2019-09-22 09:30 | NUR ---
DR DUGGAN STATES TO CONT. TO HOLD GLIPIZIDE, METFORMIN & SSIP & JUST TO MONITOR BS TODAY.
--- NOTE | 2019-09-22 09:49 | PM&R Progress Note ---
Subjective HPI/CC On Admission Date Seen by Provider: Sep 22, 2019 Time Seen by Provider: 09:45 Subjective/Events-last exam Blood sugar is a little low today, holding Metformin and Glipizide No pain is reported No falls but impulsive Much improved though Loop recorder placed Saturday Checked meds and labs Reviewed therapy notes Conferred with transmission worker of Systems General: Fatigue Objective Exam Vital Signs Vital Signs Date Time Temp Pulse Resp B/P (MAP) Pulse Ox O2 Delivery O2 Flow Rate FiO2 09/23/19 06:06 37.0 62 18 162/84 (110) 96 Room Air Capillary Refill : Less Than 3 Seconds General Appearance: No Apparent Distress, WD/WN, Chronically ill HEENT: PERRL/EOMI, Normal ENT Inspection, Pharynx Normal, Other (presbycusis) Neck: Full Range of Motion, Normal Inspection, Non Tender, Supple, Carotid Bruit Respiratory: Chest Non Tender, Lungs Clear, Normal Breath Sounds, No Accessory Muscle Use, No Respiratory Distress Cardiovascular: Regular Rate, Rhythm, No Edema, No Gallop, No JVD, No Murmur, Normal Peripheral Pulses Gastrointestinal: Normal Bowel Sounds, No Organomegaly, No Pulsatile Mass, Non Tender, Soft Back: Normal Inspection, No CVA Tenderness, No Vertebral Tenderness Extremity: Normal Capillary Refill, Normal Inspection, Normal Range of Motion, Non Tender, No Calf Tenderness, No Pedal Edema Neurologic/Psychiatric: Alert, Oriented x3, Normal Mood/Affect, building drafter II-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 FIM Transfers Therapy Code Descriptions/Definitions Functional [place] Measure: 0=Not Assessed/NA 4=Minimal Assistance 1=Total Assistance 5=Supervision or Setup 2=Maximal Assistance 6=Modified [place] 3=Moderate Assistance 7=Complete IndependenceSCALE: Activities may be completed with or without assistive devices. 7-Epqgdqvmkn-jwsuzhj completes the activity by him/herself with no assistance from a helper. 5-Set-up or Clean-up Assistance-helper sets up or cleans up; patient completes activity. [place] assists only prior to or following the activity. 4-Supervision or Touching Assistance-helper provides verbal cues and/or touching/steadying and/or contact guard assistance as patient completes activity. Assistance may be provided throughout the activity or intermittently. 3-Partial/Moderate Assistance-helper does LESS THAN HALF the effort. [place] lifts, holds or supports trunk or limbs, but provides less than half the effort. 2-Substantial/Maximal Assistance-helper does MORE THAN HALF the effort. [place] lifts or holds trunk or limbs and provides more than half the effort. 1-Nchwheqgc-vypmds does ALL the effort. Patient does none of the effort to complete the activity. Or, the assistance of 2 or more helpers is required for the patient to complete the activity. If activity was not attempted, code reason: 7-Patient Refused. 9-Not Applicable-not attempted and the patient did not perform the activity before the current illness, exacerbation or injury. 10-Not Attempted due to Environmental Limitations-(lack of equipment, weather restraints, etc.). 88-Not Attempted due to Medical Conditions or Safety Concerns. Roll Left to Right (QC): 6 Sit to Lying (QC): 6 Sit to Stand (QC): 4 Chair/Xbf-mw-Nmqmg Xfer(QC): 3 Car Transfer (QC): 3 Gait Training Does the Patient Walk?: Yes Distance: 150'x2 Walk 10 feet (QC): 3 Walk 50 ft with 2 Turns(QC): 3 Walk 150 ft (QC): 3 Walking 10ft/uneven surface-QC: 3 Gait Persons Needed: 1 Gait Assistive Device: FWW Wheelchair Training Wheel 50 ft with 2 turns (QC): 9 Wheel 150 ft (QC): 9 Stair Training 1 Step (curb) (QC): 3 4 Steps (QC): 88 12 Steps (QC): 88 Balance Picking up an Object (QC): 3 ADL-Treatment Eating (QC): 6 (Per pt report he had no difficulty with breakfast. Pt able to open cheese package without difficulties) Oral Hygiene (QC): 3 (Pt brushed his teeth at tray table. He required min A for rinsing/brushing dentures.) Shower/Bathe Self (QC): 4 (CGA during stand at GBs. pt impulsively stood without warning requiring cues for safety.) Upper Body Dressing (QC): 5 (set up) Lower Body Dressing (QC): 4 (CGA during stand at GBs/FWW. Pt able to thread pants/underwear) On/Off Footwear (QC): 3 (Pt able to doff socks, and don with min A for orientation. OT dependently donned TEDhose for pt.) Toileting Hygiene (QC): 4 (CGA, pt able to manage clothes and hygiene.) Assessment/Plan Assessment and Plan Assess & Plan/Chief Complaint Assessment: Acute and subacute strokes on MRI with negative CT scan Instability unable to walk in previous independent patient Dementia DM HTN HLP Abnl UA but Cx no pathological bacteria so will DC Rocephin s/p Loop recorder 09/19/19 Hypoglycemia holding meds Plan: CVA protocol Rehab protocol Statin ASA Cardiology consultation is appreciated Hold OHA and Metformin (1) CVA (cerebrovascular accident) (2) Risk for falls (3) Hyperlipemia (4) Diabetes (5) Unsteady gait Status: Acute (6) Dementia Status: Acute (7) Status post placement of implantable loop recorder SIA DUGGAN DO Sep 22, 2019 09:49
[2019-09-22] MEDS: ASPIRIN E.C. 81 MG (ECOTRIN) TAB PO SCH (10:04)
[2019-09-22] MEDS: amLODIPine 5 MG (NORVASC) TAB PO SCH (10:04)
[2019-09-22] MEDS: busPIRone 10 MG (BUSPAR) TAB PO SCH ×3 (10:04→20:45)
[2019-09-22] MEDS: DOCUSATE SODIUM 100 MG (COLACE) CAP PO SCH ×2 (10:05→20:25)
[2019-09-22] MEDS: SENNA W/DOCUSATE (SENOKOT S) TABLET PO SCH ×2 (10:05→20:25)
--- NOTE | 2019-09-22 10:40 | NUR ---
Pastoral care visit.
--- NOTE | 2019-09-22 11:21 | Occupational Ther Daily Note ---
OT Current Status-Daily Note Subjective Pt in bed, agrees to therapy. No reports of pain. ADL-Treatment Pt supine to sit using bed rail. Pt transferred to chair with min assist and skilled cues for safety. Pt declined shower, but agrees to sponge bath. Doff shirt without assist. Pt bathed upper body with SBA. Don shirt with min assist secondary to decreased sitting balance. Pt sit to stand with CGA. Pt is impulsive and requires cues for safety. Doff shorts and Depends with CGA. Pt able to wash bilateral LE and chris area. Min assist for balance while washing buttocks. Pt requires min assist to thread LE into Depends and pants. Stood with min assist for balance during pant hike. Pt doffed socks with SBA. Donned left sock with SBA. Min assist to start sock over right foot, then able to pull on the rest of the way. Pt completed denture care with SBA while seated. Combed hair with set up. Therapy Code Descriptions/Definitions Functional [place] Measure: 0=Not Assessed/NA 4=Minimal Assistance 1=Total Assistance 5=Supervision or Setup 2=Maximal Assistance 6=Modified [place] 3=Moderate Assistance 7=Complete IndependenceSCALE: Activities may be completed with or without assistive devices. 4-Iuzsgjgymi-ivzfmku completes the activity by him/herself with no assistance from a helper. 5-Set-up or Clean-up Assistance-helper sets up or cleans up; patient completes activity. [place] assists only prior to or following the activity. 4-Supervision or Touching Assistance-helper provides verbal cues and/or touching/steadying and/or contact guard assistance as patient completes activity. Assistance may be provided throughout the activity or intermittently. 3-Partial/Moderate Assistance-helper does LESS THAN HALF the effort. [place] lifts, holds or supports trunk or limbs, but provides less than half the effort. 2-Substantial/Maximal Assistance-helper does MORE THAN HALF the effort. [place] lifts or holds trunk or limbs and provides more than half the effort. 5-Kbpnlerjh-nqjtpb does ALL the effort. Patient does none of the effort to complete the activity. Or, the assistance of 2 or more helpers is required for the patient to complete the activity. If activity was not attempted, code reason: 7-Patient Refused. 9-Not Applicable-not attempted and the patient did not perform the activity before the current illness, exacerbation or injury. 10-Not Attempted due to Environmental Limitations-(lack of equipment, weather restraints, etc.). 88-Not Attempted due to Medical Conditions or Safety Concerns. Oral Hygiene (QC): 4 Shower/Bathe Self (QC): 3 Upper Body Dressing (QC): 3 Lower Body Dressing (QC): 3 On/Off Footwear: 3 Other Treatment Pt completed bilateral UE activity to increase strength and activity tolerance needed for ADLs and transfers. Pt performed four dowel trinity exercises x20 reps. Rest breaks taken between exercises. Skilled cues for proper exercise technique. Bilateral hand spanish instructor exercises x20 reps with moderate resistance therapy foam. Pt transferred back to bed with FWW, cues for safety. Sit to supine with SBA. Pt resting in bed with needs met and bed alarm on after session. Education OT Patient Education: Safety issues Teaching Recipient: Patient Teaching Methods: Discussion Response to Teaching: Reinforcement Needed OT Web Manager Goals Web Manager Goals Time Frame: October 16, 2019 Eating (QC): 6 Oral Hygiene (QC): 6 Toileting Hygiene (QC): 6 Shower/Bathe Self (QC): 6 Upper Body Dressing (QC): 6 Lower Body Dressing (QC): 6 On/Off Footwear (QC): 6 Additional Goals: 1-Demonstrate ADL Tasks, 2-Verbalize Understanding, 3- ImproveStrength/[place] 1=Demonstrate adherence to instructed precautions during ADL tasks. 2=Patient will verbalize/demonstrate understanding of assistive devic es/modifications for ADL. 3=Patient will improve strength/tolerance for activity to enable patient to perform ADL's. OT Education/Plan Discharge Recommendations Plan/Recommendations: Continue POC Treatment Plan/Plan of Care Patient would benefit from OT for education, treatment and training to promote independence in ADL's, mobility, safety and/or upper extremity function for ADL's. Plan of Care: ADL Retraining, Functional Mobility, Group Exercise/Act as Ind, UE Funct Exercise/Act Treatment Duration: October 16, 2019 Frequency: At least 5 of 7 days/Wk (IRF) Estimated Hrs Per Day: 1.5 hours per day Agreement: Yes Rehab Potential: Guarded Time/GCodes Start Time: 08:45 Stop Time: 09:45 Total Time Billed (hr/min): 60 Billed Treatment Time 1 visit, ADLx3(45minutes), EX(15minutes) GARRY CLARK OT Sep 22, 2019 11:20
--- NOTE | 2019-09-22 11:28 | Physical Therapy Daily Note ---
PT Daily Note-Current Subjective Pt is in bed on arrival. He is agreeable to treatment and denies pain on arrival. Mental Status Patient Orientation: Person, Place, Time, Situation Transfers SCALE: Activities may be completed with or without assistive devices. 1-Ojgzvedmzm-jvjyhuh completes the activity by him/herself with no assistance from a helper. 5-Set-up or Clean-up Assistance-helper sets up or cleans up; patient completes activity. [place] assists only prior to or following the activity. 4-Supervision or Touching Assistance-helper provides verbal cues and/or touching/steadying and/or contact guard assistance as patient completes activity. Assistance may be provided throughout the activity or intermittently. 3-Partial/Moderate Assistance-helper does LESS THAN HALF the effort. [place] lifts, holds or supports trunk or limbs, but provides less than half the effort. 2-Substantial/Maximal Assistance-helper does MORE THAN HALF the effort. [place] lifts or holds trunk or limbs and provides more than half the effort. 0-Tutfzibga-ynvkbj does ALL the effort. Patient does none of the effort to complete the activity. Or, the assistance of 2 or more helpers is required for the patient to complete the activity. If activity was not attempted, code reason: 7-Patient Refused. 9-Not Applicable-not attempted and the patient did not perform the activity before the current illness, exacerbation or injury. 10-Not Attempted due to Environmental Limitations-(lack of equipment, weather restraints, etc.). 88-Not Attempted due to Medical Conditions or Safety Concerns. Roll Left & Right (QC): 5 Sit to Lying (QC): 4 Lying to Sitting/Side of Bed(Q: 4 Sit to Stand (QC): 4 Chair/Mom-dr-Vazev Xfer(QC): 4 Weight Bearing Right Lower Extremity: Right Full Weight Bearing Left Lower Extremity: Left Full Weight Bearing Gait Training Does the Patient Walk?: Yes Distance: 400ft x3 Walk 10 feet (QC): 4 Walk 50 ft with 2 Turns(QC): 4 Walk 150 ft (QC): 4 Gait Persons Needed: 1 Gait Assistive Device: None Pt began ambulation today with the walker, but he was having difficulty staying in the walker and kept leaning forward resulting in very fast gait. Took away the walker and he was better able to ambulate safely and with less lateral or anterior deviation. Wheelchair Training Does the Pt Use a Wheelchair?: No Stair Training 1 Step (curb) (QC): 3 Exercises Supine Ex: LE Protocol Supine Reps: [address] Ex=Flex, Abd, Ext, Marching, Side steps, Step-ups, Stepping over objects Standing Reps: 20 Neuromuscular Worked on standing balance with upper body reaching. Dynamic balance with side stepping and marching, no AD, CGA, 40ft x3 each. Treatments gait, ther ex, balance training Assessment Current Status: Good Progress Pt was much safer ambulating without the walker. He was better able to manage his speed and avoided lateral deviation. PT Assisted Goals Assisted Goals PT Assisted Goals Time Frame: October 03, 2019 Roll Left & Right (QC): 6 Sit to Lying (QC): 6 Lying-Sitting on Side/Bed(QC): 6 Sit to Stand (QC): 6 Chair/Mgk-ke-Pmsmn Xfer(QC): 6 Toilet Transfer (QC): 6 Car Transfer (QC): 6 Does the Patient Walk: Yes Walk 10 feet (QC): 6 Walk 50ft with 2 Turns (QC): 6 Walk 150 ft (QC): 6 Walking 10ft on Uneven Surface: 6 1 Step (curb) (QC): 6 4 Steps (QC): 4 12 Steps (QC): 4 Picking up an Object (QC): 6 Wheel 50 feet with 2 turns (QC: 9 Wheel 150 feet: 9 PT Plan Treatment/Plan Treatment Plan: Continue Plan of Care Treatment Plan: Bed Mobility, Education, Functional Activity [place], Functional Strength, Gait, Safety, Therapeutic Exercise, Transfers Treatment Duration: October 03, 2019 Frequency: 6 times per week Estimated Hrs Per Day: 1.5 hours per day Patient and/or Family Agrees t: Yes Time/GCodes Time In: 1020 Time Out: 1120 Total Billed Treatment Time: 60 Total Billed Treatment 1, gt (20), ex x2 (25), NM (15) HAFSA AHMADI PT Sep 22, 2019 11:28
--- NOTE | 2019-09-22 13:36 | Physical Therapy Daily Note ---
PT Daily Note-Current Subjective Pt is in bed on arrival. He is agreeable to treatment and denies pain. Mental Status Patient Orientation: Person, Place, Time, Situation Transfers SCALE: Activities may be completed with or without assistive devices. 9-Lcmgzccjsk-mhlkgzh completes the activity by him/herself with no assistance from a helper. 5-Set-up or Clean-up Assistance-helper sets up or cleans up; patient completes activity. [place] assists only prior to or following the activity. 4-Supervision or Touching Assistance-helper provides verbal cues and/or touching/steadying and/or contact guard assistance as patient completes activity. Assistance may be provided throughout the activity or intermittently. 3-Partial/Moderate Assistance-helper does LESS THAN HALF the effort. [place] lifts, holds or supports trunk or limbs, but provides less than half the effort. 2-Substantial/Maximal Assistance-helper does MORE THAN HALF the effort. [place] lifts or holds trunk or limbs and provides more than half the effort. 9-Wdjdemxes-gcltza does ALL the effort. Patient does none of the effort to complete the activity. Or, the assistance of 2 or more helpers is required for the patient to complete the activity. If activity was not attempted, code reason: 7-Patient Refused. 9-Not Applicable-not attempted and the patient did not perform the activity before the current illness, exacerbation or injury. 10-Not Attempted due to Environmental Limitations-(lack of equipment, weather restraints, etc.). 88-Not Attempted due to Medical Conditions or Safety Concerns. Roll Left & Right (QC): 4 Sit to Lying (QC): 4 Lying to Sitting/Side of Bed(Q: 4 Sit to Stand (QC): 3 Chair/Jqm-fy-Qqqqw Xfer(QC): 3 Weight Bearing Right Lower Extremity: Right Full Weight Bearing Left Lower Extremity: Left Full Weight Bearing Gait Training Does the Patient Walk?: Yes Distance: 400ft x3, 200ft Walk 10 feet (QC): 4 Walk 50 ft with 2 Turns(QC): 4 Walk 150 ft (QC): 4 Gait Persons Needed: 1 Gait Assistive Device: None First lap performed with the walker. Remaining gait without AD. He was very unsafe with the walker and kept going faster and walking to the left of the walker. He was able to control his speed and direction better when ambulating without AD. Exercises Supine Ex: LE Protocol Supine Reps: 15 Standing: Floor clock, 3 way Ex=Flex, Abd, Ext, Marching, Side steps, Step-ups Standing Reps: 20 Assessment Current Status: Good Progress Pt was initially very unsteady with transfer and gait when using the walker. His stability improved through treatment and he was more aware of any deviation in direction or when walking too fast. PT Design Project Manager Goals Care Home Goals PT Care Home Goals Time Frame: October 03, 2019 Roll Left & Right (QC): 6 Sit to Lying (QC): 6 Lying-Sitting on Side/Bed(QC): 6 Sit to Stand (QC): 6 Chair/Avn-do-Gwrkw Xfer(QC): 6 Toilet Transfer (QC): 6 Car Transfer (QC): 6 Does the Patient Walk: Yes Walk 10 feet (QC): 6 Walk 50ft with 2 Turns (QC): 6 Walk 150 ft (QC): 6 Walking 10ft on Uneven Surface: 6 1 Step (curb) (QC): 6 4 Steps (QC): 4 12 Steps (QC): 4 Picking up an Object (QC): 6 Wheel 50 feet with 2 turns (QC: 9 Wheel 150 feet: 9 PT Plan Treatment/Plan Treatment Plan: Continue Plan of Care Treatment Plan: Bed Mobility, Education, Functional Activity [place], Functional Strength, Gait, Safety, Therapeutic Exercise, Transfers Treatment Duration: October 03, 2019 Frequency: 6 times per week Estimated Hrs Per Day: 1.5 hours per day Patient and/or Family Agrees t: Yes Time/GCodes Time In: 1255 Time Out: 1325 Total Billed Treatment Time: 30 Total Billed Treatment 1, gt (15), ex (15) HAFSA AHMADI PT Sep 22, 2019 13:36
--- NOTE | 2019-09-22 13:56 | Occupational Ther Daily Note ---
OT Current Status-Daily Note Subjective Pt sitting in chair, agrees to treatment. ADL-Treatment Therapy Code Descriptions/Definitions Functional [place] Measure: 0=Not Assessed/NA 4=Minimal Assistance 1=Total Assistance 5=Supervision or Setup 2=Maximal Assistance 6=Modified [place] 3=Moderate Assistance 7=Complete IndependenceSCALE: Activities may be completed with or without assistive devices. 8-Bxpltysjri-tvlitwf completes the activity by him/herself with no assistance from a helper. 5-Set-up or Clean-up Assistance-helper sets up or cleans up; patient completes activity. [place] assists only prior to or following the activity. 4-Supervision or Touching Assistance-helper provides verbal cues and/or touching/steadying and/or contact guard assistance as patient completes activity. Assistance may be provided throughout the activity or intermittently. 3-Partial/Moderate Assistance-helper does LESS THAN HALF the effort. [place] lifts, holds or supports trunk or limbs, but provides less than half the effort. 2-Substantial/Maximal Assistance-helper does MORE THAN HALF the effort. [place] lifts or holds trunk or limbs and provides more than half the effort. 0-Vydjvpump-zbpumr does ALL the effort. Patient does none of the effort to complete the activity. Or, the assistance of 2 or more helpers is required for the patient to complete the activity. If activity was not attempted, code reason: 7-Patient Refused. 9-Not Applicable-not attempted and the patient did not perform the activity before the current illness, exacerbation or injury. 10-Not Attempted due to Environmental Limitations-(lack of equipment, weather restraints, etc.). 88-Not Attempted due to Medical Conditions or Safety Concerns. Other Treatment Pt completed resistance peg activity with bilateral UE with 1# weights in place to increase strength, activity tolerance, and coordination/manipulation skills needed for functional tasks. Pt had mild difficulty placing pegs into pegboard, but was able to complete task with increased time. Pt sit to stand with supervision. Transfer to EOB with skilled cues for safety as pt is impulsive and moves quickly during transfer. Sit to supine without assist. Pt resting in bed with needs met and bed alarm on after session. OT Skilled Nursing Goals Blacking Machine Operator Goals Time Frame: October 16, 2019 Eating (QC): 6 Oral Hygiene (QC): 6 Toileting Hygiene (QC): 6 Shower/Bathe Self (QC): 6 Upper Body Dressing (QC): 6 Lower Body Dressing (QC): 6 On/Off Footwear (QC): 6 Additional Goals: 1-Demonstrate ADL Tasks, 2-Verbalize Understanding, 3- ImproveStrength/[place] 1=Demonstrate adherence to instructed precautions during ADL tasks. 2=Patient will verbalize/demonstrate understanding of assistive devices/modifications for ADL. 3=Patient will improve strength/tolerance for activity to enable patient to perform ADL's. OT Education/Plan Discharge Recommendations Plan/Recommendations: Continue POC Treatment Plan/Plan of Care Patient would benefit from OT for education, treatment and training to promote independence in ADL's, mobility, safety and/or upper extremity function for ADL's. Plan of Care: ADL Retraining, Functional Mobility, Group Exercise/Act as Ind, UE Funct Exercise/Act Treatment Duration: October 16, 2019 Frequency: At least 5 of 7 days/Wk (IRF) Estimated Hrs Per Day: 1.5 hours per day Agreement: Yes Rehab Potential: Guarded Time/GCodes Start Time: 13:30 Stop Time: 13:45 Total Time Billed (hr/min): 15 Billed Treatment Time 1 visit, EX(15minutes) GARRY CLARK OT Sep 22, 2019 13:56
--- NOTE | 2019-09-22 15:45 | NUR ---
DR. DUGGAN NOTIFIED OF BS 210 & 245 TODAY. NO NEW ORDERS.
[2019-09-22 17:12] VITALS: BP 135/75
[2019-09-22] MEDS: ENOXAPARIN 40 MG/0.4 ML (LOVENOX) SYR SC SCH (20:44)
[2019-09-23 06:06] VITALS: BP 162/84
[2019-09-23] MEDS: SENNA W/DOCUSATE (SENOKOT S) TABLET PO SCH ×2 (08:20→21:18)
[2019-09-23] MEDS: DOCUSATE SODIUM 100 MG (COLACE) CAP PO SCH ×2 (08:20→21:18)
--- NOTE | 2019-09-23 09:16 | Cardiology Progress Note ---
Subjective Date Seen by Provider: Sep 23, 2019 Time Seen by Provider: 08:38 Subjective/Events-last exam Patient is sitting up in wheelchair. No new complaints. Denies any chest pain or dyspnea. Review of Systems General: No Chills, No Night Sweats; Fatigue, Malaise; No Appetite, No Other HEENT: No Head Aches, No Visual Changes, No Eye Pain, No Ear Pain, No Dysphasia, No Sinus Congestion, No Post Nasal Drip, No Sore Throat, No Other Pulmonary: No Dyspnea, No Cough, No Pleuritic Chest Pain, No Other Cardiovascular: No: Chest Pain, Palpitations, Orthopnea, Paroxysmal Noc. Dyspnea, Edema, Lt Headedness, Other Objective-Cardiology Exam Last Set of Vital Signs Vital Signs 09/23/19 06:06 Temp 37.0 Pulse 62 Resp 18 B/P (MAP) 162/84 (110) Pulse Ox 96 O2 Delivery Room Air Capillary Refill : Less Than 3 Seconds I&O Intake and Output 09/22/19 23:59 Intake Total 950 ml Balance 950 ml Intake Oral 950 ml # Voids 7 # Bowel Movements 2 General: Alert, Oriented X3, Cooperative HEENT: Atraumatic, PERRLA Neck: Supple, No JVD, No Thyromegaly Lungs: Clear to Auscultation, Normal Air Movement Heart: Regular Rate, Normal S1, Normal S2, No Murmurs Abdomen: Normal Bowel Sounds, Soft, No Tenderness, No Hepatosplenomegaly, No Masses Extremities: No Clubbing, No Cyanosis, No Edema, Normal Pulses, No Tend erness/Swelling Skin: No Rashes, No Breakdown, No Significant Lesion Neuro: Normal Speech, Cranial Nerves 3-12 NL, Other (gait instablility) Psych/Mental Status: Mental Status NL, Mood NL A/P-Cardiology Admission Diagnosis Cryptogenic CVA Hyperlipidemia PVC's Dementia Assessment/Plan Acute stroke, Cryptogenic CVA, 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 Negative telemetry for 48 hours for atrial fibrillation. Echocardiogram showed normal LV function with negative bubble study ruling out intracardiac shunting. No significant carotid atherosclerotic disease. Long-term surveillance for atrial fibrillation is recommended. Implantable loop recorder done on 09/19/2019. Continue on current medications and continue to monitor. Mild dementia, deferred to the primary team. Diabetes, was on metformin. Hyperlipidemia, atorvastatin. PVCs, continue to monitor. Patient was seen and evaluated with Lilian, examination performed, management plan was discussed, agree with the current scribed note, I made few changes to the note using Italic font Patient was seen at bedside laying down comfortably, denied any active pain Continue with physical therapy, continue current treatment, no changes recommended Clinical Quality Measures DVT/VTE Risk/Contraindication: Risk Factor Score Per Nursin RFS Level Per Nursing on Admit: 3=High LILIAN BLANKENSHIP Sep 23, 2019 09:16 MARTHA ZHU MD Sep 23, 2019 14:06
[2019-09-23] MEDS: amLODIPine 5 MG (NORVASC) TAB PO SCH (09:27)
[2019-09-23] MEDS: ASPIRIN E.C. 81 MG (ECOTRIN) TAB PO SCH (09:27)
[2019-09-23] MEDS: busPIRone 10 MG (BUSPAR) TAB PO SCH ×3 (09:27→21:19)
--- NOTE | 2019-09-23 10:17 | PM&R Progress Note ---
Subjective HPI/CC On Admission Date Seen by Provider: Sep 23, 2019 Time Seen by Provider: 10:15 Subjective/Events-last exam Pt is much better today Aspirin was not taken on a real regular basis at home so it doesn't appear that he failed Aspirin since he was not on a continuous regimen of that, if that was the case Plavix would have been recommended Loop recorder in place Overall doing much better and participating in therapy Checked meds and labs Reviewed therapy notes Conferred with superintendent sanitation of Systems General: Fatigue Neurological: Weakness, Incoordination Objective Exam Vital Signs Vital Signs Date Time Temp Pulse Resp B/P (MAP) Pulse Ox O2 Delivery O2 Flow Rate FiO2 09/24/19 08:25 73 157/87 (110) 09/24/19 05:34 36.4 16 96 Room Air Capillary Refill : Less Than 3 Seconds General Appearance: No Apparent Distress, WD/WN, Chronically ill HEENT: PERRL/EOMI, Normal ENT Inspection, Pharynx Normal, Other (presbycusis) Neck: Full Range of Motion, Normal Inspection, Non Tender, Supple, Carotid Bruit Respiratory: Chest Non Tender, Lungs Clear, Normal Breath Sounds, No Accessory Muscle Use, No Respiratory Distress Cardiovascular: Regular Rate, Rhythm, No Edema, No Gallop, No JVD, No Murmur, Normal Peripheral Pulses Gastrointestinal: Normal Bowel Sounds, No Organomegaly, No Pulsatile Mass, Non Tender, Soft Back: Normal Inspection, No CVA Tenderness, No Vertebral Tenderness Extremity: Normal Capillary Refill, Normal Inspection, Normal Range of Motion, Non Tender, No Calf Tenderness, No Pedal Edema Neurologic/Psychiatric: Alert, Oriented x3, Normal Mood/Affect, ham stringer II-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 FIM Transfers Therapy Code Descriptions/Definitions Functional [place] Measure: 0=Not Assessed/NA 4=Minimal Assistance 1=Total Assistance 5=Supervision or Setup 2=Maximal Assistance 6=Modified [place] 3=Moderate Assistance 7=Complete IndependenceSCALE: Activities may be completed with or without assistive devices. 0-Xaelzcwygi-endrgki completes the activity by him/herself with no assistance f rom a helper. 5-Set-up or Clean-up Assistance-helper sets up or cleans up; patient completes activity. [place] assists only prior to or following the activity. 4-Supervision or Touching Assistance-helper provides verbal cues and/or touching/steadying and/or contact guard assistance as patient completes activity. Assistance may be provided throughout the activity or intermittently. 3-Partial/Moderate Assistance-helper does LESS THAN HALF the effort. [place] lifts, holds or supports trunk or limbs, but provides less than half the effort. 2-Substantial/Maximal Assistance-helper does MORE THAN HALF the effort. [place] lifts or holds trunk or limbs and provides more than half the effort. 0-Wugtxldlm-rynmui does ALL the effort. Patient does none of the effort to complete the activity. Or, the assistance of 2 or more helpers is required for the patient to complete the activity. If activity was not attempted, code reason: 7-Patient Refused. 9-Not Applicable-not attempted and the patient did not perform the activity before the current illness, exacerbation or injury. 10-Not Attempted due to Environmental Limitations-(lack of equipment, weather restraints, etc.). 88-Not Attempted due to Medical Conditions or Safety Concerns. Roll Left to Right (QC): 4 Sit to Lying (QC): 4 Sit to Stand (QC): 3 Chair/Iat-yf-Ssnbn Xfer(QC): 3 Car Transfer (QC): 3 Gait Training Does the Patient Walk?: Yes Distance: 400ft x3, 200ft Walk 10 feet (QC): 4 Walk 50 ft with 2 Turns(QC): 4 Walk 150 ft (QC): 4 Walking 10ft/uneven surface-QC: 3 Gait Persons Needed: 1 Gait Assistive Device: None Wheelchair Training Does the Pt Use a Wheelchair?: No Wheel 50 ft with 2 turns (QC): 9 Wheel 150 ft (QC): 9 Stair Training 1 Step (curb) (QC): 3 4 Steps (QC): 88 12 Steps (QC): 88 Balance Picking up an Object (QC): 3 ADL-Treatment Eating (QC): 6 (Per pt report he had no difficulty with breakfast. Pt able to open cheese package without difficulties) Oral Hygiene (QC): 4 Shower/Bathe Self (QC): 3 Upper Body Dressing (QC): 3 Lower Body Dressing (QC): 3 On/Off Footwear (QC): 3 Toileting Hygiene (QC): 4 (CGA, pt able to manage clothes and hygiene.) Assessment/Plan Assessment and Plan Assess & Plan/Chief Complaint Assessment: Acute and subacute strokes on MRI with negative CT scan Instability unable to walk in previous independent patient Dementia DM HTN HLP Abnl UA but Cx no pathological bacteria so will DC Rocephin s/p Loop recorder 09/19/19 Hypoglycemia holding meds Plan: CVA protocol Rehab protocol Statin ASA Cardiology consultation is appreciated Hold OHA and added low dose of Metformin (1) CVA (cerebrovascular accident) (2) Risk for falls (3) Hyperlipemia (4) Diabetes (5) Unsteady gait Status: Acute (6) Dementia Status: Acute (7) Status post placement of implantable loop recorder SIA DUGGAN DO Sep 23, 2019 10:17
[2019-09-23] MEDS: metFORMIN 500 MG (GLUCOPHAGE) TAB PO SCH ×2 (10:44→17:57)
--- NOTE | 2019-09-23 11:14 | Occupational Ther Daily Note ---
OT Current Status-Daily Note Subjective Pt in bed, agrees to therapy. No reports of pain. ADL-Treatment Pt agrees to shower this morning. Pt supine to sit with SBA. Sit to stand with CGA. Gait to restroom with FWW. Pt is impulsive with mobility and requires cues for safety. Transfer to walk in shower with CGA for safety using grab bar for balance. Pt doffed shirt with SBA. Doffed lower body clothing with CGA for balance. Seated bathing completed using hand held shower. Upper body bathing completed with SBA. Pt requires min assist for balance during lower body bathing. Pt donned pullover shirt with SBA while seated. Pt able to thread bilateral LE into underwear with CGA for balance. Pt requires min assist to thread right LE into pants. Stood with CGA for balance during pant hike. Pt donned socks with min assist for balance while seated. Pt fatigues with activity and requires occasional rest breaks throughout ADL completion. Pt completed oral care with set up while seated in chair. Therapy Code Descriptions/Definitions Functional [place] Measure: 0=Not Assessed/NA 4=Minimal Assistance 1=Total Assistance 5=Supervision or Setup 2=Maximal Assistance 6=Modified [place] 3=Moderate Assistance 7=Complete IndependenceSCALE: Activities may be completed with or without assistive devices. 4-Lrwyfhzvgw-mxzsgoj completes the activity by him/herself with no assistance from a helper. 5-Set-up or Clean-up Assistance-helper sets up or cleans up; patient completes activity. [place] assists only prior to or following the activity. 4-Supervision or Touching Assistance-helper provides verbal cues and/or touching/steadying and/or contact guard assistance as patient completes activity. Assistance may be provided throughout the activity or intermittently. 3-Partial/Moderate Assistance-helper does LESS THAN HALF the effort. [place] lifts, holds or supports trunk or limbs, but provides less than half the effort. 2-Substantial/Maximal Assistance-helper does MORE THAN HALF the effort. [place] lifts or holds trunk or limbs and provides more than half the effort. 2-Imrdoygvy-pwqiyn does ALL the effort. Patient does none of the effort to complete the activity. Or, the assistance of 2 or more helpers is required for the patient to complete the activity. If activity was not attempted, code reason: 7-Patient Refused. 9-Not Applicable-not attempted and the patient did not perform the activity before the current illness, exacerbation or injury. 10-Not Attempted due to Environmental Limitations-(lack of equipment, weather restraints, etc.). 88-Not Attempted due to Medical Conditions or Safety Concerns. Oral Hygiene (QC): 5 Shower/Bathe Self (QC): 3 Upper Body Dressing (QC): 4 Lower Body Dressing (QC): 3 On/Off Footwear: 3 Other Treatment Pt completed bilateral UE reaching activity while standing to promote increased standing balance, UE activity tolerance, and bilateral coordination. Pt requires CGA for balance during task. Pt returned to bed with needs met after session, bed alarm on. Education OT Patient Education: Safety issues Teaching Recipient: Patient Teaching Methods: Discussion Response to Teaching: Reinforcement Needed OT Supervisor Fur Floor Worker Goals Supervisor Fur Floor Worker Goals Time Frame: October 16, 2019 Eating (QC): 6 Oral Hygiene (QC): 6 Toileting Hygiene (QC): 6 Shower/Bathe Self (QC): 6 Upper Body Dressing (QC): 6 Lower Body Dressing (QC): 6 On/Off Footwear (QC): 6 Additional Goals: 1-Demonstrate ADL Tasks, 2-Verbalize Understanding, 3-ImproveStrength/[place] 1=Demonstrate adherence to instructed precautions during ADL tasks. 2=Patient will verbalize/demonstrate understanding of assistive devices/modifications for ADL. 3=Patient will improve strength/tolerance for activity to enable patient to perform ADL's. OT Education/Plan Discharge Recommendations Plan/Recommendations: Continue POC Treatment Plan/Plan of Care Patient would benefit from OT for education, treatment and training to promote independence in ADL's, mobility, safety and/or upper extremity function for ADL's. Plan of Care: ADL Retraining, Functional Mobility, Group Exercise/Act as Ind, UE Funct Exercise/Act Treatment Duration: October 16, 2019 Frequency: At least 5 of 7 days/Wk (IRF) Estimated Hrs Per Day: 1.5 hours per day Agreement: Yes Rehab Potential: Guarded Time/GCodes Start Time: 08:15 Stop Time: 09:15 Total Time Billed (hr/min): 60 Billed Treatment Time 1 visit, ADLx3(45minutes), FA(15minutes) GARRY CLARK OT Sep 23, 2019 11:14
--- NOTE | 2019-09-23 11:30 | Occupational Ther Daily Note ---
OT Current Status-Daily Note Subjective Pt in bed, agrees to treatment. ADL-Treatment Supine to sit with SBA. Pt completed UE fine motor task while standing to increase balance, coordination, and activity tolerance. Pt stood for 5 minutes x2 trials, requires CGA for standing balance. Pt requires increased time to complete fine motor task. Gait to restroom with FWW, skilled cues for safety. Transfer toilet with CGA using grab bars. Pt able to complete clothing management with CGA for balance. Pt requires assist for thorough hygiene after BM. Stood at sink to wash hands with CGA. Pt sitting in chair with needs met and chair alarm on after session. Therapy Code Descriptions/Definitions Functional [place] Measure: 0=Not Assessed/NA 4=Minimal Assistance 1=Total Assistance 5=Supervision or Setup 2=Maximal Assistance 6=Modified [place] 3=Moderate Assistance 7=Complete IndependenceSCALE: Activities may be completed with or without assistive devices. 5-Dkeeaeqfvy-uvkmbke completes the activity by him/herself with no assistance from a helper. 5-Set-up or Clean-up Assistance-helper sets up or cleans up; patient completes activity. [place] assists only prior to or following the activity. 4-Supervision or Touching Assistance-helper provides verbal cues and/or touching/steadying and/or contact guard assistance as patient completes activity. Assistance may be provided throughout the activity or intermittently. 3-Partial/Moderate Assistance-helper does LESS THAN HALF the effort. [place] lifts, holds or supports trunk or limbs, but provides less than half the effort. 2-Substantial/Maximal Assistance-helper does MORE THAN HALF the effort. [place] lifts or holds trunk or limbs and provides more than half the effort. 7-Hyyazvvke-bulkqs does ALL the effort. Patient does none of the effort to complete the activity. Or, the assistance of 2 or more helpers is required for the patient to complete the activity. If activity was not attempted, code reason: 7-Patient Refused. 9-Not Applicable-not attempted and the patient did not perform the activity before the current illness, exacerbation or injury. 10-Not Attempted due to Environmental Limitations-(lack of equipment, weather restraints, etc.). 88-Not Attempted due to Medical Conditions or Safety Concerns. Toileting Hygiene (QC): 3 Toilet Transfer (QC): 4 (CGA) OT Contact Center Representative Goals Contact Center Representative Goals Time Frame: October 16, 2019 Eating (QC): 6 Oral Hygiene (QC): 6 Toileting Hygiene (QC): 6 Shower/Bathe Self (QC): 6 Upper Body Dressing (QC): 6 Lower Body Dressing (QC): 6 On/Off Footwear (QC): 6 Additional Goals: 1-Demonstrate ADL Tasks, 2-Verbalize Understanding, 3- ImproveStrength/[place] 1=Demonstrate adherence to instructed precautions during ADL tasks. 2=Patient will verbalize/demonstrate understanding of assistive devices/modifications for ADL. 3=Patient will improve strength/tolerance for activity to enable patient to perform ADL's. OT Education/Plan Discharge Recommendations Plan/Recommendations: Continue POC Treatment Plan/Plan of Care Patient would benefit from OT for education, treatment and training to promote independence in ADL's, mobility, safety and/or upper extremity function for ADL's. Plan of Care: ADL Retraining, Functional Mobility, Group Exercise/Act as Ind, UE Funct Exercise/Act Treatment Duration: October 16, 2019 Frequency: At least 5 of 7 days/Wk (IRF) Estimated Hrs Per Day: 1.5 hours per day Agreement: Yes Rehab Potential: Guarded Time/GCodes Start Time: 10:45 Stop Time: 11:00 Total Time Billed (hr/min): 15 Billed Treatment Time 1 visit, FA(15minutes) GARRY CLARK OT Sep 23, 2019 11:30
--- NOTE | 2019-09-23 11:40 | Speech Therapy Daily Note ---
Speech Daily Progress Note Subjective Date Seen by Provider: Sep 23, 2019 Time Seen by Provider: 00:30 Patient was resting in his bed when I entered. He was able to participate with therapy. Objective Patient completed a series of q/a related to his daily routine at home with 70% with moderate cues. Assessment Assessment Current Status: Fair Progress Treatment Plan Continue Plan of Care Speech Short Term Goals Short Term Goals Short Term Goals 1) Patient will complete memory tasks related to his daily needs at 80% with minimal cues. 2) Patient will complete problem solving tasks related to his daily needs at 80% with minimal cues. 3) Patient will complete safety awareness tasks related to his daily needs at 80% with minimal cues. Speech Casino Enforcement Agent Goals Casino Enforcement Agent Goals Patient will improve cognitive-communication necessary for safety and daily living tasks with minimal assist. Speech-Plan Patient/Family Goals Patient/Family Goals: Patient plans on returning to his prior living situation, it is unclear at this time if this will be the safest for him due to dementia. Treatment Plan Speech Therapy Treatment Plan: Continue Plan of Care Treatment Duration: Sep 21, 2019 Frequency: Modified Program (IRF) Estimated Hrs Per Day: .5 hour per day Rehab Potential: Guarded Barriers to Learning: Patient has moderate level of dementia Pt/Family Agrees to Plan: Yes Safety Risks/Education Teaching Recipient: Patient Teaching Methods: Demonstration, Discussion Response to Teaching: Verbalize Understanding, Return Demonstration Education Topics Provided: Continued safety within his room and utilization of the call light as needed Time Speech Therapy Time In: 09:30 Speech Therapy Time Out: 10:00 Total Billed Time: 30 Billed Treatment Time 1EVELYN BETHANIA ST Sep 23, 2019 11:40
--- NOTE | 2019-09-23 11:55 | Physical Therapy Daily Note ---
PT Daily Note-Current Subjective Pt sitting in recliner upon arrival. Pt agrees to PT. Pain Location: No Pain Reported Mental Status Patient Orientation: Person, Place Transfers SCALE: Activities may be completed with or without assistive devices. 7-Wjrbeuncvw-bhiivcz completes the activity by him/herself with no assistance from a helper. 5-Set-up or Clean-up Assistance-helper sets up or cleans up; patient completes activity. [place] assists only prior to or following the activity. 4-Supervision or Touching Assistance-helper provides verbal cues and/or touching/steadying and/or contact guard assistance as patient completes activity. Assistance may be provided throughout the activity or intermittently. 3-Partial/Moderate Assistance-helper does LESS THAN HALF the effort. [place] lifts, holds or supports trunk or limbs, but provides less than half the effort. 2-Substantial/Maximal Assistance-helper does MORE THAN HALF the effort. [place] lifts or holds trunk or limbs and provides more than half the effort. 0-Uqeuvxvud-dwpdpt does ALL the effort. Patient does none of the effort to complete the activity. Or, the assistance of 2 or more helpers is required for the patient to complete the activity. If activity was not attempted, code reason: 7-Patient Refused. 9-Not Applicable-not attempted and the patient did not perform the activity before the current illness, exacerbation or injury. 10-Not Attempted due to Environmental Limitations-(lack of equipment, weather restraints, etc.). 88-Not Attempted due to Medical Conditions or Safety Concerns. Sit to Stand (QC): 4 Weight Bearing Right Lower Extremity: Right Full Weight Bearing Left Lower Extremity: Left Full Weight Bearing Gait Training Does the Patient Walk?: Yes Distance: 150' x2 Walk 10 feet (QC): 4 Walk 50 ft with 2 Turns(QC): 4 Walk 150 ft (QC): 4 Gait Persons Needed: 1 Gait Assistive Device: FWW YARN EXAMINER gives VC to slow down for better control. Wheelchair Training Does the Pt Use a Wheelchair?: No Exercises Supine Ex: Ankle pumps, Quad Set, Glut sets, Heel Slides, Straight leg raise, Hip abd/add Supine Reps: 15 NuStep Minutes: 10 NuStep Workload: 5 Treatments Pt transfers from recliner to standing then ambulates in hallway. Pt completes Supine Ex on Therapy mat before using NuStep for 10m at WL 5. Pt ambulates in hallway and back to room at end of Rx to rest in recliner for lunch. Pt has all needs met, call light in hand. Assessment Current Status: Fair Progress Pt is impulsive and needs VC for safety especially when using FWW to ambulate. PT Usp Goals Investigations Chief Goals PT Investigations Chief Goals Time Frame: October 03, 2019 Roll Left & Right (QC): 6 Sit to Lying (QC): 6 Lying-Sitting on Side/Bed(QC): 6 Sit to Stand (QC): 6 Chair/Gkn-uf-Vofmp Xfer(QC): 6 Toilet Transfer (QC): 6 Car Transfer (QC): 6 Does the Patient Walk: Yes Walk 10 feet (QC): 6 Walk 50ft with 2 Turns (QC): 6 Walk 150 ft (QC): 6 Walking 10ft on Uneven Surface: 6 1 Step (curb) (QC): 6 4 Steps (QC): 4 12 Steps (QC): 4 Picking up an Object (QC): 6 Wheel 50 feet with 2 turns (QC: 9 Wheel 150 feet: 9 PT Plan Problem List Problem List: Activity Tolerance, Safety, Gait, Transfer Treatment/Plan Treatment Plan: Continue Plan of Care Treatment Plan: Bed Mobility, Education, Functional Activity [place], Functional Strength, Gait, Safety, Therapeutic Exercise, Transfers Treatment Duration: October 03, 2019 Frequency: 6 times per week Estimated Hrs Per Day: 1.5 hours per day Patient and/or Family Agrees t: Yes Safety Risks/Education Patient Education: Gait Training, Transfer Techniques, Correct Positioning, Safety Issues Teaching Recipient: Patient Teaching Methods: Discussion Response to Teaching: Reinforcement Needed Time/GCodes Time In: 1100 Time Out: 1145 Total Billed Treatment Time: 45 Total Billed Treatment 1, GT (15m), EX x2 (30m) LATANYA JEREZ YARN EXAMINER Sep 23, 2019 11:55
--- NOTE | 2019-09-23 14:38 | Physical Therapy Daily Note ---
PT Daily Note-Current Subjective Pt asleep laying Supine in bed upon arrival. Pt agrees to PT. Mental Status Patient Orientation: Person, Place Transfers SCALE: Activities may be completed with or without assistive devices. 9-Pevvfrqkgq-jsqsuox completes the activity by him/herself with no assistance from a helper. 5-Set-up or Clean-up Assistance-helper sets up or cleans up; patient completes activity. [place] assists only prior to or following the activity. 4-Supervision or Touching Assistance-helper provides verbal cues and/or touching/steadying and/or contact guard assistance as patient completes activity. Assistance may be provided throughout the activity or intermittently. 3-Partial/Moderate Assistance-helper does LESS THAN HALF the effort. [place] lifts, holds or supports trunk or limbs, but provides less than half the effort. 2-Substantial/Maximal Assistance-helper does MORE THAN HALF the effort. [place] lifts or holds trunk or limbs and provides more than half the effort. 7-Dteekyqdw-kyxwcg does ALL the effort. Patient does none of the effort to complete the activity. Or, the assistance of 2 or more helpers is required for the patient to complete the activity. If activity was not attempted, code reason: 7-Patient Refused. 9-Not Applicable-not attempted and the patient did not perform the activity before the current illness, exacerbation or injury. 10-Not Attempted due to Environmental Limitations-(lack of equipment, weather restraints, etc.). 88-Not Attempted due to Medical Conditions or Safety Concerns. Weight Bearing Right Lower Extremity: Right Full Weight Bearing Left Lower Extremity: Left Full Weight Bearing Exercises Supine Ex: Ankle pumps, Quad Set, Glut sets, Heel Slides, Scooting, Straight leg raise, Hip abd/add Supine Reps: 20 Treatments Pt completes Supine EX in bed with RB as needed. Pt resting with all needs met at end of Rx, call light in hand. Assessment Current Status: Good Progress Pt tolerates Rx well. PT Mcc Goals Mcc Goals PT Mcc Goals Time Frame: October 03, 2019 Roll Left & Right (QC): 6 Sit to Lying (QC): 6 Lying-Sitting on Side/Bed(QC): 6 Sit to Stand (QC): 6 Chair/Bzk-vz-Yuwhy Xfer(QC): 6 Toilet Transfer (QC): 6 Car Transfer (QC): 6 Does the Patient Walk: Yes Walk 10 feet (QC): 6 Walk 50ft with 2 Turns (QC): 6 Walk 150 ft (QC): 6 Walking 10ft on Uneven Surface: 6 1 Step (curb) (QC): 6 4 Steps (QC): 4 12 Steps (QC): 4 Picking up an Object (QC): 6 Wheel 50 feet with 2 turns (QC: 9 Wheel 150 feet: 9 PT Plan Problem List Problem List: Activity Tolerance, Safety Treatment/Plan Treatment Plan: Continue Plan of Care Treatment Plan: Bed Mobility, Education, Functional Activity [place], Functional Strength, Gait, Safety, Therapeutic Exercise, Transfers Treatment Duration: October 03, 2019 Frequency: 6 times per week Estimated Hrs Per Day: 1.5 hours per day Patient and/or Family Agrees t: Yes Safety Risks/Education Patient Education: Correct Positioning, Safety Issues Teaching Recipient: Patient Teaching Methods: Discussion Response to Teaching: Verbalize Understanding Time/GCodes Time In: 1400 Time Out: 1430 Total Billed Treatment Time: 30 Total Billed Treatment 1, EX x2 (30m) LATANYA JEREZ FUR DRESSING SUPERVISOR Sep 23, 2019 14:38
[2019-09-23 18:00] VITALS: BP 154/74
[2019-09-23] MEDS: ENOXAPARIN 40 MG/0.4 ML (LOVENOX) SYR SC SCH (21:19)
[2019-09-24 05:34] VITALS: BP 157/76
[2019-09-24] MEDS: metFORMIN 500 MG (GLUCOPHAGE) TAB PO SCH ×2 (06:11→17:14)
[2019-09-24 08:25] VITALS: BP 157/87
[2019-09-24] MEDS: amLODIPine 5 MG (NORVASC) TAB PO SCH (08:26)
[2019-09-24] MEDS: ASPIRIN E.C. 81 MG (ECOTRIN) TAB PO SCH (08:27)
[2019-09-24] MEDS: busPIRone 10 MG (BUSPAR) TAB PO SCH ×3 (08:27→21:02)
[2019-09-24] MEDS: SENNA W/DOCUSATE (SENOKOT S) TABLET PO SCH ×2 (09:00→20:15)
[2019-09-24] MEDS: DOCUSATE SODIUM 100 MG (COLACE) CAP PO SCH ×2 (09:00→20:14)
--- NOTE | 2019-09-24 09:09 | Cardiology Progress Note ---
Subjective Date Seen by Provider: Sep 24, 2019 Time Seen by Provider: 08:35 Subjective/Events-last exam Patient is in bed, no new complaints. Denies any chest pain or dyspnea. Review of Systems General: No Chills, No Night Sweats, No Fatigue, No Malaise, No Appetite, No Other HEENT: No Head Aches, No Visual Changes, No Eye Pain, No Ear Pain, No Dysphasia, No Sinus Congestion, No Post Nasal Drip, No Sore Throat, No Other Pulmonary: No Dyspnea, No Cough, No Pleuritic Chest Pain, No Other Cardiovascular: No: Chest Pain, Palpitations, Orthopnea, Paroxysmal Noc. Dyspnea, Edema, Lt Headedness, Other Objective-Cardiology Exam Last Set of Vital Signs Vital Signs 09/24/19 09/24/19 09/24/19 05:34 08:25 09:00 Temp 36.4 Pulse 73 Resp 16 B/P (MAP) 157/87 (110) Pulse Ox 96 O2 Delivery Room Air Capillary Refill : Less Than 3 Seconds I&O Intake and Output 09/24/19 00:00 Intake Total 1300 ml Balance 1300 ml Intake Oral 1300 ml # Voids 5 # Bowel Movements 1 General: Alert, Oriented X3, Cooperative HEENT: Atraumatic, PERRLA Neck: Supple, No JVD, No Thyromegaly Lungs: Clear to Auscultation, Normal Air Movement Heart: Regular Rate, Normal S1, Normal S2, No Murmurs Abdomen: Normal Bowel Sounds, Soft, No Tenderness, No Hepatosplenomegaly, No Masses Extremities: No Clubbing, No Cyanosis, No Edema, Normal Pulses, No Tenderness/Swelling Skin: No Rashes, No Breakdown, No Significant Lesion Neuro: Normal Speech, Cranial Nerves 3-12 NL, Other (gait instablility) Psych/Mental Status: Mental Status NL, Mood NL A/P-Cardiology Admission Diagnosis Cryptogenic CVA Hyperlipidemia PVC's Dementia Assessment/Plan Cryptogenic CVA, 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 Negative telemetry for 48 hours for atrial fibrillation. Echocardiogram showed normal LV function with negative bubble study ruling out intracardiac shunting. No significant carotid atherosclerotic disease. Long-term surveillance for atrial fibrillation is recommended. Implantable loop recorder done on 09/19/2019. Continue on current medications and continue to monitor. Mild dementia, deferred to the primary team. Diabetes, was on metformin. Hyperlipidemia, atorvastatin. PVCs, continue to monitor. Patient was seen and evaluated with Lilian, examination performed, management plan was discussed, agree with the current scribed note, I made few changes to the note using Italic font Patient was seen at bedside, laying down comfortably, no new complaint Continue on current medication monitor blood pressure and lipids Clinical Quality Measures DVT/VTE Risk/Contraindication: Risk Factor Score Per Nursin RFS Level Per Nursing on Admit: 3=High LILIAN BLANKENSHIP Sep 24, 2019 9:09 am MARTHA ZHU MD Sep 24, 2019 11:05 am
--- NOTE | 2019-09-24 09:54 | Occupational Ther Daily Note ---
OT Current Status-Daily Note Subjective Pt laying in bed at start of session agreeable to OT tx. He denied having pain. ADL-Treatment Therapy Code Descriptions/Definitions Functional [place] Measure: 0=Not Assessed/NA 4=Minimal Assistance 1=Total Assistance 5=Supervision or Setup 2=Maximal Assistance 6=Modified [place] 3=Moderate Assistance 7=Complete IndependenceSCALE: Activities may be completed with or without assistive devices. 3-Vzwvsmjida-wlzzfea completes the activity by him/herself with no assistance from a helper. 5-Set-up or Clean-up Assistance-helper sets up or cleans up; patient completes activity. [place] assists only prior to or following the activity. 4-Supervision or Touching Assistance-helper provides verbal cues and/or touching/steadying and/or contact guard assistance as patient completes activity. Assistance may be provided throughout the activity or intermittently. 3-Partial/Moderate Assistance-helper does LESS THAN HALF the effort. [place] lifts, holds or supports trunk or limbs, but provides less than half the effort. 2-Substantial/Maximal Assistance-helper does MORE THAN HALF the effort. [place] lifts or holds trunk or limbs and provides more than half the effort. 9-Lfhxsyhwh-rrxjcg does ALL the effort. Patient does none of the effort to complete the activity. Or, the assistance of 2 or more helpers is required for the patient to complete the activity. If activity was not attempted, code reason: 7-Patient Refused. 9-Not Applicable-not attempted and the patient did not perform the activity before the current illness, exacerbation or injury. 10-Not Attempted due to Environmental Limitations-(lack of equipment, weather restraints, etc.). 88-Not Attempted due to Medical Conditions or Safety Concerns. Oral Hygiene (QC): 4 (CGA standing at sink.) Toileting Hygiene (QC): 4 (SBA standing at FWW over toilet, pt stood to void urine.) Other Treatment Pt laying in bed, transferred supine to sit with SBA. He ambulated to restroom with CGA to compelte toileting and handwashing. OT instructed pt to walk over to the other sink to get his toothbrush, once there OT told pt they would return to the sink in the bathroom to brush his teeth. Pt proceeded to walk towards the bed needing another verbal direction to go to the restroom. Pt completed oral hygiene standing at sink with CGA, leaning towards the left against the wall. Pt went to the therapy gym. Pt completed arm bike x15 mins, min resistance in order to increase BUE strength and functional endurance. Pt then removed beads from red theraputty in order to increase BUE fine motor strength and coordination. Then pt removed/placed graded clothespins (ranging 1-5 lbs) using R hand, he then repeated task with left hand in order to increase BUE fine motor strength/coordination. Pt returned to his room, requiring cues to slow down with ambulation. Pt attempted to go into the room next door to his, OT cued pt that she did not think this was his room, he then looked left and right requiring direction to the correct room. Post OT session, pt laying in bed, call light in reach, bed alarm on and all needs met. Education OT Patient Education: Correct positioning, Energy conservation, Exercise program, Modified ADL techniques, Progress toward Goal/Update tx plan, Purpose of tx/functional activities Teaching Recipient: Patient Teaching Methods: Discussion Response to Teaching: Verbalize Understanding OT Snf Goals Snf Goals Time Frame: October 16, 2019 Eating (QC): 6 Oral Hygiene (QC): 6 Toileting Hygiene (QC): 6 Shower/Bathe Self (QC): 6 Upper Body Dressing (QC): 6 Lower Body Dressing (QC): 6 On/Off Footwear (QC): 6 Additional Goals: 1-Demonstrate ADL Tasks, 2-Verbalize Understanding, 3- ImproveStrength/[place] 1=Demonstrate adherence to instructed precautions during ADL tasks. 2=Patient will verbalize/demonstrate understanding of assistive devices/modifications for ADL. 3=Patient will improve strength/tolerance for activity to enable patient to perform ADL's. OT Education/Plan Problem List/Assessment Assessment: Decreased Activ Tolerance, Decreased Safety Aware, Decreased UE Strength, Impaired Funct Balance, Impaired I ADL's, Impaired Self-Care Skills Discharge Recommendations Plan/Recommendations: Continue POC Treatment Plan/Plan of Care Patient would benefit from OT for education, treatment and training to promote independence in ADL's, mobility, safety and/or upper extremity function for ADL's. Plan of Care: ADL Retraining, Functional Mobility, Group Exercise/Act as Ind, UE Funct Exercise/Act Treatment Duration: October 16, 2019 Frequency: At least 5 of 7 days/Wk (IRF) Estimated Hrs Per Day: 1.5 hours per day Agreement: Yes Rehab Potential: Guarded Time/GCodes Start Time: 09:30 Stop Time: 10:30 Total Time Billed (hr/min): 60 Billed Treatment Time 1, ADL (15'), EX (15'), FA 2 (30') FABIO ROTHMAN OT Sep 24, 2019 09:54
--- NOTE | 2019-09-24 10:13 | PM&R Progress Note ---
Subjective HPI/CC On Admission Date Seen by Provider: Sep 24, 2019 Time Seen by Provider: 10:15 Subjective/Events-last exam Metformin restarted at a lower dose of 500mg twice daily He thinks he is 52 years olds and that is 1993 Overall feels like he is doing pretty good overall Working on disposition once he is discharged from the unit Checked meds and labs Reviewed therapy notes Conferred with quality assurance practice manager of Systems General: Fatigue Neurological: Weakness, Numbness, Incoordination Objective Exam Vital Signs Vital Signs Date Time Temp Pulse Resp B/P (MAP) Pulse Ox O2 Delivery O2 Flow Rate FiO2 09/25/19 05:50 36.6 58 18 143/78 (99) 97 Room Air Capillary Refill : Less Than 3 Seconds General Appearance: No Apparent Distress, WD/WN, Chronically ill HEENT: PERRL/EOMI, Normal ENT Inspection, Pharynx Normal, Other (presbycusis) Neck: Full Range of Motion, Normal Inspection, Non Tender, Supple, Carotid Bruit Respiratory: Chest Non Tender, Lungs Clear, Normal Breath Sounds, No Accessory Muscle Use, No Respiratory Distress Cardiovascular: Regular Rate, Rhythm, No Edema, No Gallop, No JVD, No Murmur, Normal Peripheral Pulses Gastrointestinal: Normal Bowel Sounds, No Organomegaly, No Pulsatile Mass, Non Tender, Soft Back: Normal Inspection, No CVA Tenderness, No Vertebral Tenderness Extremity: Normal Capillary Refill, Normal Inspection, Normal Range of Motion, Non Tender, No Calf Tenderness, No Pedal Edema Neurologic/Psychiatric: Alert, Oriented x3, Normal Mood/Affect, customer response representative II-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 FIM Transfers Therapy Code Descriptions/Definitions Functional [place] Measure: 0=Not Assessed/NA 4=Minimal Assistance 1=Total Assistance 5=Supervision or Setup 2=Maximal Assistance 6=Modified [place] 3=Moderate Assistance 7=Complete IndependenceSCALE: Activities may be completed with or without assistive devices. 6-Pcjszcqhqn-mpomyhw completes the activity by him/herself with no assistance from a helper. 5-Set-up or Clean-up Assistance-helper sets up or cleans up; patient completes activity. [place] assists only prior to or following the activity. 4-Supervision or Touching Assistance-helper provides verbal cues and/or touching/steadying and/or contact guard assistance as patient completes activity. Assistance may be provided throughout the activity or intermittently. 3-Partial/Moderate Assistance-helper does LESS THAN HALF the effort. [place] lifts, holds or supports trunk or limbs, but provides less than half the effort. 2-Substantial/Maximal Assistance-helper does MORE THAN HALF the effort. [place] lifts or holds trunk or limbs and provides more than half the effort. 1-Tgkdniewo-zxzkyw does ALL the effort. Patient does none of the effort to complete the activity. Or, the assistance of 2 or more helpers is required for the patient to complete the activity. If activity was not attempted, code reason: 7-Patient Refused. 9-Not Applicable-not attempted and the patient did not perform the activity before the current illness, exacerbation or injury. 10-Not Attempted due to Environmental Limitations-(lack of equipment, weather restraints, etc.). 88-Not Attempted due to Medical Conditions or Safety Concerns. Roll Left to Right (QC): 4 Sit to Lying (QC): 4 Sit to Stand (QC): 4 Chair/Fah-hd-Mprod Xfer(QC): 3 Car Transfer (QC): 3 Gait Training Does the Patient Walk?: Yes Distance: 150' x2 Walk 10 feet (QC): 4 Walk 50 ft with 2 Turns(QC): 4 Walk 150 ft (QC): 4 Walking 10ft/uneven surface-QC: 3 Gait Persons Needed: 1 Gait Assistive Device: FWW Wheelchair Training Does the Pt Use a Wheelchair?: No Wheel 50 ft with 2 turns (QC): 9 Wheel 150 ft (QC): 9 Stair Training 1 Step (curb) (QC): 3 4 Steps (QC): 88 12 Steps (QC): 88 Balance Picking up an Object (QC): 3 ADL-Treatment Eating (QC): 6 (Per pt report he had no difficulty with breakfast. Pt able to open cheese package without difficulties) Oral Hygiene (QC): 4 (CGA standing at sink.) Shower/Bathe Self (QC): 3 Upper Body Dressing (QC): 4 Lower Body Dressing (QC): 3 On/Off Footwear (QC): 3 Toileting Hygiene (QC): 4 (SBA standing at FWW over toilet, pt stood to void urine.) Toilet Transfer (QC): 4 (CGA) Assessment/Plan Assessment and Plan Assess & Plan/Chief Complaint Assessment: Acute and subacute strokes on MRI with negative CT scan Instability unable to walk in previous independent patient Dementia DM HTN HLP Abnl UA but Cx no pathological bacteria so will DC Rocephin s/p Loop recorder 09/19/19 Hypoglycemia holding meds but added Metformin 3 days ago Plan: CVA protocol Rehab protocol Statin ASA Cardiology consultation is appreciated Hold OHA and added low dose of Metformin (1) CVA (cerebrovascular accident) (2) Risk for falls (3) Hyperlipemia (4) Diabetes (5) Unsteady gait Status: Acute (6) Dementia Status: Acute (7) Status post placement of implantable loop recorder SIA DUGGAN DO Sep 24, 2019 10:12
--- NOTE | 2019-09-24 11:59 | Physical Therapy Daily Note ---
PT Daily Note-Current Subjective Pt sitting in recliner upon arrival. Pt agrees to PT. Pain Location: No Pain Reported Mental Status Patient Orientation: Person, Confused, Place Transfers SCALE: Activities may be completed with or without assistive devices. 3-Llyhnqmhci-dwuxgli completes the activity by him/herself with no assistance from a helper. 5-Set-up or Clean-up Assistance-helper sets up or cleans up; patient completes activity. [place] assists only prior to or following the activity. 4-Supervision or Touching Assistance-helper provides verbal cues and/or touching/steadying and/or contact guard assistance as patient completes activity. Assistance may be provided throughout the activity or intermittently. 3-Partial/Moderate Assistance-helper does LESS THAN HALF the effort. [place] lifts, holds or supports trunk or limbs, but provides less than half the effort. 2-Substantial/Maximal Assistance-helper does MORE THAN HALF the effort. [place] lifts or holds trunk or limbs and provides more than half the effort. 3-Mbljbcazb-whqtek does ALL the effort. Patient does none of the effort to complete the activity. Or, the assistance of 2 or more helpers is required for the patient to complete the activity. If activity was not attempted, code reason: 7-Patient Refused. 9-Not Applicable-not attempted and the patient did not perform the activity before the current illness, exacerbation or injury. 10-Not Attempted due to Environmental Limitations-(lack of equipment, weather restraints, etc.). 88-Not Attempted due to Medical Conditions or Safety Concerns. Sit to Stand (QC): 5 Weight Bearing Right Lower Extremity: Right Full Weight Bearing Left Lower Extremity: Left Full Weight Bearing Gait Training Does the Patient Walk?: Yes Distance: 150' x2 Walk 10 feet (QC): 4 Walk 50 ft with 2 Turns(QC): 4 Walk 150 ft (QC): 4 Gait Persons Needed: 1 Gait Assistive Device: None Pt is impulsive and needs VC to slow down nilda for improved safety and control. Wheelchair Training Does the Pt Use a Wheelchair?: No Exercises Seated Therapy Exercises: Ankle pumps, Long arc quads, Hip flexion, Kicking activity Seated Reps: 20 Standing: Hamstring curls, 3 way Ex=Flex, Abd, Ext, Marching, Mini squats Standing Reps: 15 NuStep Minutes: 10 NuStep Workload: 5 Treatments Pt transfers to standing then ambulates in hallway. Pt uses NuStep for 10m at WL 5 before taking RB. Pt completes Seated EX followed by Standing EX at //bars. Pt returns to room at end of Rx to rest in recliner for lunch. Pt has all needs met, call light in hand. Assessment Current Status: Fair Progress Pt continues to demonstrate impulsivity and needs VC for safety especially when ambulating. PT Chcf Goals Digital Strategy Specialist Goals PT Chcf Goals Time Frame: October 03, 2019 Roll Left & Right (QC): 6 Sit to Lying (QC): 6 Lying-Sitting on Side/Bed(QC): 6 Sit to Stand (QC): 6 Chair/Mzl-cw-Weqap Xfer(QC): 6 Toilet Transfer (QC): 6 Car Transfer (QC): 6 Does the Patient Walk: Yes Walk 10 feet (QC): 6 Walk 50ft with 2 Turns (QC): 6 Walk 150 ft (QC): 6 Walking 10ft on Uneven Surface: 6 1 Step (curb) (QC): 6 4 Steps (QC): 4 12 Steps (QC): 4 Picking up an Object (QC): 6 Wheel 50 feet with 2 turns (QC: 9 Wheel 150 feet: 9 PT Plan Problem List Problem List: Activity Tolerance, Safety, Balance, Gait Treatment/Plan Treatment Plan: Continue Plan of Care Treatment Plan: Bed Mobility, Education, Functional Activity [place], Functional Strength, Gait, Safety, Therapeutic Exercise, Transfers Treatment Duration: October 03, 2019 Frequency: 6 times per week Estimated Hrs Per Day: 1.5 hours per day Patient and/or Family Agrees t: Yes Safety Risks/Education Patient Education: Gait Training, Correct Positioning, Safety Issues Teaching Recipient: Patient Teaching Methods: Discussion Response to Teaching: Reinforcement Needed Time/GCodes Time In: 1100 Time Out: 1200 Total Billed Treatment Time: 60 Total Billed Treatment 1, GT (15m), EX x2 (35m) & FA (10m) LATANYA JEREZ FINAL ASSEMBLY INSPECTOR Sep 24, 2019 11:59
--- NOTE | 2019-09-24 13:18 | Occupational Ther Daily Note ---
OT Current Status-Daily Note Subjective Pt laying in bed at start of session, agreeable to OT tx. He did not report any pain. ADL-Treatment Therapy Code Descriptions/Definitions Functional [place] Measure: 0=Not Assessed/NA 4=Minimal Assistance 1=Total Assistance 5=Supervision or Setup 2=Maximal Assistance 6=Modified [place] 3=Moderate Assistance 7=Complete IndependenceSCALE: Activities may be completed with or without assistive devices. 6-Uxpqxnssjc-szrrwdt completes the activity by him/herself with no assistance from a helper. 5-Set-up or Clean-up Assistance-helper sets up or cleans up; patient completes activity. [place] assists only prior to or following the activity. 4-Supervision or Touching Assistance-helper provides verbal cues and/or touching/steadying and/or contact guard assistance as patient completes activity. Assistance may be provided throughout the activity or intermittently. 3-Partial/Moderate Assistance-helper does LESS THAN HALF the effort. [place] lift s, holds or supports trunk or limbs, but provides less than half the effort. 2-Substantial/Maximal Assistance-helper does MORE THAN HALF the effort. [place] lifts or holds trunk or limbs and provides more than half the effort. 1-Ltvhnvpfl-pygssr does ALL the effort. Patient does none of the effort to complete the activity. Or, the assistance of 2 or more helpers is required for the patient to complete the activity. If activity was not attempted, code reason: 7-Patient Refused. 9-Not Applicable-not attempted and the patient did not perform the activity before the current illness, exacerbation or injury. 10-Not Attempted due to Environmental Limitations-(lack of equipment, weather restraints, etc.). 88-Not Attempted due to Medical Conditions or Safety Concerns. Other Treatment Pt transferred supine to sit EOB. In order to increase BUE strength, functional endurance, and dynamic sitting balance, pt completed x20 reps each of 4 dowel exercises, with rest breaks between. Noted with trunk rotation dowel exercises, pt had a slower movement and required cues to turn his entire trunk. Pt transferred back to supine with SBA. Post OT session, pt laying in bed, call light in reach with all needs met. Bed alarm set. Education OT Patient Education: Correct positioning, Energy conservation, Exercise program, Progress toward Goal/Update tx plan, Purpose of tx/functional activities Teaching Recipient: Patient Teaching Methods: Demonstration Response to Teaching: Return Demonstration OT Intermediate Goals Adhesion Tester Goals Time Frame: October 16, 2019 Eating (QC): 6 Oral Hygiene (QC): 6 Toileting Hygiene (QC): 6 Shower/Bathe Self (QC): 6 Upper Body Dressing (QC): 6 Lower Body Dressing (QC): 6 On/Off Footwear (QC): 6 Additional Goals: 1-Demonstrate ADL Tasks, 2-Verbalize Understanding, 3- ImproveStrength/[place] 1=Demonstrate adherence to instructed precautions during ADL tasks. 2=Patient will verbalize/demonstrate understanding of assistive devices/mo difications for ADL. 3=Patient will improve strength/tolerance for activity to enable patient to perform ADL's. OT Education/Plan Problem List/Assessment Assessment: Decreased Activ Tolerance, Decreased UE Strength, Impaired Funct Balance, Impaired I ADL's, Impaired Self-Care Skills Discharge Recommendations Plan/Recommendations: Continue POC Treatment Plan/Plan of Care Patient would benefit from OT for education, treatment and training to promote independence in ADL's, mobility, safety and/or upper extremity function for ADL's. Plan of Care: ADL Retraining, Functional Mobility, Group Exercise/Act as Ind, UE Funct Exercise/Act Treatment Duration: October 16, 2019 Frequency: At least 5 of 7 days/Wk (IRF) Estimated Hrs Per Day: 1.5 hours per day Agreement: Yes Rehab Potential: Guarded Time/GCodes Start Time: 13:00 Stop Time: 13:15 Total Time Billed (hr/min): 15 Billed Treatment Time 1, EX FABIO ROTHMAN OT Sep 24, 2019 13:18
--- NOTE | 2019-09-24 14:17 | Physical Therapy Daily Note ---
PT Daily Note-Current Subjective Pt asleep laying Supine in bed upon arrival. Pt agrees to PT. Pain Location: No Pain Reported Mental Status Patient Orientation: Person, Place Transfers SCALE: Activities may be completed with or without assistive devices. 3-Efonfmbzby-dspypwa completes the activity by him/herself with no assistance from a helper. 5-Set-up or Clean-up Assistance-helper sets up or cleans up; patient completes activity. [place] assists only prior to or following the activity. 4-Supervision or Touching Assistance-helper provides verbal cues and/or touching/steadying and/or contact guard assistance as patient completes activity. Assistance may be provided throughout the activity or intermittently. 3-Partial/Moderate Assistance-helper does LESS THAN HALF the effort. [place] lifts, holds or supports trunk or limbs, but provides less than half the effort. 2-Substantial/Maximal Assistance-helper does MORE THAN HALF the effort. [place] lifts or holds trunk or limbs and provides more than half the effort. 7-Uiyzziucn-dhejjh does ALL the effort. Patient does none of the effort to complete the activity. Or, the assistance of 2 or more helpers is required for the patient to complete the activity. If activity was not attempted, code reason: 7-Patient Refused. 9-Not Applicable-not attempted and the patient did not perform the activity before the current illness, exacerbation or injury. 10-Not Attempted due to Environmental Limitations-(lack of equipment, weather restraints, etc.). 88-Not Attempted due to Medical Conditions or Safety Concerns. Weight Bearing Right Lower Extremity: Right Full Weight Bearing Left Lower Extremity: Left Full Weight Bearing Exercises Supine Ex: Ankle pumps, Quad Set, Glut sets, Heel Slides, Straight leg raise, Hip abd/add Supine Reps: 20 Treatments Pt completes Supine Ex in bed with RB as needed. Assessment Current Status: Good Progress Pt tolerates Rx well. PT Supervisor [place] Goals Supervisor [place] Goals PT Fdc Goals Time Frame: October 03, 2019 Roll Left & Right (QC): 6 Sit to Lying (QC): 6 Lying-Sitting on Side/Bed(QC): 6 Sit to Stand (QC): 6 Chair/Pnz-op-Rkwjz Xfer(QC): 6 Toilet Transfer (QC): 6 Car Transfer (QC): 6 Does the Patient Walk: Yes Walk 10 feet (QC): 6 Walk 50ft with 2 Turns (QC): 6 Walk 150 ft (QC): 6 Walking 10ft on Uneven Surface: 6 1 Step (curb) (QC): 6 4 Steps (QC): 4 12 Steps (QC): 4 Picking up an Object (QC): 6 Wheel 50 feet with 2 turns (QC: 9 Wheel 150 feet: 9 PT Plan Problem List Problem List: Activity Tolerance, Safety Treatment/Plan Treatment Plan: Continue Plan of Care Treatment Plan: Bed Mobility, Education, Functional Activity [place], Functional Strength, Gait, Safety, Therapeutic Exercise, Transfers Treatment Duration: October 03, 2019 Frequency: 6 times per week Estimated Hrs Per Day: 1.5 hours per day Patient and/or Family Agrees t: Yes Safety Risks/Education Patient Education: Correct Positioning, Safety Issues Teaching Recipient: Patient Teaching Methods: Discussion Response to Teaching: Verbalize Understanding Time/GCodes Time In: 1330 Time Out: 1400 Total Billed Treatment Time: 30 Total Billed Treatment 1, EX x2 (30m) LATANYA JEREZ HYPERION DEVELOPER Sep 24, 2019 14:17
--- NOTE | 2019-09-24 14:43 | Speech Therapy Daily Note ---
Speech Daily Progress Note Subjective Date Seen by Provider: Sep 24, 2019 Time Seen by Provider: 00:30 Patient was resting in his bed when I entered but he was able to participate. Objective Patient completed a series of problem solving tasks related to her return home with 75% given moderate cues. Assessment Assessment Current Status: Fair Progress Treatment Plan Continue Plan of Care Speech Short Term Goals Short Term Goals Short Term Goals 1) Patient will complete memory tasks related to his daily needs at 80% with minimal cues. 2) Patient will complete problem solving tasks related to his daily needs at 80% with minimal cues. 3) Patient will complete safety awareness tasks related to his daily needs at 80% with minimal cues. Speech Chcf Goals Custom Garment Designer Goals Patient will improve cognitive-communication necessary for safety and daily living tasks with minimal assist. Speech-Plan Patient/Family Goals Patient/Family Goals: Patient plans on returning home, however his discharge will be planned at a later date. Treatment Plan Speech Therapy Treatment Plan: Continue Plan of Care Treatment Duration: Sep 21, 2019 Frequency: Modified Program (IRF) Estimated Hrs Per Day: .5 hour per day Rehab Potential: Guarded Barriers to Learning: Patient has dementia, recent CVA Pt/Family Agrees to Plan: Yes Safety Risks/Education Teaching Recipient: Patient Teaching Methods: Demonstration, Discussion Response to Teaching: Verbalize Understanding, Return Demonstration Education Topics Provided: Continued safety within his room. Time Speech Therapy Time In: 14:30 Speech Therapy Time Out: 15:00 Total Billed Time: 30 Billed Treatment Time 1EVELYN BETHANIA ST Sep 24, 2019 14:43
[2019-09-24 15:30] VITALS: BP 167/78
[2019-09-24] MEDS: cloNIDine 0.1 MG (CATAPRES) TAB PO PRN (17:14)
[2019-09-24] MEDS: ENOXAPARIN 40 MG/0.4 ML (LOVENOX) SYR SC SCH (21:03)
[2019-09-25 05:50] VITALS: BP 143/78
[2019-09-25] MEDS: metFORMIN 500 MG (GLUCOPHAGE) TAB PO SCH ×2 (06:23→16:57)
[2019-09-25] MEDS: DOCUSATE SODIUM 100 MG (COLACE) CAP PO SCH ×2 (09:00→20:25)
[2019-09-25] MEDS: SENNA W/DOCUSATE (SENOKOT S) TABLET PO SCH ×2 (09:00→20:25)
[2019-09-25] MEDS: amLODIPine 5 MG (NORVASC) TAB PO SCH (09:12)
[2019-09-25] MEDS: ASPIRIN E.C. 81 MG (ECOTRIN) TAB PO SCH (09:12)
[2019-09-25] MEDS: busPIRone 10 MG (BUSPAR) TAB PO SCH ×3 (09:12→20:25)
--- NOTE | 2019-09-25 10:44 | PM&R Progress Note ---
Subjective HPI/CC On Admission Date Seen by Provider: September 25, 2019 Time Seen by Provider: 10:45 Subjective/Events-last exam Metformin restarted at a lower dose of 500mg twice daily 2 days ago after hypoglycemia and sugars are ~180 average Poor memory is a DC challenge Overall feels like he is doing pretty good overall No CP Walking much better Checked meds and labs Reviewed therapy notes Conferred with barker peeler of Systems General: Fatigue Objective Exam Vital Signs Vital Signs Date Time Temp Pulse Resp B/P (MAP) Pulse Ox O2 Delivery O2 Flow Rate FiO2 09/25/19 21:00 Room Air 09/25/19 20:28 73 150/75 (100) 09/25/19 16:00 36.8 16 96 Capillary Refill : Less Than 3 Seconds General Appearance: No Apparent Distress, WD/WN, Chronically ill HEENT: PERRL/EOMI, Normal ENT Inspection, Pharynx Normal, Other (presbycusis) Neck: Full Range of Motion, Normal Inspection, Non Tender, Supple, Carotid Bruit Respiratory: Chest Non Tender, Lungs Clear, Normal Breath Sounds, No Accessory Muscle Use, No Respiratory Distress Cardiovascular: Regular Rate, Rhythm, No Edema, No Gallop, No JVD, No Murmur, Normal Peripheral Pulses Gastrointestinal: Normal Bowel Sounds, No Organomegaly, No Pulsatile Mass, Non Tender, Soft Back: Normal Inspection, No CVA Tenderness, No Vertebral Tenderness Extremity: Normal Capillary Refill, Normal Inspection, Normal Range of Motion, Non Tender, No Calf Tenderness, No Pedal Edema Neurologic/Psychiatric: Alert, Oriented x3, Normal Mood/Affect, customer assistance associate II-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 FIM Transfers Therapy Code Descriptions/Definitions Functional [place] Measure: 0=Not Assessed/NA 4=Minimal Assistance 1=Total Assistance 5=Supervision or Setup 2=Maximal Assistance 6=Modified [place] 3=Moderate Assistance 7=Complete IndependenceSCALE: Activities may be completed with or without assistive devices. 0-Mowlrgtpku-rrevnae completes the activity by him/herself with no assistance from a helper. 5-Set-up or Clean-up Assistance-helper sets up or cleans up; patient completes activity. [place] assists only prior to or following the activity. 4-Supervision or Touching Assistance-helper provides verbal cues and/or touching/steadying and/or contact guard assistance as patient completes activity. Assistance may be provided throughout the activity or intermittently. 3-Partial/Moderate Assistance-helper does LESS THAN HALF the effort. [place] lifts, holds or supports trunk or limbs, but provides less than half the effort. 2-Substantial/Maximal Assistance-helper does MORE THAN HALF the effort. [place] lifts or holds trunk or limbs and provides more than half the effort. 9-Fuxcdtrmm-lecjec does ALL the effort. Patient does none of the effort to complete the activity. Or, the assistance of 2 or more helpers is required for the patient to complete the activity. If activity was not attempted, code reason: 7-Patient Refused. 9-Not Applicable-not attempted and the patient did not perform the activity before the current illness, exacerbation or injury. 10-Not Attempted due to Environmental Limitations-(lack of equipment, weather restraints, etc.). 88-Not Attempted due to Medical Conditions or Safety Concerns. Roll Left to Right (QC): 4 Sit to Lying (QC): 4 Sit to Stand (QC): 5 Chair/Twk-nn-Mtumi Xfer(QC): 3 Car Transfer (QC): 3 Gait Training Does the Patient Walk?: Yes Distance: 150' x2 Walk 10 feet (QC): 4 Walk 50 ft with 2 Turns(QC): 4 Walk 150 ft (QC): 4 Walking 10ft/uneven surface-QC: 3 Gait Persons Needed: 1 Gait Assistive Device: None Wheelchair Training Does the Pt Use a Wheelchair?: No Wheel 50 ft with 2 turns (QC): 9 Wheel 150 ft (QC): 9 Stair Training 1 Step (curb) (QC): 3 4 Steps (QC): 88 12 Steps (QC): 88 Balance Picking up an Object (QC): 3 ADL-Treatment Eating (QC): 6 (Per pt report he had no difficulty with breakfast. Pt able to open cheese package without difficulties) Oral Hygiene (QC): 4 (CGA standing at sink.) Shower/Bathe Self (QC): 3 Upper Body Dressing (QC): 4 Lower Body Dressing (QC): 3 On/Off Footwear (QC): 3 Toileting Hygiene (QC): 4 (SBA standing at FWW over toilet, pt stood to void urine.) Toilet Transfer (QC): 4 (CGA) Assessment/Plan Assessment and Plan Assess & Plan/Chief Complaint Assessment: Acute and subacute strokes on MRI with negative CT scan Instability unable to walk in previous independent patient Dementia DM HTN HLP Abnl UA but Cx no pathological bacteria so will DC Rocephin s/p Loop recorder 09/19/19 Hypoglycemia holding meds but added Metformin 3 days ago Plan: CVA protocol Rehab protocol Statin ASA Cardiology consultation is appreciated Hold OHA and added low dose of Metformin (1) CVA (cerebrovascular accident) (2) Risk for falls (3) Hyperlipemia (4) Diabetes (5) Unsteady gait Status: Acute (6) Dementia Status: Acute (7) Status post placement of implantable loop recorder SIA DUGGAN DO September 25, 2019 10:44
--- NOTE | 2019-09-25 10:50 | Occupational Ther Daily Note ---
OT Current Status-Daily Note Subjective Pt in bed, agrees to therapy. No c/o pain. ADL-Treatment Pt agrees to shower this morning. Supine to sit with SBA. Sit to stand with supervision. Gait to restroom with FWW, cues for safety. Transfer to walk in shower with CGA. Pt doffed clothing with SBA. Seated bathing completed using esposito nd held shower. Upper body bathing completed with SBA. Pt required CGA for balance during lower body bathing. Don pullover shirt with set up. Pt able to thread bilateral LE into underwear and pants without assist. Stood with close supervision for balance during pant hike. Donned right sock with SBA. Required CGA for balance while donning left sock. Grooming tasks completed while standing at sink with CGA for balance. Pt requires occasional rest breaks during treatment. Therapy Code Descriptions/Definitions Functional [place] Measure: 0=Not Assessed/NA 4=Minimal Assistance 1=Total Assistance 5=Supervision or Setup 2=Maximal Assistance 6=Modified [place] 3=Moderate Assistance 7=Complete IndependenceSCALE: Activities may be completed with or without assistive devices. 9-Wlcwybqbun-hzxvnyr completes the activity by him/herself with no assistance from a helper. 5-Set-up or Clean-up Assistance-helper sets up or cleans up; patient completes activity. [place] assists only prior to or following the activity. 4-Supervision or Touching Assistance-helper provides verbal cues and/or touching/steadying and/or contact guard assistance as patient completes activi ty. Assistance may be provided throughout the activity or intermittently. 3-Partial/Moderate Assistance-helper does LESS THAN HALF the effort. [place] lifts, holds or supports trunk or limbs, but provides less than half the effort. 2-Substantial/Maximal Assistance-helper does MORE THAN HALF the effort. [place] lifts or holds trunk or limbs and provides more than half the effort. 5-Lzlrkwemt-aczyui does ALL the effort. Patient does none of the effort to complete the activity. Or, the assistance of 2 or more helpers is required for the patient to complete the activity. If activity was not attempted, code reason: 7-Patient Refused. 9-Not Applicable-not attempted and the patient did not perform the activity before the current illness, exacerbation or injury. 10-Not Attempted due to Environmental Limitations-(lack of equipment, weather restraints, etc.). 88-Not Attempted due to Medical Conditions or Safety Concerns. Shower/Bathe Self (QC): 4 (CGA) Upper Body Dressing (QC): 5 Lower Body Dressing (QC): 4 (SBA) On/Off Footwear: 4 (CGA) Other Treatment Pt completed bilateral UE exercises to increase strength and activity tolerance needed for functional task completion. Pt performed four exercises x20 reps with dowel trinity. Rest breaks between exercises. Graded clothespin activity with bilateral hands to increase tank pumper/pinch strength. Pt required increased time for task. Pt transferred to bed and completed sit to supine with SBA. Pt resting in bed with needs met and bed alarm on after session. OT Assisted Goals Alternative Financing Specialist Goals Time Frame: October 16, 2019 Eating (QC): 6 Oral Hygiene (QC): 6 Toileting Hygiene (QC): 6 Shower/Bathe Self (QC): 6 Upper Body Dressing (QC): 6 Lower Body Dressing (QC): 6 On/Off Footwear (QC): 6 Additional Goals: 1-Demonstrate ADL Tasks, 2-Verbalize Understanding, 3- ImproveStrength/[place] 1=Demonstrate adherence to instructed precautions during ADL tasks. 2=Patient will verbalize/demonstrate understanding of assistive d evices/modifications for ADL. 3=Patient will improve strength/tolerance for activity to enable patient to perform ADL's. OT Education/Plan Discharge Recommendations Plan/Recommendations: Continue POC Treatment Plan/Plan of Care Patient would benefit from OT for education, treatment and training to promote independence in ADL's, mobility, safety and/or upper extremity function for ADL's. Plan of Care: ADL Retraining, Functional Mobility, Group Exercise/Act as Ind, UE Funct Exercise/Act Treatment Duration: October 16, 2019 Frequency: At least 5 of 7 days/Wk (IRF) Estimated Hrs Per Day: 1.5 hours per day Agreement: Yes Rehab Potential: Guarded Time/GCodes Start Time: 09:05 Stop Time: 10:20 Total Time Billed (hr/min): 75 Billed Treatment Time 1 visit, ADLx4(55minutes), EX(20minutes) GARRY CLARK OT September 25, 2019 10:50
--- NOTE | 2019-09-25 11:59 | Physical Therapy Daily Note ---
PT Daily Note-Current Subjective Pt. agrees to Rx, not very verbal. Pain Location: No Pain Reported Mental Status Patient Orientation: Person Transfers SCALE: Activities may be completed with or without assistive devices. 6-Ubamddmjid-piahekp completes the activity by him/herself with no assistance from a helper. 5-Set-up or Clean-up Assistance-helper sets up or cleans up; patient completes activity. [place] assists only prior to or following the activity. 4-Supervision or Touching Assistance-helper provides verbal cues and/or touching/steadying and/or contact guard assistance as patient completes activity. Assistance may be provided throughout the activity or intermittently. 3-Partial/Moderate Assistance-helper does LESS THAN HALF the effort. [place] lifts, holds or supports trunk or limbs, but provides less than half the effort. 2-Substantial/Maximal Assistance-helper does MORE THAN HALF the effort. [place] lifts or holds trunk or limbs and provides more than half the effort. 9-Ccydstcvv-eymbru does ALL the effort. Patient does none of the effort to complete the activity. Or, the assistance of 2 or more helpers is required for the patient to complete the activity. If activity was not attempted, code reason: 7-Patient Refused. 9-Not Applicable-not attempted and the patient did not perform the activity before the current illness, exacerbation or injury. 10-Not Attempted due to Environmental Limitations-(lack of equipment, weather restraints, etc.). 88-Not Attempted due to Medical Conditions or Safety Concerns. Roll Left & Right (QC): 6 Sit to Lying (QC): 6 Lying to Sitting/Side of Bed(Q: 6 Sit to Stand (QC): 5 Chair/Bhu-wg-Cnmtw Xfer(QC): 4 instructed in safety and use of hands for sit to stand and stand to sit Weight Bearing Right Lower Extremity: Right Full Weight Bearing Left Lower Extremity: Left Full Weight Bearing Gait Training Does the Patient Walk?: Yes Walk 10 feet (QC): 4 Walk 50 ft with 2 Turns(QC): 4 Walk 150 ft (QC): 4 Gait Persons Needed: 1 Gait Assistive Device: FWW impulsive, narrow LARRY, left ankle ext rotation and looks as if it will roll during gait. int rotators weak but pt. can initiate for exercise, fig 8s x 3 for work on turning and control with instruction needed Exercises Supine Ex: Bridging, Ankle pumps, Quad Set, Rolling, Glut sets, Heel Slides, Short Arc Quads, Scooting, Straight leg raise, Hip abd/add Supine Reps: 15 NuStep Minutes: 10 NuStep Workload: 4 Treatments ankle int rot exercises x 15, seated on Nustep leg presses x 15 Assessment Current Status: Good Progress PT Project Development Coordinator Goals Project Development Coordinator Goals PT Project Development Coordinator Goals Time Frame: October 03, 2019 Roll Left & Right (QC): 6 Sit to Lying (QC): 6 Lying-Sitting on Side/Bed(QC): 6 Sit to Stand (QC): 6 Chair/Sfu-it-Ohyem Xfer(QC): 6 Toilet Transfer (QC): 6 Car Transfer (QC): 6 Does the Patient Walk: Yes Walk 10 feet (QC): 6 Walk 50ft with 2 Turns (QC): 6 Walk 150 ft (QC): 6 Walking 10ft on Uneven Surface: 6 1 Step (curb) (QC): 6 4 Steps (QC): 4 12 Steps (QC): 4 Picking up an Object (QC): 6 Wheel 50 feet with 2 turns (QC: 9 Wheel 150 feet: 9 PT Plan Treatment/Plan Treatment Plan: Continue Plan of Care Treatment Plan: Bed Mobility, Education, Functional Activity [place], Functional Strength, Gait, Safety, Therapeutic Exercise, Transfers Treatment Duration: October 03, 2019 Frequency: 6 times per week Estimated Hrs Per Day: 1.5 hours per day Patient and/or Family Agrees t: Yes Safety Risks/Education Patient Education: Gait Training, Transfer Techniques, Correct Positioning, Disease Process, Safety Issues Teaching Recipient: Patient Teaching Methods: Demonstration, Discussion Response to Teaching: Verbalize Understanding, Return Demonstration, Reinforcement Needed Time/GCodes Time In: 1045 Time Out: 1145 Total Billed Treatment Time: 60 Total Billed Treatment 1,EX35m,GT25m JUAN VILLALBA JOY LOADING MACHINE OPERATOR September 25, 2019 11:59
--- NOTE | 2019-09-25 13:14 | Physical Therapy Daily Note ---
PT Daily Note-Current Subjective Pt. in bed but agrees to exercises. c/o fatigue and wants to rest Pain Location: No Pain Reported Transfers SCALE: Activities may be completed with or without assistive devices. 2-Nqbkywspfx-vdcvpls completes the activity by him/herself with no assistance from a helper. 5-Set-up or Clean-up Assistance-helper sets up or cleans up; patient completes activity. [place] assists only prior to or following the activity. 4-Supervision or Touching Assistance-helper provides verbal cues and/or touching/steadying and/or contact guard assistance as patient completes activity. Assistance may be provided throughout the activity or intermittently. 3-Partial/Moderate Assistance-helper does LESS THAN HALF the effort. [place] lifts, holds or supports trunk or limbs, but provides less than half the effort. 2-Substantial/Maximal Assistance-helper does MORE THAN HALF the effort. [place] lifts or holds trunk or limbs and provides more than half the effort. 1-Zexuqsddy-nfkdhd does ALL the effort. Patient does none of the effort to complete the activity. Or, the assistance of 2 or more helpers is required for the patient to complete the activity. If activity was not attempted, code reason: 7-Patient Refused. 9-Not Applicable-not attempted and the patient did not perform the activity before the current illness, exacerbation or injury. 10-Not Attempted due to Environmental Limitations-(lack of equipment, weather restraints, etc.). 88-Not Attempted due to Medical Conditions or Safety Concerns. rolling left and right and pushes self up in bed with instruction only Weight Bearing Right Lower Extremity: Right Full Weight Bearing Left Lower Extremity: Left Full Weight Bearing Exercises Supine Ex: Bridging, Ankle pumps, Quad Set, Rolling, Glut sets, Heel Slides, Short Arc Quads, Scooting, Straight leg raise, Hip abd/add Supine Reps: 20 Assessment Current Status: Good Progress PT Change Control Coordinator Goals Assisted Goals PT Assisted Goals Time Frame: October 03, 2019 Roll Left & Right (QC): 6 Sit to Lying (QC): 6 Lying-Sitting on Side/Bed(QC): 6 Sit to Stand (QC): 6 Chair/Xva-jc-Hwiim Xfer(QC): 6 Toilet Transfer (QC): 6 Car Transfer (QC): 6 Does the Patient Walk: Yes Walk 10 feet (QC): 6 Walk 50ft with 2 Turns (QC): 6 Walk 150 ft (QC): 6 Walking 10ft on Uneven Surface: 6 1 Step (curb) (QC): 6 4 Steps (QC): 4 12 Steps (QC): 4 Picking up an Object (QC): 6 Wheel 50 feet with 2 turns (QC: 9 Wheel 150 feet: 9 PT Plan Treatment/Plan Treatment Plan: Continue Plan of Care Treatment Plan: Bed Mobility, Education, Functional Activity [place], Functional Strength, Gait, Safety, Therapeutic Exercise, Transfers Treatment Duration: October 03, 2019 Frequency: 6 times per week Estimated Hrs Per Day: 1.5 hours per day Patient and/or Family Agrees t: Yes Safety Risks/Education Patient Education: Correct Positioning Time/GCodes Time In: 1300 Time Out: 1315 Total Billed Treatment Time: 15 Total Billed Treatment 1,EX15m JUAN VILLALBA SURGICAL TERRITORY MANAGER September 25, 2019 13:14
--- NOTE | 2019-09-25 13:23 | Speech Therapy Daily Note ---
Speech Daily Progress Note Subjective Date Seen by Provider: September 25, 2019 Time Seen by Provider: 00:30 Patient was resting in his bed when I entered his room. Patient participated with therapy with verbal cues. Objective Patient completed a series of problem solving tasks related to his daily needs with 70% given moderate verbal/visual cuing. Assessment Assessment Current Status: Fair Progress Treatment Plan Continue Plan of Care Speech Short Term Goals Short Term Goals Short Term Goals 1) Patient will complete memory tasks related to his daily needs at 80% with minimal cues. 2) Patient will complete problem solving tasks related to his daily needs at 80% with minimal cues. 3) Patient will complete safety awareness tasks related to his daily needs at 80% with minimal cues. Speech Custodial Goals Custodial Goals Patient will improve cognitive-communication necessary for safety and daily living tasks with minimal assist. Speech-Plan Patient/Family Goals Patient/Family Goals: Patient plans on returning to his prior living situation, however at this time it is unknown if this will be the safest situation for him. Treatment Plan Speech Therapy Treatment Plan: Continue Plan of Care Treatment Duration: Sep 21, 2019 Frequency: Modified Program (IRF) Estimated Hrs Per Day: .5 hour per day Rehab Potential: Guarded Barriers to Learning: Patient's decreased cognitive function Pt/Family Agrees to Plan: Yes Safety Risks/Education Teaching Recipient: Patient Teaching Methods: Demonstration, Discussion Response to Teaching: Verbalize Understanding, Return Demonstration Education Topics Provided: Safety within his room and using the call light as needed for assistance. Time Speech Therapy Time In: 12:30 Speech Therapy Time Out: 13:00 Total Billed Time: 30 Billed Treatment Time 1EVELYN BETHAN[address] ST September 25, 2019 13:23
--- NOTE | 2019-09-25 14:56 | NUR ---
CM/SS PATIENT CARE CONFERENCE SUMMARY Reviewed with patient who indicates he is in agreement for continued stay and re-assessment next conference 09/30/19. Patient presents as alert, monitoring speech therapy sessions and outcomes for overall cognition. When asked any questions, patient just gives answer yes/no without any elaboration. He thinks he can be home alone safely, barrier to discharge will be whether this is feasible. Will explore with his son Rolando, it seems evenings are the only available time for Rolando to provide care/monitor.
[2019-09-25 16:00] VITALS: BP 147/78
--- NOTE | 2019-09-25 19:09 | Cardiology Progress Note ---
Cardiology SOAP Progress Note Subjective: No cardiac complaints. Objective: I&O/Vital Signs 09/27/19 09/27/19 08:25 17:37 Temp 36.8 Pulse 68 Resp 18 B/P (MAP) 148/60 (89) Pulse Ox 96 O2 Delivery Room Air Room Air 09/27/19 00:00 Intake Total 750 ml Balance 750 ml Constitutional: appears stated age, well-developed, well-nourished Respiratory: chest is bilaterally symmetric, lungs clear to auscultation Cardiovascular: regular rate-rhythm, S1 and S2 Gastrointestional: soft, audible bowel sounds Extremities: normal range of motion, non-tender, normal inspection, no lower extremity edema bilateral Neurologic/Psychiatric: alert, normal mood/affect Skin: normal color Results/Procedures: Labs Laboratory Tests 09/26/19 20:51: Glucometer 228H 09/27/19 06:27: Glucometer 141H 09/27/19 10:46: Glucometer 224H 09/27/19 15:22: Glucometer 220H A/P: Assessment/Dx: Acute stroke, 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 Negative telemetry for 48 hours for atrial fibrillation. Echocardiogram showed normal LV function with negative bubble study ruling out intracardiac shunting. No significant carotid atherosclerotic disease. Very likely cryptogenic stroke. Long-term surveillance for atrial fibrillation is recommended. Implantable loop recorder was discussed with the patient. Informed consent was taken. Implantable loop recorder done on 09/19/2019. DC telemetry. Mild dementia, deferred to the primary team. Diabetes, was on metformin. Hyperlipidemia, atorvastatin. PVCs, will follow clinically. Thank you for your consultation. Please call me if you have any questions. Sulma Veliz MD, FACP, FACC, FSCAI, FHRS, CCDS Interventional Cardiology Cardiac Electrophysiology Vascular Medicine and Endovascular Interventions Jaiden VELIZ MD September 25, 2019 19:09
[2019-09-25] MEDS: ENOXAPARIN 40 MG/0.4 ML (LOVENOX) SYR SC SCH (20:25)
[2019-09-25 20:28] VITALS: BP 150/75
[2019-09-26 06:00] VITALS: BP 144/55
[2019-09-26] MEDS: metFORMIN 500 MG (GLUCOPHAGE) TAB PO SCH ×2 (06:21→17:14)
[2019-09-26 08:21] VITALS: BP 145/68
[2019-09-26] MEDS: DOCUSATE SODIUM 100 MG (COLACE) CAP PO SCH ×2 (08:22→20:47)
[2019-09-26] MEDS: ASPIRIN E.C. 81 MG (ECOTRIN) TAB PO SCH (08:22)
[2019-09-26] MEDS: amLODIPine 5 MG (NORVASC) TAB PO SCH (08:22)
[2019-09-26] MEDS: SENNA W/DOCUSATE (SENOKOT S) TABLET PO SCH ×2 (08:22→20:53)
[2019-09-26] MEDS: busPIRone 10 MG (BUSPAR) TAB PO SCH ×3 (08:22→20:47)
--- NOTE | 2019-09-26 11:54 | Physical Therapy Daily Note ---
PT Daily Note-Current Subjective Pt in bed, agreeable. Mental Status Patient Orientation: Person Transfers SCALE: Activities may be completed with or without assistive devices. 5-Ftbwbgwdkg-kkkxlgs completes the activity by him/herself with no assistance from a helper. 5-Set-up or Clean-up Assistance-helper sets up or cleans up; patient completes activity. [place] assists only prior to or following the activity. 4-Supervision or Touching Assistance-helper provides verbal cues and/or touching/steadying and/or contact guard assistance as patient completes activity. Assistance may be provided throughout the activity or intermittently. 3-Partial/Moderate Assistance-helper does LESS THAN HALF the effort. [place] lifts, holds or supports trunk or limbs, but provides less than half the effort. 2-Substantial/Maximal Assistance-helper does MORE THAN HALF the effort. [place] lifts or holds trunk or limbs and provides more than half the effort. 8-Zppixaqrd-qemoiv does ALL the effort. Patient does none of the effort to complete the activity. Or, the assistance of 2 or more helpers is required for the patient to complete the activity. If activity was not attempted, code reason: 7-Patient Refused. 9-Not Applicable-not attempted and the patient did not perform the activity before the current illness, exacerbation or injury. 10-Not Attempted due to Environmental Limitations-(lack of equipment, weather restraints, etc.). 88-Not Attempted due to Medical Conditions or Safety Concerns. Sit to Lying (QC): 5 Lying to Sitting/Side of Bed(Q: 6 Sit to Stand (QC): 4 Weight Bearing Right Lower Extremity: Right Full Weight Bearing Left Lower Extremity: Left Full Weight Bearing Gait Training Does the Patient Walk?: Yes Distance: 150 Walk 10 feet (QC): 4 Walk 50 ft with 2 Turns(QC): 4 Gait Persons Needed: 1 Gait Assistive Device: FWW Pt ambulates with CGA-min A x 1. Unsafe, letting go of the walker to adjust mask, attempting to steer with one hand, impulsive with turns. Exercises NuStep Minutes: 8 NuStep Workload: 4 Treatments Gait training with FWW, NuStep for (B) integration, coordination. Returned to room with bed alarm activated. Assessment Current Status: Fair Progress Pt tolerated well. Performs all functional mobility and exercises with increased speed despite max skilled VCS. Max skilled VCS for gait sequencing and safety. PT Straddle Truck Driver Goals Fpc Goals PT Fpc Goals Time Frame: October 03, 2019 Roll Left & Right (QC): 6 Sit to Lying (QC): 6 Lying-Sitting on Side/Bed(QC): 6 Sit to Stand (QC): 6 Chair/Gii-qp-Xxqah Xfer(QC): 6 Toilet Transfer (QC): 6 Car Transfer (QC): 6 Does the Patient Walk: Yes Walk 10 feet (QC): 6 Walk 50ft with 2 Turns (QC): 6 Walk 150 ft (QC): 6 Walking 10ft on Uneven Surface: 6 1 Step (curb) (QC): 6 4 Steps (QC): 4 12 Steps (QC): 4 Picking up an Object (QC): 6 Wheel 50 feet with 2 turns (QC: 9 Wheel 150 feet: 9 PT Plan Problem List Problem List: Activity Tolerance, Functional Strength, Safety, Balance, Gait, Transfer Treatment/Plan Treatment Plan: Continue Plan of Care Treatment Plan: Bed Mobility, Education, Functional Activity [place], Functional Strength, Gait, Safety, Therapeutic Exercise, Transfers Treatment Duration: October 03, 2019 Frequency: 6 times per week Estimated Hrs Per Day: 1.5 hours per day Patient and/or Family Agrees t: Yes Time/GCodes Time In: 1120 Time Out: 1137 Total Billed Treatment Time: 17 Total Billed Treatment 1, GT x 9' (EX x 8') KERYR THOMPSON DPT September 26, 2019 11:54
--- NOTE | 2019-09-26 12:24 | PM&R Progress Note ---
Subjective HPI/CC On Admission Date Seen by Provider: September 26, 2019 Time Seen by Provider: 12:30 Subjective/Events-last exam Metformin restarted at a lower dose of 500mg twice daily 3 days ago after hypoglycemia and sugars are ~1250 average so starting low dose OHA tomorrow morning Poor memory is a DC challenge Overall feels like he is doing pretty good overall No CP Walking much better Checked meds and labs Reviewed therapy notes Conferred with braided band assembler of Systems General: Fatigue Neurological: Weakness, Numbness, Incoordination, Confusion Objective Exam Vital Signs Vital Signs Date Time Temp Pulse Resp B/P (MAP) Pulse Ox O2 Delivery O2 Flow Rate FiO2 09/26/19 09:59 Room Air 09/26/19 08:21 67 145/68 (93) 09/26/19 06:00 36.1 18 94 Capillary Refill : Less Than 3 Seconds General Appearance: No Apparent Distress, WD/WN, Chronically ill HEENT: PERRL/EOMI, Normal ENT Inspection, Pharynx Normal, Other (presbycusis) Neck: Full Range of Motion, Normal Inspection, Non Tender, Supple, Carotid Bruit Respiratory: Chest Non Tender, Lungs Clear, Normal Breath Sounds, No Accessory Muscle Use, No Respiratory Distress Cardiovascular: Regular Rate, Rhythm, No Edema, No Gallop, No JVD, No Murmur, Normal Peripheral Pulses Gastrointestinal: Normal Bowel Sounds, No Organomegaly, No Pulsatile Mass, Non Tender, Soft Back: Normal Inspection, No CVA Tenderness, No Vertebral Tenderness Extremity: Normal Capillary Refill, Normal Inspection, Normal Range of Motion, Non Tender, No Calf Tenderness, No Pedal Edema Neurologic/Psychiatric: Alert, Oriented x3, Normal Mood/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 FIM Transfers Therapy Code Descriptions/Definitions Functional [place] Measure: 0=Not Assessed/NA 4=Minimal Assistance 1=Total Assistance 5=Supervision or Setup 2=Maximal Assistance 6=Modified [place] 3=Moderate Assistance 7=Complete IndependenceSCALE: Activities may be completed with or without assistive devices. 4-Lodniavajo-jrpwbln completes the activity by him/herself with no assistance from a helper. 5-Set-up or Clean-up Assistance-helper sets up or cleans up; patient completes activity. [place] assists only prior to or following the activity. 4-Supervision or Touching Assistance-helper provides verbal cues and/or touching/steadying and/or contact guard assistance as patient completes activity. Assistance may be provided throughout the activity or intermittently. 3-Partial/Moderate Assistance-helper does LESS THAN HALF the effort. [place] lifts, holds or supports trunk or limbs, but provides less than half the effort. 2-Substantial/Maximal Assistance-helper does MORE THAN HALF the effort. [place] lifts or holds trunk or limbs and provides more than half the effort. 6-Lsvwmszqh-fuxpdv does ALL the effort. Patient does none of the effort to complete the activity. Or, the assistance of 2 or more helpers is required for the patient to complete the activity. If activity was not attempted, code reason: 7-Patient Refused. 9-Not Applicable-not attempted and the patient did not perform the activity before the current illness, exacerbation or injury. 10-Not Attempted due to Environmental Limitations-(lack of equipment, weather restraints, etc.). 88-Not Attempted due to Medical Conditions or Safety Concerns. Roll Left to Right (QC): 6 Sit to Lying (QC): 5 Sit to Stand (QC): 4 Chair/Tdz-oj-Ipjbz Xfer(QC): 4 Car Transfer (QC): 3 Gait Training Does the Patient Walk?: Yes Distance: 150 Walk 10 feet (QC): 4 Walk 50 ft with 2 Turns(QC): 4 Walk 150 ft (QC): 4 Walking 10ft/uneven surface-QC: 3 Gait Persons Needed: 1 Gait Assistive Device: FWW Wheelchair Training Does the Pt Use a Wheelchair?: No Wheel 50 ft with 2 turns (QC): 9 Wheel 150 ft (QC): 9 Stair Training 1 Step (curb) (QC): 3 4 Steps (QC): 88 12 Steps (QC): 88 Balance Picking up an Object (QC): 3 ADL-Treatment Eating (QC): 6 (Per pt report he had no difficulty with breakfast. Pt able to open cheese package without difficulties) Oral Hygiene (QC): 4 (CGA standing at sink.) Shower/Bathe Self (QC): 4 (CGA) Upper Body Dressing (QC): 5 Lower Body Dressing (QC): 4 (SBA) On/Off Footwear (QC): 4 (CGA) Toileting Hygiene (QC): 4 (SBA standing at FWW over toilet, pt stood to void urine.) Toilet Transfer (QC): 4 (CGA) Assessment/Plan Assessment and Plan Assess & Plan/Chief Complaint Assessment: Acute and subacute strokes on MRI with negative CT scan Instability unable to walk in previous independent patient Dementia DM HTN HLP Abnl UA but Cx no pathological bacteria so will DC Rocephin s/p Loop recorder 09/19/19 Hypoglycemia holding meds but added Metformin 3 days ago and now will add low dose OHA since sugars are higher Plan: CVA protocol Rehab protocol Statin ASA Cardiology consultation is appreciated Add low dose OHA to Metformin (1) CVA (cerebrovascular accident) (2) Risk for falls (3) Hyperlipemia (4) Diabetes (5) Unsteady gait Status: Acute (6) Dementia Status: Acute (7) Status post placement of implantable loop recorder SIA DUGGAN DO September 26, 2019 12:24
[2019-09-26 17:48] VITALS: BP 145/77
[2019-09-26] MEDS: ENOXAPARIN 40 MG/0.4 ML (LOVENOX) SYR SC SCH (20:48)
[2019-09-27 06:00] VITALS: BP 145/76
[2019-09-27] MEDS: metFORMIN 500 MG (GLUCOPHAGE) TAB PO SCH ×2 (06:23→17:55)
[2019-09-27] MEDS: glyBURIDE 2.5 MG (MICRONASE) TAB PO SCH (06:23)
[2019-09-27] MEDS: SENNA W/DOCUSATE (SENOKOT S) TABLET PO SCH ×2 (10:06→20:40)
[2019-09-27] MEDS: DOCUSATE SODIUM 100 MG (COLACE) CAP PO SCH ×2 (10:06→20:40)
[2019-09-27] MEDS: ASPIRIN E.C. 81 MG (ECOTRIN) TAB PO SCH (10:06)
[2019-09-27] MEDS: busPIRone 10 MG (BUSPAR) TAB PO SCH ×3 (10:06→20:40)
[2019-09-27] MEDS: amLODIPine 5 MG (NORVASC) TAB PO SCH (10:07)
--- NOTE | 2019-09-27 12:06 | PM&R Progress Note ---
Subjective HPI/CC On Admission Date Seen by Provider: September 27, 2019 Time Seen by Provider: 12:15 Subjective/Events-last exam Lays in bed a lot Prior activity before CVA was not very active I presume Poor memory is a DC challenge Overall feels like he is doing pretty good overall No CP Walking much better Sugars are improved a bit on low dose OHA Checked meds and labs Reviewed therapy notes Conferred with careers counsellor of Systems General: Fatigue Neurological: Weakness, Numbness, Incoordination, Confusion Objective Exam Vital Signs Vital Signs Date Time Temp Pulse Resp B/P (MAP) Pulse Ox O2 Delivery O2 Flow Rate FiO2 09/27/19 17:37 36.8 68 18 148/60 (89) 96 Room Air Capillary Refill : Less Than 3 Seconds General Appearance: No Apparent Distress, WD/WN, Chronically ill HEENT: PERRL/EOMI, Normal ENT Inspection, Pharynx Normal, Other (presbycusis) Neck: Full Range of Motion, Normal Inspection, Non Tender, Supple, Carotid Bruit Respiratory: Chest Non Tender, Lungs Clear, Normal Breath Sounds, No Accessory Muscle Use, No Respiratory Distress Cardiovascular: Regular Rate, Rhythm, No Edema, No Gallop, No JVD, No Murmur, Normal Peripheral Pulses Gastrointestinal: Normal Bowel Sounds, No Organomegaly, No Pulsatile Mass, Non Tender, Soft Back: Normal Inspection, No CVA Tenderness, No Vertebral Tenderness Extremity: Normal Capillary Refill, Normal Inspection, Normal Range of Motion, Non Tender, No Calf Tenderness, No Pedal Edema Neurologic/Psychiatric: Alert, Oriented x3, Normal Mood/Affect, 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 FIM Transfers Therapy Code Descriptions/Definitions Functional [place] Measure: 0=Not Assessed/NA 4=Minimal Assistance 1=Total Assistance 5=Supervision or Setup 2=Maximal Assistance 6=Modified [place] 3=Moderate Assistance 7=Complete IndependenceSCALE: Activities may be completed with or without assistive devices. 8-Mptjdniqeb-olpakpv completes the activity by him/herself with no assistance from a helper. 5-Set-up or Clean-up Assistance-helper sets up or cleans up; patient completes activity. [place] assists only prior to or following the activity. 4-Supervision or Touching Assistance-helper provides verbal cues and/or touching/steadying and/or contact guard assistance as patient completes activity. Assistance may be provided throughout the activity or intermittently. 3-Partial/Moderate Assistance-helper does LESS THAN HALF the effort. [place] lif ts, holds or supports trunk or limbs, but provides less than half the effort. 2-Substantial/Maximal Assistance-helper does MORE THAN HALF the effort. [place] lifts or holds trunk or limbs and provides more than half the effort. 9-Zfxmyggxo-mnszyf does ALL the effort. Patient does none of the effort to complete the activity. Or, the assistance of 2 or more helpers is required for the patient to complete the activity. If activity was not attempted, code reason: 7-Patient Refused. 9-Not Applicable-not attempted and the patient did not perform the activity before the current illness, exacerbation or injury. 10-Not Attempted due to Environmental Limitations-(lack of equipment, weather restraints, etc.). 88-Not Attempted due to Medical Conditions or Safety Concerns. Roll Left to Right (QC): 6 Sit to Lying (QC): 5 Sit to Stand (QC): 4 Chair/Xla-gu-Okfvy Xfer(QC): 4 Car Transfer (QC): 3 Gait Training Does the Patient Walk?: Yes Distance: 150 Walk 10 feet (QC): 4 Walk 50 ft with 2 Turns(QC): 4 Walk 150 ft (QC): 4 Walking 10ft/uneven surface-QC: 3 Gait Persons Needed: 1 Gait Assistive Device: FWW Wheelchair Training Does the Pt Use a Wheelchair?: No Wheel 50 ft with 2 turns (QC): 9 Wheel 150 ft (QC): 9 Stair Training 1 Step (curb) (QC): 3 4 Steps (QC): 88 12 Steps (QC): 88 Balance Picking up an Object (QC): 3 ADL-Treatment Eating (QC): 6 (Per pt report he had no difficulty with breakfast. Pt able to open cheese package without difficulties) Oral Hygiene (QC): 4 (CGA standing at sink.) Shower/Bathe Self (QC): 4 (CGA) Upper Body Dressing (QC): 5 Lower Body Dressing (QC): 4 (SBA) On/Off Footwear (QC): 4 (CGA) Toileting Hygiene (QC): 4 (SBA standing at FWW over toilet, pt stood to void urine.) Toilet Transfer (QC): 4 (CGA) Assessment/Plan Assessment and Plan Assess & Plan/Chief Complaint Assessment: Acute and subacute strokes on MRI with negative CT scan Instability unable to walk in previous independent patient Dementia DM HTN HLP Abnl UA but Cx no pathological bacteria so will DC Rocephin s/p Loop recorder 09/19/19 Hypoglycemia holding meds but added Metformin 3 days ago and now will add low dose OHA yesterday since sugars are higher Plan: CVA protocol Rehab protocol Statin ASA Cardiology consultation is appreciated Add low dose OHA to Metformin (1) CVA (cerebrovascular accident) (2) Risk for falls (3) Hyperlipemia (4) Diabetes (5) Unsteady gait Status: Acute (6) Dementia Status: Acute (7) Status post placement of implantable loop recorder SIA DUGGAN DO September 27, 2019 12:06
[2019-09-27 17:37] VITALS: BP 148/60
--- NOTE | 2019-09-27 18:36 | Cardiology Progress Note ---
Cardiology SOAP Progress Note Subjective: Late entry. The patient was seen on 09/26/2019. No Cardiac complaints. Objective: I&O/Vital Signs 09/27/19 09/27/19 08:25 17:37 Temp 36.8 Pulse 68 Resp 18 B/P (MAP) 148/60 (89) Pulse Ox 96 O2 Delivery Room Air Room Air 09/27/19 00:00 Intake Total 750 ml Balance 750 ml Constitutional: appears stated age, well-developed, well-nourished Respiratory: chest is bilaterally symmetric, lungs clear to auscultation Cardiovascular: regular rate-rhythm, S1 and S2 Gastrointestional: soft, audible bowel sounds Extremities: normal range of motion, non-tender, normal inspection, no lower extremity edema bilateral Neurologic/Psychiatric: alert, normal mood/affect Skin: normal color Results/Procedures: Labs Laboratory Tests 09/26/19 20:51: Glucometer 228H 09/27/19 06:27: Glucometer 141H 09/27/19 10:46: Glucometer 224H 09/27/19 15:22: Glucometer 220H A/P: Assessment/Dx: Acute stroke, 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 Negative telemetry for 48 hours for atrial fibrillation. Echocardiogram showed normal LV function with negative bubble study ruling out intracardiac shunting. No significant carotid atherosclerotic disease. Very likely cryptogenic stroke. Long-term surveillance for atrial fibrillation is recommended. Implantable loop recorder was discussed with the patient. Informed consent was taken. Implantable loop recorder done on 09/19/2019. DC telemetry. Mild dementia, deferred to the primary team. Diabetes, was on metformin. Hyperlipidemia, atorvastatin. PVCs, will follow clinically. Thank you for your consultation. Please call me if you have any questions. Sulma Veliz MD, FACP, FACC, FSCAI, FHRS, CCDS Interventional Cardiology Cardiac Electrophysiology Vascular Medicine and Endovascular Interventions Jaiden VELIZ MD September 27, 2019 18:36
[2019-09-27] MEDS: ENOXAPARIN 40 MG/0.4 ML (LOVENOX) SYR SC SCH (20:40)
[2019-09-28 05:30] LABS: BASOPHILS % (AUTO) 0 % (0-10); EOSINOPHILS # (AUTO) 0.1 10^3/uL (0.0-0.3); EOSINOPHILS % (AUTO) 2 % (0-10); HEMATOCRIT 40 % (40-54); HEMOGLOBIN 13.3 G/DL (13.3-17.7); LYMPHOCYTES # (AUTO) 1.5 X 10^3 (1.0-4.0); LYMPHOCYTES % (AUTO) 17 % (12-44); MEAN CORPUSCULAR HEMOGLOBIN 28 PG (25-34); MEAN CORPUSCULAR HGB CONC 34 G/DL (32-36); MEAN CORPUSCULAR VOLUME 84 FL (80-99); MEAN PLATELET VOLUME 11.3 FL (7.4-10.4); MONOCYTES # (AUTO) 0.8 X 10^3 (0.0-1.0); MONOCYTES % (AUTO) 10 % (0-12); NEUTROPHILS % (AUTO) 71 % (42-75); PLATELET COUNT 249 10^3/uL (130-400); RED CELL DISTRIBUTION WIDTH 14.2 % (10.0-14.5); WHITE BLOOD COUNT 8.5 10^3/uL (4.3-11.0)
[2019-09-28 05:55] LABS: ALANINE AMINOTRANSFERASE 23 U/L (0-55); ALBUMIN 3.8 GM/DL (3.2-4.5); ALKALINE PHOSPHATASE 83 U/L (40-136); BILIRUBIN,TOTAL 0.7 MG/DL (0.1-1.0); BUN/CREATININE RATIO 25; CALCIUM 8.8 MG/DL (8.5-10.1); CARBON DIOXIDE 23 MMOL/L (21-32); CHLORIDE 105 MMOL/L (98-107); CREATININE SERUM 1.17 MG/DL (0.60-1.30); GFR ESTIMATED > 60; GLUCOSE 142 MG/DL (70-105); POTASSIUM 3.9 MMOL/L (3.6-5.0); SODIUM 139 MMOL/L (135-145); TOTAL PROTEIN 6.6 GM/DL (6.4-8.2)
[2019-09-28] MEDS: metFORMIN 500 MG (GLUCOPHAGE) TAB PO SCH ×2 (06:00→17:11)
[2019-09-28] MEDS: glyBURIDE 2.5 MG (MICRONASE) TAB PO SCH (06:00)
[2019-09-28 06:53] VITALS: BP 150/87
--- NOTE | 2019-09-28 09:14 | PM&R Progress Note ---
Subjective HPI/CC On Admission Date Seen by Provider: September 28, 2019 Time Seen by Provider: 09:15 Subjective/Events-last exam Pt doing very well Participating in therapy Dr. Veliz follow up appointment will be maintained for the loop recorder placement Loose bowels are noted Labs normal Blood sugar is much improved on low dose oral hypoglycemic and Metformin Walking much better Sugars are improved a bit on low dose OHA Checked meds and labs Reviewed therapy notes Conferred with wood gluer of Systems General: Fatigue Objective Exam Vital Signs Vital Signs Date Time Temp Pulse Resp B/P (MAP) Pulse Ox O2 Delivery O2 Flow Rate FiO2 09/28/19 16:00 37.0 65 16 141/74 (96) 95 Room Air Capillary Refill : Less Than 3 Seconds General Appearance: No Apparent Distress, WD/WN, Chronically ill HEENT: PERRL/EOMI, Normal ENT Inspection, Pharynx Normal, Other (presbycusis) Neck: Full Range of Motion, Normal Inspection, Non Tender, Supple, Carotid B ruit Respiratory: Chest Non Tender, Lungs Clear, Normal Breath Sounds, No Accessory Muscle Use, No Respiratory Distress Cardiovascular: Regular Rate, Rhythm, No Edema, No Gallop, No JVD, No Murmur, Normal Peripheral Pulses Gastrointestinal: Normal Bowel Sounds, No Organomegaly, No Pulsatile Mass, Non Tender, Soft Back: Normal Inspection, No CVA Tenderness, No Vertebral Tenderness Extremity: Normal Capillary Refill, Normal Inspection, Normal Range of Motion, Non Tender, No Calf Tenderness, No Pedal Edema Neurologic/Psychiatric: Alert, Oriented x3, Normal Mood/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 FIM Transfers Therapy Code Descriptions/Definitions Functional [place] Measure: 0=Not Assessed/NA 4=Minimal Assistance 1=Total Assistance 5=Supervision or Setup 2=Maximal Assistance 6=Modified [place] 3=Moderate Assistance 7=Complete IndependenceSCALE: Activities may be completed with or without assistive devices. 9-Kaegylojms-ljkqqas completes the activity by him/herself with no assistance from a helper. 5-Set-up or Clean-up Assistance-helper sets up or cleans up; patient completes activity. [place] assists only prior to or following the activity. 4-Supervision or Touching Assistance-helper provides verbal cues and/or touching/steadying and/or contact guard assistance as patient completes activity. Assistance may be provided throughout the activity or intermittently. 3-Partial/Moderate Assistance-helper does LESS THAN HALF the effort. [place] lifts, holds or supports trunk or limbs, but provides less than half the effort. 2-Substantial/Maximal Assistance-helper does MORE THAN HALF the effort. [place] lifts or holds trunk or limbs and provides more than half the effort. 7-Fhhvtovsn-rawevo does ALL the effort. Patient does none of the effort to complete the activity. Or, the assistance of 2 or more helpers is required for the patient to complete the activity. If activity was not attempted, code reason: 7-Patient Refused. 9-Not Applicable-not attempted and the patient did not perform the activity before the current illness, exacerbation or injury. 10-Not Attempted due to Environmental Limitations-(lack of equipment, weather restraints, etc.). 88-Not Attempted due to Medical Conditions or Safety Concerns. Roll Left to Right (QC): 6 Sit to Lying (QC): 5 Sit to Stand (QC): 4 Chair/Zht-lo-Giwaq Xfer(QC): 4 Car Transfer (QC): 3 Gait Training Does the Patient Walk?: Yes Distance: 150 Walk 10 feet (QC): 4 Walk 50 ft with 2 Turns(QC): 4 Walk 150 ft (QC): 4 Walking 10ft/uneven surface-QC: 3 Gait Persons Needed: 1 Gait Assistive Device: FWW Wheelchair Training Does the Pt Use a Wheelchair?: No Wheel 50 ft with 2 turns (QC): 9 Wheel 150 ft (QC): 9 Stair Training 1 Step (curb) (QC): 3 4 Steps (QC): 88 12 Steps (QC): 88 Balance Picking up an Object (QC): 3 ADL-Treatment Eating (QC): 6 (Per pt report he had no difficulty with breakfast. Pt able to open cheese package without difficulties) Oral Hygiene (QC): 4 (CGA standing at sink.) Shower/Bathe Self (QC): 4 (CGA) Upper Body Dressing (QC): 5 Lower Body Dressing (QC): 4 (SBA) On/Off Footwear (QC): 4 (CGA) Toileting Hygiene (QC): 4 (SBA standing at FWW over toilet, pt stood to void urine.) Toilet Transfer (QC): 4 (CGA) Assessment/Plan Assessment and Plan Assess & Plan/Chief Complaint Assessment: Acute and subacute strokes on MRI with negative CT scan Instability unable to walk in previous independent patient Dementia DM HTN HLP Abnl UA but Cx no pathological bacteria so will DC Rocephin s/p Loop recorder 09/19/19 Hypoglycemia holding meds but added Metformin 3 days ago and now will add low dose OHA 2 days ago since sugars are higher Plan: CVA protocol Rehab protocol Statin ASA Cardiology consultation is appreciated Add low dose OHA to Metformin (1) CVA (cerebrovascular accident) (2) Risk for falls (3) Hyperlipemia (4) Diabetes (5) Unsteady gait Status: Acute (6) Dementia Status: Acute (7) Status post placement of implantable loop recorder SIA DUGGAN DO September 28, 2019 09:14
[2019-09-28] MEDS: amLODIPine 5 MG (NORVASC) TAB PO SCH (09:18)
[2019-09-28] MEDS: busPIRone 10 MG (BUSPAR) TAB PO SCH ×3 (09:18→20:40)
[2019-09-28] MEDS: ASPIRIN E.C. 81 MG (ECOTRIN) TAB PO SCH (09:18)
[2019-09-28] MEDS: DOCUSATE SODIUM 100 MG (COLACE) CAP PO SCH ×2 (09:18→20:40)
[2019-09-28] MEDS: SENNA W/DOCUSATE (SENOKOT S) TABLET PO SCH ×2 (09:19→20:40)
--- NOTE | 2019-09-28 09:56 | Occupational Ther Daily Note ---
OT Current Status-Daily Note Subjective Pt sleeping in bed, awoke to name. Pt agrees to therapy. No c/o pain at this time. Mental Status/Objective Patient Orientation: Person, Place, Time, Situation ADL-Treatment Pt agrees to shower. Set up to gather clothing. Pt ambulated to bathroom and s tood at toilet to urinate with SBA. SBA to transfer into shower. Verbal cues to sit and complete shower for safety. When pt was standing to rinse and wash buttocks used grabbars to stabilize and no LOB noted. Shower SBA using AE when necessary. Pt completed upper body dressing after set up, independently. Lower body dressing after set up, SBA. Pt stood at sink to complete oral care and grooming, SBA. Therapy Code Descriptions/Definitions Functional [place] Measure: 0=Not Assessed/NA 4=Minimal Assistance 1=Total Assistance 5=Supervision or Setup 2=Maximal Assistance 6=Modified [place] 3=Moderate Assistance 7=Complete IndependenceSCALE: Activities may be completed with or without assistive devices. 9-Hxytzucxia-ldlxenb completes the activity by him/herself with no assistance from a helper. 5-Set-up or Clean-up Assistance-helper sets up or cleans up; patient completes activity. [place] assists only prior to or following the activity. 4-Supervision or Touching Assistance-helper provides verbal cues and/or touching/steadying and/or contact guard assistance as patient completes activity. Assistance may be provided throughout the activity or intermittently. 3-Partial/Moderate Assistance-helper does LESS THAN HALF the effort. [place] lifts, holds or supports trunk or limbs, but provides less than half the effort. 2-Substantial/Maximal Assistance-helper does MORE THAN HALF the effort. [place] lifts or holds trunk or limbs and provides more than half the effort. 8-Hzroyehnq-akxgrd does ALL the effort. Patient does none of the effort to complete the activity. Or, the assistance of 2 or more helpers is required for the patient to complete the activity. If activity was not attempted, code reason: 7-Patient Refused. 9-Not Applicable-not attempted and the patient did not perform the activity before the current illness, exacerbation or injury. 10-Not Attempted due to Environmental Limitations-(lack of equipment, weather restraints, etc.). 88-Not Attempted due to Medical Conditions or Safety Concerns. Oral Hygiene (QC): 4 Bathing Location: L Arm, R Arm, L Upper Leg, R Upper Leg, L Lower Leg (including foot), R Lower Leg (including foot), Chest, Abdomen, Buttocks, Perineal Area Shower/Bathe Self (QC): 4 Upper Body Dressing (QC): 5 Lower Body Dressing (QC): 4 On/Off Footwear: 4 Toileting Hygiene (QC): 4 Toilet Transfer (QC): 4 Other Treatment Pt completed arm bike in standing for 15 min duration at 25 lima resistance. Two short breaks due to physicians making rounds. Pt ambulated back to room and laid in bed. All safety measures in place and call light/phone in reach after session. OT Prison Goals Border Inspector Goals Time Frame: October 16, 2019 Eating (QC): 6 Oral Hygiene (QC): 6 Toileting Hygiene (QC): 6 Shower/Bathe Self (QC): 6 Upper Body Dressing (QC): 6 Lower Body Dressing (QC): 6 On/Off Footwear (QC): 6 Additional Goals: 1-Demonstrate ADL Tasks, 2-Verbalize Understanding, 3- ImproveStrength/[place] 1=Demonstrate adherence to instructed precautions during ADL tasks. 2=Patient will verbalize/demonstrate understanding of assistive devices/modifications for ADL. 3=Patient will improve strength/tolerance for activity to enable patient to perform ADL's. OT Education/Plan Problem List/Assessment Assessment: Decreased Safety Aware, Decreased UE Strength, Impaired Coordination, Impaired Funct Balance, Impaired Self-Care Skills Discharge Recommendations Plan/Recommendations: Continue POC Treatment Plan/Plan of Care Patient would benefit from OT for education, treatment and training to promote independence in ADL's, mobility, safety and/or upper extremity function for ADL's. Plan of Care: ADL Retraining, Functional Mobility, Group Exercise/Act as Ind, UE Funct Exercise/Act Treatment Duration: October 16, 2019 Frequency: At least 5 of 7 days/Wk (IRF) Estimated Hrs Per Day: 1.5 hours per day Agreement: Yes Rehab Potential: Guarded Time/GCodes Start Time: 08:30 Stop Time: 09:45 Total Time Billed (hr/min): 75 Billed Treatment Time 1 visit-ADL 4 (60 min) EX 1 (15 min) NITZA LEON September 28, 2019 09:55
--- NOTE | 2019-09-28 10:30 | Speech Therapy Daily Note ---
Speech Daily Progress Note Subjective Date Seen by Provider: September 28, 2019 Time Seen by Provider: 00:30 Patient was resting in his bed following his PT session. Patient was able to engage in therapy without difficulty. Objective Patient completed memory task of repeating a series of 3 random words forward and backward with 70% accuracy given moderate v/c's and/or repetitions. Assessment Assessment Current Status: Good Progress Treatment Plan Continue Plan of Care Speech Short Term Goals Short Term Goals Short Term Goals 1) Patient will complete memory tasks related to his daily needs at 80% with minimal cues. 2) Patient will complete problem solving tasks related to his daily needs at 80% with minimal cues. 3) Patient will complete safety awareness tasks related to his daily needs at 80% with minimal cues. Speech Institutional Research Coordinator Goals Institutional Research Coordinator Goals Patient will improve cognitive-communication necessary for safety and daily living tasks with minimal assist. Speech-Plan Patient/Family Goals Patient/Family Goals: Patient plans on returning home post rehab. Treatment Plan Speech Therapy Treatment Plan: Continue Plan of Care Treatment Duration: Sep 21, 2019 Frequency: Modified Program (IRF) Estimated Hrs Per Day: .5 hour per day Rehab Potential: Guarded Barriers to Learning: Patient's prior dementia and recent CVA Pt/Family Agrees to Plan: Yes Safety Risks/Education Teaching Recipient: Patient Teaching Methods: Demonstration, Discussion Response to Teaching: Verbalize Understanding, Return Demonstration Education Topics Provided: Continued safety and use of call light Time Speech Therapy Time In: 10:00 Speech Therapy Time Out: 10:30 Total Billed Time: 30 Billed Treatment Time 1, EMIL Newby September 28, 2019 10:30
--- NOTE | 2019-09-28 11:53 | Physical Therapy Daily Note ---
PT Daily Note-Current Subjective Pt. minimally verbal, agrees to Rx with encouragement. Pain Location: No Pain Reported Mental Status Patient Orientation: Person pt. states full name but did not know where he was except to say he was in an "exercise place", did not know date or day of week or what he was here for. Pt. was reoriented Transfers SCALE: Activities may be completed with or without assistive devices. 1-Ypzucnrpqo-rgqswvo completes the activity by him/herself with no assistance from a helper. 5-Set-up or Clean-up Assistance-helper sets up or cleans up; patient completes activity. [place] assists only prior to or following the activity. 4-Supervision or Touching Assistance-helper provides verbal cues and/or touching/steadying and/or contact guard assistance as patient completes activity. Assistance may be provided throughout the activity or intermittently. 3-Partial/Moderate Assistance-helper does LESS THAN HALF the effort. [place] lifts, holds or supports trunk or limbs, but provides less than half the effort. 2-Substantial/Maximal Assistance-helper does MORE THAN HALF the effort. [place] lifts or holds trunk or limbs and provides more than half the effort. 3-Kabbubejo-svobph does ALL the effort. Patient does none of the effort to complete the activity. Or, the assistance of 2 or more helpers is required for the patient to complete the activity. If activity was not attempted, code reason: 7-Patient Refused. 9-Not Applicable-not attempted and the patient did not perform the activity before the current illness, exacerbation or injury. 10-Not Attempted due to Environmental Limitations-(lack of equipment, weather restraints, etc.). 88-Not Attempted due to Medical Conditions or Safety Concerns. Roll Left & Right (QC): 6 Sit to Lying (QC): 6 Lying to Sitting/Side of Bed(Q: 6 Sit to Stand (QC): 6 Chair/Myz-nl-Qooyn Xfer(QC): 6 Car Transfer (QC): 6 Weight Bearing Right Lower Extremity: Right Full Weight Bearing Left Lower Extremity: Left Full Weight Bearing Gait Training Does the Patient Walk?: Yes Walk 10 feet (QC): 4 Walk 50 ft with 2 Turns(QC): 4 Walk 150 ft (QC): 4 Gait Persons Needed: 1 Gait Assistive Device: FWW needs many cues and instruction for safety and balance as pt. is impulsive and moves outside of FWW and occas hits FWW with toes, balance for side stepping left and right without device , fig 8s with instruction and cues for safety and balance Exercises Supine Ex: Bridging, Ankle pumps, Quad Set, Rolling, Glut sets, Heel Slides, Short Arc Quads, Scooting, Straight leg raise, Hip abd/add Supine Reps: 15 Seated Therapy Exercises: Ankle pumps, Sit to stand, Long arc quads, Hip flexion Seated Reps: 15 NuStep Minutes: 10 NuStep Workload: 4 Assessment Current Status: Good Progress PT Correction Goals Correction Goals PT Corrective Therapist Goals Time Frame: October 03, 2019 Roll Left & Right (QC): 6 Sit to Lying (QC): 6 Lying-Sitting on Side/Bed(QC): 6 Sit to Stand (QC): 6 Chair/Mog-si-Cdemh Xfer(QC): 6 Toilet Transfer (QC): 6 Car Transfer (QC): 6 Does the Patient Walk: Yes Walk 10 feet (QC): 6 Walk 50ft with 2 Turns (QC): 6 Walk 150 ft (QC): 6 Walking 10ft on Uneven Surface: 6 1 Step (curb) (QC): 6 4 Steps (QC): 4 12 Steps (QC): 4 Picking up an Object (QC): 6 Wheel 50 feet with 2 turns (QC: 9 Wheel 150 feet: 9 PT Plan Treatment/Plan Treatment Plan: Continue Plan of Care Treatment Plan: Bed Mobility, Education, Functional Activity [place], Functional Strength, Gait, Safety, Therapeutic Exercise, Transfers Treatment Duration: October 03, 2019 Frequency: 6 times per week Estimated Hrs Per Day: 1.5 hours per day Patient and/or Family Agrees t: Yes Safety Risks/Education Patient Education: Gait Training, Transfer Techniques, Correct Positioning, Disease Process, Safety Issues Teaching Recipient: Patient Teaching Methods: Demonstration, Discussion Response to Teaching: Verbalize Understanding, Return Demonstration, Reinfo rcement Needed Time/GCodes Time In: 1100 Time Out: 1200 Total Billed Treatment Time: 60 Total Billed Treatment 1,EX35m,GT15m,FA10m JUAN VILLALBA MOLD MOVER September 28, 2019 11:52
--- NOTE | 2019-09-28 11:56 | Cardiology Progress Note ---
Cardiology SOAP Progress Note Subjective: No cardiac complaints. Patient was seen in the gym while exercising. No cardiac symptoms. Objective: I&O/Vital Signs 09/28/19 09/28/19 06:53 09:00 Temp 36.5 Pulse 65 Resp 20 B/P (MAP) 150/87 (108) Pulse Ox 95 O2 Delivery Room Air Room Air 09/28/19 00:00 Intake Total 630 ml Balance 630 ml Constitutional: appears stated age, well-developed, well-nourished Respiratory: chest is bilaterally symmetric, lungs clear to auscultation Cardiovascular: regular rate-rhythm, S1 and S2 Gastrointestional: soft, audible bowel sounds Extremities: normal range of motion, non-tender, normal inspection, no lower extremity edema bilateral Neurologic/Psychiatric: alert, normal mood/affect Skin: normal color Results/Procedures: Labs Laboratory Tests 09/27/19 15:22: Glucometer 220H 09/27/19 20:35: Glucometer 269H 09/28/19 04:55: White Blood Count 8.5, Red Blood Count 4.70, Hemoglobin 13.3, Hematocrit 40, Mean Corpuscular Volume 84, Mean Corpuscular Hemoglobin 28, Mean Corpuscular Hemoglobin Concent 34, Red Cell Distribution Width 14.2, Platelet Count 249, Mean Platelet Volume 11.3H, Neutrophils (%) (Auto) 71, Lymphocytes (%) (Auto) 17, Monocytes (%) (Auto) 10, Eosinophils (%) (Auto) 2, Basophils (%) (Auto) 0, Neutrophils # (Auto) 6.0, Lymphocytes # (Auto) 1.5, Monocytes # (Auto) 0.8, Eosinophils # (Auto) 0.1, Basophils # (Auto) 0.0, Sodium Level 139, Potassium Level 3.9, Chloride Level 105, Carbon Dioxide Level 23, Anion Gap 11, Blood Urea Nitrogen 29H, Creatinine 1.17, Estimat Glomerular Filtration Rate > 60, BUN/Creatinine Ratio 25, Glucose Level 142H, Calcium Level 8.8, Corrected Calcium 9.0, Total Bilirubin 0.7, Aspartate Amino Transf (AST/SGOT) 17, Alanine Aminotransferase (ALT/SGPT) 23, Alkaline Phosphatase 83, Total Protein 6.6, Albumin 3.8 09/28/19 05:40: Glucometer 152H 09/28/19 10:58: Glucometer 194H A/P: Assessment/Dx: Acute stroke, 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 Negative telemetry for 48 hours for atrial fibrillation. Echocardiogram showed normal LV function with negative bubble study ruling out intracardiac shunting. No significant carotid atherosclerotic disease. Very likely cryptogenic stroke. Long-term surveillance for atrial fibrillation is recommended. Implantable loop recorder was discussed with the patient. Informed consent was taken. Implantable loop recorder done on 09/19/2019. DC telemetry. Mild dementia, deferred to the primary team. Diabetes, was on metformin. Hyperlipidemia, atorvastatin. PVCs, will follow clinically. Thank you for your consultation. Please call me if you have any questions. Sulma Veliz MD, FACP, FACC, FSCAI, FHRS, CCDS Interventional Cardiology Cardiac Electrophysiology Vascular Medicine and Endovascular Interventions Jaiden VELIZ MD September 28, 2019 11:56
--- NOTE | 2019-09-28 13:00 | Physical Therapy Daily Note ---
PT Daily Note-Current Subjective Pt. in bed agrees to supine ther ex. Transfers SCALE: Activities may be completed with or without assistive devices. 7-Ysjwmqkfxh-xqerpmb completes the activity by him/herself with no assistance from a helper. 5-Set-up or Clean-up Assistance-helper sets up or cleans up; patient completes activity. [place] assists only prior to or following the activity. 4-Supervision or Touching Assistance-helper provides verbal cues and/or touching/steadying and/or contact guard assistance as patient completes activity. Assistance may be provided throughout the activity or intermittently. 3-Partial/Moderate Assistance-helper does LESS THAN HALF the effort. [place] lifts, holds or supports trunk or limbs, but provides less than half the effort. 2-Substantial/Maximal Assistance-helper does MORE THAN HALF the effort. [place] lifts or holds trunk or limbs and provides more than half the effort. 2-Merqciynp-kmzwjz does ALL the effort. Patient does none of the effort to complete the activity. Or, the assistance of 2 or more helpers is required for the patient to complete the activity. If activity was not attempted, code reason: 7-Patient Refused. 9-Not Applicable-not attempted and the patient did not perform the activity before the current illness, exacerbation or injury. 10-Not Attempted due to Environmental Limitations-(lack of equipment, weather restraints, etc.). 88-Not Attempted due to Medical Conditions or Safety Concerns. Weight Bearing Right Lower Extremity: Right Full Weight Bearing Left Lower Extremity: Left Full Weight Bearing Exercises Supine Ex: Bridging, Ankle pumps, Quad Set, Rolling, Heel Slides, Short Arc Quads, Scooting, Straight leg raise, Hip abd/add Supine Reps: 20 Treatments alarm insitu, jo at hand Assessment Current Status: Good Progress PT Retirement Goals Assistant Infant Toddler Teacher Goals PT Assistant Infant Toddler Teacher Goals Time Frame: October 03, 2019 Roll Left & Right (QC): 6 Sit to Lying (QC): 6 Lying-Sitting on Side/Bed(QC): 6 Sit to Stand (QC): 6 Chair/Nla-qg-Hakgp Xfer(QC): 6 Toilet Transfer (QC): 6 Car Transfer (QC): 6 Does the Patient Walk: Yes Walk 10 feet (QC): 6 Walk 50ft with 2 Turns (QC): 6 Walk 150 ft (QC): 6 Walking 10ft on Uneven Surface: 6 1 Step (curb) (QC): 6 4 Steps (QC): 4 12 Steps (QC): 4 Picking up an Object (QC): 6 Wheel 50 feet with 2 turns (QC: 9 Wheel 150 feet: 9 PT Plan Treatment/Plan Treatment Plan: Continue Plan of Care Treatment Plan: Bed Mobility, Education, Functional Activity [place], Functional Strength, Gait, Safety, Therapeutic Exercise, Transfers Treatment Duration: October 03, 2019 Frequency: 6 times per week Estimated Hrs Per Day: 1.5 hours per day Patient and/or Family Agrees t: Yes Time/GCodes Time In: 1245 Time Out: 1300 Total Billed Treatment Time: 15 Total Billed Treatment 1,EX15m JUAN VILLALBA TREATMENT PLANT MECHANIC September 28, 2019 13:00
--- NOTE | 2019-09-28 14:37 | NUR ---
"RD ASSESSMENT PMHx: hypercholesterolemia; HTN; dementia; stroke; DM PT INTERACTION: Pt was awake and pleasant during nutrition follow-up. Pt states he has been eating well since last assessment. Note avg PO intake 81% x4d, per chart review. Pt states no issues with nausea, vomiting, constipation, or diarrhea since last assessment. Note last BM was 5/3, and pt currently on bowel regimne of colace BID; and senna BID, per chart review. ABNORMAL NUTRITION-RELATED LAB VALUES LOW: HIGH: BUN 29; glu 142 Est. kcal needs: 1172-9754 kcal | 20-25 kcal/kg Est. Pro needs: 69-87 g Pro | 0.8-1.0 g Pro/kg PES STATEMENT: Given current PO intake, no nutrition diagnosis at this time (NO-1.1) INTERVENTION: Continue with current diet order of CHO 45g/m 3snack diet. Will continue to follow and reassess as pt needs, intake, and status change. MONITOR/EVALUATE: PO Intake; Plan of Care; Hydration Status; Weight Status; Lab Values Lenore Bentley, , RD, LD"
[2019-09-28 16:00] VITALS: BP 141/74
[2019-09-28] MEDS: ENOXAPARIN 40 MG/0.4 ML (LOVENOX) SYR SC SCH (20:40)
[2019-09-29 06:02] VITALS: BP 156/87
[2019-09-29] MEDS: glyBURIDE 2.5 MG (MICRONASE) TAB PO SCH (06:07)
[2019-09-29] MEDS: metFORMIN 500 MG (GLUCOPHAGE) TAB PO SCH ×2 (06:11→16:38)
[2019-09-29] MEDS: ASPIRIN E.C. 81 MG (ECOTRIN) TAB PO SCH (08:15)
[2019-09-29] MEDS: DOCUSATE SODIUM 100 MG (COLACE) CAP PO SCH ×2 (08:16→20:55)
[2019-09-29] MEDS: busPIRone 10 MG (BUSPAR) TAB PO SCH ×3 (08:16→20:52)
[2019-09-29] MEDS: amLODIPine 5 MG (NORVASC) TAB PO SCH (08:16)
[2019-09-29] MEDS: SENNA W/DOCUSATE (SENOKOT S) TABLET PO SCH ×2 (08:17→20:55)
[2019-09-29 08:18] VITALS: BP 144/69
--- NOTE | 2019-09-29 09:55 | Occupational Ther Daily Note ---
OT Current Status-Daily Note Subjective Pt sleeping in bed, woke to name. Pt agrees to therapy. Pt only vocalizes when asked questions, does not initiate conversation or ADL tasks. Mental Status/Objective Patient Orientation: Person, Place, Time, Situation Attachments: IV (midline) ADL-Treatment Pt declines taking shower. MILLS encouraged pt to use bathroom and clean up for the day. Pt stood at sink to complete grooming though declined oral care, SBA. MILLS encouraged pt to sit and use toilet. Pt was incontinent of bowel. Pt required set up and verbal cues to cleanse after toileting then to change clothing. Pt able to dress self without cues or assist. Pt able to cleanse self after verbal cues. Therapy Code Descriptions/Definitions Functional [place] Measure: 0=Not Assessed/NA 4=Minimal Assistance 1=Total Assistance 5=Supervision or Setup 2=Maximal Assistance 6=Modified [place] 3=Moderate Assistance 7=Complete IndependenceSCALE: Activities may be completed with or without assistive devices. 7-Yznsuwbykz-zfhutaj completes the activity by him/herself with no assistance from a helper. 5-Set-up or Clean-up Assistance-helper sets up or cleans up; patient completes activity. [place] assists only prior to or following the activity. 4-Supervision or Touching Assistance-helper provides verbal cues and/or touching/steadying and/or contact guard assistance as patient completes activity. Assistance may be provided throughout the activity or intermittently. 3-Partial/Moderate Assistance-helper does LESS THAN HALF the effort. [place] lifts, holds or supports trunk or limbs, but provides less than half the effort. 2-Substantial/Maximal Assistance-helper does MORE THAN HALF the effort. [place] lifts or holds trunk or limbs and provides more than half the effort. 7-Lmgyoouzl-mggczq does ALL the effort. Patient does none of the effort to complete the activity. Or, the assistance of 2 or more helpers is required for the patient to complete the activity. If activity was not attempted, code reason: 7-Patient Refused. 9-Not Applicable-not attempted and the patient did not perform the activity before the current illness, exacerbation or injury. 10-Not Attempted due to Environmental Limitations-(lack of equipment, weather restraints, etc.). 88-Not Attempted due to Medical Conditions or Safety Concerns. Lower Body Dressing (QC): 5 Toileting Hygiene (QC): 4 Toilet Transfer (QC): 4 Other Treatment Pt ambulated to laundry room to wash clothing. Pt able to manipulate clothing into washer and then with verbal cues pt able to place knobs in correct positions to wash clothing. Pt had dropped clothing on floor and was able to bend and vegetable picker items without LOB. Pt then ambulated to therapy gym to complete B UE strengthening exercises for gross and fine motor. Pt stood to complete multiple B fine motor tasks to increase dynamic standing balance and dexterity for daily functional tasks. Pt then complete arm bike at 25 lima resistance 15 min duration to increase strength and activity tolerance for daily functional tasks. After session, pt sitting in recliner with call light/phone in reach. All needs met in room. OT Longterm Goals Longterm Goals Time Frame: October 16, 2019 Eating (QC): 6 Oral Hygiene (QC): 6 Toileting Hygiene (QC): 6 Shower/Bathe Self (QC): 6 Upper Body Dressing (QC): 6 Lower Body Dressing (QC): 6 On/Off Footwear (QC): 6 Additional Goals: 1-Demonstrate ADL Tasks, 2-Verbalize Understanding, 3- ImproveStrength/[place] 1=Demonstrate adherence to instructed precautions during ADL tasks. 2=Patient will verbalize/demonstrate understanding of assistive devices/modifications for ADL. 3=Patient will improve strength/tolerance for activity to enable patient to perform ADL's. OT Education/Plan Problem List/Assessment Assessment: Decreased Activ Tolerance, Decreased UE Strength, Impaired Self- Care Skills Discharge Recommendations Plan/Recommendations: Continue POC Treatment Plan/Plan of Care Patient would benefit from OT for education, treatment and training to promote independence in ADL's, mobility, safety and/or upper extremity function for ADL's. Plan of Care: ADL Retraining, Functional Mobility, Group Exercise/Act as Ind, UE Funct Exercise/Act Treatment Duration: October 16, 2019 Frequency: At least 5 of 7 days/Wk (IRF) Estimated Hrs Per Day: 1.5 hours per day Agreement: Yes Rehab Potential: Guarded Time/GCodes Start Time: 08:30 Stop Time: 09:45 Total Time Billed (hr/min): 75 Billed Treatment Time 1 visit- ADL 3 (45 min) NM 2 (30 min) NITZA LEON September 29, 2019 09:55
--- NOTE | 2019-09-29 10:24 | PM&R Progress Note ---
Subjective HPI/CC On Admission Date Seen by Provider: September 29, 2019 Time Seen by Provider: 10:15 Subjective/Events-last exam Disposition pending It looks like he just now has some fecal incontinence which is unusual Unsure if he can safely go back home, especially given the fecal incontinence ep isode No pain is reported Participating in therapy very well Checked meds and labs Reviewed therapy notes Conferred with dry color mixer of Systems General: Fatigue Gastrointestinal: Other (incontinence) Neurological: Weakness, Incoordination, Confusion Objective Exam Vital Signs Vital Signs Date Time Temp Pulse Resp B/P (MAP) Pulse Ox O2 Delivery O2 Flow Rate FiO2 09/29/19 17:20 37.1 61 18 169/73 (105) 97 Room Air Capillary Refill : Less Than 3 Seconds General Appearance: No Apparent Distress, WD/WN, Chronically ill HEENT: PERRL/EOMI, Normal ENT Inspection, Pharynx Normal, Other (presbycusis) Neck: Full Range of Motion, Normal Inspection, Non Tender, Supple, Carotid Bruit Respiratory: Chest Non Tender, Lungs Clear, Normal Breath Sounds, No Accessory Muscle Use, No Respiratory Distress Cardiovascular: Regular Rate, Rhythm, No Edema, No Gallop, No JVD, No Murmur, Normal Peripheral Pulses Gastrointestinal: Normal Bowel Sounds, No Organomegaly, No Pulsatile Mass, Non Tender, Soft Back: Normal Inspection, No CVA Tenderness, No Vertebral Tenderness Extremity: Normal Capillary Refill, Normal Inspection, Normal Range of Motion, Non Tender, No Calf Tenderness, No Pedal Edema Neurologic/Psychiatric: Alert, Oriented x3, Normal Mood/Affect, conditioner tumbler II-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 FIM Transfers Therapy Code Descriptions/Definitions Functional [place] Measure: 0=Not Assessed/NA 4=Minimal Assistance 1=Total Assistance 5=Supervision or Setup 2=Maximal Assistance 6=Modified [place] 3=Moderate Assistance 7=Complete IndependenceSCALE: Activities may be completed with or without assistive devices. 9-Lgwpccbkxf-kwpqpkf completes the activity by him/herself with no assistance from a helper. 5-Set-up or Clean-up Assistance-helper sets up or cleans up; patient completes activity. [place] assists only prior to or following the activity. 4-Supervision or Touching Assistance-helper provides verbal cues and/or touching/steadying and/or contact guard assistance as patient completes activity. Assistance may be provided throughout the activity or intermittently. 3-Partial/Moderate Assistance-helper does LESS THAN HALF the effort. [place] lifts, holds or supports trunk or limbs, but provides less than half the effort. 2-Substantial/Maximal Assistance-helper does MORE THAN HALF the effort. [place] lifts or holds trunk or limbs and provides more than half the effort. 7-Ilbzwkuob-hchofz does ALL the effort. Patient does none of the effort to complete the activity. Or, the assistance of 2 or more helpers is required for the patient to complete the activity. If activity was not attempted, code reason: 7-Patient Refused. 9-Not Applicable-not attempted and the patient did not perform the activity before the current illness, exacerbation or injury. 10-Not Attempted due to Environmental Limitations-(lack of equipment, weather restraints, etc.). 88-Not Attempted due to Medical Conditions or Safety Concerns. Roll Left to Right (QC): 6 Sit to Lying (QC): 6 Sit to Stand (QC): 6 Chair/Mdi-re-Vfido Xfer(QC): 6 Car Transfer (QC): 6 Gait Training Does the Patient Walk?: Yes Distance: 150 Walk 10 feet (QC): 4 Walk 50 ft with 2 Turns(QC): 4 Walk 150 ft (QC): 4 Walking 10ft/uneven surface-QC: 3 Gait Persons Needed: 1 Gait Assistive Device: FWW Wheelchair Training Does the Pt Use a Wheelchair?: No Wheel 50 ft with 2 turns (QC): 9 Wheel 150 ft (QC): 9 Stair Training 1 Step (curb) (QC): 3 4 Steps (QC): 88 12 Steps (QC): 88 Balance Picking up an Object (QC): 3 ADL-Treatment Eating (QC): 6 (Per pt report he had no difficulty with breakfast. Pt able to open cheese package without difficulties) Oral Hygiene (QC): 4 Bathing Location: L Arm, R Arm, L Upper Leg, R Upper Leg, L Lower Leg (including foot), R Lower Leg (including foot), Chest, Abdomen, Buttocks, Perineal Area Shower/Bathe Self (QC): 4 Upper Body Dressing (QC): 5 Lower Body Dressing (QC): 4 On/Off Footwear (QC): 4 Toileting Hygiene (QC): 4 Toilet Transfer (QC): 4 Assessment/Plan Assessment and Plan Assess & Plan/Chief Complaint Assessment: Acute and subacute strokes on MRI with negative CT scan Instability unable to walk in previous independent patient Dementia DM HTN HLP Abnl UA but Cx no pathological bacteria so will DC Rocephin s/p Loop recorder 09/19/19 Hypoglycemia holding meds but added Metformin 4 days ago and now will add low dose OHA 3 days ago since sugars are higher Plan: CVA protocol Rehab protocol Statin ASA Cardiology consultation is appreciated Add low dose OHA to Metformin (1) CVA (cerebrovascular accident) (2) Risk for falls (3) Hyperlipemia (4) Diabetes (5) Unsteady gait Status: Acute (6) Dementia Status: Acute (7) Status post placement of implantable loop recorder SIA DUGGAN DO September 29, 2019 10:24
--- NOTE | 2019-09-29 10:54 | Speech Therapy Daily Note ---
Speech Daily Progress Note Subjective Date Seen by Provider: September 29, 2019 Time Seen by Provider: 00:30 Patient was resting in his recliner following OT session. He was alert and participated with ST. Objective Patient completed a series of "what's wrong with this picture?" with 70% given moderate cuing. Assessment Assessment Current Status: Good Progress Treatment Plan Continue Plan of Care Speech Short Term Goals Short Term Goals Short Term Goals 1) Patient will complete memory tasks related to his daily needs at 80% with minimal cues. 2) Patient will complete problem solving tasks related to his daily needs at 80% with minimal cues. 3) Patient will complete safety awareness tasks related to his daily needs at 80% with minimal cues. Speech Care Home Goals Statistician Applied Goals Patient will improve cognitive-communication necessary for safety and daily living tasks with minimal assist. Speech-Plan Patient/Family Goals Patient/Family Goals: Patient plans on returning to his apartment upon hospital discharge. Treatment Plan Speech Therapy Treatment Plan: Continue Plan of Care Treatment Duration: Sep 21, 2019 Frequency: Modified Program (IRF) Estimated Hrs Per Day: .5 hour per day Rehab Potential: Guarded Barriers to Learning: Patient's recent CVA and dementia Pt/Family Agrees to Plan: Yes Safety Risks/Education Teaching Recipient: Patient Teaching Methods: Demonstration, Discussion Response to Teaching: Verbalize Understanding, Return Demonstration Education Topics Provided: Safety within his room and utilizing his call light. Time Speech Therapy Time In: 10:00 Speech Therapy Time Out: 10:30 Total Billed Time: 30 Billed Treatment Time 1EVELYN BETHAN[address] ST September 29, 2019 10:54
--- NOTE | 2019-09-29 12:01 | Physical Therapy Daily Note ---
PT Daily Note-Current Subjective Pt sitting in recliner upon arrival. Pt agrees to PT. Mental Status Patient Orientation: Person, Confused, Place Transfers SCALE: Activities may be completed with or without assistive devices. 1-Mhspwjmzgl-tvbidvf completes the activity by him/herself with no assistance from a helper. 5-Set-up or Clean-up Assistance-helper sets up or cleans up; patient completes activity. [place] assists only prior to or following the activity. 4-Supervision or Touching Assistance-helper provides verbal cues and/or touching/steadying and/or contact guard assistance as patient completes activity. Assistance may be provided throughout the activity or intermittently. 3-Partial/Moderate Assistance-helper does LESS THAN HALF the effort. [place] lifts, holds or supports trunk or limbs, but provides less than half the effort. 2-Substantial/Maximal Assistance-helper does MORE THAN HALF the effort. [place] lifts or holds trunk or limbs and provides more than half the effort. 7-Abzjskakh-bjepyz does ALL the effort. Patient does none of the effort to complete the activity. Or, the assistance of 2 or more helpers is required for the patient to complete the activity. If activity was not attempted, code reason: 7-Patient Refused. 9-Not Applicable-not attempted and the patient did not perform the activity before the current illness, exacerbation or injury. 10-Not Attempted due to Environmental Limitations-(lack of equipment, weather restraints, etc.). 88-Not Attempted due to Medical Conditions or Safety Concerns. Sit to Stand (QC): 5 Weight Bearing Right Lower Extremity: Right Full Weight Bearing Left Lower Extremity: Left Full Weight Bearing Gait Training Does the Patient Walk?: Yes Distance: 200', 100', 100' Walk 10 feet (QC): 5 Walk 50 ft with 2 Turns(QC): 5 Walk 150 ft (QC): 5 Walking 10ft/uneven surface-QC: 5 Gait Persons Needed: 1 Gait Assistive Device: FWW Pt is impulsive and needs VC to slow down nilda for proper control and safety. Wheelchair Training Does the Pt Use a Wheelchair?: No Stair Training Stair Training: Handrails/: 2 handrails #of Steps: 4 1 Step (curb) (QC): 5 4 Steps (QC): 5 Stairs: Pattern: Reciprocal EDGE MOLDER gives VC for sequencing and safety. Exercises NuStep Minutes: 10 Treatments Pt transfers from recliner and ambulates in hallway to check laundry. Pt is able to practice dynamic standing balance while folding laundry. Pt ambulates back to room then returns to Therapy Gym. Pt uses NuStep for 10m at WL 5 as well as completes 1 set of 4 steps. Pt returns to recliner to rest at end of Rx with all needs met, call light in hand. Assessment Current Status: Good Progress Pt is improving with balance but continues to struggle with impulsivity and wanting to ambulate faster than his body can keep up with for proper balance. PT Fdc Goals Airplane Captain Goals PT Airplane Captain Goals Time Frame: October 03, 2019 Roll Left & Right (QC): 6 Sit to Lying (QC): 6 Lying-Sitting on Side/Bed(QC): 6 Sit to Stand (QC): 6 Chair/Tlj-ca-Lyowp Xfer(QC): 6 Toilet Transfer (QC): 6 Car Transfer (QC): 6 Does the Patient Walk: Yes Walk 10 feet (QC): 6 Walk 50ft with 2 Turns (QC): 6 Walk 150 ft (QC): 6 Walking 10ft on Uneven Surface: 6 1 Step (curb) (QC): 6 4 Steps (QC): 4 12 Steps (QC): 4 Picking up an Object (QC): 6 Wheel 50 feet with 2 turns (QC: 9 Wheel 150 feet: 9 PT Plan Problem List Problem List: Activity Tolerance, Safety, Balance, Gait Treatment/Plan Treatment Plan: Continue Plan of Care Treatment Plan: Bed Mobility, Education, Functional Activity [place], Functional Strength, Gait, Safety, Therapeutic Exercise, Transfers Treatment Duration: October 03, 2019 Frequency: 6 times per week Estimated Hrs Per Day: 1.5 hours per day Patient and/or Family Agrees t: Yes Safety Risks/Education Patient Education: Gait Training, Correct Positioning, Safety Issues Teaching Recipient: Patient Teaching Methods: Discussion Response to Teaching: Reinforcement Needed Time/GCodes Time In: 1100 Time Out: 1145 Total Billed Treatment Time: 45 Total Billed Treatment 1, GT (15m), FA (20m) & EX (10m) LATANYA JEREZ EDGE MOLDER September 29, 2019 12:01
--- NOTE | 2019-09-29 12:41 | Cardiology Progress Note ---
Cardiology SOAP Progress Note Subjective: No cardiac complaints. Objective: I&O/Vital Signs 09/29/19 09/29/19 09/29/19 06:02 08:18 08:41 Temp 36.8 Pulse 65 73 Resp 18 B/P (MAP) 156/87 (110) 144/69 (94) Pulse Ox 98 O2 Delivery Room Air Room Air 09/29/19 00:00 Intake Total 700 ml Balance 700 ml Constitutional: appears stated age, well-developed, well-nourished Respiratory: chest is bilaterally symmetric, lungs clear to auscultation Cardiovascular: regular rate-rhythm, S1 and S2 Gastrointestional: soft, audible bowel sounds Extremities: normal range of motion, non-tender, normal inspection, no lower extremity edema bilateral Neurologic/Psychiatric: alert, normal mood/affect Skin: normal color Results/Procedures: Labs Laboratory Tests 09/28/19 15:28: Glucometer 199H 09/28/19 20:17: Glucometer 233H 09/29/19 05:48: Glucometer 135H 09/29/19 11:17: Glucometer 172H A/P: Assessment/Dx: Acute stroke, 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 Negative telemetry for 48 hours for atrial fibrillation. Echocardiogram showed normal LV function with negative bubble study ruling out intracardiac shunting. No significant carotid atherosclerotic disease. Very likely cryptogenic stroke. Long-term surveillance for atrial fibrillation is recommended. Implantable loop recorder was discussed with the patient. Informed consent was taken. Implantable loop recorder done on 09/19/2019. DC telemetry. Mild dementia, deferred to the primary team. Diabetes, was on metformin. Hyperlipidemia, atorvastatin. PVCs, will follow clinically. Thank you for your consultation. Please call me if you have any questions. Sulma Veliz MD, FACP, FACC, FSCAI, FHRS, CCDS Interventional Cardiology Cardiac Electrophysiology Vascular Medicine and Endovascular Interventions Jaiden VELIZ MD September 29, 2019 12:41
--- NOTE | 2019-09-29 14:35 | Physical Therapy Daily Note ---
PT Daily Note-Current Subjective Pt asleep laying Supine in bed upon arrival. Pt agrees to PT. Mental Status Patient Orientation: Person, Confused, Place Transfers SCALE: Activities may be completed with or without assistive devices. 7-Qqiotxylnv-yjokmdx completes the activity by him/herself with no assistance from a helper. 5-Set-up or Clean-up Assistance-helper sets up or cleans up; patient completes activity. [place] assists only prior to or following the activity. 4-Supervision or Touching Assistance-helper provides verbal cues and/or touching/steadying and/or contact guard assistance as patient completes activity. Assistance may be provided throughout the activity or intermittently. 3-Partial/Moderate Assistance-helper does LESS THAN HALF the effort. [place] lifts, holds or supports trunk or limbs, but provides less than half the effort. 2-Substantial/Maximal Assistance-helper does MORE THAN HALF the effort. [place] lifts or holds trunk or limbs and provides more than half the effort. 0-Lerqwsbxf-iqtuqk does ALL the effort. Patient does none of the effort to complete the activity. Or, the assistance of 2 or more helpers is required for the patient to complete the activity. If activity was not attempted, code reason: 7-Patient Refused. 9-Not Applicable-not attempted and the patient did not perform the activity before the current illness, exacerbation or injury. 10-Not Attempted due to Environmental Limitations-(lack of equipment, weather restraints, etc.). 88-Not Attempted due to Medical Conditions or Safety Concerns. Weight Bearing Right Lower Extremity: Right Full Weight Bearing Left Lower Extremity: Left Full Weight Bearing Exercises Supine Ex: Ankle pumps, Quad Set, Glut sets, Heel Slides, Short Arc Quads, Straight leg raise, Hip abd/add Supine Reps: 20 (2 sets of EX) Treatments Pt completes Supine Ex in bed. Pt resting at end of Rx with all needs met, call light in hand. Assessment Current Status: Good Progress Pt tolerated Rx well. PT Electronics Engineering Manager Goals Electronics Engineering Manager Goals PT Electronics Engineering Manager Goals Time Frame: October 03, 2019 Roll Left & Right (QC): 6 Sit to Lying (QC): 6 Lying-Sitting on Side/Bed(QC): 6 Sit to Stand (QC): 6 Chair/Qsq-ot-Eneui Xfer(QC): 6 Toilet Transfer (QC): 6 Car Transfer (QC): 6 Does the Patient Walk: Yes Walk 10 feet (QC): 6 Walk 50ft with 2 Turns (QC): 6 Walk 150 ft (QC): 6 Walking 10ft on Uneven Surface: 6 1 Step (curb) (QC): 6 4 Steps (QC): 4 12 Steps (QC): 4 Picking up an Object (QC): 6 Wheel 50 feet with 2 turns (QC: 9 Wheel 150 feet: 9 PT Plan Problem List Problem List: Activity Tolerance, Functional Strength Treatment/Plan Treatment Plan: Continue Plan of Care Treatment Plan: Bed Mobility, Education, Functional Activity [place], Functional Strength, Gait, Safety, Therapeutic Exercise, Transfers Treatment Duration: October 03, 2019 Frequency: 6 times per week Estimated Hrs Per Day: 1.5 hours per day Patient and/or Family Agrees t: Yes Safety Risks/Education Patient Education: Correct Positioning, Safety Issues Teaching Recipient: Patient Teaching Methods: Discussion Response to Teaching: Verbalize Understanding Time/GCodes Time In: 1330 Time Out: 1400 Total Billed Treatment Time: 30 Total Billed Treatment 1, EX x2 (30m) LATANYA JEREZ FLARE WORKER September 29, 2019 14:35
[2019-09-29] MEDS: cloNIDine 0.1 MG (CATAPRES) TAB PO PRN (16:37)
[2019-09-29 17:20] VITALS: BP 169/73
--- NOTE | 2019-09-29 19:10 | NUR ---
bedside report received from GONZALO vogel, assume care of pt
[2019-09-29] MEDS: ENOXAPARIN 40 MG/0.4 ML (LOVENOX) SYR SC SCH (20:52)
--- NOTE | 2019-09-29 20:52 | NUR ---
Colace & Senokot held due to loose stools, fsbs 185
[2019-09-30 05:56] VITALS: BP 153/79
[2019-09-30] MEDS: glyBURIDE 2.5 MG (MICRONASE) TAB PO SCH (06:39)
[2019-09-30] MEDS: metFORMIN 500 MG (GLUCOPHAGE) TAB PO SCH ×2 (06:39→17:30)
[2019-09-30] MEDS: DOCUSATE SODIUM 100 MG (COLACE) CAP PO SCH ×2 (07:40→22:05)
[2019-09-30] MEDS: SENNA W/DOCUSATE (SENOKOT S) TABLET PO SCH ×2 (07:41→22:06)
[2019-09-30] MEDS: amLODIPine 5 MG (NORVASC) TAB PO SCH (08:53)
[2019-09-30] MEDS: busPIRone 10 MG (BUSPAR) TAB PO SCH ×3 (08:53→22:12)
[2019-09-30] MEDS: ASPIRIN E.C. 81 MG (ECOTRIN) TAB PO SCH (08:53)
--- NOTE | 2019-09-30 09:26 | Cardiology Progress Note ---
Cardiology SOAP Progress Note Subjective: No cardiac complaint. Objective: I&O/Vital Signs 09/30/19 05:56 Temp 36.6 Pulse 63 Resp 18 B/P (MAP) 153/79 (103) Pulse Ox 98 O2 Delivery Room Air 09/30/19 00:00 Intake Total 630 ml Balance 630 ml Constitutional: appears stated age, well-developed, well-nourished Respiratory: chest is bilaterally symmetric, lungs clear to auscultation Cardiovascular: regular rate-rhythm, S1 and S2 Gastrointestional: soft, audible bowel sounds Extremities: normal range of motion, non-tender, normal inspection, no lower extremity edema bilateral Neurologic/Psychiatric: alert, normal mood/affect Skin: normal color Results/Procedures: Labs Laboratory Tests 09/29/19 11:17: Glucometer 172H 09/29/19 15:32: Glucometer 231H 09/29/19 20:14: Glucometer 185H 09/30/19 05:12: Glucometer 128H A/P: Assessment/Dx: Acute stroke, 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 Negative telemetry for 48 hours for atrial fibrillation. Echocardiogram showed normal LV function with negative bubble study ruling out intracardiac shunting. No significant carotid atherosclerotic disease. cryptogenic stroke. Long-term surveillance for atrial fibrillation is recommended. Implantable loop recorder done on 09/19/2019. DC telemetry. Mild dementia, deferred to the primary team. Diabetes, was on metformin. Hyperlipidemia, atorvastatin. PVCs, will follow clinically. Thank you for your consultation. Please call me if you have any questions. Sulma Veliz MD, FACP, FACC, FSCAI, FHRS, CCDS Interventional Cardiology Cardiac Electrophysiology Vascular Medicine and Endovascular Interventions Jaiden VELIZ MD September 30, 2019 09:26
--- NOTE | 2019-09-30 09:44 | Speech Therapy Daily Note ---
Speech Daily Progress Note Subjective Date Seen by Provider: September 30, 2019 Time Seen by Provider: 00:30 Patient was resting in his chair following his shower this am. Patient is always quiet and requires frequent prompts to talk. Objective Patient completed a series of q/a related to his personal needs with 75% given moderate to max verbal prompts. Assessment Assessment Current Status: Fair Progress Treatment Plan Continue Plan of Care Speech Short Term Goals Short Term Goals Short Term Goals 1) Patient will complete memory tasks related to his daily needs at 80% with minimal cues. 2) Patient will complete problem solving tasks related to his daily needs at 80% with minimal cues. 3) Patient will complete safety awareness tasks related to his daily needs at 80% with minimal cues. Speech Dipper And Drier Goals Custodial Goals Patient will improve cognitive-communication necessary for safety and daily living tasks with minimal assist. Speech-Plan Treatment Plan Speech Therapy Treatment Plan: Continue Plan of Care Treatment Duration: Sep 21, 2019 Frequency: Modified Program (IRF) Estimated Hrs Per Day: .5 hour per day Rehab Potential: Guarded Barriers to Learning: Patient's dementia and recent CVA Pt/Family Agrees to Plan: Yes Safety Risks/Education Teaching Recipient: Patient Teaching Methods: Demonstration, Discussion Response to Teaching: Verbalize Understanding, Return Demonstration, Reinforcement Needed Education Topics Provided: Continued safety and communication Time Speech Therapy Time In: 09:00 Speech Therapy Time Out: 09:30 Total Billed Time: 30 Billed Treatment Time 1EVELYN BETHANIA ST September 30, 2019 09:44
--- NOTE | 2019-09-30 10:17 | PM&R Progress Note ---
Subjective HPI/CC On Admission Date Seen by Provider: September 30, 2019 Time Seen by Provider: 10:15 Subjective/Events-last exam Via [facility] at [place] Pt really can't go home due to the significant dementia and now with the stroke it has gotten worse Blood sugars are much more reasonable of 124 this morning Overall participating in all therapy Participating in therapy very well Checked meds and labs Reviewed therapy notes Conferred with certified orthotist of Systems General: Fatigue Objective Exam Vital Signs Vital Signs Date Time Temp Pulse Resp B/P (MAP) Pulse Ox O2 Delivery O2 Flow Rate FiO2 09/30/19 17:14 36.6 65 20 143/79 (100) 98 Room Air Capillary Refill : Less Than 3 Seconds General Appearance: No Apparent Distress, WD/WN, Chronically ill HEENT: PERRL/EOMI, Normal ENT Inspection, Pharynx Normal, Other Neck: Full Range of Motion, Normal Inspection, Non Tender, Supple, Carotid Bruit Respiratory: Chest Non Tender, Lungs Clear, Normal Breath Sounds, No Accessory Muscle Use, No Respiratory Distress Cardiovascular: Regular Rate, Rhythm, No Edema, No Gallop, No JVD, No Murmur, Normal Peripheral Pulses Gastrointestinal: Normal Bowel Sounds, No Organomegaly, No Pulsatile Mass, Non Tender, Soft Back: Normal Inspection, No CVA Tenderness, No Vertebral Tenderness Extremity: Normal Capillary Refill, Normal Inspection, Normal Range of Motion, Non Tender, No Calf Tenderness, No Pedal Edema Neurologic/Psychiatric: Alert, Oriented x3, Normal Mood/Affect, machine assembler for puller over II-XII Norm as Tested, Abnormal Gait, Motor Weakness Skin: Normal Color, Warm/Dry Lymphatic: No Adenopathy Results/Procedures Lab Patient resulted labs reviewed. FIM Transfers Therapy Code Descriptions/Definitions Functional [place] Measure: 0=Not Assessed/NA 4=Minimal Assistance 1=Total Assistance 5=Supervision or Setup 2=Maximal Assistance 6=Modified [place] 3=Moderate Assistance 7=Complete IndependenceSCALE: Activities may be completed with or without assistive devices. 1-Ttqkumvoub-puzkpxe completes the activity by him/herself with no assistance from a helper. 5-Set-up or Clean-up Assistance-helper sets up or cleans up; patient completes activity. [place] assists only prior to or following the activity. 4-Supervision or Touching Assistance-helper provides verbal cues and/or touching/steadying and/or contact guard assistance as patient completes activity . Assistance may be provided throughout the activity or intermittently. 3-Partial/Moderate Assistance-helper does LESS THAN HALF the effort. [place] lifts, holds or supports trunk or limbs, but provides less than half the effort. 2-Substantial/Maximal Assistance-helper does MORE THAN HALF the effort. [place] lifts or holds trunk or limbs and provides more than half the effort. 1-Wemwaslno-vwysgc does ALL the effort. Patient does none of the effort to complete the activity. Or, the assistance of 2 or more helpers is required for the patient to complete the activity. If activity was not attempted, code reason: 7-Patient Refused. 9-Not Applicable-not attempted and the patient did not perform the activity before the current illness, exacerbation or injury. 10-Not Attempted due to Environmental Limitations-(lack of equipment, weather restraints, etc.). 88-Not Attempted due to Medical Conditions or Safety Concerns. Roll Left to Right (QC): 6 Sit to Lying (QC): 6 Sit to Stand (QC): 5 Chair/Pph-hn-Gdmzr Xfer(QC): 6 Car Transfer (QC): 6 Gait Training Does the Patient Walk?: Yes Distance: 200', 100', 100' Walk 10 feet (QC): 5 Walk 50 ft with 2 Turns(QC): 5 Walk 150 ft (QC): 5 Walking 10ft/uneven surface-QC: 5 Gait Persons Needed: 1 Gait Assistive Device: FWW Wheelchair Training Does the Pt Use a Wheelchair?: No Wheel 50 ft with 2 turns (QC): 9 Wheel 150 ft (QC): 9 Stair Training Stair Training: Handrails/: 2 handrails #of Steps: 4 1 Step (curb) (QC): 5 4 Steps (QC): 5 12 Steps (QC): 88 Stairs: Pattern: Reciprocal Balance Picking up an Object (QC): 3 ADL-Treatment Eating (QC): 6 (Per pt report he had no difficulty with breakfast. Pt able to open cheese package without difficulties) Oral Hygiene (QC): 4 Bathing Location: L Arm, R Arm, L Upper Leg, R Upper Leg, L Lower Leg (including foot), R Lower Leg (including foot), Chest, Abdomen, Buttocks, Perineal Area Shower/Bathe Self (QC): 4 Upper Body Dressing (QC): 5 Lower Body Dressing (QC): 5 On/Off Footwear (QC): 4 Toileting Hygiene (QC): 4 Toilet Transfer (QC): 4 Assessment/Plan Assessment and Plan Assess & Plan/Chief Complaint Assessment: Acute and subacute strokes on MRI with negative CT scan Instability unable to walk in previous independent patient Dementia DM HTN HLP Abnl UA but Cx no pathological bacteria so will DC Rocephin s/p Loop recorder 09/19/19 Hypoglycemia holding meds restarted meds at low dose Plan: CVA protocol Rehab protocol Statin ASA Cardiology consultation is appreciated Add low dose OHA to Metformin (1) CVA (cerebrovascular accident) (2) Risk for falls (3) Hyperlipemia (4) Diabetes (5) Unsteady gait Status: Acute (6) Dementia Status: Acute (7) Status post placement of implantable loop recorder SIA DUGGAN DO September 30, 2019 10:17
--- NOTE | 2019-09-30 10:24 | Occupational Ther Daily Note ---
OT Current Status-Daily Note Subjective Pt in bed, agrees to therapy. No reports of pain. ADL-Treatment Supine to sit without assist. Sit to stand without assist. Gait to restroom with FWW, cues for safety. Pt transferred to walk in shower with SBA using grab bars for safety. Bathing completed using hand held shower. Pt able to wash/dry all areas with SBA for safety. Don pullover shirt with set up. Pt donned underwear and pants with set up. Stood without LOB during pant hike. Pt donned socks with set up. Pt stood at sink to comb hair with SBA. Declined oral care at this time. Therapy Code Descriptions/Definitions Functional [place] Measure: 0=Not Assessed/NA 4=Minimal Assistance 1=Total Assistance 5=Supervision or Setup 2=Maximal Assistance 6=Modified [place] 3=Moderate Assistance 7=Complete IndependenceSCALE: Activities may be completed with or without assistive devices. 0-Gndqsqkqit-jountkx completes the activity by him/herself with no assistance from a helper. 5-Set-up or Clean-up Assistance-helper sets up or cleans up; patient completes activity. [place] assists only prior to or following the activity. 4-Supervision or Touching Assistance-helper provides verbal cues and/or touching/steadying and/or contact guard assistance as patient completes activity. Assistance may be provided throughout the activity or intermittently. 3-Partial/Moderate Assistance-helper does LESS THAN HALF the effort. [place] lifts, holds or supports trunk or limbs, but provides less than half the effort. 2-Substantial/Maximal Assistance-helper does MORE THAN HALF the effort. [place] lifts or holds trunk or limbs and provides more than half the effort. 8-Tvgkzskvj-enstnn does ALL the effort. Patient does none of the effort to complete the activity. Or, the assistance of 2 or more helpers is required for the patient to complete the activity. If activity was not attempted, code reason: 7-Patient Refused. 9-Not Applicable-not attempted and the patient did not perform the activity before the current illness, exacerbation or injury. 10-Not Attempted due to Environmental Limitations-(lack of equipment, weather restraints, etc.). 88-Not Attempted due to Medical Conditions or Safety Concerns. Shower/Bathe Self (QC): 4 Upper Body Dressing (QC): 5 Lower Body Dressing (QC): 5 On/Off Footwear: 5 Other Treatment Pt completed graded clothespins task with bilateral UE while standing to promote reaching, standing balance, and agronomy supervisor/pinch strength. Pt able to complete task with increased time. SBA for balance during standing. Pt sitting in chair with needs met, chair alarm in place, and RN present after session. Education OT Patient Education: Safety issues Teaching Recipient: Patient Teaching Methods: Discussion Response to Teaching: Reinforcement Needed OT Fpc Goals Remarketing Rep Goals Time Frame: October 16, 2019 Eating (QC): 6 Oral Hygiene (QC): 6 Toileting Hygiene (QC): 6 Shower/Bathe Self (QC): 6 Upper Body Dressing (QC): 6 Lower Body Dressing (QC): 6 On/Off Footwear (QC): 6 Additional Goals: 1-Demonstrate ADL Tasks, 2-Verbalize Understanding, 3- ImproveStrength/[place] 1=Demonstrate adherence to instructed precautions during ADL tasks. 2=Patient will verbalize/demonstrate understanding of assistive devices/mo difications for ADL. 3=Patient will improve strength/tolerance for activity to enable patient to perform ADL's. OT Education/Plan Discharge Recommendations Plan/Recommendations: Continue POC Treatment Plan/Plan of Care Patient would benefit from OT for education, treatment and training to promote independence in ADL's, mobility, safety and/or upper extremity function for ADL's. Plan of Care: ADL Retraining, Functional Mobility, Group Exercise/Act as Ind, UE Funct Exercise/Act Treatment Duration: October 16, 2019 Frequency: At least 5 of 7 days/Wk (IRF) Estimated Hrs Per Day: 1.5 hours per day Agreement: Yes Rehab Potential: Guarded Time/GCodes Start Time: 08:00 Stop Time: 09:00 Total Time Billed (hr/min): 60 Billed Treatment Time 1 visit, ADLx3(45minutes), FA(15minutes) GARRY CLARK OT September 30, 2019 10:24
--- NOTE | 2019-09-30 12:00 | Occupational Ther Daily Note ---
OT Current Status-Daily Note Subjective Took over care of pt in therapy gym. Pt has no reports of pain. ADL-Treatment Therapy Code Descriptions/Definitions Functional [place] Measure: 0=Not Assessed/NA 4=Minimal Assistance 1=Total Assistance 5=Supervision or Setup 2=Maximal Assistance 6=Modified [place] 3=Moderate Assistance 7=Complete IndependenceSCALE: Activities may be completed with or without assistive devices. 5-Fatsfjdysb-rnaxtru completes the activity by him/herself with no assistance from a helper. 5-Set-up or Clean-up Assistance-helper sets up or cleans up; patient completes activity. [place] assists only prior to or following the activity. 4-Supervision or Touching Assistance-helper provides verbal cues and/or touch ing/steadying and/or contact guard assistance as patient completes activity. Assistance may be provided throughout the activity or intermittently. 3-Partial/Moderate Assistance-helper does LESS THAN HALF the effort. [place] lifts, holds or supports trunk or limbs, but provides less than half the effort. 2-Substantial/Maximal Assistance-helper does MORE THAN HALF the effort. [place] lifts or holds trunk or limbs and provides more than half the effort. 4-Xnfykphii-rniozl does ALL the effort. Patient does none of the effort to complete the activity. Or, the assistance of 2 or more helpers is required for the patient to complete the activity. If activity was not attempted, code reason: 7-Patient Refused. 9-Not Applicable-not attempted and the patient did not perform the activity before the current illness, exacerbation or injury. 10-Not Attempted due to Environmental Limitations-(lack of equipment, weather restraints, etc.). 88-Not Attempted due to Medical Conditions or Safety Concerns. Other Treatment Pt completed arm bike x10 minutes to increase overall strength and activity tolerance needed for functional task completion. Pt performed task with minimal resistance and steady pace. No rest breaks needed. Gait to room with FWW, ski lled cues for safety. Pt sitting in chair with needs met and chair alarm in place after session. OT Penitentiary Goals Sterile Processing Technologist Goals Time Frame: October 16, 2019 Eating (QC): 6 Oral Hygiene (QC): 6 Toileting Hygiene (QC): 6 Shower/Bathe Self (QC): 6 Upper Body Dressing (QC): 6 Lower Body Dressing (QC): 6 On/Off Footwear (QC): 6 Additional Goals: 1-Demonstrate ADL Tasks, 2-Verbalize Understanding, 3-ImproveStrength/[place] 1=Demonstrate adherence to instructed precautions during ADL tasks. 2=Patient will verbalize/demonstrate understanding of assistive devices/modifications for ADL. 3=Patient will improve strength/tolerance for activity to enable patient to perform ADL's. OT Education/Plan Discharge Recommendations Plan/Recommendations: Continue POC Treatment Plan/Plan of Care Patient would benefit from OT for education, treatment and training to promote independence in ADL's, mobility, safety and/or upper extremity function for ADL's. Plan of Care: ADL Retraining, Functional Mobility, Group Exercise/Act as Ind, UE Funct Exercise/Act Treatment Duration: October 16, 2019 Frequency: At least 5 of 7 days/Wk (IRF) Estimated Hrs Per Day: 1.5 hours per day Agreement: Yes Rehab Potential: Guarded Time/GCodes Start Time: 11:30 Stop Time: 11:45 Total Time Billed (hr/min): 15 Billed Treatment Time 1 visit, EX(15minutes) GARRY CLARK OT September 30, 2019 12:00
--- NOTE | 2019-09-30 12:05 | Physical Therapy Daily Note ---
PT Daily Note-Current Subjective Pt is asleep laying Supine in bed upon arrival. Pt agrees to PT. Mental Status Patient Orientation: Person, Confused, Place Transfers SCALE: Activities may be completed with or without assistive devices. 9-Cbwgwqyoma-fipwvbi completes the activity by him/herself with no assistance from a helper. 5-Set-up or Clean-up Assistance-helper sets up or cleans up; patient completes a ctivity. [place] assists only prior to or following the activity. 4-Supervision or Touching Assistance-helper provides verbal cues and/or touching/steadying and/or contact guard assistance as patient completes activity. Assistance may be provided throughout the activity or intermittently. 3-Partial/Moderate Assistance-helper does LESS THAN HALF the effort. [place] lifts, holds or supports trunk or limbs, but provides less than half the effort. 2-Substantial/Maximal Assistance-helper does MORE THAN HALF the effort. [place] lifts or holds trunk or limbs and provides more than half the effort. 1-Knrhhtgwa-sstzxk does ALL the effort. Patient does none of the effort to complete the activity. Or, the assistance of 2 or more helpers is required for the patient to complete the activity. If activity was not attempted, code reason: 7-Patient Refused. 9-Not Applicable-not attempted and the patient did not perform the activity before the current illness, exacerbation or injury. 10-Not Attempted due to Environmental Limitations-(lack of equipment, weather restraints, etc.). 88-Not Attempted due to Medical Conditions or Safety Concerns. Roll Left & Right (QC): 5 Sit to Lying (QC): 5 Lying to Sitting/Side of Bed(Q: 5 Sit to Stand (QC): 5 Chair/Dxc-rv-Wjrtk Xfer(QC): 5 Weight Bearing Right Lower Extremity: Right Full Weight Bearing Left Lower Extremity: Left Full Weight Bearing Gait Training Does the Patient Walk?: Yes Distance: 150' Walk 10 feet (QC): 5 Walk 50 ft with 2 Turns(QC): 5 Walk 150 ft (QC): 4 Gait Assistive Device: FWW Pt is impulsive and needs VC to keep FWW close to pt as well as slow down nilda for better control. Wheelchair Training Does the Pt Use a Wheelchair?: No Stair Training Stair Training: Handrails/: 2 handrails #of Steps: 4 1 Step (curb) (QC): 5 4 Steps (QC): 5 Stairs: Pattern: Step to Exercises Seated Therapy Exercises: Ankle pumps, Long arc quads, Hip flexion, Kicking activity Seated Reps: 15 Standing: Hamstring curls, 3 way Ex=Flex, Abd, Ext, Marching, Mini squats, Weight shifts Standing Reps: 20 NuStep Minutes: 10 NuStep Workload: 5 Treatments Pt transfers from bed to Standing. Pt ambulates in hallway using FWW. Pt uses NuStep for 10m at WL 5 followed by Seated Ex. Pt completes Standing Ex at //bars. Pt has all needs met and is starting OT Rx at end of PT Rx. Assessment Current Status: Fair Progress Pt is impulsive and continues to have difficulty with social awareness and safety. PT Usp Goals Usp Goals PT Usp Goals Time Frame: October 03, 2019 Roll Left & Right (QC): 6 Sit to Lying (QC): 6 Lying-Sitting on Side/Bed(QC): 6 Sit to Stand (QC): 6 Chair/Sbr-ge-Vdblv Xfer(QC): 6 Toilet Transfer (QC): 6 Car Transfer (QC): 6 Does the Patient Walk: Yes Walk 10 feet (QC): 6 Walk 50ft with 2 Turns (QC): 6 Walk 150 ft (QC): 6 Walking 10ft on Uneven Surface: 6 1 Step (curb) (QC): 6 4 Steps (QC): 4 12 Steps (QC): 4 Picking up an Object (QC): 6 Wheel 50 feet with 2 turns (QC: 9 Wheel 150 feet: 9 PT Plan Problem List Problem List: Activity Tolerance, Safety, Balance, Gait Treatment/Plan Treatment Plan: Continue Plan of Care Treatment Plan: Bed Mobility, Education, Functional Activity [place], Functional Strength, Gait, Safety, Therapeutic Exercise, Transfers Treatment Duration: October 03, 2019 Frequency: 6 times per week Estimated Hrs Per Day: 1.5 hours per day Patient and/or Family Agrees t: Yes Safety Risks/Education Patient Education: Gait Training, Correct Positioning, Safety Issues Teaching Recipient: Patient Teaching Methods: Discussion Response to Teaching: Reinforcement Needed Time/GCodes Time In: 1045 Time Out: 1130 Total Billed Treatment Time: 45 Total Billed Treatment 1, GT (10m) & EX x2 (35m) LATANYA JEREZ SUPERVISOR RECLAMATION September 30, 2019 12:05
--- NOTE | 2019-09-30 14:17 | NUR ---
CM/SS PATIENT CARE CONFERENCE SUMMARY Visited with patient as well as son by phone this p.m. Team discussion today was that patient continues to be considered at-risk if a caregiver is not with him 24/. PT staff report he is impulsive and needs verbal cuing for safety and social awareness, especially slowing down his nilda and using FWW properly. Son confirms he and his are patient's only family/support system here and they are not able to provide for him 24 or have him live in their home. The conclusion was to seek community fdc environment, monitor patient for improved functioning. If patient does not regain ability to return to prior apartment with supplemental family care, pursue assisted living vs permanent LTC residency. Finances are a barrier to assisted living or LTC arrangement. Patient would need to be screened for eligibility for [facility] for next step housing assistance. Son indicated agreement to SNF pursuit with local facilities in network for patient's insurance, starting with [email or web address]. Referral faxed, await confirmation of acceptance. Patient and son understand target discharge to be tomorrow or Wednesday October 02, 2019.
--- NOTE | 2019-09-30 14:49 | Physical Therapy Daily Note ---
PT Daily Note-Current Subjective SHOE REPAIRER APPRENTICE arrives to pt's room when pt's bed alarm is going off. Pt agrees to PT. Pain Location: No Pain Reported Mental Status Patient Orientation: Person, Confused, Place Transfers SCALE: Activities may be completed with or without assistive devices. 5-Sxftebxffn-oiamqye completes the activity by him/herself with no assistance from a helper. 5-Set-up or Clean-up Assistance-helper sets up or cleans up; patient completes activity. [place] assists only prior to or following the activity. 4-Supervision or Touching Assistance-helper provides verbal cues and/or touching/steadying and/or contact guard assistance as patient completes activity. Assistance may be provided throughout the activity or intermittently. 3-Partial/Moderate Assistance-helper does LESS THAN HALF the effort. [place] lifts, holds or supports trunk or limbs, but provides less than half the effort. 2-Substantial/Maximal Assistance-helper does MORE THAN HALF the effort. [place] lifts or holds trunk or limbs and provides more than half the effort. 8-Hulveekbl-oxifkx does ALL the effort. Patient does none of the effort to complete the activity. Or, the assistance of 2 or more helpers is required for the patient to complete the activity. If activity was not attempted, code reason: 7-Patient Refused. 9-Not Applicable-not attempted and the patient did not perform the activity before the current illness, exacerbation or injury. 10-Not Attempted due to Environmental Limitations-(lack of equipment, weather restraints, etc.). 88-Not Attempted due to Medical Conditions or Safety Concerns. Sit to Lying (QC): 5 Lying to Sitting/Side of Bed(Q: 5 Sit to Stand (QC): 5 Chair/Wrk-oy-Sbldq Xfer(QC): 5 Weight Bearing Right Lower Extremity: Right Full Weight Bearing Left Lower Extremity: Left Full Weight Bearing Exercises Seated Therapy Exercises: Ankle pumps, Long arc quads, Hip flexion, Kicking activity, Glut set Seated Reps: 20 (2 sets) Treatments Pt transfers to recliner and completes Seated Ex. Pt has all needs met, call light in hand. Assessment Current Status: Fair Progress Pt demonstrates safety concerns and impulsivity. PT Pilot Captain Goals Pilot Captain Goals PT Jail Goals Time Frame: October 03, 2019 Roll Left & Right (QC): 6 Sit to Lying (QC): 6 Lying-Sitting on Side/Bed(QC): 6 Sit to Stand (QC): 6 Chair/Ptm-km-Goqrj Xfer(QC): 6 Toilet Transfer (QC): 6 Car Transfer (QC): 6 Does the Patient Walk: Yes Walk 10 feet (QC): 6 Walk 50ft with 2 Turns (QC): 6 Walk 150 ft (QC): 6 Walking 10ft on Uneven Surface: 6 1 Step (curb) (QC): 6 4 Steps (QC): 4 12 Steps (QC): 4 Picking up an Object (QC): 6 Wheel 50 feet with 2 turns (QC: 9 Wheel 150 feet: 9 PT Plan Problem List Problem List: Activity Tolerance, Safety Treatment/Plan Treatment Plan: Continue Plan of Care Treatment Plan: Bed Mobility, Education, Functional Activity [place], Functional Strength, Gait, Safety, Therapeutic Exercise, Transfers Treatment Duration: October 03, 2019 Frequency: 6 times per week Estimated Hrs Per Day: 1.5 hours per day Patient and/or Family Agrees t: Yes Safety Risks/Education Patient Education: Correct Positioning, Safety Issues Teaching Recipient: Patient Teaching Methods: Discussion Response to Teaching: Reinforcement Needed Time/GCodes Time In: 1400 Time Out: 1430 Total Billed Treatment Time: 30 Total Billed Treatment 1, EX x2 (30m) LATANYA JEREZ SHOE REPAIRER APPRENTICE September 30, 2019 14:49
[2019-09-30 17:14] VITALS: BP 143/79
[2019-09-30] MEDS: ENOXAPARIN 40 MG/0.4 ML (LOVENOX) SYR SC SCH (22:12)
[2019-10-01 05:38] VITALS: BP 166/87
[2019-10-01] MEDS: glyBURIDE 2.5 MG (MICRONASE) TAB PO SCH (06:36)
[2019-10-01] MEDS: metFORMIN 500 MG (GLUCOPHAGE) TAB PO SCH ×2 (06:36→17:20)
--- NOTE | 2019-10-01 09:07 | Physical Therapy Daily Note ---
PT Daily Note-Current Subjective Pt asleep Supine in bed upon arrival. Pt agrees to PT. Pain Location: No Pain Reported Mental Status Patient Orientation: Person, Confused, Place Pt remains impulsive. Transfers SCALE: Activities may be completed with or without assistive devices. 3-Nttdeygjsh-umbtdjk completes the activity by him/herself with no assistance from a helper. 5-Set-up or Clean-up Assistance-helper sets up or cleans up; patient completes activity. [place] assists only prior to or following the activity. 4-Supervision or Touching Assistance-helper provides verbal cues and/or touching/steadying and/or contact guard assistance as patient completes activity. Assistance may be provided throughout the activity or intermittently. 3-Partial/Moderate Assistance-helper does LESS THAN HALF the effort. [place] lifts, holds or supports trunk or limbs, but provides less than half the effort. 2-Substantial/Maximal Assistance-helper does MORE THAN HALF the effort. [place] lifts or holds trunk or limbs and provides more than half the effort. 8-Gjhijaube-kmcycy does ALL the effort. Patient does none of the effort to complete the activity. Or, the assistance of 2 or more helpers is required for the patient to complete the activity. If activity was not attempted, code reason: 7-Patient Refused. 9-Not Applicable-not attempted and the patient did not perform the activity before the current illness, exacerbation or injury. 10-Not Attempted due to Environmental Limitations-(lack of equipment, weather restraints, etc.). 88-Not Attempted due to Medical Conditions or Safety Concerns. Roll Left & Right (QC): 5 Sit to Lying (QC): 5 Lying to Sitting/Side of Bed(Q: 5 Sit to Stand (QC): 5 Chair/Jbq-ry-Jmbfo Xfer(QC): 5 Toilet Transfer (QC): 5 Car Transfer (QC): 5 Pt needs VC for impulsivity and safety. Weight Bearing Right Lower Extremity: Right Full Weight Bearing Left Lower Extremity: Left Full Weight Bearing Gait Training Does the Patient Walk?: Yes Distance: 200' Walk 10 feet (QC): 5 Walk 50 ft with 2 Turns(QC): 5 Walk 150 ft (QC): 5 Walking 10ft/uneven surface-QC: 5 Gait Persons Needed: 1 Gait Assistive Device: FWW Pt needs VC for slowing down nilda for improved safety. Wheelchair Training Does the Pt Use a Wheelchair?: No Stair Training Stair Training: Handrails/: 2 handrails #of Steps: 12 1 Step (curb) (QC): 5 4 Steps (QC): 5 12 Steps (QC): 5 Stairs: Pattern: Step to MILITARY ADMINISTRATIVE TECHNICIAN gives VC for slowing down nilda for improved safety. Balance Picking up an Object (QC): 88 Special Test Comments This is not attempted due to pt's poor balance and impulsivity. Exercises NuStep Minutes: 10 NuStep Workload: 5 Treatments Pt completes QC scoring items listed above. Pt returns to room at end of Rx to rest in recliner with all needs met, chair alarm set and call light in hand. Assessment Current Status: Good Progress Pt will demonstrate better safety with ambulation when given VC to slow down nilda and stay close to FWW. PT Spring Assembler Goals Spring Assembler Goals PT Spring Assembler Goals Time Frame: October 03, 2019 Roll Left & Right (QC): 6 Sit to Lying (QC): 6 Lying-Sitting on Side/Bed(QC): 6 Sit to Stand (QC): 6 Chair/Mpe-fr-Osnxp Xfer(QC): 6 Toilet Transfer (QC): 6 Car Transfer (QC): 6 Does the Patient Walk: Yes Walk 10 feet (QC): 6 Walk 50ft with 2 Turns (QC): 6 Walk 150 ft (QC): 6 Walking 10ft on Uneven Surface: 6 1 Step (curb) (QC): 6 4 Steps (QC): 4 12 Steps (QC): 4 Picking up an Object (QC): 6 Wheel 50 feet with 2 turns (QC: 9 Wheel 150 feet: 9 PT Plan Problem List Problem List: Activity Tolerance, Safety Treatment/Plan Treatment Plan: Continue Plan of Care Treatment Plan: Bed Mobility, Education, Functional Activity [place], Functional Strength, Gait, Safety, Therapeutic Exercise, Transfers Treatment Duration: October 03, 2019 Frequency: 6 times per week Estimated Hrs Per Day: 1.5 hours per day Patient and/or Family Agrees t: Yes Safety Risks/Education Patient Education: Gait Training, Steps, Correct Positioning, Safety Issues Teaching Recipient: Patient Teaching Methods: Discussion Response to Teaching: Reinforcement Needed Time/GCodes Time In: 815 Time Out: 900 Total Billed Treatment Time: 45 Total Billed Treatment 1, GT (15m), EX (10m) & FA (20m) LATANYA JEREZ PTA October 01, 2019 09:07
[2019-10-01] MEDS: ASPIRIN E.C. 81 MG (ECOTRIN) TAB PO SCH (09:17)
[2019-10-01] MEDS: amLODIPine 5 MG (NORVASC) TAB PO SCH (09:17)
[2019-10-01] MEDS: busPIRone 10 MG (BUSPAR) TAB PO SCH ×3 (09:17→20:17)
[2019-10-01] MEDS: DOCUSATE SODIUM 100 MG (COLACE) CAP PO SCH ×2 (09:17→20:17)
[2019-10-01] MEDS: SENNA W/DOCUSATE (SENOKOT S) TABLET PO SCH ×2 (09:19→19:16)
--- NOTE | 2019-10-01 10:11 | PM&R Progress Note ---
Subjective HPI/CC On Admission Date Seen by Provider: October 01, 2019 Time Seen by Provider: 10:15 Subjective/Events-last exam [facility] referral Slept pretty well last night Sugar 124 this morning Overall feels pretty good and has no other concerns Overall participating in all therapy Participating in therapy very well Checked meds and labs Reviewed therapy notes Conferred with formula mixer of Systems Neurological: Weakness, Numbness, Incoordination, Confusion Objective Exam Vital Signs Vital Signs Date Time Temp Pulse Resp B/P (MAP) Pulse Ox O2 Delivery O2 Flow Rate FiO2 10/01/19 20:30 Room Air 10/01/19 16:01 37.0 62 16 154/85 (108) 98 Capillary Refill : Less Than 3 Seconds General Appearance: No Apparent Distress, WD/WN, Chronically ill HEENT: PERRL/EOMI, Normal ENT Inspection, Pharynx Normal, Other Neck: Full Range of Motion, Normal Inspection, Non Tender, Supple, Carotid Bruit Respiratory: Chest Non Tender, Lungs Clear, Normal Breath Sounds, No Accessory Muscle Use, No Respiratory Distress Cardiovascular: Regular Rate, Rhythm, No Edema, No Gallop, No JVD, No Murmur, Normal Peripheral Pulses Gastrointestinal: Normal Bowel Sounds, No Organomegaly, No Pulsatile Mass, Non Tender, Soft Back: Normal Inspection, No CVA Tenderness, No Vertebral Tenderness Extremity: Normal Capillary Refill, Normal Inspection, Normal Range of Motion, Non Tender, No Calf Tenderness, No Pedal Edema Neurologic/Psychiatric: Alert, Oriented x3, Normal Mood/Affect, block splitter operator II-XII Norm as Tested, Abnormal Gait, Motor Weakness Skin: Normal Color, Warm/Dry Lymphatic: No Adenopathy Results/Procedures Lab Patient resulted labs reviewed. FIM Transfers Therapy Code Descriptions/Definitions Functional [place] Measure: 0=Not Assessed/NA 4=Minimal Assistance 1=Total Assistance 5=Supervision or Setup 2=Maximal Assistance 6=Modified [place] 3=Moderate Assistance 7=Complete IndependenceSCALE: Activities may be completed with or without assistive devices. 5-Llrsewxyoi-grawdey completes the activity by him/herself with no assistance from a helper. 5-Set-up or Clean-up Assistance-helper sets up or cleans up; patient completes activity. [place] assists only prior to or following the activity. 4-Supervision or Touching Assistance-helper provides verbal cues and/or touching/steadying and/or contact guard assistance as patient completes activity. Assistance may be provided throughout the activity or intermittently. 3-Partial/Moderate Assistance-helper does LESS THAN HALF the effort. [place] lifts, holds or supports trunk or limbs, but provides less than half the effort. 2-Substantial/Maximal Assistance-helper does MORE THAN HALF the effort. [place] lifts or holds trunk or limbs and provides more than half the effort. 1-Murlmaeiu-kulprg does ALL the effort. Patient does none of the effort to complete the activity. Or, the assistance of 2 or more helpers is required for the patient to complete the activity. If activity was not attempted, code reason: 7-Patient Refused. 9-Not Applicable-not attempted and the patient did not perform the activity before the current illness, exacerbation or injury. 10-Not Attempted due to Environmental Limitations-(lack of equipment, weather restraints, etc.). 88-Not Attempted due to Medical Conditions or Safety Concerns. Roll Left to Right (QC): 5 Sit to Lying (QC): 5 Sit to Stand (QC): 5 Chair/Sim-jw-Inmbk Xfer(QC): 5 Car Transfer (QC): 5 Gait Training Does the Patient Walk?: Yes Distance: 200' Walk 10 feet (QC): 5 Walk 50 ft with 2 Turns(QC): 5 Walk 150 ft (QC): 5 Walking 10ft/uneven surface-QC: 5 Gait Persons Needed: 1 Gait Assistive Device: FWW Wheelchair Training Does the Pt Use a Wheelchair?: No Wheel 50 ft with 2 turns (QC): 9 Wheel 150 ft (QC): 9 Stair Training Stair Training: Handrails/: 2 handrails #of Steps: 12 1 Step (curb) (QC): 5 4 Steps (QC): 5 12 Steps (QC): 5 Stairs: Pattern: Step to Balance Picking up an Object (QC): 88 ADL-Treatment Eating (QC): 6 (Per pt report he had no difficulty with breakfast. Pt able to open cheese package without difficulties) Oral Hygiene (QC): 4 Bathing Location: L Arm, R Arm, L Upper Leg, R Upper Leg, L Lower Leg (including foot), R Lower Leg (including foot), Chest, Abdomen, Buttocks, Perineal Area Shower/Bathe Self (QC): 4 Upper Body Dressing (QC): 5 Lower Body Dressing (QC): 5 On/Off Footwear (QC): 5 Toileting Hygiene (QC): 4 Toilet Transfer (QC): 4 Assessment/Plan Assessment and Plan Assess & Plan/Chief Complaint Assessment: Acute and subacute strokes on MRI with negative CT scan Instability unable to walk in previous independent patient Dementia DM HTN HLP Abnl UA but Cx no pathological bacteria so will DC Rocephin s/p Loop recorder 09/19/19 Hypoglycemia holding meds restarted meds at low dose Plan: CVA protocol Rehab protocol Statin ASA Cardiology consultation is appreciated Add low dose OHA to Metformin (1) CVA (cerebrovascular accident) (2) Risk for falls (3) Hyperlipemia (4) Diabetes (5) Unsteady gait Status: Acute (6) Dementia Status: Acute (7) Status post placement of implantable loop recorder SIA DUGGAN DO October 01, 2019 10:11
--- NOTE | 2019-10-01 10:38 | Cardiology Progress Note ---
Cardiology SOAP Progress Note Subjective: No cardiac complaints. I saw him when he was exercising in the gym with no shortness of breath or chest pain. Objective: I&O/Vital Signs 10/01/19 05:38 Temp 36.8 Pulse 68 Resp 18 B/P (MAP) 166/87 (113) Pulse Ox 96 O2 Delivery Room Air 10/01/19 00:00 Intake Total 860 ml Balance 860 ml Constitutional: appears stated age, well-developed, well-nourished Respiratory: chest is bilaterally symmetric, lungs clear to auscultation Cardiovascular: regular rate-rhythm, S1 and S2 Gastrointestional: soft, audible bowel sounds Extremities: normal range of motion, non-tender, normal inspection, no lower extremity edema bilateral Neurologic/Psychiatric: alert, normal mood/affect Skin: normal color Results/Procedures: Labs Laboratory Tests 09/30/19 10:58: Glucometer 139H 09/30/19 15:19: Glucometer 223H 09/30/19 20:30: Glucometer 190H 10/01/19 05:16: Glucometer 121H A/P: Assessment/Dx: Acute stroke, 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 Negative telemetry for 48 hours for atrial fibrillation. Echocardiogram showed normal LV function with negative bubble study ruling out intracardiac shunting. No significant carotid atherosclerotic disease. cryptogenic stroke. Long-term surveillance for atrial fibrillation is recommended. Implantable loop recorder done on 09/19/2019. DC telemetry. Mild dementia, deferred to the primary team. Diabetes, was on metformin. Hyperlipidemia, atorvastatin. PVCs, will follow clinically. Thank you for your consultation. Please call me if you have any questions. Sulma Veliz MD, FACP, FACC, FSCAI, FHRS, CCDS Interventional Cardiology Cardiac Electrophysiology Vascular Medicine and Endovascular Interventions Jaiden VELIZ MD October 01, 2019 10:38
--- NOTE | 2019-10-01 10:44 | Occupational Ther Daily Note ---
OT Current Status-Daily Note Subjective Pt seated in recliner at start of session, agreeable to OT tx. He did not verbalize any pain during tx. Mental Status/Objective Patient Orientation: Confused ADL-Treatment Therapy Code Descriptions/Definitions Functional [place] Measure: 0=Not Assessed/NA 4=Minimal Assistance 1=Total Assistance 5=Supervision or Setup 2=Maximal Assistance 6=Modified [place] 3=Moderate Assistance 7=Complete IndependenceSCALE: Activities may be completed with or without assistive devices. 1-Mgrcmzhfto-jlwlunm completes the activity by him/herself with no assistance from a helper. 5-Set-up or Clean-up Assistance-helper sets up or cleans up; patient completes activity. [place] assists only prior to or following the activity. 4-Supervision or Touching Assistance-helper provides verbal cues and/or touch ing/steadying and/or contact guard assistance as patient completes activity. Assistance may be provided throughout the activity or intermittently. 3-Partial/Moderate Assistance-helper does LESS THAN HALF the effort. [place] lifts, holds or supports trunk or limbs, but provides less than half the effort. 2-Substantial/Maximal Assistance-helper does MORE THAN HALF the effort. [place] lifts or holds trunk or limbs and provides more than half the effort. 6-Sfbloqhzf-phzjqa does ALL the effort. Patient does none of the effort to complete the activity. Or, the assistance of 2 or more helpers is required for the patient to complete the activity. If activity was not attempted, code reason: 7-Patient Refused. 9-Not Applicable-not attempted and the patient did not perform the activity before the current illness, exacerbation or injury. 10-Not Attempted due to Environmental Limitations-(lack of equipment, weather restraints, etc.). 88-Not Attempted due to Medical Conditions or Safety Concerns. Eating (QC): 6 Oral Hygiene (QC): 4 (SBA standing at sink) Bathing Location: L Arm, R Arm, L Upper Leg, R Upper Leg, L Lower Leg (including foot), R Lower Leg (including foot), Chest, Abdomen, Buttocks, Pe rineal Area Shower/Bathe Self (QC): 4 (Pt required verbal cues for sequencing and safety throughout task. He was able to wash all parts.) Upper Body Dressing (QC): 4 (Pt attempted to put shirt on his legs, requiring verbal cue to put on over his head. Pt then had shirt on backwards requiring cue to turn it around.) Lower Body Dressing (QC): 4 (Pt attempted to put on underwear by putting his leg through the side hole instead of through the top of the underwear. He required cue for correct orientation. Pt then able to don underwear and pants with SBA.) On/Off Footwear: 5 (set up) Toileting Hygiene (QC): 4 (SBA, pt completed hygiene and clothing mangement) Toilet Transfer (QC): 4 (SBA) Other Treatment Pt seated in recliner, agreed to OT tx. OT gathered ADL supplies, then began setting up shower area. Pt stood without warning causing his chair alarm to go off, OT asked pt to sit down until the shower area was set up. Pt transferred from recliner to toilet and completed toileting, then transferred to shower. Pt stood in the shower, turning on water before getting undressed. OT cued pt that his socks were going to get wet, pt side stepped closer to OT but continued to adjust water temperature. OT told pt that his socks are now wet, reaching over to turn the water off and asked pt to take his clothes off before turning the water back on. Pt then able to take a shower with SBA. Pt then completed dressing, requiring cue for correct orientation of underwear, and he attempted to put his shirt on his legs requiring cues. After dressing, OT instructed pt to go to sink to brush his teeth, pt stood at sink and combed his hair then turned away from the sink. OT had to cue pt to brush his teeth again. After ADLs, pt took his clothes to the laundry room, able to start washer with step by step directions. Pt went to therapy gym and sat at table. In order to increase BUE strength and functional endurance, pt placed 1" pegs into foam pegboard using BUEs. He was instructed to choose [address] only those colors into pegboard, pt made 2 mistakes on color but able to self correct. Pt returned to his room using FWW and SBA and sat in his recliner. Post OT session, pt seated in recliner, call light in reach and all needs met. Education OT Patient Education: Correct positioning, Energy conservation, Modified ADL techniques, Progress toward Goal/Update tx plan, Purpose of tx/functional activities, Safety issues, Transfer techniques Teaching Recipient: Patient Teaching Methods: Discussion Response to Teaching: Reinforcement Needed OT Jail Goals Jail Goals Time Frame: October 16, 2019 Eating (QC): 6 (met) Oral Hygiene (QC): 6 (not met) Toileting Hygiene (QC): 6 (not met) Shower/Bathe Self (QC): 6 (not met) Upper Body Dressing (QC): 6 (not met) Lower Body Dressing (QC): 6 (not met) On/Off Footwear (QC): 6 (not met) Additional Goals: 1-Demonstrate ADL Tasks, 2-Verbalize Understanding, 3- ImproveStrength/[place] 1=Demonstrate adherence to instructed precautions during ADL tasks. 2=Patient will verbalize/demonstrate understanding of assistive devices/modifications for ADL. 3=Patient will improve strength/tolerance for activity to enable patient to perform ADL's. OT Education/Plan Problem List/Assessment Assessment: Decreased Activ Tolerance, Decreased UE Strength, Impaired I ADL's, Impaired Self-Care Skills Discharge Recommendations Plan/Recommendations: Continue POC Treatment Plan/Plan of Care Patient would benefit from OT for education, treatment and training to promote independence in ADL's, mobility, safety and/or upper extremity function for ADL's. Plan of Care: ADL Retraining, Functional Mobility, Group Exercise/Act as Ind, UE Funct Exercise/Act Treatment Duration: October 16, 2019 Frequency: At least 5 of 7 days/Wk (IRF) Estimated Hrs Per Day: 1.5 hours per day Agreement: Yes Rehab Potential: Guarded Time/GCodes Start Time: 09:30 Stop Time: 10:30 Total Time Billed (hr/min): 60 Billed Treatment Time 1, ADL 3 (45'), FA (15') FABIO ROTHMAN OT October 01, 2019 10:44
--- NOTE | 2019-10-01 10:45 | NUR ---
Pastoral care visit, completed Advance Directive
--- NOTE | 2019-10-01 12:10 | Physical Therapy Daily Note ---
PT Daily Note-Current Subjective Pt laying Supine in bed upon arrival. Pt agrees to PT. Pain Location: No Pain Reported Mental Status Patient Orientation: Person, Confused, MR Transfers SCALE: Activities may be completed with or without assistive devices. 8-Slnpjczfni-jzhjuol completes the activity by him/herself with no assistance from a helper. 5-Set-up or Clean-up Assistance-helper sets up or cleans up; patient completes activity. [place] assists only prior to or following the activity. 4-Supervision or Touching Assistance-helper provides verbal cues and/or touching/steadying and/or contact guard assistance as patient completes activity. Assistance may be provided throughout the activity or intermittently. 3-Partial/Moderate Assistance-helper does LESS THAN HALF the effort. [place] lifts, holds or supports trunk or limbs, but provides less than half the effort. 2-Substantial/Maximal Assistance-helper does MORE THAN HALF the effort. [place] lifts or holds trunk or limbs and provides more than half the effort. 1-Kijvnulmd-uafyey does ALL the effort. Patient does none of the effort to complete the activity. Or, the assistance of 2 or more helpers is required for the patient to complete the activity. If activity was not attempted, code reason: 7-Patient Refused. 9-Not Applicable-not attempted and the patient did not perform the activity before the current illness, exacerbation or injury. 10-Not Attempted due to Environmental Limitations-(lack of equipment, weather restraints, etc.). 88-Not Attempted due to Medical Conditions or Safety Concerns. Lying to Sitting/Side of Bed(Q: 5 Sit to Stand (QC): 5 Weight Bearing Right Lower Extremity: Right Full Weight Bearing Left Lower Extremity: Left Full Weight Bearing Gait Training Does the Patient Walk?: Yes Distance: 250' Walk 10 feet (QC): 5 Walk 50 ft with 2 Turns(QC): 5 Walk 150 ft (QC): 5 Gait Persons Needed: 1 Gait Assistive Device: FWW Exercises Seated Therapy Exercises: Ankle pumps, Long arc quads, Hip flexion, Kicking activity, Glut set Seated Reps: 20 Treatments Pt transfers from bed to standing then ambulates in hallway, taking RB as needed. Pt returns to recliner and completes Seated EX before lunch arrives. Pt has all needs met, call light in hand. Assessment Current Status: Good Progress Pt continues to need VC for safety. PT Senior Living Goals Senior Living Goals PT Wharf Laborer Goals Time Frame: October 03, 2019 Roll Left & Right (QC): 6 Sit to Lying (QC): 6 Lying-Sitting on Side/Bed(QC): 6 Sit to Stand (QC): 6 Chair/Cpb-yl-Drpxu Xfer(QC): 6 Toilet Transfer (QC): 6 Car Transfer (QC): 6 Does the Patient Walk: Yes Walk 10 feet (QC): 6 Walk 50ft with 2 Turns (QC): 6 Walk 150 ft (QC): 6 Walking 10ft on Uneven Surface: 6 1 Step (curb) (QC): 6 4 Steps (QC): 4 12 Steps (QC): 4 Picking up an Object (QC): 6 Wheel 50 feet with 2 turns (QC: 9 Wheel 150 feet: 9 PT Plan Problem List Problem List: Activity Tolerance, Safety, Gait Treatment/Plan Treatment Plan: Continue Plan of Care Treatment Plan: Bed Mobility, Education, Functional Activity [place], Functional Strength, Gait, Safety, Therapeutic Exercise, Transfers Treatment Duration: October 03, 2019 Frequency: 6 times per week Estimated Hrs Per Day: 1.5 hours per day Patient and/or Family Agrees t: Yes Safety Risks/Education Patient Education: Gait Training, Correct Positioning, Safety Issues Teaching Recipient: Patient Teaching Methods: Discussion Response to Teaching: Reinforcement Needed Time/GCodes Time In: 1130 Time Out: 1200 Total Billed Treatment Time: 30 Total Billed Treatment 1, GT (15m) & EX (15m) LATANYA JEREZ PRESIDENT + PUBLISHER October 01, 2019 12:10
--- NOTE | 2019-10-01 13:41 | NUR ---
CM/SS DISCHARGE PLANNING [facility] has accepted patient for admission if insurance authorizes payment. [facility] Admissions Liaison faxed request yesterday, no confirmation at this time. Await final word from [facility], tentative discharge tomorrow. Updated son Rolando today about status of [facility] referral. DPOA-HC completed by [facility], they provided original to patient, copy in chart for EMR, junior copywriter has copies for miguel Marshall to go with discharge information.
--- NOTE | 2019-10-01 13:41 | Occupational Ther Daily Note ---
OT Current Status-Daily Note Subjective Pt laying in bed at start of session, agreed to OT tx. He did not report any pain. ADL-Treatment Therapy Code Descriptions/Definitions Functional [place] Measure: 0=Not Assessed/NA 4=Minimal Assistance 1=Total Assistance 5=Supervision or Setup 2=Maximal Assistance 6=Modified [place] 3=Moderate Assistance 7=Complete IndependenceSCALE: Activities may be completed with or without assistive devices. 0-Yfdtogvexg-lqwevpf completes the activity by him/herself with no assistance from a helper. 5-Set-up or Clean-up Assistance-helper sets up or cleans up; patient completes activity. [place] assists only prior to or following the activity. 4-Supervision or Touching Assistance-helper provides verbal cues and/or touching/steadying and/or contact guard assistance as patient completes activity. Assistance may be provided throughout the activity or intermittently. 3-Partial/Moderate Assistance-helper does LESS THAN HALF the effort. [place] lifts, holds or supports trunk or limbs, but provides less than half the effort. 2-Substantial/Maximal Assistance-helper does MORE THAN HALF the effort. [place] lifts or holds trunk or limbs and provides more than half the effort. 3-Kjqpqaznn-fpolzc does ALL the effort. Patient does none of the effort to complete the activity. Or, the assistance of 2 or more helpers is required for the patient to complete the activity. If activity was not attempted, code reason: 7-Patient Refused. 9-Not Applicable-not attempted and the patient did not perform the activity before the current illness, exacerbation or injury. 10-Not Attempted due to Environmental Limitations-(lack of equipment, weather restraints, etc.). 88-Not Attempted due to Medical Conditions or Safety Concerns. Other Treatment Pt laying in bed at start of session. In order to increase fine motor strength and coordination, pt removed beads from red theraputty. Pt able to manipulate putty in order to remove beads, stretching the putty between his hands and pinching the putty between his fingers. Post OT session, pt laying in bed, call light in reach and all needs met, bed alarm on. Education OT Patient Education: Correct positioning, Energy conservation, Progress toward Goal/Update tx plan, Purpose of tx/functional activities Teaching Recipient: Patient Teaching Methods: Discussion Response to Teaching: Verbalize Understanding OT Project/Production Manager Imaging Goals Nursing Home Goals Time Frame: October 16, 2019 Eating (QC): 6 (met) Oral Hygiene (QC): 6 (not met) Toileting Hygiene (QC): 6 (not met) Shower/Bathe Self (QC): 6 (not met) Upper Body Dressing (QC): 6 (not met) Lower Body Dressing (QC): 6 (not met) On/Off Footwear (QC): 6 (not met) Additional Goals: 1-Demonstrate ADL Tasks, 2-Verbalize Understanding, 3- ImproveStrength/[place] 1=Demonstrate adherence to instructed precautions during ADL tasks. 2=Patient will verbalize/demonstrate understanding of assistive devices/modifications for ADL. 3=Patient will improve strength/tolerance for activity to enable patient to perform ADL's. OT Education/Plan Problem List/Assessment Assessment: Decreased Activ Tolerance, Decreased UE Strength, Impaired I ADL's, Impaired Self-Care Skills Discharge Recommendations Plan/Recommendations: Continue POC Treatment Plan/Plan of Care Patient would benefit from OT for education, treatment and training to promote independence in ADL's, mobility, safety and/or upper extremity function for ADL's. Plan of Care: ADL Retraining, Functional Mobility, Group Exercise/Act as Ind, UE Funct Exercise/Act Treatment Duration: October 16, 2019 Frequency: At least 5 of 7 days/Wk (IRF) Estimated Hrs Per Day: 1.5 hours per day Agreement: Yes Rehab Potential: Guarded Time/GCodes Start Time: 13:30 Stop Time: 13:45 Total Time Billed (hr/min): 15 Billed Treatment Time ZHANE Rosas ADDISON OT October 01, 2019 13:41
--- NOTE | 2019-10-01 14:21 | Speech Therapy Daily Note ---
Speech Daily Progress Note Subjective Date Seen by Provider: October 01, 2019 Time Seen by Provider: 00:30 Patient was resting after a restroom break when I entered his room. Objective Patient completed a series of "what's missing?" with 70% given mod to max verbal and/or visual cues. Assessment Assessment Current Status: Fair Progress Treatment Plan Continue Plan of Care Speech Short Term Goals Short Term Goals Short Term Goals 1) Patient will complete memory tasks related to his daily needs at 80% with minimal cues. 2) Patient will complete problem solving tasks related to his daily needs at 80% with minimal cues. 3) Patient will complete safety awareness tasks related to his daily needs at 80% with minimal cues. Speech Carbonation Equipment Tender Goals Carbonation Equipment Tender Goals Patient will improve cognitive-communication necessary for safety and daily living tasks with minimal assist. Speech-Plan Patient/Family Goals Patient/Family Goals: Patient will be discharging to SNF. Treatment Plan Speech Therapy Treatment Plan: Continue Plan of Care Treatment Duration: Sep 21, 2019 Frequency: 5 times per week Estimated Hrs Per Day: .5 hour per day Rehab Potential: Guarded Barriers to Learning: Patient's recent CVA, dementia Pt/Family Agrees to Plan: Yes Safety Risks/Education Teaching Recipient: Patient Teaching Methods: Demonstration, Discussion Response to Teaching: Verbalize Understanding, Return Demonstration Education Topics Provided: Continued safety within his room Time Speech Therapy Time In: 13:00 Speech Therapy Time Out: 13:30 Total Billed Time: 30 Billed Treatment Time 1, SLTS No QUALITY CODES: EXPRESSION OF IDEAS/WANTS: 2 UNDERSTANDING VERBAL CONTENT: 3 BRIEF INTERVIEW MENTAL STATUS: YES REPETITION OF 3 WORDS: 3 TEMPORAL ORIENTATION: YEAR: INCORRECT, MONTH: INCORRECT, DAY: INCORRECT RECALL: SOCK: NO, COLOR: NO, BED: NO MEMORY/RECALL/ ABILITY: NONE EMIL BARNHART October 01, 2019 14:20
[2019-10-01 16:01] VITALS: BP 154/85
[2019-10-01] MEDS: ENOXAPARIN 40 MG/0.4 ML (LOVENOX) SYR SC SCH (20:17)
[2019-10-02 05:50] VITALS: BP 164/83
[2019-10-02] MEDS: metFORMIN 500 MG (GLUCOPHAGE) TAB PO SCH ×2 (05:55→17:29)
[2019-10-02] MEDS: glyBURIDE 2.5 MG (MICRONASE) TAB PO SCH (05:55)
[2019-10-02] MEDS: cloNIDine 0.1 MG (CATAPRES) TAB PO PRN (05:56)
[2019-10-02] MEDS: SENNA W/DOCUSATE (SENOKOT S) TABLET PO SCH ×2 (07:30→20:05)
[2019-10-02] MEDS: amLODIPine 5 MG (NORVASC) TAB PO SCH (08:00)
[2019-10-02] MEDS: DOCUSATE SODIUM 100 MG (COLACE) CAP PO SCH ×2 (08:00→20:06)
[2019-10-02] MEDS: ASPIRIN E.C. 81 MG (ECOTRIN) TAB PO SCH (08:00)
[2019-10-02] MEDS: busPIRone 10 MG (BUSPAR) TAB PO SCH ×3 (08:00→20:05)
--- NOTE | 2019-10-02 10:03 | Physical Therapy Daily Note ---
PT Daily Note-Current Subjective Patient in bed pre tx, agrees to PT, has no complaints of pain at rest. Appearance Patient in bed post tx with nurse call, phone, tray, bed alarm on. Mental Status Patient Orientation: Person, Unable to Assess, [place] Transfers SCALE: Activities may be completed with or without assistive devices. 0-Vnvvpaavrt-vsvxigb completes the activity by him/herself with no assistance from a helper. 5-Set-up or Clean-up Assistance-helper sets up or cleans up; patient completes activity. [place] assists only prior to or following the activity. 4-Supervision or Touching Assistance-helper provides verbal cues and/or touching/steadying and/or contact guard assistance as patient completes activity. Assistance may be provided throughout the activity or intermittently. 3-Partial/Moderate Assistance-helper does LESS THAN HALF the effort. [place] lifts, holds or supports trunk or limbs, but provides less than half the effort. 2-Substantial/Maximal Assistance-helper does MORE THAN HALF the effort. [place] lifts or holds trunk or limbs and provides more than half the effort. 8-Kdggiieuu-givjzc does ALL the effort. Patient does none of the effort to complete the activity. Or, the assistance of 2 or more helpers is required for the patient to complete the activity. If activity was not attempted, code reason: 7-Patient Refused. 9-Not Applicable-not attempted and the patient did not perform the activity before the current illness, exacerbation or injury. 10-Not Attempted due to Environmental Limitations-(lack of equipment, weather restraints, etc.). 88-Not Attempted due to Medical Conditions or Safety Concerns. Roll Left & Right (QC): 6 Sit to Lying (QC): 6 Lying to Sitting/Side of Bed(Q: 6 Sit to Stand (QC): 4 Chair/Mbp-vw-Ahiyp Xfer(QC): 4 Toilet Transfer (QC): 4 Car Transfer (QC): 4 Patient performs bed mobility with independence, supine <-> sit with independence, sit <-> stand CGA, transfers CGA, car transfer CGA. Patient is confused and needs CGA and cues for safety and direction. Weight Bearing Right Lower Extremity: Right Full Weight Bearing Left Lower Extremity: Left Full Weight Bearing Gait Training Distance: 300', 120' Walk 10 feet (QC): 4 Walk 50 ft with 2 Turns(QC): 4 Walk 150 ft (QC): 4 Walking 10ft/uneven surface-QC: 4 Gait Persons Needed: 1 Gait Assistive Device: FWW Patient can ambulate 300' with a rolling walker with CGA (including 50' with at least 2 turns of 90 degrees and 10' over an uneven surface). Patient needs CGA and cues for safety and direction, he will often just let go of the walker to adjust his pants or for something else and stumble. Wheelchair Training Does the Pt Use a Wheelchair?: No Stair Training Stair Training: Handrails/: 2 handrails #of Steps: 12 1 Step (curb) (QC): 4 4 Steps (QC): 4 12 Steps (QC): 4 Stairs: Pattern: Reciprocal Patient can go up and down 12 steps using 2 handrails with CGA. Patient needs cues for direction and safety, impulsive on stairs. Balance Picking up an Object (QC): 4 Exercises NuStep Minutes: 15 NuStep Workload: 5 Treatments bed mobility and transfers, ambulation, stair training, car transfer, functional strengthening, Patient also had a BM in his brief during therapy, had to ambulate back to his room to the toilet and was dependent for changing pants but could participate a little in wiping. Assessment Current Status: Poor Progress Patient is a fall risk and needs somebody with him when out of bed or chair. PT Virtual Recruiter Goals Jail Goals PT Virtual Recruiter Goals Time Frame: October 03, 2019 Roll Left & Right (QC): 6 Sit to Lying (QC): 6 Lying-Sitting on Side/Bed(QC): 6 Sit to Stand (QC): 6 Chair/Ved-lu-Doxiz Xfer(QC): 6 Toilet Transfer (QC): 6 Car Transfer (QC): 6 Does the Patient Walk: Yes Walk 10 feet (QC): 6 Walk 50ft with 2 Turns (QC): 6 Walk 150 ft (QC): 6 Walking 10ft on Uneven Surface: 6 1 Step (curb) (QC): 6 4 Steps (QC): 4 12 Steps (QC): 4 Picking up an Object (QC): 6 Wheel 50 feet with 2 turns (QC: 9 Wheel 150 feet: 9 PT Plan Problem List Problem List: Activity Tolerance, Functional Strength, Safety, Balance, Gait, Transfer Treatment/Plan Treatment Plan: Continue Plan of Care Treatment Plan: Bed Mobility, Education, Functional Activity [place], Functional Strength, Gait, Safety, Therapeutic Exercise, Transfers Treatment Duration: October 03, 2019 Frequency: 6 times per week Estimated Hrs Per Day: 1.5 hours per day Patient and/or Family Agrees t: Yes Safety Risks/Education Patient Education: Gait Training, Transfer Techniques, Steps, Correct Positioning, Safety Issues Teaching Recipient: Patient Teaching Methods: Demonstration, Discussion Response to Teaching: Reinforcement Needed Time/GCodes Time In: 0915 Time Out: 1015 Total Billed Treatment Time: 60 Total Billed Treatment 1 visit EX 15' GT 20' FA 25' CHA ORR PT October 02, 2019 10:03
--- NOTE | 2019-10-02 10:23 | Cardiology Progress Note ---
Cardiology SOAP Progress Note Subjective: He denies any shortness of breath or chest pain. Objective: I&O/Vital Signs 10/02/19 10/02/19 05:50 09:00 Temp 36.6 Pulse 74 Resp 20 B/P (MAP) 164/83 (110) Pulse Ox 98 O2 Delivery Room Air Room Air 10/02/19 00:00 Intake Total 490 ml Balance 490 ml Constitutional: appears stated age, well-developed, well-nourished Respiratory: chest is bilaterally symmetric, lungs clear to auscultation Cardiovascular: regular rate-rhythm, S1 and S2 Gastrointestional: soft, audible bowel sounds Extremities: normal range of motion, non-tender, normal inspection, no lower extremity edema bilateral Neurologic/Psychiatric: alert, normal mood/affect Skin: normal color Results/Procedures: Labs Laboratory Tests 10/01/19 10:55: Glucometer 153H 10/01/19 15:20: Glucometer 165H 10/01/19 20:21: Glucometer 168H 10/02/19 05:06: Glucometer 112H A/P: Assessment/Dx: Acute stroke, 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 Negative telemetry for 48 hours for atrial fibrillation. Echocardiogram showed normal LV function with negative bubble study ruling out intracardiac shunting. No significant carotid atherosclerotic disease. cryptogenic stroke. Long-term surveillance for atrial fibrillation is recommended. Implantable loop recorder done on 09/19/2019. DC telemetry. Mild dementia, deferred to the primary team. Diabetes, was on metformin. Hyperlipidemia, atorvastatin. PVCs, will follow clinically. Thank you for your consultation. Please call me if you have any questions. Sulma Veliz MD, FACP, FACC, FSCAI, FHRS, CCDS Interventional Cardiology Cardiac Electrophysiology Vascular Medicine and Endovascular Interventions Jaiden VELIZ MD October 02, 2019 10:23
--- NOTE | 2019-10-02 10:40 | PM&R Progress Note ---
Subjective HPI/CC On Admission Date Seen by Provider: October 02, 2019 Time Seen by Provider: 10:45 Subjective/Events-last exam [facility] has accepted patient on Saturday since [facility] denied Slept pretty well last night Sugar improved on low doses of OHA and Metformin Overall feels pretty good and has no other concerns Overall participating in all therapy Participating in therapy very well Checked meds and labs Reviewed therapy notes Conferred with block engraver of Systems Neurological: Confusion Objective Exam Vital Signs Vital Signs Date Time Temp Pulse Resp B/P (MAP) Pulse Ox O2 Delivery O2 Flow Rate FiO2 10/03/19 06:17 36.6 67 18 151/80 (103) 96 Room Air Capillary Refill : Less Than 3 Seconds General Appearance: No Apparent Distress, WD/WN, Chronically ill HEENT: PERRL/EOMI, Normal ENT Inspection, Pharynx Normal, Other Neck: Full Range of Motion, Normal Inspection, Non Tender, Supple, Carotid Bruit Respiratory: Chest Non Tender, Lungs Clear, Normal Breath Sounds, No Accessory Muscle Use, No Respiratory Distress Cardiovascular: Regular Rate, Rhythm, No Edema, No Gallop, No JVD, No Murmur, Normal Peripheral Pulses Gastrointestinal: Normal Bowel Sounds, No Organomegaly, No Pulsatile Mass, Non Tender, Soft Back: Normal Inspection, No CVA Tenderness, No Vertebral Tenderness Extremity: Normal Capillary Refill, Normal Inspection, Normal Range of Motion, Non Tender, No Calf Tenderness, No Pedal Edema Neurologic/Psychiatric: Alert, Oriented x3, Normal Mood/Affect, tree doctor II-XII Norm as Tested, Abnormal Gait, Motor Weakness Skin: Normal Color, Warm/Dry Lymphatic: No Adenopathy Results/Procedures Lab Patient resulted labs reviewed. FIM Transfers Therapy Code Descriptions/Definitions Functional [place] Measure: 0=Not Assessed/NA 4=Minimal Assistance 1=Total Assistance 5=Supervision or Setup 2=Maximal Assistance 6=Modified [place] 3=Moderate Assistance 7=Complete IndependenceSCALE: Activities may be completed with or without assistive devices. 5-Emhnumcbad-esaapmq completes the activity by him/herself with no assistance from a helper. 5-Set-up or Clean-up Assistance-helper sets up or cleans up; patient completes activity. [place] assists only prior to or following the activity. 4-Supervision or Touching Assistance-helper provides verbal cues and/or touching/steadying and/or contact guard assistance as patient completes activity. Assistance may be provided throughout the activity or intermittently. 3-Partial/Moderate Assistance-helper does LESS THAN HALF the effort. [place] lifts, holds or supports trunk or limbs, but provides less than half the effort. 2-Substantial/Maximal Assistance-helper does MORE THAN HALF the effort. [place] lifts or holds trunk or limbs and provides more than half the effort. 5-Drngnfccv-pfduvv does ALL the effort. Patient does none of the effort to complete the activity. Or, the assistance of 2 or more helpers is required for the patient to complete the activity. If activity was not attempted, code reason: 7-Patient Refused. 9-Not Applicable-not attempted and the patient did not perform the activity before the current illness, exacerbation or injury. 10-Not Attempted due to Environmental Limitations-(lack of equipment, weather restraints, etc.). 88-Not Attempted due to Medical Conditions or Safety Concerns. Roll Left to Right (QC): 6 Sit to Lying (QC): 6 Sit to Stand (QC): 4 Chair/Gdi-ec-Vxiqa Xfer(QC): 4 Car Transfer (QC): 4 Gait Training Does the Patient Walk?: Yes Distance: 300', 120' Walk 10 feet (QC): 4 Walk 50 ft with 2 Turns(QC): 4 Walk 150 ft (QC): 4 Walking 10ft/uneven surface-QC: 4 Gait Persons Needed: 1 Gait Assistive Device: FWW Wheelchair Training Does the Pt Use a Wheelchair?: No Wheel 50 ft with 2 turns (QC): 9 Wheel 150 ft (QC): 9 Stair Training Stair Training: Handrails/: 2 handrails #of Steps: 12 1 Step (curb) (QC): 4 4 Steps (QC): 4 12 Steps (QC): 4 Stairs: Pattern: Reciprocal Balance Picking up an Object (QC): 4 ADL-Treatment Eating (QC): 6 Oral Hygiene (QC): 4 (SBA standing at sink) Bathing Location: L Arm, R Arm, L Upper Leg, R Upper Leg, L Lower Leg (including foot), R Lower Leg (including foot), Chest, Abdomen, Buttocks, Perineal Area Shower/Bathe Self (QC): 4 (Pt required verbal cues for sequencing and safety throughout task. He was able to wash all parts.) Upper Body Dressing (QC): 4 (Pt attempted to put shirt on his legs, requiring verbal cue to put on over his head. Pt then had shirt on backwards requiring cue to turn it around.) Lower Body Dressing (QC): 4 (Pt attempted to put on underwear by putting his leg through the side hole instead of through the top of the underwear. He required cue for correct orientation. Pt then able to don underwear and pants with SBA.) On/Off Footwear (QC): 5 (set up) Toileting Hygiene (QC): 4 (SBA, pt completed hygiene and clothing mangement) Toilet Transfer (QC): 4 (SBA) Assessment/Plan Assessment and Plan Assess & Plan/Chief Complaint Assessment: Acute and subacute strokes on MRI with negative CT scan Instability unable to walk in previous independent patient Dementia DM HTN HLP Abnl UA but Cx no pathological bacteria so will DC Rocephin s/p Loop recorder 09/19/19 Hypoglycemia holding meds restarted meds at low dose Plan: CVA protocol Rehab protocol Statin ASA Cardiology consultation is appreciated Add low dose OHA to Metformin (1) CVA (cerebrovascular accident) (2) Risk for falls (3) Hyperlipemia (4) Diabetes (5) Unsteady gait Status: Acute (6) Dementia Status: Acute (7) Status post placement of implantable loop recorder SIA DUGGAN DO October 02, 2019 10:40
--- NOTE | 2019-10-02 11:02 | Speech Therapy Daily Note ---
Speech Daily Progress Note Subjective Date Seen by Provider: October 02, 2019 Time Seen by Provider: 00:30 Patient was resting in his bed following PT when I entered his room. Patient participated with decreased verbal prompts this date. Objective Patient completed object search task with 80% accuracy with moderate visual/verbal cues. Assessment Assessment Current Status: Fair Progress Treatment Plan Continue Plan of Care Speech Short Term Goals Short Term Goals Short Term Goals 1) Patient will complete memory tasks related to his daily needs at 80% with minimal cues. 2) Patient will complete problem solving tasks related to his daily needs at 80% with minimal cues. 3) Patient will complete safety awareness tasks related to his daily needs at 80% with minimal cues. Speech Fdc Goals Relations Coordinator Goals Patient will improve cognitive-communication necessary for safety and daily living tasks with minimal assist. Speech-Plan Patient/Family Goals Patient/Family Goals: Patient is scheduled to go to a local SNF upon insurance approval. Treatment Plan Speech Therapy Treatment Plan: Continue Plan of Care Treatment Duration: Sep 21, 2019 Frequency: 5 times per week Estimated Hrs Per Day: .5 hour per day Rehab Potential: Guarded Barriers to Learning: Patient's recent CVA and dementia Pt/Family Agrees to Plan: Yes Safety Risks/Education Teaching Recipient: Patient Teaching Methods: Demonstration, Discussion Response to Teaching: Verbalize Understanding, Return Demonstration Education Topics Provided: Continued safety within his room and communication of wants/needs Time Speech Therapy Time In: 10:30 Speech Therapy Time Out: 11:00 Total Billed Time: 30 Billed Treatment Time 1EVELYN [address]ETH[address] ST October 02, 2019 11:02
--- NOTE | 2019-10-02 11:08 | Occupational Ther Daily Note ---
OT Current Status-Daily Note Subjective Pt alert, lying in bed. Pt agrees to therapy. No c/o pain at this time. Mental Status/Objective Patient Orientation: Person, Situation ADL-Treatment Pt agrees to shower. Pt ambulates into bathroom. Transfers onto toilet using FWW and grabbars independently. Completes hygiene and clothing manipulation independently. Transfers into shower with supervision using grabbars, FWW and shower bench. Pt completes shower in standing using grabbars and hand held shower with supervision for safety. Pt completes dressing by self after set up. Standing at sink, pt completes own oral care and grooming. Pt is able to cut food, open containers and use regular utensils to eat. Therapy Code Descriptions/Definitions Functional [place] Measure: 0=Not Assessed/NA 4=Minimal Assistance 1=Total Assistance 5=Supervision or Setup 2=Maximal Assistance 6=Modified [place] 3=Moderate Assistance 7=Complete IndependenceSCALE: Activities may be completed with or without assistive devices. 3-Vjqynjjomu-iqxbzvc completes the activity by him/herself with no assistance from a helper. 5-Set-up or Clean-up Assistance-helper sets up or cleans up; patient completes activity. [place] assists only prior to or following the activity. 4-Supervision or Touching Assistance-helper provides verbal cues and/or to uching/steadying and/or contact guard assistance as patient completes activity. Assistance may be provided throughout the activity or intermittently. 3-Partial/Moderate Assistance-helper does LESS THAN HALF the effort. [place] lifts, holds or supports trunk or limbs, but provides less than half the effort. 2-Substantial/Maximal Assistance-helper does MORE THAN HALF the effort. [place] lifts or holds trunk or limbs and provides more than half the effort. 5-Fsapsjcpk-dellhm does ALL the effort. Patient does none of the effort to complete the activity. Or, the assistance of 2 or more helpers is required for the patient to complete the activity. If activity was not attempted, code reason: 7-Patient Refused. 9-Not Applicable-not attempted and the patient did not perform the activity before the current illness, exacerbation or injury. 10-Not Attempted due to Environmental Limitations-(lack of equipment, weather restraints, etc.). 88-Not Attempted due to Medical Conditions or Safety Concerns. Eating (QC): 6 Oral Hygiene (QC): 6 Bathing Location: L Arm, R Arm, L Upper Leg, R Upper Leg, L Lower Leg (including foot), R Lower Leg (including foot), Chest, Abdomen, Buttocks, Perineal Area Shower/Bathe Self (QC): 4 (Supervision for safety.) Upper Body Dressing (QC): 5 Lower Body Dressing (QC): 5 On/Off Footwear: 5 Toileting Hygiene (QC): 6 Toilet Transfer (QC): 6 Other Treatment Pt ambulates to gym using FWW. Arm bike completed for 15 min at 20 lima resistance to increase strength and activity tolerance for daily functional tasks. Pt then worked on 2-3 step directions with ambulation around ARU unit. Pt able to follow 2 step directs without cues for reminders though required minimal cueing with 3 step directions. Pt then completed 4 B UE exercises for strengthening 2 sets 10 reps. After session, pt is eating lunch sitting in recliner with call light/phone in reach. All needs met in room. Safety measures in place. OT Dray Truck Driver Goals Dray Truck Driver Goals Time Frame: October 16, 2019 Eating (QC): 6 (met) Oral Hygiene (QC): 6 (met) Toileting Hygiene (QC): 6 (met) Shower/Bathe Self (QC): 6 (not met) Upper Body Dressing (QC): 6 (not met) Lower Body Dressing (QC): 6 (not met) On/Off Footwear (QC): 6 (not met) Additional Goals: 1-Demonstrate ADL Tasks, 2-Verbalize Understanding, 3- ImproveStrength/[place] 1=Demonstrate adherence to instructed precautions during ADL tasks. 2=Patient will verbalize/demonstrate understanding of assistive devices/modifications for ADL. 3=Patient will improve strength/tolerance for activity to enable patient to perform ADL's. OT Education/Plan Problem List/Assessment Assessment: Decreased Activ Tolerance, Decreased Safety Aware, Impaired Self- Care Skills Discharge Recommendations Plan/Recommendations: Continue POC Treatment Plan/Plan of Care Patient would benefit from OT for education, treatment and training to promote independence in ADL's, mobility, safety and/or upper extremity function for ADL's. Plan of Care: ADL Retraining, Functional Mobility, Group Exercise/Act as Ind, UE Funct Exercise/Act Treatment Duration: October 16, 2019 Frequency: At least 5 of 7 days/Wk (IRF) Estimated Hrs Per Day: 1.5 hours per day Agreement: Yes Rehab Potential: Guarded Time/GCodes Start Time: 11:00 Stop Time: 12:15 Total Time Billed (hr/min): 75 Billed Treatment Time 1 visit-ADL 2 (30 min) EX 2 (30 min) FA1 (15 min) NITZA LEON October 02, 2019 11:08
--- NOTE | 2019-10-02 13:01 | NUR ---
CM/SS DISCHARGE PLANNING Updated by [facility] SW/Roxie patient's insurance denied skilled benefits. Multiple contacts this morning in an attempt to find alternative discharge options. [facility] will only consider patient if he is screened through their contract [facility] agency, [facility]. This separate entity then works with patient/family regarding likelihood patient would meet criteria for [facility]. They may also require patient/family to "contract" with them for pursuing medicaid benefits. [facility] knowing the basic "uninsured" status of immediate admission. Await confirmation of decision. Spoke with [facility]/Ilene, she inquired about patient situation through [employer] network. They reported that patient will likely have an obligation to pay all his income toward his LTC facility with the exception of the $62 monthly allowance for personal needs. Best plan is that patient's receiving facility would pursue the LTC Medicaid for continuity due to length of the process. Continue follow through on all pending next steps.
--- NOTE | 2019-10-02 14:25 | Physical Therapy Daily Note ---
PT Daily Note-Current Subjective Patient in recliner pre tx, agrees to PT, has no complaints of pain. Appearance Patient in recliner post tx with nurse call, phone, tray, all needs met. Mental Status Patient Orientation: Person, Confused, [place] Transfers SCALE: Activities may be completed with or without assistive devices. 8-Rxomckmmtf-iurzbmz completes the activity by him/herself with no assistance from a helper. 5-Set-up or Clean-up Assistance-helper sets up or cleans up; patient completes activity. [place] assists only prior to or following the activity. 4-Supervision or Touching Assistance-helper provides verbal cues and/or to uching/steadying and/or contact guard assistance as patient completes activity. Assistance may be provided throughout the activity or intermittently. 3-Partial/Moderate Assistance-helper does LESS THAN HALF the effort. [place] lifts, holds or supports trunk or limbs, but provides less than half the effort. 2-Substantial/Maximal Assistance-helper does MORE THAN HALF the effort. [place] lifts or holds trunk or limbs and provides more than half the effort. 0-Bncfovqqb-lxdxcj does ALL the effort. Patient does none of the effort to complete the activity. Or, the assistance of 2 or more helpers is required for the patient to complete the activity. If activity was not attempted, code reason: 7-Patient Refused. 9-Not Applicable-not attempted and the patient did not perform the activity before the current illness, exacerbation or injury. 10-Not Attempted due to Environmental Limitations-(lack of equipment, weather restraints, etc.). 88-Not Attempted due to Medical Conditions or Safety Concerns. Sit to Stand (QC): 4 Chair/Xbf-ts-Rbtym Xfer(QC): 4 SBA Weight Bearing Right Lower Extremity: Right Full Weight Bearing Left Lower Extremity: Left Full Weight Bearing Gait Training Distance: 300'x2 Walk 10 feet (QC): 4 Walk 50 ft with 2 Turns(QC): 4 Walk 150 ft (QC): 4 Gait Assistive Device: FWW SBA, much more steady ambulation, less cues needed for safety Exercises Standing: Hamstring curls, Heel/toe raises, Marching, Mini squats Standing Reps: 15 Treatments transfers, ambulation, functional strengthening Assessment Current Status: Fair Progress improved stability during ambulation PT Long-Term Goals Long-Term Goals PT Dehydrator Tender Goals Time Frame: October 03, 2019 Roll Left & Right (QC): 6 Sit to Lying (QC): 6 Lying-Sitting on Side/Bed(QC): 6 Sit to Stand (QC): 6 Chair/Nce-la-Jaynn Xfer(QC): 6 Toilet Transfer (QC): 6 Car Transfer (QC): 6 Does the Patient Walk: Yes Walk 10 feet (QC): 6 Walk 50ft with 2 Turns (QC): 6 Walk 150 ft (QC): 6 Walking 10ft on Uneven Surface: 6 1 Step (curb) (QC): 6 4 Steps (QC): 4 12 Steps (QC): 4 Picking up an Object (QC): 6 Wheel 50 feet with 2 turns (QC: 9 Wheel 150 feet: 9 PT Plan Problem List Problem List: Activity Tolerance, Functional Strength, Safety, Balance, Gait, Transfer Treatment/Plan Treatment Plan: Continue Plan of Care Treatment Plan: Bed Mobility, Education, Functional Activity [place], Functional Strength, Gait, Safety, Therapeutic Exercise, Transfers Treatment Duration: October 03, 2019 Frequency: 6 times per week Estimated Hrs Per Day: 1.5 hours per day Patient and/or Family Agrees t: Yes Safety Risks/Education Patient Education: Gait Training, Transfer Techniques, Correct Positioning, Safety Issues Teaching Recipient: Patient Teaching Methods: Demonstration, Discussion Response to Teaching: Reinforcement Needed Time/GCodes Time In: 1400 Time Out: 1425 Total Billed Treatment Time: 25 Total Billed Treatment 1 visit EX 10' GT 15' CHA ORR PT October 02, 2019 14:25
[2019-10-02 16:00] VITALS: BP 112/64
[2019-10-02] MEDS: ENOXAPARIN 40 MG/0.4 ML (LOVENOX) SYR SC SCH (20:06)
[2019-10-03] MEDS: glyBURIDE 2.5 MG (MICRONASE) TAB PO SCH (06:15)
[2019-10-03] MEDS: metFORMIN 500 MG (GLUCOPHAGE) TAB PO SCH ×2 (06:15→16:35)
[2019-10-03 06:17] VITALS: BP 151/80
[2019-10-03] MEDS: ASPIRIN E.C. 81 MG (ECOTRIN) TAB PO SCH (08:16)
[2019-10-03] MEDS: SENNA W/DOCUSATE (SENOKOT S) TABLET PO SCH ×2 (08:17→20:50)
[2019-10-03] MEDS: busPIRone 10 MG (BUSPAR) TAB PO SCH ×3 (08:17→20:50)
[2019-10-03] MEDS: amLODIPine 5 MG (NORVASC) TAB PO SCH (08:17)
[2019-10-03] MEDS: DOCUSATE SODIUM 100 MG (COLACE) CAP PO SCH ×2 (08:17→20:50)
--- NOTE | 2019-10-03 09:08 | Physical Therapy Daily Note ---
PT Daily Note-Current Subjective Pt.states he is tired but agrees to therapy. Pain Location: No Pain Reported Mental Status Patient Orientation: Person Transfers SCALE: Activities may be completed with or without assistive devices. 9-Kmzatzjozn-iplshkr completes the activity by him/herself with no assistance from a helper. 5-Set-up or Clean-up Assistance-helper sets up or cleans up; patient completes activity. [place] assists only prior to or following the activity. 4-Supervision or Touching Assistance-helper provides verbal cues and/or touching/steadying and/or contact guard assistance as patient completes activity. Assistance may be provided throughout the activity or intermittently. 3-Partial/Moderate Assistance-helper does LESS THAN HALF the effort. [place] lifts, holds or supports trunk or limbs, but provides less than half the effort. 2-Substantial/Maximal Assistance-helper does MORE THAN HALF the effort. [place] lifts or holds trunk or limbs and provides more than half the effort. 0-Jimzxoeai-uqmdtl does ALL the effort. Patient does none of the effort to complete the activity. Or, the assistance of 2 or more helpers is required for the patient to complete the activity. If activity was not attempted, code reason: 7-Patient Refused. 9-Not Applicable-not attempted and the patient did not perform the activity before the current illness, exacerbation or injury. 10-Not Attempted due to Environmental Limitations-(lack of equipment, weather restraints, etc.). 88-Not Attempted due to Medical Conditions or Safety Concerns. Roll Left & Right (QC): 6 Sit to Lying (QC): 6 Lying to Sitting/Side of Bed(Q: 6 Sit to Stand (QC): 6 Chair/Grz-kt-[place] Xfer(QC): 6 Weight Bearing Right Lower Extremity: Right Full Weight Bearing Left Lower Extremity: Left Full Weight Bearing Gait Training Does the Patient Walk?: Yes Walk 10 feet (QC): 5 Walk 50 ft with 2 Turns(QC): 5 Walk 150 ft (QC): 5 Gait Persons Needed: 1 Gait Assistive Device: FWW continues to require cues to slow down, stay closer to AD and think " balance and control " every step for safety Exercises Seated Therapy Exercises: Ankle pumps, Sit to stand, Long arc quads, Hip flexion Seated Reps: 12 NuStep Minutes: 8 NuStep Workload: 5 Assessment Current Status: Good Progress PT Mcc Goals Manager Online Goals PT Manager Online Goals Time Frame: October 03, 2019 Roll Left & Right (QC): 6 Sit to Lying (QC): 6 Lying-Sitting on Side/Bed(QC): 6 Sit to Stand (QC): 6 Chair/Rbg-xc-Qcmnq Xfer(QC): 6 Toilet Transfer (QC): 6 Car Transfer (QC): 6 Does the Patient Walk: Yes Walk 10 feet (QC): 6 Walk 50ft with 2 Turns (QC): 6 Walk 150 ft (QC): 6 Walking 10ft on Uneven Surface: 6 1 Step (curb) (QC): 6 4 Steps (QC): 4 12 Steps (QC): 4 Picking up an Object (QC): 6 Wheel 50 feet with 2 turns (QC: 9 Wheel 150 feet: 9 PT Plan Treatment/Plan Treatment Plan: Continue Plan of Care Treatment Plan: Bed Mobility, Education, Functional Activity [place], Functional Strength, Gait, Safety, Therapeutic Exercise, Transfers Treatment Duration: October 03, 2019 Frequency: 6 times per week Estimated Hrs Per Day: 1.5 hours per day Patient and/or Family Agrees t: Yes Safety Risks/Education Patient Education: Gait Training, Transfer Techniques, Correct Positioning, Disease Process, Safety Issues Teaching Recipient: Patient Teaching Methods: Demonstration, Discussion Response to Teaching: Reinforcement Needed Time/GCodes Time In: 820 Time Out: 835 Total Billed Treatment Time: 15 Total Billed Treatment 1,GT15m JUAN VILLALBA PSYCHIATRIC THERAPIST October 03, 2019 09:08
--- NOTE | 2019-10-03 11:00 | NUR ---
GLUCOSE CHECK; 247; PREVIOUS SLIDING SCALE ORDER HELD. DR NOTIFIED, NO NEW ORDERS AT THIS TIME.
--- NOTE | 2019-10-03 12:39 | PM&R Progress Note ---
Subjective HPI/CC On Admission Date Seen by Provider: October 03, 2019 Time Seen by Provider: 12:45 Subjective/Events-last exam [facility] has accepted patient on Saturday since [facility] denied Slept pretty well last night Sugar improved on low doses of OHA and Metformin, had a high sugar today but for the most part he is managed fairly well Overall feels pretty good and has no other concerns Overall participating in all therapy Participating in therapy very well Checked meds and labs Reviewed therapy notes Conferred with design maintenance engineer of Systems General: Fatigue Neurological: Incoordination, Confusion Objective Exam Vital Signs Vital Signs Date Time Temp Pulse Resp B/P (MAP) Pulse Ox O2 Delivery O2 Flow Rate FiO2 10/03/19 17:52 37.2 63 16 143/78 (99) 96 Room Air Capillary Refill : Less Than 3 Seconds General Appearance: No Apparent Distress, WD/WN, Chronically ill HEENT: PERRL/EOMI, Normal ENT Inspection, Pharynx Normal, Other Neck: Full Range of Motion, Normal Inspection, Non Tender, Supple, Carotid Bruit Respiratory: Chest Non Tender, Lungs Clear, Normal Breath Sounds, No Accessory Muscle Use, No Respiratory Distress Cardiovascular: Regular Rate, Rhythm, No Edema, No Gallop, No JVD, No Murmur, Normal Peripheral Pulses Gastrointestinal: Normal Bowel Sounds, No Organomegaly, No Pulsatile Mass, Non Tender, Soft Back: Normal Inspection, No CVA Tenderness, No Vertebral Tenderness Extremity: Normal Capillary Refill, Normal Inspection, Normal Range of Motion, Non Tender, No Calf Tenderness, No Pedal Edema Neurologic/Psychiatric: Alert, Oriented x3, Normal Mood/Affect, sand slinger II-XII Norm as Tested, Abnormal Gait, Motor Weakness Skin: Normal Color, Warm/Dry Lymphatic: No Adenopathy Results/Procedures Lab Patient resulted labs reviewed. FIM Transfers Therapy Code Descriptions/Definitions Functional [place] Measure: 0=Not Assessed/NA 4=Minimal Assistance 1=Total Assistance 5=Supervision or Setup 2=Maximal Assistance 6=Modified [place] 3=Moderate Assistance 7=Complete IndependenceSCALE: Activities may be completed with or without assistive devices. 4-Rachbuorhj-ygmbytp completes the activity by him/herself with no assistance from a helper. 5-Set-up or Clean-up Assistance-helper sets up or cleans up; patient completes activity. [place] assists only prior to or following the activity. 4-Supervision or Touching Assistance-helper provides verbal cues and/or touching/steadying and/or contact guard assistance as patient completes activity. Assistance may be provided throughout the activity or intermittently. 3-Partial/Moderate Assistance-helper does LESS THAN HALF the effort. [place] lifts, holds or supports trunk or limbs, but provides less than half the effort. 2-Substantial/Maximal Assistance-helper does MORE THAN HALF the effort. [place] lifts or holds trunk or limbs and provides more than half the effort. 3-Hqdnkupne-acxhvq does ALL the effort. Patient does none of the effort to complete the activity. Or, the assistance of 2 or more helpers is required for the patient to complete the activity. If activity was not attempted, code reason: 7-Patient Refused. 9-Not Applicable-not attempted and the patient did not perform the activity before the current illness, exacerbation or injury. 10-Not Attempted due to Environmental Limitations-(lack of equipment, weather restraints, etc.). 88-Not Attempted due to Medical Conditions or Safety Concerns. Roll Left to Right (QC): 6 Sit to Lying (QC): 6 Sit to Stand (QC): 6 Chair/Vgw-ap-Ywcvx Xfer(QC): 6 Car Transfer (QC): 4 Gait Training Does the Patient Walk?: Yes Distance: 300'x2 Walk 10 feet (QC): 5 Walk 50 ft with 2 Turns(QC): 5 Walk 150 ft (QC): 5 Walking 10ft/uneven surface-QC: 4 Gait Persons Needed: 1 Gait Assistive Device: FWW Wheelchair Training Does the Pt Use a Wheelchair?: No Wheel 50 ft with 2 turns (QC): 9 Wheel 150 ft (QC): 9 Stair Training Stair Training: Handrails/: 2 handrails #of Steps: 12 1 Step (curb) (QC): 4 4 Steps (QC): 4 12 Steps (QC): 4 Stairs: Pattern: Reciprocal Balance Picking up an Object (QC): 4 ADL-Treatment Eating (QC): 6 Oral Hygiene (QC): 6 Bathing Location: L Arm, R Arm, L Upper Leg, R Upper Leg, L Lower Leg (including foot), R Lower Leg (including foot), Chest, Abdomen, Buttocks, Perineal Area Shower/Bathe Self (QC): 4 (Supervision for safety.) Upper Body Dressing (QC): 5 Lower Body Dressing (QC): 5 On/Off Footwear (QC): 5 Toileting Hygiene (QC): 6 Toilet Transfer (QC): 6 Assessment/Plan Assessment and Plan Assess & Plan/Chief Complaint Assessment: Acute and subacute strokes on MRI with negative CT scan Instability unable to walk in previous independent patient Dementia DM HTN HLP Abnl UA but Cx no pathological bacteria so will DC Rocephin s/p Loop recorder 09/19/19 Hypoglycemia holding meds restarted meds at low dose Plan: CVA protocol Rehab protocol Statin ASA Cardiology consultation is appreciated Add low dose OHA to Metformin (1) CVA (cerebrovascular accident) (2) Risk for falls (3) Hyperlipemia (4) Diabetes (5) Unsteady gait Status: Acute (6) Dementia Status: Acute (7) Status post placement of implantable loop recorder SIA DUGGAN DO October 03, 2019 12:38
[2019-10-03 16:12] VITALS: BP 135/71
--- NOTE | 2019-10-03 16:35 | NUR ---
PT UP WITH 1 ASSIST, WALKER, GAIT BELT. WALKS LENGTH OF 4 HALLWAYS WITH RN. RETURNS TO ROOM, TO CHAIR FOR SUPPER. TOLERATES WALKING WITH MINIMAL LEFT LEAN AND 1 REMINDER FOR CORRECT WALKER USE. WILL CON'T TO MONITOR.
[2019-10-03 17:52] VITALS: BP 143/78
--- NOTE | 2019-10-03 18:30 | NUR ---
PT SON CALLS FLOOR TO CHECK ON HIM, UNABLE TO REACH PARENT WHEN CALLED TO ROOM. ASSISTANCE GIVEN BY RN ET PCT TO CONNECT PHONECALL TO ROOM FOR ANSWER AND CONVERSATION. PATIENT HAS 15MINUTE CONVERSATION WITH SON.
--- NOTE | 2019-10-03 20:28 | NUR ---
patient ambulated approx 500' with fww, gait belt for safety. no rest breaks. patient tolerated well. patient self corrects left leaning gait. patient engaged appropriately in conversation with this staff. needed reminder to room location. denies needs or c/o. cont to monitor.
[2019-10-03] MEDS: ENOXAPARIN 40 MG/0.4 ML (LOVENOX) SYR SC SCH (20:50)
[2019-10-04 05:54] VITALS: BP 159/83
[2019-10-04 06:09] LABS: BASOPHILS % (AUTO) 1 % (0-10); EOSINOPHILS # (AUTO) 0.1 10^3/uL (0.0-0.3); EOSINOPHILS % (AUTO) 2 % (0-10); HEMATOCRIT 41 % (40-54); HEMOGLOBIN 13.7 G/DL (13.3-17.7); LYMPHOCYTES # (AUTO) 1.5 X 10^3 (1.0-4.0); LYMPHOCYTES % (AUTO) 24 % (12-44); MEAN CORPUSCULAR HEMOGLOBIN 28 PG (25-34); MEAN CORPUSCULAR HGB CONC 33 G/DL (32-36); MEAN CORPUSCULAR VOLUME 84 FL (80-99); MEAN PLATELET VOLUME 11.1 FL (7.4-10.4); MONOCYTES # (AUTO) 0.6 X 10^3 (0.0-1.0); MONOCYTES % (AUTO) 10 % (0-12); NEUTROPHILS # (AUTO) 4.1 X 10^3 (1.8-7.8); NEUTROPHILS % (AUTO) 64 % (42-75); PLATELET COUNT 237 10^3/uL (130-400); RED CELL DISTRIBUTION WIDTH 14.3 % (10.0-14.5); WHITE BLOOD COUNT 6.4 10^3/uL (4.3-11.0)
[2019-10-04] MEDS: metFORMIN 500 MG (GLUCOPHAGE) TAB PO SCH ×2 (06:11→16:26)
[2019-10-04] MEDS: glyBURIDE 2.5 MG (MICRONASE) TAB PO SCH (06:11)
[2019-10-04 06:40] LABS: CHLORIDE 107 MMOL/L (98-107); SODIUM 140 MMOL/L (135-145)
[2019-10-04 06:41] LABS: CALCIUM 9.2 MG/DL (8.5-10.1)
[2019-10-04 06:42] LABS: GLUCOSE 138 MG/DL (70-105); TOTAL PROTEIN 6.9 GM/DL (6.4-8.2)
[2019-10-04 06:43] LABS: CARBON DIOXIDE 24 MMOL/L (21-32)
[2019-10-04 06:44] LABS: BILIRUBIN,TOTAL 0.8 MG/DL (0.1-1.0)
[2019-10-04 06:45] LABS: ALKALINE PHOSPHATASE 90 U/L (40-136)
[2019-10-04 06:46] LABS: CREATININE SERUM 1.12 MG/DL (0.60-1.30); GFR ESTIMATED > 60
[2019-10-04 06:47] LABS: BUN/CREATININE RATIO 27
[2019-10-04 06:48] LABS: ALANINE AMINOTRANSFERASE 22 U/L (0-55)
[2019-10-04] MEDS: DOCUSATE SODIUM 100 MG (COLACE) CAP PO SCH ×2 (08:36→21:17)
[2019-10-04] MEDS: busPIRone 10 MG (BUSPAR) TAB PO SCH ×3 (08:36→21:15)
[2019-10-04] MEDS: ASPIRIN E.C. 81 MG (ECOTRIN) TAB PO SCH (08:36)
[2019-10-04] MEDS: amLODIPine 5 MG (NORVASC) TAB PO SCH (08:36)
[2019-10-04] MEDS: SENNA W/DOCUSATE (SENOKOT S) TABLET PO SCH ×2 (08:36→21:17)
--- NOTE | 2019-10-04 10:31 | PM&R Progress Note ---
Subjective HPI/CC On Admission Date Seen by Provider: October 04, 2019 Time Seen by Provider: 13:00 Subjective/Events-last exam [facility] has accepted patient on Saturday Slept pretty well last night Sugar improved on low doses of OHA and Metformin, had a high sugar today but for the most part he is managed fairly well Overall feels pretty good and has no other concerns No pain reported Overall participating in all therapy Participating in therapy very well Checked meds and labs Reviewed therapy notes Conferred with asbestos siding installer of Systems General: Fatigue Neurological: Weakness, Confusion Objective Exam Vital Signs Vital Signs Date Time Temp Pulse Resp B/P (MAP) Pulse Ox O2 Delivery O2 Flow Rate FiO2 10/04/19 17:19 37.2 60 18 130/68 (88) 96 Room Air Capillary Refill : Less Than 3 Seconds General Appearance: No Apparent Distress, WD/WN, Chronically ill HEENT: PERRL/EOMI, Normal ENT Inspection, Pharynx Normal, Other Neck: Full Range of Motion, Normal Inspection, Non Tender, Supple, Carotid Bruit Respiratory: Chest Non Tender, Lungs Clear, Normal Breath Sounds, No Accessory Muscle Use, No Respiratory Distress Cardiovascular: Regular Rate, Rhythm, No Edema, No Gallop, No JVD, No Murmur, Normal Peripheral Pulses Gastrointestinal: Normal Bowel Sounds, No Organomegaly, No Pulsatile Mass, Non Tender, Soft Back: Normal Inspection, No CVA Tenderness, No Vertebral Tenderness Extremity: Normal Capillary Refill, Normal Inspection, Normal Range of Motion, Non Tender, No Calf Tenderness, No Pedal Edema Neurologic/Psychiatric: Alert, Oriented x3, Normal Mood/Affect, pull over II-XII Norm as Tested, Abnormal Gait, Motor Weakness Skin: Normal Color, Warm/Dry Lymphatic: No Adenopathy Results/Procedures Lab Laboratory Tests 10/04/19 05:45 Patient resulted labs reviewed. FIM Transfers Therapy Code Descriptions/Definitions Functional [place] Measure: 0=Not Assessed/NA 4=Minimal Assistance 1=Total Assistance 5=Supervision or Setup 2=Maximal Assistance 6=Modified [place] 3=Moderate Assistance 7=Complete IndependenceSCALE: Activities may be completed with or without assistive devices. 5-Ckchzoudbi-cadmuhd completes the activity by him/herself with no assistance from a helper. 5-Set-up or Clean-up Assistance-helper sets up or cleans up; patient completes activity. [place] assists only prior to or following the activity. 4-Supervision or Touching Assistance-helper provides verbal cues and/or touching/steadying and/or contact guard assistance as patient completes activity. Assistance may be provided throughout the activity or intermittently. 3-Partial/Moderate Assistance-helper does LESS THAN HALF the effort. [place] lifts, holds or supports trunk or limbs, but provides less than half the effort. 2-Substantial/Maximal Assistance-helper does MORE THAN HALF the effort. [place] lifts or holds trunk or limbs and provides more than half the effort. 8-Rusmtjonb-qrgdvj does ALL the effort. Patient does none of the effort to complete the activity. Or, the assistance of 2 or more helpers is required for the patient to complete the activity. If activity was not attempted, code reason: 7-Patient Refused. 9-Not Applicable-not attempted and the patient did not perform the activity before the current illness, exacerbation or injury. 10-Not Attempted due to Environmental Limitations-(lack of equipment, weather restraints, etc.). 88-Not Attempted due to Medical Conditions or Safety Concerns. Roll Left to Right (QC): 6 Sit to Lying (QC): 6 Sit to Stand (QC): 6 Chair/Iey-cu-Xyfia Xfer(QC): 6 Car Transfer (QC): 4 Gait Training Does the Patient Walk?: Yes Distance: 300'x2 Walk 10 feet (QC): 5 Walk 50 ft with 2 Turns(QC): 5 Walk 150 ft (QC): 5 Walking 10ft/uneven surface-QC: 4 Gait Persons Needed: 1 Gait Assistive Device: FWW Wheelchair Training Does the Pt Use a Wheelchair?: No Wheel 50 ft with 2 turns (QC): 9 Wheel 150 ft (QC): 9 Stair Training Stair Training: Handrails/: 2 handrails #of Steps: 12 1 Step (curb) (QC): 4 4 Steps (QC): 4 12 Steps (QC): 4 Stairs: Pattern: Reciprocal Balance Picking up an Object (QC): 4 ADL-Treatment Eating (QC): 6 Oral Hygiene (QC): 6 Bathing Location: L Arm, R Arm, L Upper Leg, R Upper Leg, L Lower Leg (including foot), R Lower Leg (including foot), Chest, Abdomen, Buttocks, Perineal Area Shower/Bathe Self (QC): 4 (Supervision for safety.) Upper Body Dressing (QC): 5 Lower Body Dressing (QC): 5 On/Off Footwear (QC): 5 Toileting Hygiene (QC): 6 Toilet Transfer (QC): 6 Assessment/Plan Assessment and Plan Assess & Plan/Chief Complaint Assessment: Acute and subacute strokes on MRI with negative CT scan Instability unable to walk in previous independent patient Dementia DM HTN HLP Abnl UA but Cx no pathological bacteria so will DC Rocephin s/p Loop recorder 09/19/19 Hypoglycemia holding meds restarted meds at low dose Plan: CVA protocol Rehab protocol Statin ASA Cardiology consultation is appreciated Add low dose OHA to Metformin DC [place] (1) CVA (cerebrovascular accident) (2) Risk for falls (3) Hyperlipemia (4) Diabetes (5) Unsteady gait Status: Acute (6) Dementia Status: Acute (7) Status post placement of implantable loop recorder SIA DUGGAN DO October 04, 2019 10:31
--- NOTE | 2019-10-04 16:00 | NUR ---
PT AMBULATES APPROXIMATELY 600 FT WITH FWW, GAIT BELT, ET STANDBY ASSIST WITH RN. SLIGHT LEFT LEAN NOTED, PT SELF-CORRECTS THROUGHOUT WALK. TOLERATES WELL, DENIES NEEDS OR C/O. WILL CON'T TO MONITOR.
[2019-10-04 17:19] VITALS: BP 130/68
[2019-10-04] MEDS ORDERED: GLYB2.5T4 PO (18:21)
[2019-10-04] MEDS ORDERED: BUSP10TA95 PO (18:21)
[2019-10-04] MEDS ORDERED: AMLO5TAB9 PO (18:21)
--- NOTE | 2019-10-04 18:22 | Discharge Inst-Skilled Nursing ---
Discharge [facility]-Skilled NF Reconcile Patient Problems Problems Reviewed?: Yes Patient Instructions Patient Problems: Stroke DM Dementia Impulsive movements Fall risk Goal: [place] Consult/Follow Up/Orders Follow Up Appt.: [facility] 1 week [place] on rounds at [place] [facility] Admit to: [facility] Certification (SNF) I certify that SNF services are required to be given on an inpatient basis because of the above named patient's need for intermediate care on a continuing basis for the conditions(s) for which he/she was receiving inpatient hospital services prior to his/her transfer to the SNF. Correction Facility Order: Nursing Services, Information Systems Operator-Evaluate & Treat, Physical Therapy-Evaluate & Treat, Speech Language-Evaluate & Treat Oxygen Delivery Method: Room Air Discharge Diet: ADA Diet Daily Activity as Tolerated: Yes Resuscitation Status: Full Code New & Resume Previous Orders New Medications: Amlodipine Besylate (Amlodipine Besylate) 5 Mg Tablet 5 MG PO DAILY for 365 Days, TAB Glyburide (Glyburide) 2.5 Mg Tablet 1.25 MG PO DAILY@0630 for 365 Days, TAB Continued Medications: Aspirin (Aspirin EC) 81 Mg Tablet.dr 81 MG PO DAILY, TAB Buspirone HCl (Buspirone HCl) 10 Mg Tablet 10 MG PO TID, #30 TAB (This prescription has been renewed) Escitalopram Oxalate (Escitalopram Oxalate) 20 Mg Tablet 20 MG PO DAILY, TAB Metformin HCl (Metformin HCl ER) 500 Mg Tab.er.24h 1000 MG PO BID, TAB TAKES 2 (500MG) TABS TWICE DAILY Rosuvastatin Calcium (Crestor) 40 Mg Tablet 40 MG PO DAILY, TAB Discontinued Medications: Glipizide (Glipizide ER) 10 Mg Tab.er.24 10 MG PO DAILY W/ BREAKFAST, TAB Nelda Tomlin October 04, 2019 18:21 Pneu Vac Indicated: Yes NELDA TOMLIN DO October 04, 2019 18:22
[2019-10-04] MEDS: ENOXAPARIN 40 MG/0.4 ML (LOVENOX) SYR SC SCH (21:15)
[2019-10-05 06:29] VITALS: BP 140/79
[2019-10-05] MEDS: glyBURIDE 2.5 MG (MICRONASE) TAB PO SCH (06:44)
[2019-10-05] MEDS: metFORMIN 500 MG (GLUCOPHAGE) TAB PO SCH (06:44)
[2019-10-05] MEDS: amLODIPine 5 MG (NORVASC) TAB PO SCH (07:58)
[2019-10-05] MEDS: ASPIRIN E.C. 81 MG (ECOTRIN) TAB PO SCH (07:58)
[2019-10-05] MEDS: busPIRone 10 MG (BUSPAR) TAB PO SCH ×2 (07:58→13:34)
--- NOTE | 2019-10-05 08:40 | Occupational Ther Daily Note ---
OT Current Status-Daily Note Subjective Pt sleeping in bed. Pt agrees to therapy. Pt non-communicative though agreeable throughout treatment. Mental Status/Objective Patient Orientation: Person, Place, Time, Situation ADL-Treatment Pt agrees to shower. Pt ambulated to bathroom(SBA) and transfers to toilet using FWW (mod I). Mod I for hygiene and clothing manipulation. There is safety concerns with pt's impulsiveness. Pt able to complete shower with supervision using shower bench, grabbar and hand held shower. After set up, pt complete upper and lower body dressing. Sitting at sink, pt able to complete oral care mod I. Pt then ambulated to laundry room and completed laundry with SBA. Pt then ambulated back to room and requested to go to bathroom again. After therapy, pt lying in bed with call light/phone in reach. Safety measures in place. Therapy Code Descriptions/Definitions Functional [place] Measure: 0=Not Assessed/NA 4=Minimal Assistance 1=Total Assistance 5=Supervision or Setup 2=Maximal Assistance 6=Modified [place] 3=Moderate Assistance 7=Complete IndependenceSCALE: Activities may be completed with or without assistive devices. 6-Duolllrgsg-tqxryfz completes the activity by him/herself with no assistance from a helper. 5-Set-up or Clean-up Assistance-helper sets up or cleans up; patient completes activity. [place] assists only prior to or following the activity. 4-Supervision or Touching Assistance-helper provides verbal cues and/or touching/steadying and/or contact guard assistance as patient completes activity. Assistance may be provided throughout the activity or intermittently. 3-Partial/Moderate Assistance-helper does LESS THAN HALF the effort. [place] lifts, holds or supports trunk or limbs, but provides less than half the effort. 2-Substantial/Maximal Assistance-helper does MORE THAN HALF the effort. [place] lifts or holds trunk or limbs and provides more than half the effort. 8-Osorvwnxm-sdiuge does ALL the effort. Patient does none of the effort to complete the activity. Or, the assistance of 2 or more helpers is required for the patient to complete the activity. If activity was not attempted, code reason: 7-Patient Refused. 9-Not Applicable-not attempted and the patient did not perform the activity before the current illness, exacerbation or injury. 10-Not Attempted due to Environmental Limitations-(lack of equipment, weather restraints, etc.). 88-Not Attempted due to Medical Conditions or Safety Concerns. Eating (QC): 6 (Using clinical judgement, pt is able to set self up and uses regular utensils to eat.) Oral Hygiene (QC): 6 Shower/Bathe Self (QC): 4 (Supervision) Upper Body Dressing (QC): 5 Lower Body Dressing (QC): 5 On/Off Footwear: 5 Toileting Hygiene (QC): 6 Toilet Transfer (QC): 6 OT Elementary Substitute Teacher Goals Jail Goals Time Frame: October 16, 2019 Eating (QC): 6 (met) Oral Hygiene (QC): 6 (met) Toileting Hygiene (QC): 6 (met) Shower/Bathe Self (QC): 6 (not met) Upper Body Dressing (QC): 6 (not met) Lower Body Dressing (QC): 6 (not met) On/Off Footwear (QC): 6 (not met) Additional Goals: 1-Demonstrate ADL Tasks, 2-Verbalize Understanding, 3- ImproveStrength/[place] 1=Demonstrate adherence to instructed precautions during ADL tasks. 2=Patient will verbalize/demonstrate understanding of assistive devices/modifications for ADL. 3=Patient will improve strength/tolerance for activity to enable patient to perform ADL's. OT Education/Plan Problem List/Assessment Assessment: Decreased Activ Tolerance, Decreased Safety Aware, Impaired Self- Care Skills Discharge Recommendations Plan/Recommendations: Continue POC Treatment Plan/Plan of Care Patient would benefit from OT for education, treatment and training to promote independence in ADL's, mobility, safety and/or upper extremity function for ADL's. Plan of Care: ADL Retraining, Functional Mobility, Group Exercise/Act as Ind, UE Funct Exercise/Act Treatment Duration: October 16, 2019 Frequency: At least 5 of 7 days/Wk (IRF) Estimated Hrs Per Day: 1.5 hours per day Agreement: Yes Rehab Potential: Guarded Time/GCodes Start Time: 07:30 Stop Time: 08:30 Total Time Billed (hr/min): 60 Billed Treatment Time 1 visit-ADL 4 (60 min) NITZA LEON October 05, 2019 08:40
[2019-10-05] MEDS: SENNA W/DOCUSATE (SENOKOT S) TABLET PO SCH (09:07)
[2019-10-05] MEDS: DOCUSATE SODIUM 100 MG (COLACE) CAP PO SCH (09:07)
--- NOTE | 2019-10-05 09:31 | PM&R Progress Note ---
Subjective HPI/CC On Admission Date Seen by Provider: October 05, 2019 Time Seen by Provider: 09:40 Subjective/Events-last exam [facility] patient on Saturday Slept pretty well last night Sugar improved on low doses of OHA and Metformin, had a high sugar today but for the most part he is managed fairly well Overall feels pretty good and has no other concerns No pain reported Overall participating in all therapy Participating in therapy very well Checked meds and labs Reviewed therapy notes Conferred with RN Objective Exam Vital Signs Vital Signs Date Time Temp Pulse Resp B/P (MAP) Pulse Ox O2 Delivery O2 Flow Rate FiO2 10/05/19 09:11 Room Air 10/05/19 06:29 36.8 66 18 140/79 (99) 94 Capillary Refill : Less Than 3 Seconds General Appearance: No Apparent Distress, WD/WN, Chronically ill HEENT: PERRL/EOMI, Normal ENT Inspection, Pharynx Normal, Other Neck: Full Range of Motion, Normal Inspection, Non Tender, Supple, Carotid Bruit Respiratory: Chest Non Tender, Lungs Clear, Normal Breath Sounds, No Accessory Muscle Use, No Respiratory Distress Cardiovascular: Regular Rate, Rhythm, No Edema, No Gallop, No JVD, No Murmur, Normal Peripheral Pulses Gastrointestinal: Normal Bowel Sounds, No Organomegaly, No Pulsatile Mass, Non Tender, Soft Back: Normal Inspection, No CVA Tenderness, No Vertebral Tenderness Extremity: Normal Capillary Refill, Normal Inspection, Normal Range of Motion, Non Tender, No Calf Tenderness, No Pedal Edema Neurologic/Psychiatric: Alert, Oriented x3, Normal Mood/Affect, hoe worker II-XII Norm as Tested, Abnormal Gait, Motor Weakness Skin: Normal Color, Warm/Dry Lymphatic: No Adenopathy Results/Procedures Lab Patient resulted labs reviewed. FIM Transfers Therapy Code Descriptions/Definitions Functional [place] Measure: 0=Not Assessed/NA 4=Minimal Assistance 1=Total Assistance 5=Supervision or Setup 2=Maximal Assistance 6=Modified [place] 3=Moderate Assistance 7=Complete IndependenceSCALE: Activities may be completed with or without assistive devices. 1-Emkbuawhtm-yaasmcp completes the activity by him/herself with no assistance from a helper. 5-Set-up or Clean-up Assistance-helper sets up or cleans up; patient completes activity. [place] assists only prior to or following the activity. 4-Supervision or Touching Assistance-helper provides verbal cues and/or touching/steadying and/or contact guard assistance as patient completes activity. Assistance may be provided throughout the activity or intermittently. 3-Partial/Moderate Assistance-helper does LESS THAN HALF the effort. [place] lifts, holds or supports trunk or limbs, but provides less than half the effort. 2-Substantial/Maximal Assistance-helper does MORE THAN HALF the effort. [place] lifts or holds trunk or limbs and provides more than half the effort. 4-Jkrfdfksa-csyiad does ALL the effort. Patient does none of the effort to complete the activity. Or, the assistance of 2 or more helpers is required for the patient to complete the activity. If activity was not attempted, code reason: 7-Patient Refused. 9-Not Applicable-not attempted and the patient did not perform the activity before the current illness, exacerbation or injury. 10-Not Attempted due to Environmental Limitations-(lack of equipment, weather restraints, etc.). 88-Not Attempted due to Medical Conditions or Safety Concerns. Roll Left to Right (QC): 6 Sit to Lying (QC): 6 Sit to Stand (QC): 6 Chair/Mfh-ti-Gscmt Xfer(QC): 6 Car Transfer (QC): 4 Gait Training Does the Patient Walk?: Yes Distance: 300'x2 Walk 10 feet (QC): 5 Walk 50 ft with 2 Turns(QC): 5 Walk 150 ft (QC): 5 Walking 10ft/uneven surface-QC: 4 Gait Persons Needed: 1 Gait Assistive Device: FWW Wheelchair Training Does the Pt Use a Wheelchair?: No Wheel 50 ft with 2 turns (QC): 9 Wheel 150 ft (QC): 9 Stair Training Stair Training: Handrails/: 2 handrails #of Steps: 12 1 Step (curb) (QC): 4 4 Steps (QC): 4 12 Steps (QC): 4 Stairs: Pattern: Reciprocal Balance Picking up an Object (QC): 4 ADL-Treatment Eating (QC): 6 (Using clinical judgement, pt is able to set self up and uses regular utensils to eat.) Oral Hygiene (QC): 6 Bathing Location: L Arm, R Arm, L Upper Leg, R Upper Leg, L Lower Leg (including foot), R Lower Leg (including foot), Chest, Abdomen, Buttocks, Perineal Area Shower/Bathe Self (QC): 4 (Supervision) Upper Body Dressing (QC): 5 Lower Body Dressing (QC): 5 On/Off Footwear (QC): 5 Toileting Hygiene (QC): 6 Toilet Transfer (QC): 6 Assessment/Plan Assessment and Plan Assess & Plan/Chief Complaint Assessment: Acute and subacute strokes on MRI with negative CT scan Instability unable to walk in previous independent patient Dementia DM HTN HLP Abnl UA but Cx no pathological bacteria so will DC Rocephin s/p Loop recorder 09/19/19 Hypoglycemia holding meds restarted meds at low dose Plan: CVA protocol Rehab protocol Statin ASA Cardiology consultation is appreciated Add low dose OHA to Metformin DC NH (1) CVA (cerebrovascular accident) (2) Risk for falls (3) Hyperlipemia (4) Diabetes (5) Unsteady gait Status: Acute (6) Dementia Status: Acute (7) Status post placement of implantable loop recorder SIA DUGGAN DO October 05, 2019 09:31
--- NOTE | 2019-10-05 09:32 | Discharge Summary ---
Diagnosis/Chief Complaint Date of Admission Sep 19, 2019 at 10:20 Date of Discharge Discharge Date: October 05, 2019 Discharge Diagnosis Assessment: Acute and subacute strokes on MRI with negative CT scan Instability unable to walk in previous independent patient Dementia DM HTN HLP Abnl UA but Cx no pathological bacteria so will DC Rocephin s/p Loop recorder 09/19/19 Hypoglycemia holding meds restarted meds at low dose Plan: CVA protocol Rehab protocol Statin ASA Cardiology consultation is appreciated Add low dose OHA to Metformin DC NH (1) CVA (cerebrovascular accident) (2) Risk for falls (3) Hyperlipemia (4) Diabetes (5) Unsteady gait Status: Acute (6) Dementia Status: Acute (7) Status post placement of implantable loop recorder Discharge Summary Discharge Physical Examination Allergies: Coded Allergies: No Known Drug Allergies (Unverified , 09/14/19) Vitals & I&Os Vital Signs Date Time Temp Pulse Resp B/P (MAP) Pulse Ox O2 Delivery O2 Flow Rate FiO2 10/05/19 15:20 36.8 66 18 140/79 94 Room Air General Appearance: Alert, Cooperative Respiratory: Clear to Auscultation Cardiovascular: Regular Rate Neuro: Normal Gait, Normal Speech, Strength at 5/5 X4 Ext Hospital Course Was the Problem List Reviewed?: Yes Hospital course: Pt had an uneventful sixteen day hospital course in inpatient rehab after sustaining a stroke superimposed on dementia. DM was managed with alteration of Metformin and oral hypoglycemic dose with good adequate sugar control. Bowels regained normalcy and BP remained stable. Loop recorder placed by cardiology. All medications were triple checked, he required fci placement due to dementia and impulsivity and the need for 24/7 nursing care right now until fully recovered from the stroke, then it is a possibility he may be a candidate for going home with his family. Labs (last 24 hrs) Laboratory Tests 09/19/19 12:18: Glucometer 202H 09/19/19 16:53: Glucometer 188H 09/19/19 21:13: Glucometer 134H 09/20/19 04:54: White Blood Count 7.6, Red Blood Count 4.45, Hemoglobin 12.3L, Hematocrit 37L, Mean Corpuscular Volume 83, Mean Corpuscular Hemoglobin 28, Mean Corpuscular Hemoglobin Concent 33, Red Cell Distribution Width 13.9, Platelet Count 191, Mean Platelet Volume 11.4H, Neutrophils (%) (Auto) 71, Lymphocytes (%) (Auto) 18, Monocytes (%) (Auto) 10, Eosinophils (%) (Auto) 1, Basophils (%) (Auto) 0, Neutrophils # (Auto) 5.4, Lymphocytes # (Auto) 1.3, Monocytes # (Auto) 0.8, Eosinophils # (Auto) 0.1, Basophils # (Auto) 0.0, Sodium Level 140, Potassium Level 3.6, Chloride Level 106, Carbon Dioxide Level 24, Anion Gap 10, Blood Urea Nitrogen 26H, Creatinine 1.08, Estimat Glomerular Filtration Rate > 60, BUN/Creatinine Ratio 24, Glucose Level 81, Calcium Level 8.7, Corrected Calcium 9.1, Total Bilirubin 0.8, Aspartate Amino Transf (AST/SGOT) 18, Alanine Aminotransferase (ALT/SGPT) 13, Alkaline Phosphatase 71, Total Protein 6.1L, Albumin 3.5 09/20/19 10:44: Glucometer 205H 09/20/19 16:41: Glucometer 216H 09/20/19 20:47: Glucometer 190H 09/21/19 05:29: Glucometer 75 09/21/19 05:53: White Blood Count 7.5, Red Blood Count 4.61, Hemoglobin 13.0L, Hematocrit 39L, Mean Corpuscular Volume 84, Mean Corpuscular Hemoglobin 28, Mean Corpuscular Hemoglobin Concent 34, Red Cell Distribution Width 13.7, Platelet Count 197, Mean Platelet Volume 11.3H, Neutrophils (%) (Auto) 63, Lymphocytes (%) (Auto) 25, Monocytes (%) (Auto) 10, Eosinophils (%) (Auto) 2, Basophils (%) (Auto) 0, Neutrophils # (Auto) 4.7, Lymphocytes # (Auto) 1.9, Monocytes # (Auto) 0.8, Eosinophils # (Auto) 0.1, Basophils # (Auto) 0.0, Sodium Level 141, Potassium Level 3.8, Chloride Level 106, Carbon Dioxide Level 24, Anion Gap 11, Blood Urea Nitrogen 23H, Creatinine 1.04, Estimat Glomerular Filtration Rate > 60, BUN/Creatinine Ratio 22, Glucose Level 69L, Calcium Level 9.1, Corrected Calcium 9.4, Total Bilirubin 0.8, Aspartate Amino Transf (AST/SGOT) 21, Alanine Aminotransferase (ALT/SGPT) 19, Alkaline Phosphatase 78, Total Protein 6.5, Albumin 3.6 09/21/19 11:20: Glucometer 104 09/21/19 15:24: Glucometer 155H 09/21/19 20:42: Glucometer 184H 09/22/19 05:41: Glucometer 65L 09/22/19 06:00: Glucometer 89 09/22/19 11:09: Glucometer 210H 09/22/19 15:24: Glucometer 245H 09/22/19 20:24: Glucometer 228H 09/23/19 05:00: Glucometer 135H 09/23/19 10:52: Glucometer 225H 09/23/19 15:27: Glucometer 251H 09/23/19 21:03: Glucometer 181H 09/24/19 05:35: Glucometer 149H 09/24/19 10:49: Glucometer 201H 09/24/19 15:23: Glucometer 225H 09/24/19 20:26: Glucometer 219H 09/25/19 05:21: Glucometer 154H 09/25/19 10:55: Glucometer 241H 09/25/19 15:28: Glucometer 223H 09/25/19 22:02: Glucometer 239H 09/26/19 05:39: Glucometer 214H 09/26/19 10:49: Glucometer 260H 09/26/19 15:28: Glucometer 283H 09/26/19 20:51: Glucometer 228H 09/27/19 06:27: Glucometer 141H 09/27/19 10:46: Glucometer 224H 09/27/19 15:22: Glucometer 220H 09/27/19 20:35: Glucometer 269H 09/28/19 04:55: White Blood Count 8.5, Red Blood Count 4.70, Hemoglobin 13.3, Hematocrit 40, Mean Corpuscular Volume 84, Mean Corpuscular Hemoglobin 28, Mean Corpuscular Hemoglobin Concent 34, Red Cell Distribution Width 14.2, Platelet Count 249, Mean Platelet Volume 11.3H, Neutrophils (%) (Auto) 71, Lymphocytes (%) (Auto) 17, Monocytes (%) (Auto) 10, Eosinophils (%) (Auto) 2, Basophils (%) (Auto) 0, Neutrophils # (Auto) 6.0, Lymphocytes # (Auto) 1.5, Monocytes # (Auto) 0.8, Eosinophils # (Auto) 0.1, Basophils # (Auto) 0.0, Sodium Level 139, Potassium Level 3.9, Chloride Level 105, Carbon Dioxide Level 23, Anion Gap 11, Blood Urea Nitrogen 29H, Creatinine 1.17, Estimat Glomerular Filtration Rate > 60, BUN/Creatinine Ratio 25, Glucose Level 142H, Calcium Level 8.8, Corrected Calcium 9.0, Total Bilirubin 0.7, Aspartate Amino Transf (AST/SGOT) 17, Alanine Aminotransferase (ALT/SGPT) 23, Alkaline Phosphatase 83, Total Protein 6.6, Albumin 3.8 09/28/19 05:40: Glucometer 152H 09/28/19 10:58: Glucometer 194H 09/28/19 15:28: Glucometer 199H 09/28/19 20:17: Glucometer 233H 09/29/19 05:48: Glucometer 135H 09/29/19 11:17: Glucometer 172H 09/29/19 15:32: Glucometer 231H 09/29/19 20:14: Glucometer 185H 09/30/19 05:12: Glucometer 128H 09/30/19 10:58: Glucometer 139H 09/30/19 15:19: Glucometer 223H 09/30/19 20:30: Glucometer 190H 10/01/19 05:16: Glucometer 121H 10/01/19 10:55: Glucometer 153H 10/01/19 15:20: Glucometer 165H 10/01/19 20:21: Glucometer 168H 10/02/19 05:06: Glucometer 112H 10/02/19 10:59: Glucometer 148H 10/02/19 15:23: Glucometer 188H 10/02/19 20:02: Glucometer 201H 10/03/19 06:14: Glucometer 175H 10/03/19 11:23: Glucometer 247H 10/03/19 15:18: Glucometer 238H 10/03/19 20:26: Glucometer 199H 10/04/19 05:45: White Blood Count 6.4, Red Blood Count 4.90, Hemoglobin 13.7, Hematocrit 41, Mean Corpuscular Volume 84, Mean Corpuscular Hemoglobin 28, Mean Corpuscular Hemoglobin Concent 33, Red Cell Distribution Width 14.3, Platelet Count 237, Mean Platelet Volume 11.1H, Neutrophils (%) (Auto) 64, Lymphocytes (%) (Auto) 24, Monocytes (%) (Auto) 10, Eosinophils (%) (Auto) 2, Basophils (%) (Auto) 1, Neutrophils # (Auto) 4.1, Lymphocytes # (Auto) 1.5, Monocytes # (Auto) 0.6, Eosinophils # (Auto) 0.1, Basophils # (Auto) 0.0, Sodium Level 140, Potassium Level 4.0, Chloride Level 107, Carbon Dioxide Level 24, Anion Gap 9, Blood Urea Nitrogen 30H, Creatinine 1.12, Estimat Glomerular Filtration Rate > 60, BUN/Creatinine Ratio 27, Glucose Level 138H, Calcium Level 9.2, Corrected Calcium 9.2, Total Bilirubin 0.8, Aspartate Amino Transf (AST/SGOT) 20, Alanine Aminotransferase (ALT/SGPT) 22, Alkaline Phosphatase 90, Total Protein 6.9, Albumin 4.0 10/04/19 05:54: Glucometer 184H 10/04/19 10:50: Glucometer 185H 10/04/19 16:18: Glucometer 216H 10/04/19 20:24: Glucometer 248H 10/05/19 05:38: Glucometer 133H 10/05/19 11:14: Glucometer 143H Pending Labs Laboratory Tests 09/19/19 12:18: Glucometer 202 09/19/19 16:53: Glucometer 188 09/19/19 21:13: Glucometer 134 09/20/19 04:54: White Blood Count 7.6, Red Blood Count 4.45, Hemoglobin 12.3, Hematocrit 37, Mean Corpuscular Volume 83, Mean Corpuscular Hemoglobin 28, Mean Corpuscular Hemoglobin Concent 33, Red Cell Distribution Width 13.9, Platelet Count 191, Mean Platelet Volume 11.4, Neutrophils (%) (Auto) 71, Lymphocytes (%) (Auto) 18, Monocytes (%) (Auto) 10, Eosinophils (%) (Auto) 1, Basophils (%) (Auto) 0, Neutrophils # (Auto) 5.4, Lymphocytes # (Auto) 1.3, Monocytes # (Auto) 0.8, Eosinophils # (Auto) 0.1, Basophils # (Auto) 0.0, Sodium Level 140, Potassium Level 3.6, Chloride Level 106, Carbon Dioxide Level 24, Anion Gap 10, Blood Urea Nitrogen 26, Creatinine 1.08, Estimat Glomerular Filtration Rate > 60, BUN/Creatinine Ratio 24, Glucose Level 81, Calcium Level 8.7, Corrected Calcium 9.1, Total Bilirubin 0.8, Aspartate Amino Transf (AST/SGOT) 18, Alanine Aminotransferase (ALT/SGPT) 13, Alkaline Phosphatase 71, Total Protein 6.1, Albumin 3.5 09/20/19 10:44: Glucometer 205 09/20/19 16:41: Glucometer 216 09/20/19 20:47: Glucometer 190 09/21/19 05:29: Glucometer 75 09/21/19 05:53: White Blood Count 7.5, Red Blood Count 4.61, Hemoglobin 13.0, Hematocrit 39, Mean Corpuscular Volume 84, Mean Corpuscular Hemoglobin 28, Mean Corpuscular Hemoglobin Concent 34, Red Cell Distribution Width 13.7, Platelet Count 197, Mean Platelet Volume 11.3, Neutrophils (%) (Auto) 63, Lymphocytes (%) (Auto) 25, Monocytes (%) (Auto) 10, Eosinophils (%) (Auto) 2, Basophils (%) (Auto) 0, Neutrophils # (Auto) 4.7, Lymphocytes # (Auto) 1.9, Monocytes # (Auto) 0.8, Eosinophils # (Auto) 0.1, Basophils # (Auto) 0.0, Sodium Level 141, Potassium Level 3.8, Chloride Level 106, Carbon Dioxide Level 24, Anion Gap 11, Blood Urea Nitrogen 23, Creatinine 1.04, Estimat Glomerular Filtration Rate > 60, BUN/Creatinine Ratio 22, Glucose Level 69, Calcium Level 9.1, Corrected Calcium 9.4, Total Bilirubin 0.8, Aspartate Amino Transf (AST/SGOT) 21, Alanine Aminotransferase (ALT/SGPT) 19, Alkaline Phosphatase 78, Total Protein 6.5, Albumin 3.6 09/21/19 11:20: Glucometer 104 09/21/19 15:24: Glucometer 155 09/21/19 20:42: Glucometer 184 09/22/19 05:41: Glucometer 65 09/22/19 06:00: Glucometer 89 09/22/19 11:09: Glucometer 210 09/22/19 15:24: Glucometer 245 09/22/19 20:24: Glucometer 228 09/23/19 05:00: Glucometer 135 09/23/19 10:52: Glucometer 225 09/23/19 15:27: Glucometer 251 09/23/19 21:03: Glucometer 181 09/24/19 05:35: Glucometer 149 09/24/19 10:49: Glucometer 201 09/24/19 15:23: Glucometer 225 09/24/19 20:26: Glucometer 219 09/25/19 05:21: Glucometer 154 09/25/19 10:55: Glucometer 241 09/25/19 15:28: Glucometer 223 09/25/19 22:02: Glucometer 239 09/26/19 05:39: Glucometer 214 09/26/19 10:49: Glucometer 260 09/26/19 15:28: Glucometer 283 09/26/19 20:51: Glucometer 228 09/27/19 06:27: Glucometer 141 09/27/19 10:46: Glucometer 224 09/27/19 15:22: Glucometer 220 09/27/19 20:35: Glucometer 269 09/28/19 04:55: White Blood Count 8.5, Red Blood Count 4.70, Hemoglobin 13.3, Hematocrit 40, Mean Corpuscular Volume 84, Mean Corpuscular Hemoglobin 28, Mean Corpuscular Hemoglobin Concent 34, Red Cell Distribution Width 14.2, Platelet Count 249, Mean Platelet Volume 11.3, Neutrophils (%) (Auto) 71, Lymphocytes (%) (Auto) 17, Monocytes (%) (Auto) 10, Eosinophils (%) (Auto) 2, Basophils (%) (Auto) 0, Neutrophils # (Auto) 6.0, Lymphocytes # (Auto) 1.5, Monocytes # (Auto) 0.8, Eosinophils # (Auto) 0.1, Basophils # (Auto) 0.0, Sodium Level 139, Potassium Level 3.9, Chloride Level 105, Carbon Dioxide Level 23, Anion Gap 11, Blood Urea Nitrogen 29, Creatinine 1.17, Estimat Glomerular Filtration Rate > 60, BUN/Creatinine Ratio 25, Glucose Level 142, Calcium Level 8.8, Corrected Calcium 9.0, Total Bilirubin 0.7, Aspartate Amino Transf (AST/SGOT) 17, Alanine Aminotransferase (ALT/SGPT) 23, Alkaline Phosphatase 83, Total Protein 6.6, Albumin 3.8 09/28/19 05:40: Glucometer 152 09/28/19 10:58: Glucometer 194 09/28/19 15:28: Glucometer 199 09/28/19 20:17: Glucometer 233 09/29/19 05:48: Glucometer 135 09/29/19 11:17: Glucometer 172 09/29/19 15:32: Glucometer 231 09/29/19 20:14: Glucometer 185 09/30/19 05:12: Glucometer 128 09/30/19 10:58: Glucometer 139 09/30/19 15:19: Glucometer 223 09/30/19 20:30: Glucometer 190 10/01/19 05:16: Glucometer 121 10/01/19 10:55: Glucometer 153 10/01/19 15:20: Glucometer 165 10/01/19 20:21: Glucometer 168 10/02/19 05:06: Glucometer 112 10/02/19 10:59: Glucometer 148 10/02/19 15:23: Glucometer 188 10/02/19 20:02: Glucometer 201 10/03/19 06:14: Glucometer 175 10/03/19 11:23: Glucometer 247 10/03/19 15:18: Glucometer 238 10/03/19 20:26: Glucometer 199 10/04/19 05:45: White Blood Count 6.4, Red Blood Count 4.90, Hemoglobin 13.7, Hematocrit 41, Me an Corpuscular Volume 84, Mean Corpuscular Hemoglobin 28, Mean Corpuscular Hemoglobin Concent 33, Red Cell Distribution Width 14.3, Platelet Count 237, Mean Platelet Volume 11.1, Neutrophils (%) (Auto) 64, Lymphocytes (%) (Auto) 24, Monocytes (%) (Auto) 10, Eosinophils (%) (Auto) 2, Basophils (%) (Auto) 1, Neutrophils # (Auto) 4.1, Lymphocytes # (Auto) 1.5, Monocytes # (Auto) 0.6, Eosinophils # (Auto) 0.1, Basophils # (Auto) 0.0, Sodium Level 140, Potassium Level 4.0, Chloride Level 107, Carbon Dioxide Level 24, Anion Gap 9, Blood Urea Nitrogen 30, Creatinine 1.12, Estimat Glomerular Filtration Rate > 60, BUN/Creatinine Ratio 27, Glucose Level 138, Calcium Level 9.2, Corrected Calcium 9.2, Total Bilirubin 0.8, Aspartate Amino Transf (AST/SGOT) 20, Alanine Am inotransferase (ALT/SGPT) 22, Alkaline Phosphatase 90, Total Protein 6.9, Albumin 4.0 10/04/19 05:54: Glucometer 184 10/04/19 10:50: Glucometer 185 10/04/19 16:18: Glucometer 216 10/04/19 20:24: Glucometer 248 10/05/19 05:38: Glucometer 133 10/05/19 11:14: Glucometer 143 Discharge Home Medications: Active Scripts Active Glyburide 2.5 Mg Tablet 1.25 Mg PO DAILY@0630 365 Days Amlodipine Besylate 5 Mg Tablet 5 Mg PO DAILY 365 Days Buspirone HCl 10 Mg Tablet 10 Mg PO TID Reported Crestor (Rosuvastatin Calcium) 40 Mg Tablet 40 Mg PO DAILY Aspirin EC (Aspirin) 81 Mg Tablet.dr 81 Mg PO DAILY Metformin HCl ER (Metformin HCl) 500 Mg Tab.er.24h 1,000 Mg PO BID TAKES 2 (500MG) TABS TWICE DAILY Escitalopram Oxalate 20 Mg Tablet 20 Mg PO DAILY Instructions to patient/family Please see electronic discharge instructions given to patient. Diagnosis/Problems Diagnosis/Problems (1) CVA (cerebrovascular accident) (2) Risk for falls (3) Hyperlipemia (4) Diabetes (5) Unsteady gait Status: Acute (6) Dementia Status: Acute (7) Status post placement of implantable loop recorder Clinical Quality Measures DVT/VTE Risk/Contraindication: Risk Factor Score Per Nursin RFS Level Per Nursing on Admit: 3=High SIA DUGGAN DO October 05, 2019 09:32
--- NOTE | 2019-10-05 11:19 | Physical Therapy Daily Note ---
PT Daily Note-Current Subjective Patient in bed pre tx, agrees to PT, has no complaints of pain. Appearance Patient in bed post tx with nurse call, phone, tray, bed alarm on. Mental Status Patient Orientation: Person, Confused, Mumbles Transfers SCALE: Activities may be completed with or without assistive devices. 0-[id number]-[id number] completes the activity by him/herself with no assistance from a helper. 5-Set-up or Clean-up Assistance-helper sets up or cleans up; patient completes activity. [place] assists only prior to or following the activity. 4-Supervision or Touching Assistance-helper provides verbal cues and/or touching/steadying and/or contact guard assistance as patient completes activity. Assistance may be provided throughout the activity or intermittently. 3-Partial/Moderate Assistance-helper does LESS THAN HALF the effort. [place] lifts, holds or supports trunk or limbs, but provides less than half the effort. 2-Substantial/Maximal Assistance-helper does MORE THAN HALF the effort. [place] lifts or holds trunk or limbs and provides more than half the effort. 2-Bzznvstpy-lmpigm does ALL the effort. Patient does none of the effort to complete the activity. Or, the assistance of 2 or more helpers is required for the patient to complete the activity. If activity was not attempted, code reason: 7-Patient Refused. 9-Not Applicable-not attempted and the patient did not perform the activity before the current illness, exacerbation or injury. 10-Not Attempted due to Environmental Limitations-(lack of equipment, weather restraints, etc.). 88-Not Attempted due to Medical Conditions or Safety Concerns. Roll Left & Right (QC): 6 Sit to Lying (QC): 6 Lying to Sitting/Side of Bed(Q: 6 Sit to Stand (QC): 4 Chair/Gii-zr-Dncyt Xfer(QC): 4 Toilet Transfer (QC): 4 Car Transfer (QC): 4 Patient performs bed mobility with independence, supine <-> sit with indepe ndence, sit <-> stand SBA, transfers CGA, car transfer CGA. Patient needs occasional cues for safety and has right neglect which interferes with his mobility. Weight Bearing Right Lower Extremity: Right Full Weight Bearing Left Lower Extremity: Left Full Weight Bearing Gait Training Distance: 400', 120' Walk 10 feet (QC): 4 Walk 50 ft with 2 Turns(QC): 4 Walk 150 ft (QC): 4 Walking 10ft/uneven surface-QC: 4 Gait Persons Needed: 1 Gait Assistive Device: FWW Patient can ambulate 400' with a rolling walker with CGA (including 50' with at least 2 turns of 90 degrees and 10' over an uneven surface). Patient has a tendency to take his left hand off the walker and then stumbles but he has not had a complete LOB, patient tends to run his right wheel on the walker into mckeon and other obstacles. Needs cues for safety and direction. Wheelchair Training Does the Pt Use a Wheelchair?: No Stair Training Stair Training: Handrails/: 2 handrails #of Steps: 12 1 Step (curb) (QC): 4 4 Steps (QC): 4 12 Steps (QC): 4 Stairs: Pattern: Reciprocal Patient can go up and down 12 steps using 2 handrails with CGA. Patient is fairly impulsive on stairs and needs cues for safety and to slow down. Balance Picking up an Object (QC): 4 Treatments bed mobility and transfers, ambulation, stair training, gait training Assessment Current Status: Fair Progress Patient needs CGA for most mobility due to safety issues PT Multi Line Claims Adjuster Goals Jail Goals PT Jail Goals Time Frame: October 03, 2019 Roll Left & Right (QC): 6 Sit to Lying (QC): 6 Lying-Sitting on Side/Bed(QC): 6 Sit to Stand (QC): 6 Chair/Doe-to-Bhalc Xfer(QC): 6 Toilet Transfer (QC): 6 Car Transfer (QC): 6 Does the Patient Walk: Yes Walk 10 feet (QC): 6 Walk 50ft with 2 Turns (QC): 6 Walk 150 ft (QC): 6 Walking 10ft on Uneven Surface: 6 1 Step (curb) (QC): 6 4 Steps (QC): 4 12 Steps (QC): 4 Picking up an Object (QC): 6 Wheel 50 feet with 2 turns (QC: 9 Wheel 150 feet: 9 PT Plan Problem List Problem List: Activity Tolerance, Functional Strength, Safety, Balance, Gait, Transfer Treatment/Plan Treatment Plan: Discontinue PT (patient is discharging today) Treatment Plan: Bed Mobility, Education, Functional Activity [place], Functional Strength, Gait, Safety, Therapeutic Exercise, Transfers Treatment Duration: October 03, 2019 Frequency: 6 times per week Estimated Hrs Per Day: 1.5 hours per day Patient and/or Family Agrees t: Yes Safety Risks/Education Patient Education: Gait Training, Transfer Techniques, Steps, Correct Positioning, Safety Issues Teaching Recipient: Patient Teaching Methods: Demonstration, Discussion Response to Teaching: Reinforcement Needed Discharge Recommendations Plan DC Time/GCodes Time In: 1100 Time Out: 1115 Total Billed Treatment Time: 15 Total Billed Treatment 1 visit FA 15' CHA ORR PT October 05, 2019 11:19
--- NOTE | 2019-10-05 11:26 | Therapy Team Discharge Summary ---
Therapy Discharge Summary Discharge Recommendations Date of Discharge Physical Therapy Patient came to rehab following a CVA. Upon evaluation patient performed bed mobility with independence, supine <-> sit with setup, sit <-> stand with CGA, transfers with CGA, car transfer min assist, ambulated 200' with a rolling walker with min assist (including 50' with at least 2 turns of 90 degrees and 10' over an uneven surface), went up and down 1 step using a rolling walker with min assist and picked up an object from the floor with min assist. Patient has been performing bed mobility and transfer training, balance and endurance training, functional strengthening, stair training, gait training, and education. Patient has made some progress but has only met his long term care pharmacist goals for bed mobility. Now, patient performs bed mobility with independence, supine <-> sit with independence, sit <-> stand SBA, transfers CGA, car transfer CGA, ambulates 400' with a rolling walker with CGA (including 50' with at least 2 turns of 90 degrees and 10' over an uneven surface), can go up and down 12 steps using 2 handrails with CGA, and can orange picker machine operator an object from the floor with CGA. Patient is discharging from this facility today and will be discharged from PT at this time. Occupational Therapy Decreased Activ Tolerance, Decreased Safety Aware, Impaired Self-Care Skills PT Admission Nurse Coordinator Goals Mcfp Goals PT Mcfp Goals Time Frame: October 03, 2019 Roll Left to Right (QC): 6 Sit to Lying (QC): 6 Lying-Sitting on Side/Bed(QC): 6 Sit to Stand (QC): 6 Chair/Qsx-ra-Ehuom Xfer(QC): 6 Car Transfer (QC): 6 Does the Patient Walk: Yes Walk 10 feet (QC): 6 Walk 10ft-Uneven Surface(QC): 6 Walk 50ft with 2 Turns (QC): 6 Walk 150 ft (QC): 6 Wheel 50 feet with 2 turns (QC: 9 1 Step (curb) (QC): 6 4 Steps (QC): 4 12 Steps (QC): 4 Picking up an Object (QC): 6 OT Admission Nurse Coordinator Goals Admission Nurse Coordinator Goals Time Frame: October 16, 2019 Eating (FIM): 6 Eating (QC): 6 (met) Oral Hygiene (QC): 6 (met) Shower/Bathe Self (QC): 6 (not met) Upper Body Dressing (QC): 6 (not met) Lower Body Dressing (QC): 6 (not met) On/Off Footwear (QC): 6 (not met) Toileting(FIM): 6 Toileting Hygiene (QC): 6 (met) Toilet/Commode Transfer (QC): 6 Additional Goals: 1-Demonstrate ADL Tasks, 2-Verbalize Understanding, 3-ImproveStrength/[place] 1=Demonstrate adherence to instructed precautions during ADL tasks. 2=Patient will verbalize/demonstrate understanding of assistive devices/modifications for ADL. 3=Patient will improve strength/tolerance for activity to enable patient to perform ADL's. Speech Admission Nurse Coordinator Goals Mcfp Goals Patient will improve cognitive-communication necessary for safety and daily living tasks with minimal assist. CHA ORR PT October 05, 2019 11:26
--- NOTE | 2019-10-05 12:45 | NUR ---
CM/SS DISCHARGE Patient discharged to halfway services with [facility] via their transport scheduled for 1430. Facility understands to bring wheelchair, no other assistive devices needed. Faxed orders to SNF, prepared continuum of care packet to accompany patient. CARE Assessment not completed due to suspension of program under Covid19 State protocols. Covid19 Assessment for transfer to post acute care completed/provided. Updated patient, his son Rolando Sanchez, unit RN.
--- NOTE | 2019-10-05 13:18 | Speech Therapy Daily Note ---
Speech Daily Progress Note Subjective Date Seen by Provider: October 05, 2019 Time Seen by Provider: 00:10 Patient was resting in his recliner following his other therapies. He states he is leaving today. Objective Patient completed a series of q/a related to his daily needs with minimal cues to complete. Assessment Assessment Current Status: Fair Progress Treatment Plan Discontinue ST Speech Short Term Goals Short Term Goals Short Term Goals 1) Patient will complete memory tasks related to his daily needs at 80% with minimal cues. 2) Patient will complete problem solving tasks related to his daily needs at 80% with minimal cues. 3) Patient will complete safety awareness tasks related to his daily needs at 80% with minimal cues. Speech Lumber Bearer Goals Lumber Bearer Goals Patient will improve cognitive-communication necessary for safety and daily living tasks with minimal assist. Speech-Plan Patient/Family Goals Patient/Family Goals: Patient is discharging to a local SNF this date. Treatment Plan Speech Therapy Treatment Plan: Discontinue ST Treatment Duration: Sep 21, 2019 Frequency: 5 times per week Estimated Hrs Per Day: .5 hour per day Rehab Potential: Guarded Barriers to Learning: Patient's recall of information and dementia. Pt/Family Agrees to Plan: Yes Safety Risks/Education Teaching Recipient: Patient Teaching Methods: Demonstration, Discussion Response to Teaching: Verbalize Understanding, Return Demonstration Education Topics Provided: Continued safety upon discharge. Time Speech Therapy Time In: 10:30 Speech Therapy Time Out: 10:40 Total Billed Time: 10 Billed Treatment Time 1, SLTS No QUALITY CODES: EXPRESSION OF IDEAS/WANTS: 3 UNDERSTANDING VERBAL CONTENT: 3 BRIEF INTERVIEW MENTAL STATUS: YES REPETITION OF 3 WORDS: 3 TEMPORAL ORIENTATION: YEAR: CORRECT, MONTH: INCORRECT, DAY: NO ANSWER RECALL: SOCK: NO, COLOR: YES WITH CUE, BED: NO MEMORY/RECALL ABILITY: NONE OF THE QUESTIONS/ANSWERS RECALLED EMIL BARNHART October 05, 2019 13:18
--- NOTE | 2019-10-05 13:20 | Therapy Team Discharge Summary ---
Therapy Discharge Summary Discharge Recommendations Date of Discharge Occupational Therapy Decreased Activ Tolerance, Decreased Safety Aware, Impaired Self-Care Skills Speech-Language Pathology Patient was admitted to the ARU s/p CVA. Patient was reported to have dementia prior to the CVA. He scored in the moderate dementia range of function initially on the SLUMS. He participated with therapy sessions given moderate to maximum cues. Patient made fair progress. He is discharging to the SNF this date as well as from skilled ST services. PT Prison Goals Prison Goals PT Prison Goals Time Frame: October 03, 2019 Roll Left to Right (QC): 6 Sit to Lying (QC): 6 Lying-Sitting on Side/Bed(QC): 6 Sit to Stand (QC): 6 Chair/Rbf-up-Hdxis Xfer(QC): 6 Car Transfer (QC): 6 Does the Patient Walk: Yes Walk 10 feet (QC): 6 Walk 10ft-Uneven Surface(QC): 6 Walk 50ft with 2 Turns (QC): 6 Walk 150 ft (QC): 6 Wheel 50 feet with 2 turns (QC: 9 1 Step (curb) (QC): 6 4 Steps (QC): 4 12 Steps (QC): 4 Picking up an Object (QC): 6 OT Elevator Repairer Helper Goals Prison Goals Time Frame: October 16, 2019 Eating (FIM): 6 Eating (QC): 6 (met) Oral Hygiene (QC): 6 (met) Shower/Bathe Self (QC): 6 (not met) Upper Body Dressing (QC): 6 (not met) Lower Body Dressing (QC): 6 (not met) On/Off Footwear (QC): 6 (not met) Toileting(FIM): 6 Toileting Hygiene (QC): 6 (met) Toilet/Commode Transfer (QC): 6 Additional Goals: 1-Demonstrate ADL Tasks, 2-Verbalize Understanding, 3- ImproveStrength/Lashonda 1=Demonstrate adherence to instructed precautions during ADL tasks. 2=Patient will verbalize/demonstrate understanding of assistive devices/modifications for ADL. 3=Patient will improve strength/tolerance for activity to enable patient to perform ADL's. Speech Prison Goals Prison Goals Patient will improve cognitive-communication necessary for safety and daily living tasks with minimal assist. EMIL BARNHART October 05, 2019 13:20
[2019-10-05 15:20] VITALS: BP 140/79
--- NOTE | 2019-10-07 10:26 | Therapy Team Discharge Summary ---
Therapy Discharge Summary Discharge Recommendations Date of Discharge October 05, 2019 at 15:06 Occupational Therapy Pt admitted to ARU with dx of CVA. At PLOF pt was independent with functional mobility and ADLs without AD/AE. Upon admission to ARU, pt was indepdnent with feeding, min A oral hygiene, CGA showering, Setup upper body dressing, CGA lower body dressing, min A footwear, CGA toileting/toilet transfer. OT txs with focus on increasing independence and safety with ADLs, increasing BUE strength and coordination, and neuromuscular reeducation. Pt made progress towards goals, meeting IND level with feeding oral hygiene and toileting/toilet transfers. At discharge, pt required supervision with showering and set up assist with upper body dressing, lower body dressing and footwear. Pt discharged from this facility, thus d/c from OT services at this time. OT recommends continued skilled OT services at SNF. Decreased Activ Tolerance, Decreased Safety Aware, Impaired Self-Care Skills PT Detention Goals Detention Goals PT Airline Radio Operator Goals Time Frame: October 03, 2019 Roll Left to Right (QC): 6 Sit to Lying (QC): 6 Lying-Sitting on Side/Bed(QC): 6 Sit to Stand (QC): 6 Chair/Hzg-ng-Xpmbh Xfer(QC): 6 Car Transfer (QC): 6 Does the Patient Walk: Yes Walk 10 feet (QC): 6 Walk 10ft-Uneven Surface(QC): 6 Walk 50ft with 2 Turns (QC): 6 Walk 150 ft (QC): 6 Wheel 50 feet with 2 turns (QC: 9 1 Step (curb) (QC): 6 4 Steps (QC): 4 12 Steps (QC): 4 Picking up an Object (QC): 6 OT Airline Radio Operator Goals Airline Radio Operator Goals Time Frame: October 16, 2019 Eating (FIM): 6 Eating (QC): 6 (met) Oral Hygiene (QC): 6 (met) Shower/Bathe Self (QC): 6 (not met) Upper Body Dressing (QC): 6 (not met) Lower Body Dressing (QC): 6 (not met) On/Off Footwear (QC): 6 (not met) Toileting(FIM): 6 Toileting Hygiene (QC): 6 (met) Toilet/Commode Transfer (QC): 6 (met) Additional Goals: 1-Demonstrate ADL Tasks, 2-Verbalize Understanding, 3- ImproveStrength/Lashonda 1=Demonstrate adherence to instructed precautions during ADL tasks. 2=Patient will verbalize/demonstrate understanding of assistive dev ices/modifications for ADL. 3=Patient will improve strength/tolerance for activity to enable patient to perform ADL's. Speech Detention Goals Detention Goals Patient will improve cognitive-communication necessary for safety and daily living tasks with minimal assist. FABIO ROTHMAN OT October 07, 2019 10:26
== END 2019-10-05 15:06 | DRG 57 ==
PROVIDERS: ADMIT Internal Medicine; ATTEND Internal Medicine
DX: I69.398 Other sequelae of cerebral infarction (principal); R26.81 Unsteadiness on feet; Z91.81 History of falling; F03.90 Unspecified dementia, unspecified severity, without behavioral disturbance, psychotic disturbance, mood disturbance, and anxiety; E78.5 Hyperlipidemia, unspecified; I10 Essential (primary) hypertension; E11.649 Type 2 diabetes mellitus with hypoglycemia without coma; I49.3 Ventricular premature depolarization; I48.91 Unspecified atrial fibrillation; R15.9 Full incontinence of feces; Z87.891 Personal history of nicotine dependence
CPT/HCPCS: 33285; 36415; 80053; 82962; 85025

== ENCOUNTER 2019-11-18 17:12 | Emergency (ER) | payer MEDICARE ==
[~2019-11-18] VITALS: Ht 177 cm; Wt 79.5 kg
[~2019-11-18 17:12] MED LIST changes: -ACETAMINOPHEN 500 MG TAB (TYLENOL) PO PRN; -ALPRAZolam 0.25 MG (XANAX) TAB PO PRN; +AMLO5TAB9 PO; -BISACODYL 10 MG SUPP (DULCOLAX) PR PRN; -CALCIUM CARBONATE 500 MG (TUMS) TAB.CHEW PO PRN; -DOCUSATE SODIUM 100 MG (COLACE) CAP PO PRN; -DOCUSATE SODIUM 100 MG (COLACE) CAP PO SCH; -ENOXAPARIN 40 MG/0.4 ML (LOVENOX) SYR SC SCH; -FLEET ENEMA ADULT 1 EA BTL PR PRN; +GLYB2.5T4 PO; -LACTULOSE SYRUP 10GM/15ML (ENULOSE) 30ML UDC PO PRN; -LOPERAMIDE 2 MG (IMODIUM) TABLET PO PRN; -MELATONIN 3 MG TABLET PO PRN; +METF-865 PO; -METF500T19 PO; -ONDANSETRON 4 MG (ZOFRAN) ORAL DISSOLVE TAB PO PRN; +ROSU40TA PO; -SENNA W/DOCUSATE (SENOKOT S) TABLET PO SCH; -diphenhydrAMINE 25 MG TAB (BENADRYL) PO PRN; -guaiFENesin/CODEINE (ROBITUSSIN AC) 10ML UDC PO PRN; -polyethylene glycoL POWDER 17 GM (MIRALAX) PACK PO SCH
--- NOTE | 2019-11-18 17:12 | NUR ---
UNABLE TO ASSESS NIH DUE TO PREVIOUS STROKES.
--- NOTE | 2019-11-18 17:26 | ED Neurological Problem ---
General Stated Complaint: [id number] Source: patient Exam Limitations: no limitations History of Present Illness Date Seen by Provider: Nov 18, 2019 Time Seen by Provider: 17:21 Initial Comments 69-year-old male from assisted with history of dementia and previous CVA To ER by EMS with reports of a fall twice today. Initially fell once this morning at about 10:10 AM but was able to get back up and continue walking. He then fell again at 1450 at which point was unable to walk afterwards. He is at a assisted for left-sided deficit as well as dysarthria following CVA. Last known well time 1450. Not on anticoagulation. History of atrial fibrillation only on aspirin daily. Timing/Duration: 1 week Severity: moderate Associated Symptoms: trouble walking, weakness Allergies and Home Medications Allergies Coded Allergies: No Known Drug Allergies (Unverified , 09/14/19) Home Medications Amlodipine Besylate 5 Mg Tablet, 5 MG PO DAILY Prescribed by: SIA DUGGAN on 10/04/191820 Aspirin 81 Mg Tablet.dr, 81 MG PO DAILY, (Reported) Buspirone HCl 10 Mg Tablet, 10 MG PO TID Prescribed by: SIA DUGGAN on 10/04/191820 Cefuroxime Axetil 500 Mg Tablet, 500 MG PO BID Prescribed by: MACY ORONA on 11/18/191917 Escitalopram Oxalate 20 Mg Tablet, 20 MG PO DAILY, (Reported) Glyburide 2.5 Mg Tablet, 1.25 MG PO DAILY@0630 Prescribed by: SIA DUGGAN on 10/04/191820 Metformin HCl 500 Mg Tab.er.24h, 1,000 MG PO BID, (Reported) TAKES 2 (500MG) TABS TWICE DAILY Rosuvastatin Calcium 40 Mg Tablet, 40 MG PO DAILY, (Reported) Patient Home Medication List Home Medication List Reviewed: Yes (Well I don't know) Review of Systems Review of Systems Constitutional: see HPI Past Lwquqja-Grxfwh-Otaixm Hx Patient Social History Former Smoker, Quit: Nov 25, 1984 Recent Hopitalizations: No Immunizations Up To Date Tetanus Booster (TDap): Unknown PED Vaccines UTD: Yes Seasonal Allergies Seasonal Allergies: No Past Medical History Surgeries: Yes (RIGHT KNEE) Respiratory: No Cardiac: Yes High Cholesterol, Hypertension Neurological: Yes Dementia, Stroke Genitourinary: No Gastrointestinal: No Musculoskeletal: No Endocrine: Yes Diabetes, Non-Insulin dep Psychosocial: No Integumentary: No Blood Disorders: No Physical Exam Vital Signs Vital Signs - First Documented 11/18/19 17:12 Temp 37.0 Pulse 75 Resp 16 B/P (MAP) 177/102 (127) Pulse Ox 96 O2 Delivery Room Air Capillary Refill : Height, Weight, BMI Height: '" Weight: lbs. oz. kg; 27.90 BMI Method: General Appearance: WD/WN, no apparent distress HEENT: PERRL/EOMI, normal ENT inspection Respiratory: no respiratory distress, no accessory muscle use Cardiovascular: regular rate, rhythm, no murmur Gastrointestinal: normal bowel sounds, non tender Extremities: non-tender, normal inspection, other (is able lift both lower extremity is above the bed. He is able to move the right arm without drift. However the left arm has only minimal effort against gravity.) Neurologic/Psychiatric: alert, other (when asked what year it is he replies 1987. He is not sure of the month. He does know he is at the hospital and is able to state this.) Crainal Nerves: normal hearing, normal speech, PERRL Motor/Sensory: no motor deficit, no sensory deficit Skin: normal color, warm/dry Stroke Onset of Symptoms Date of Onset of Symptoms: Nov 18, 2019 Time of Symptom Onset: 11:40 Onset of Symptoms: Yes NIH Stroke Scale Assessment Select: Initial Level of Consciousness: 0=Alert (0), Level of Consciousness- Questions: 1=Answers one question (1), LOC Commands: 1=Performs one task (1), Gaze: Normal (0), Visual Brooks: 0=No visual loss (0), Facial Movement (Facial Paresis): 0=Normal symmetrical mnt (0), Motor Function-Arms Right: 0=No drift (0), Motor Function-Arms Left: 2=Some effort/gravity (2), Motor Function-Legs Right: 0=No drift (0), Motor Function-Legs Left: 0=No drift (0), Limb Ataxia: 0=Absent (0), Sensory: 0=Normal:no loss (0), Best Language: 2=Severe aphasia (2), Dysarthria: 1=Mild to moderate loss (1), Extinction & Inattention: 0=No abnormality (0), Total: 7 Stroke Thrombolytic Exclusion Age 18 or Over: Yes Acute intenal hemorrhage: No History of CVA: Yes Uncontrolled Coagulation Defec: No Intracranial Hemorrhage: No Severe Hypertension: No GI or Bleed: No Subarachnoid Hemorrhage: No Intracranial Neoplasm/Aneurysm: No Oral Anticoagulants: No Surgery or Trauma: No Puncture of Non-Compressible V: No Recent CPR: No Diabetic Hemorrhagic Retinopat: No Organ Biopsy: No Recent Obstetric Delivery: No Glucose: No NIH Stoke Scale >22: No Bacterial Endocarditis: No Pericarditis: No Improving Symptoms: No Platelets: No TPA Contraindication: No IV - TPa Received IV - TPa Procedure Performed?: No Progress/Results/Core Measures Results/Orders Lab Results Laboratory Tests Test 11/18/19 17:15 11/18/19 18:05 Range/Units White Blood Count 8.2 4.3-11.0 10^3/uL Red Blood Count 5.13 4.35-5.85 10^6/uL Hemoglobin 15.0 13.3-17.7 G/DL Hematocrit 43 40-54 % Mean Corpuscular Volume 83 80-99 FL Mean Corpuscular Hemoglobin 29 25-34 PG Mean Corpuscular Hemoglobin Concent 35 32-36 G/DL Red Cell Distribution Width 14.0 10.0-14.5 % Platelet Count 218 130-400 10^3/uL Mean Platelet Volume 11.6 H 7.4-10.4 FL Neutrophils (%) (Auto) 75 42-75 % Lymphocytes (%) (Auto) 16 12-44 % Monocytes (%) (Auto) 8 0-12 % Eosinophils (%) (Auto) 1 0-10 % Basophils (%) (Auto) 0 0-10 % Neutrophils # (Auto) 6.1 1.8-7.8 X 10^3 Lymphocytes # (Auto) 1.3 1.0-4.0 X 10^3 Monocytes # (Auto) 0.7 0.0-1.0 X 10^3 Eosinophils # (Auto) 0.0 0.0-0.3 10^3/uL Basophils # (Auto) 0.0 0.0-0.1 10^3/uL Prothrombin Time 13.3 12.2-14.7 SEC INR Comment 1.0 0.8-1.4 Activated Partial Thromboplast Time 28 24-35 SEC D-Dimer 0.28 0.00-0.49 UG/ML Sodium Level 139 135-145 MMOL/L Potassium Level 4.0 3.6-5.0 MMOL/L Chloride Level 106 98-107 MMOL/L Carbon Dioxide Level 21 21-32 MMOL/L Anion Gap 12 5-14 MMOL/L Blood Urea Nitrogen 18 7-18 MG/DL Creatinine 1.25 0.60-1.30 MG/DL Estimat Glomerular Filtration Rate 58 BUN/Creatinine Ratio 14 Glucose Level 184 H 70-105 MG/DL Calcium Level 9.7 8.5-10.1 MG/DL Corrected Calcium 9.5 8.5-10.1 MG/DL Total Bilirubin 0.7 0.1-1.0 MG/DL Aspartate Amino Transf (AST/SGOT) 21 5-34 U/L Alanine Aminotransferase (ALT/SGPT) 21 0-55 U/L Alkaline Phosphatase 95 40-136 U/L Troponin I < 0.028 <0.028 NG/ML Total Protein 7.3 6.4-8.2 GM/DL Albumin 4.2 3.2-4.5 GM/DL Urine Color YELLOW Urine Clarity CLOUDY Urine pH 6.5 5-9 Urine Specific Jackson 1.010 L 1.016-1.022 Urine Protein 1+ H NEGATIVE Urine Glucose (UA) 3+ H NEGATIVE Urine Ketones NEGATIVE NEGATIVE Urine Nitrite NEGATIVE NEGATIVE Urine Bilirubin NEGATIVE NEGATIVE Urine Urobilinogen 2.0 < = 1.0 MG/DL Urine Leukocyte Esterase TRACE H NEGATIVE Urine RBC (Auto) TRACE-I NEGATIVE Urine RBC 0-2 /HPF Urine WBC 50-100 H /HPF Urine Crystals PRESENT H /LPF Urine Amorphous Sediment MOD CRISTIN URATES H /LPF Urine Bacteria MODERATE H /HPF Urine Casts NONE /LPF Urine Mucus NEGATIVE /LPF Urine Culture Indicated YES My Orders Orders - MACY ORONA APRN Cbc With Automated Diff (11/18/19 17:18) Protime With Inr (11/18/19 17:18) Partial Thromboplastin Time (11/18/19 17:18) Comprehensive Metabolic Panel (11/18/19 17:18) Fibrin Degradation Products (11/18/19 17:18) Troponin I (11/18/19 17:18) Ua Culture If Indicated (11/18/19 17:18) Chest 1 View, Ap/Pa Only (11/18/19 17:18) Ekg Tracing (11/18/19 17:18) Nothing By Mouth (11/19/19 Breakfast) Accucheck Stat ONCE (11/18/19 17:18) Ed Iv/Invasive Line Start (11/18/19 17:18) Ed Iv/Invasive Line Start (11/18/19 17:18) Vital Signs Stroke Patient Q15M (11/18/19 17:18) O2 (11/18/19 17:18) Intake & Output 06,14,22 (11/18/19 17:18) Monitor-Rhythm Ecg Trace Only (11/18/19 17:18) Dysphagia Screening Tool (11/18/19 17:18) Post Thrombolytic Adminstratio (11/18/19 17:18) Lipid Panel (11/19/19 06:00) Ct Angio Head/Neck (11/18/19 17:18) Ns Iv 1000 Ml (Sodium Chloride 0.9%) (11/18/19 18:00) Urine Culture (11/18/19 18:05) Ceftriaxone For Iv Use (Rocephin For I (11/18/19 18:45) Medications Given in ED Current Medications Medications Dose Ordered Sig/Mckenna Route Start Time Stop Time Status Last Admin Dose Admin Ceftriaxone Sodium 1000 mg/ Sterile Water 10 ml @ 200 mls/hr ONCE ONCE IV 11/18/19 18:45 11/18/19 18:47 DC 11/18/19 18:40 200 MLS/HR Vital Signs/I&O 11/18/19 17:12 Temp 37.0 Pulse 75 Resp 16 B/P (MAP) 177/102 (127) Pulse Ox 96 O2 Delivery Room Air Diagnostic Imaging Diagonstic Imaging: CT Departure Communication (Admissions) 1911-difficulty here in determining what his true baseline is. I called the assisted staff who reports that he is typically able to ambulate on his own and carry on a conversation. He is unable to do that at this time. Left arm has minimal effort against gravity. The change seems to be a worsening or new A fascia and a worsening of left arm strength. I spoke with Dr. Colon from stroke center. Patient does have a urinary tract infection. The question is did the urinary tract infection cause a exacerbation of previous stroke symptoms or is this a new stroke on top of previous strokes. She agrees either as possible, the AHA recommends not giving TPA to someone with a history of stroke in the past 3 months, he does have that history. However the [employer] package insert on TPA recommends giving it if we feel like it would be helpful. As such she recommends I discuss with family. I spoke with his son him who states that he would defer to us, I discussed with him that my own preference would be to not give TPA and to treat for the urinary tract infection. He is on board with this plan. I then spoke with Dr. John. There is no value to admission to the [facility], he can receive therapy at the assisted, oral antibiotics at the assisted since he is not septic. Blood pressure is currently 122/90. Heart rate is sinus rhythm 78. All due a dose of Rocephin here and discharge back to the assisted. Impression Primary Impression: Urinary tract infection Additional Impressions: Risk for falls Left arm weakness Aphasia complicating stroke Disposition: 01 HOME, SELF-CARE Condition: Stable Departure-Patient Inst. Decision time for Depature: 19:17 Referrals: [facility] [place] Primary Care Physician BELINDA WILSON (Family) Primary Care Physician Patient Instructions: Preventing Falls, Medicines After an Ischemic Stroke Add. Discharge Instructions: 1. Call his primary care provider tomorrow to make an appointment to be seen this week for recheck. Return to ER for any worsening symptoms or other concerns. Antibiotics as directed starting tomorrow. Scripts Cefuroxime Axetil (Cefuroxime) 500 Mg Tablet 500 MG PO BID, #14 TAB Prov: MACY ORONA APRN 11/18/19 Copy Copies To 1: ROSALES KRAFT PETER J APRN Nov 18, 2019 17:26
[2019-11-18 17:27] LABS: BASOPHILS % (AUTO) 0 % (0-10); EOSINOPHILS % (AUTO) 1 % (0-10); HEMATOCRIT 43 % (40-54); LYMPHOCYTES # (AUTO) 1.3 X 10^3 (1.0-4.0); LYMPHOCYTES % (AUTO) 16 % (12-44); MEAN CORPUSCULAR HEMOGLOBIN 29 PG (25-34); MEAN CORPUSCULAR HGB CONC 35 G/DL (32-36); MEAN CORPUSCULAR VOLUME 83 FL (80-99); MEAN PLATELET VOLUME 11.6 FL (7.4-10.4); MONOCYTES # (AUTO) 0.7 X 10^3 (0.0-1.0); MONOCYTES % (AUTO) 8 % (0-12); NEUTROPHILS # (AUTO) 6.1 X 10^3 (1.8-7.8); NEUTROPHILS % (AUTO) 75 % (42-75); PLATELET COUNT 218 10^3/uL (130-400); WHITE BLOOD COUNT 8.2 10^3/uL (4.3-11.0)
[2019-11-18 17:43] LABS: FIBRIN DEGRADATION PRODUCTS 0.28 UG/ML (0.00-0.49); PROTHROMBIN TIME PATIENT 13.3 SEC (12.2-14.7)
[2019-11-18 17:49] LABS: ALBUMIN 4.2 GM/DL (3.2-4.5); CHLORIDE 106 MMOL/L (98-107); SODIUM 139 MMOL/L (135-145)
[2019-11-18 17:51] LABS: CALCIUM 9.7 MG/DL (8.5-10.1)
[2019-11-18 17:52] LABS: GLUCOSE 184 MG/DL (70-105); TOTAL PROTEIN 7.3 GM/DL (6.4-8.2)
[2019-11-18 17:53] LABS: CARBON DIOXIDE 21 MMOL/L (21-32)
[2019-11-18 17:54] LABS: BILIRUBIN,TOTAL 0.7 MG/DL (0.1-1.0)
[2019-11-18 17:55] LABS: ALKALINE PHOSPHATASE 95 U/L (40-136); CREATININE SERUM 1.25 MG/DL (0.60-1.30); GFR ESTIMATED 58
[2019-11-18 17:57] LABS: BUN/CREATININE RATIO 14
[2019-11-18 17:58] LABS: ALANINE AMINOTRANSFERASE 21 U/L (0-55)
[2019-11-18] MEDS ORDERED: NS IV 1000 ML 1,000 ML IV SCH (18:00)
--- OUTSIDE RECORDS SUMMARY | 2019-11-18 18:07 | XMS REPORT | Continuity of Care Document ---
Author Organization Unknown Address Unknown Phone Unavailable Allergies Active Description Code Type Severity Reaction Onset Reported/Identified Relationship to Patient Clinical Status Yes No Known Drug Allergies [id number] Drug Allergy Unknown N/A 09/14/2019 Medications There is no data. Problems Date Dx Coded Attending Type Code Diagnosis Diagnosed By 09/14/2019 CIELO, GONZALO SENIOR FUNCTIONAL ANALYST Ot E11.9 TYPE 2 DIABETES MELLITUS WITHOUT COMPLIC 09/14/2019 CIELO, GONZALO SENIOR FUNCTIONAL ANALYST Ot E78.00 PURE HYPERCHOLESTEROLEMIA, UNSPECIFIED 09/14/2019 CIELO, GONZALO SENIOR FUNCTIONAL ANALYST Ot F03.90 UNSPECIFIED DEMENTIA WITHOUT BEHAVIORAL 09/14/2019 CIELO, GONZALO SENIOR FUNCTIONAL ANALYST Ot I10 ESSENTIAL (PRIMARY) HYPERTENSION 09/14/2019 CIELO, GONZALO SENIOR FUNCTIONAL ANALYST Ot R26.81 UNSTEADINESS ON FEET 09/14/2019 CIELO, GONZALO SENIOR FUNCTIONAL ANALYST Ot R42 DIZZINESS AND GIDDINESS 09/14/2019 CIELO, GONZALO SENIOR FUNCTIONAL ANALYST Ot Z79.84 COLLAR TACKER (CURRENT) USE OF ORAL HYPOGLYC 09/14/2019 CIELO, GONZALO SENIOR FUNCTIONAL ANALYST Ot Z86.73 PRSNL HX OF TIA (TIA), AND CEREB INFRC W 09/14/2019 CIELO, GONZALO SENIOR FUNCTIONAL ANALYST Ot Z87.891 PERSONAL HISTORY OF NICOTINE DEPENDENCE 09/15/2019 CIELO, GONZALO SENIOR FUNCTIONAL ANALYST Ot E11.9 TYPE 2 DIABETES MELLITUS WITHOUT COMPLIC 09/15/2019 CIELO, GONZALO SENIOR FUNCTIONAL ANALYST Ot E78.00 PURE HYPERCHOLESTEROLEMIA, UNSPECIFIED 09/15/2019 CIELO, GONZALO SENIOR FUNCTIONAL ANALYST Ot F03.90 UNSPECIFIED DEMENTIA WITHOUT BEHAVIORAL 09/15/2019 CIELO, GONZALO SENIOR FUNCTIONAL ANALYST Ot I10 ESSENTIAL (PRIMARY) HYPERTENSION 09/15/2019 CIELO, GONZALO SENIOR FUNCTIONAL ANALYST Ot R26.81 UNSTEADINESS ON FEET 09/15/2019 CIELO, GONZALO SENIOR FUNCTIONAL ANALYST Ot R42 DIZZINESS AND GIDDINESS 09/15/2019 CIELO, GONZALO SENIOR FUNCTIONAL ANALYST Ot Z79.84 FDC (CURRENT) USE OF ORAL HYPOGLYC 09/15/2019 CIELO, GONZALO SENIOR FUNCTIONAL ANALYST Ot Z86.73 PRSNL HX OF TIA (TIA), AND CEREB INFRC W 09/15/2019 GONZALO BUCK SENIOR FUNCTIONAL ANALYST Ot Z87.891 PERSONAL HISTORY OF NICOTINE DEPENDENCE 09/18/2019 DUGGAN DO, SIA Ot E11.9 TYPE 2 DIABETES MELLITUS WITHOUT COMPLIC 09/18/2019 DUGGAN DO, SIA Ot E78.00 PURE HYPERCHOLESTEROLEMIA, UNSPECIFIED 09/18/2019 DUGGAN DO, SIA Ot F03.90 UNSPECIFIED DEMENTIA WITHOUT BEHAVIORAL 09/18/2019 DUGGAN DO, SIA Ot I10 ESSENTIAL (PRIMARY) HYPERTENSION 09/18/2019 DUGGAN DO, SIA Ot N39.0 URINARY TRACT INFECTION, SITE NOT SPECIF 09/18/2019 DUGGAN DO, SIA Ot R26.0 ATAXIC GAIT 09/18/2019 DUGGAN DO, SIA Ot R29.70 3 NIHSS SCORE 3 09/18/2019 DUGGAN DO, SIA Ot R29.81 0 FACIAL WEAKNESS 09/18/2019 DUGGAN DO, SIA Ot R47.01 APHASIA 09/18/2019 DUGGAN DO, SIA Ot Z86.73 PRSNL HX OF TIA (TIA), AND CEREB INFRC W 09/18/2019 DUGGAN DO, SIA Ot Z87.89 1 PERSONAL HISTORY OF NICOTINE DEPENDENCE 09/19/2019 DUGGAN DO, SIA Ot E11.9 TYPE 2 DIABETES MELLITUS WITHOUT COMPLIC 09/19/2019 DUGGAN DO, SIA Ot E78.00 PURE HYPERCHOLESTEROLEMIA, UNSPECIFIED 09/19/2019 DUGGAN DO, SIA Ot E78.5 HYPERLIPIDEMIA, UNSPECIFIED 09/19/2019 DUGGAN DO, SIA Ot F03.90 UNSPECIFIED DEMENTIA WITHOUT BEHAVIORAL 09/19/2019 DUGGAN DO, SIA Ot I10 ESSENTIAL (PRIMARY) HYPERTENSION 09/19/2019 DUGGAN DO, SIA Ot I49.3 VENTRICULAR PREMATURE DEPOLARIZATION 09/19/2019 DUGGAN DO, SIA Ot I63.9 CEREBRAL INFARCTION, UNSPECIFIED 09/19/2019 DUGGAN DO, SIA Ot N39.0 URINARY TRACT INFECTION, SITE NOT SPECIF 09/19/2019 DUGGAN DO, SIA Ot R26.0 ATAXIC GAIT 09/19/2019 DUGGAN DO, SIA Ot R29.70 3 NIHSS SCORE 3 09/19/2019 DUGGAN DO, SIA Ot R29.81 0 FACIAL WEAKNESS 09/19/2019 DUGGAN DO, SIA Ot R47.01 APHASIA 09/19/2019 DUGGAN DO, SIA Ot Z86.73 PRSNL HX OF TIA (TIA), AND CEREB INFRC W 09/19/2019 DUGGAN DO, SIA Ot Z87.89 1 PERSONAL HISTORY OF NICOTINE DEPENDENCE 09/26/2019 DUGGAN DO, SIA Ot E11.64 9 TYPE 2 DIABETES MELLITUS WITH HYPOGLYCEM 09/26/2019 DUGGAN DO, SIA Ot E78.5 HYPERLIPIDEMIA, UNSPECIFIED 09/26/2019 DUGGAN DO, SIA Ot F03.90 UNSPECIFIED DEMENTIA WITHOUT BEHAVIORAL 09/26/2019 DUGGAN DO, SIA Ot I10 ESSENTIAL (PRIMARY) HYPERTENSION 09/26/2019 DUGGAN DO, SIA Ot I48.91 UNSPECIFIED ATRIAL FIBRILLATION 09/26/2019 DUGGAN DO, SIA Ot I49.3 VENTRICULAR PREMATURE DEPOLARIZATION 09/26/2019 DUGGAN DO, SIA Ot 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 09/26/2019 DUGGAN DO, SIA Ot R26.81 UNSTEADINESS ON FEET 09/26/2019 DUGGAN DO, SIA Ot Z87.89 1 PERSONAL HISTORY OF NICOTINE DEPENDENCE 09/26/2019 DUGGAN DO, SIA Ot Z91.81 HISTORY OF FALLING 10/01/2019 DUGGAN DO, SIA Ot E11.64 9 TYPE 2 DIABETES MELLITUS WITH HYPOGLYCEM 10/01/2019 DUGGAN DO, SIA Ot E78.5 HYPERLIPIDEMIA, UNSPECIFIED 10/01/2019 DUGGAN DO, SIA Ot F03.90 UNSPECIFIED DEMENTIA WITHOUT BEHAVIORAL 10/01/2019 DUGGAN DO, SIA Ot I10 ESSENTIAL (PRIMARY) HYPERTENSION 10/01/2019 DUGGAN DO, SIA Ot I48.91 UNSPECIFIED ATRIAL FIBRILLATION 10/01/2019 DUGGAN DO, SIA Ot I49.3 VENTRICULAR PREMATURE DEPOLARIZATION 10/01/2019 DUGGAN DO, SIA Ot 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 10/01/2019 DUGGAN DO, SIA Ot R26.81 UNSTEADINESS ON FEET 10/01/2019 DUGGAN DO, SIA Ot Z87.89 1 PERSONAL HISTORY OF NICOTINE DEPENDENCE 10/01/2019 DUGGAN DO, SIA Ot Z91.81 HISTORY OF FALLING 10/01/2019 DUGGAN DO, SIA Ot E11.64 9 TYPE 2 DIABETES MELLITUS WITH HYPOGLYCEM 10/01/2019 DUGGAN DO, SIA Ot E78.5 HYPERLIPIDEMIA, UNSPECIFIED 10/01/2019 DUGGAN DO, SIA Ot F03.90 UNSPECIFIED DEMENTIA WITHOUT BEHAVIORAL 10/01/2019 DUGGAN DO, SIA Ot I10 ESSENTIAL (PRIMARY) HYPERTENSION 10/01/2019 DUGGAN DO, SIA Ot I48.91 UNSPECIFIED ATRIAL FIBRILLATION 10/01/2019 DUGGAN DO, SIA Ot I49.3 VENTRICULAR PREMATURE DEPOLARIZATION 10/01/2019 DUGGAN DO, SIA Ot 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 10/01/2019 DUGGAN DO, SIA Ot R26.81 UNSTEADINESS ON FEET 10/01/2019 DUGGAN DO, SIA Ot Z87.89 1 PERSONAL HISTORY OF NICOTINE DEPENDENCE 10/01/2019 DUGGAN DO, SIA Ot Z91.81 HISTORY OF FALLING 10/05/2019 DUGGAN DO, SIA Ot E11.64 9 TYPE 2 DIABETES MELLITUS WITH HYPOGLYCEM 10/05/2019 DUGGAN DO, SIA Ot E78.5 HYPERLIPIDEMIA, UNSPECIFIED 10/05/2019 DUGGAN DO, SIA Ot F03.90 UNSPECIFIED DEMENTIA WITHOUT BEHAVIORAL 10/05/2019 DUGGAN DO, SIA Ot I10 ESSENTIAL (PRIMARY) HYPERTENSION 10/05/2019 DUGGAN DO, SIA Ot I48.91 UNSPECIFIED ATRIAL FIBRILLATION 10/05/2019 DUGGAN DO, SIA Ot I49.3 VENTRICULAR PREMATURE DEPOLARIZATION 10/05/2019 DUGGAN DO, SIA Ot 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 TURKMEN 71 mL/min/1.73m2 > OR = 60 eGFR [...] e sediment by light microscopy 5-10 NRG Bacterial urine culture - 09/17/19 19:39 Bacterial urine culture 3 OR MORE NRG COLONY COUNT >100,000/ML NRG SUSCEPTIBILITY GRAM POSITIVE ISOLATES; SUGGESTING NRG MRSA SCREEN PROBABLE COLLECTION CONTAMINATION WITH NRG RAPID ID SKIN ROSALINDA. NO SUSCEPTIBILITY PERFORMED. NRG Cerebrospinal fluid cell count - 0 20:16 Cerebrospinal fluid appearance description CLEAR NRG Cerebrospinal fluid color identification PINK NRG Cerebrospinal fluid leukocytes count (number/volume) 6 % 0-5 Cerebrospinal fluid erythrocytes count (number/volume) 4850 % 0-0 Manual cerebrospinal fluid lymphocytes/100 leukocytes 32 % NRG Manual cerebrospinal fluid mononuclear cells/100 leuko cytes 25 % NRG Manual cerebrospinal fluid polymorphonuclear cells/100 leukocytes 9 % NRG Cerebrospinal fluid cell count on specimen from last t ube collected 4 NRG Cerebrospinal fluid glucose measurement (mass/volume) - 09/17/19 20:16 Cerebrospinal fluid glucose measurement (mass/volume) 94 mg/dL 50-80 Cerebrospinal fluid protein measurement (mass/volume) - 09/17/19 20:16 Cerebrospinal fluid protein measurement (mass/volume) 40 mg/dL 15-40 Gram stain microscopy - 09/17/19 20:16 Gram stain microscopy NO WBC OR BACTERIA OBS ERVED ON DIRECT GRAM STAIN NRG Bacterial cerebrospinal fluid culture - 09/17/19 20:16 Bacterial cerebrospinal fluid culture NG NRG Multiple sclerosis panel - 09/17/19 20:1 6 MYELN BASIC PROTEIN <2.0 2.0-4.0 Serum or plasma albumin measurement (mass/volume) 4.0 % 3.2- 4.6 Cerebrospinal fluid oligoclonal bands detection NRG Albumin [mass/volume] in cerebral spinal fluid TNP 8.0-42.0 Quantitative cerebrospinal fluid IgG measurement T PRODUCTION PACKAGER 0.8- 7.7 Serum or plasma IgG measurement (mass/volume) 998 % 600-1540 Cerebrospinal fluid IgG index TNP <0.66 Cerebrospinal fluid IgG synthesis rate TNP -9.9 TO +3.3 Blood lactic acid measurement (moles/vol ume) - 09/17/19 20:54 Blood lactic acid measurement (moles/volume) 1.38 mmol/L 0.50-2.00 Bacterial blood culture - 09/17/19 20:55 Bacterial blood culture NG NRG Bacterial blood culture - 09/17/19 21:00 Bacterial blood culture NG NR Complete blood count (CBC) with automate d white blood cell (WBC) differential - 09/18/19 04:57 Blood leukocytes automated count (number/volume) 7.6 10*3/uL 4.3-11.0 Blood erythrocytes automated count (number/volume) 4.51 10*6/uL 4.35-5.85 Venous blood hemoglobin measurement (mass/volume) 12.8 g/dL 13.3-17.7 Blood hematocrit (volume fraction) 38 % 40-54 Automated erythrocyte mean corpuscular volume 84 [ foz_us] 80-99 Automated erythrocyte mean corpuscular h emoglobin (mass per erythrocyte) 28 pg 25-34 Automated erythrocyte mean corpuscular h emoglobin concentration measurement (mass/volume) 34 g/dL 32-36 Automated erythrocyte distribution width ratio 14. 0 % 10.0- 14.5 Automated blood platelet count (count/volume) 187 10*3/uL 130-400 Automated blood platelet mean volume measurement 11.3 [foz_us] 7.4-10.4 Automated blood neutrophils/100 leukocytes 67 % 42-75 Automated blood lymphocytes/100 leukocytes 21 % 12-44 Blood monocytes/100 leukocytes 11 % 0-12 Automated blood eosinophils/100 leukocytes 1 % 0-10 Automated blood basophils/100 leukocytes 0 % 0-10 Blood neutrophils automated count (number/volume) 5.1 10*3 1.8-7.8 Blood lymphocytes automated count (number/volume) 1.6 10*3 1.0-4.0 Blood monocytes automated count (number/volume) 0. 9 10*3 0.0-1.0 Automated eosinophil count 0.1 10*3/uL 0 .0-0.3 Automated blood basophil count (count/volume) 0.0 10*3/uL 0.0-0.1 Comprehensive metabolic panel - 09/18/19 04:57 Serum or plasma sodium measurement (moles/volume) 139 mmol/L 135-145 Serum or plasma potassium measurement (moles/volume) 3.7 mmol/L 3.6-5.0 Serum or plasma chloride measurement (moles/volume) 105 mmol/L 98-107 Carbon dioxide 22 mmol/L 21-32 Serum or plasma anion gap determination (moles/volume) 12 mmol/L 5-14 Serum or plasma urea nitrogen measurement (mass/volume ) 30 mg/dL 7-18 Serum or plasma creatinine measurement (mass/volume) 1.16 mg/dL 0.60-1.30 Serum or plasma urea nitrogen/creatinine mass ratio 26 NRG Serum or plasma creatinine measurement w ith calculation of estimated glomerular filtration rate > NRG Serum or plasma glucose measurement (mass/volume) 156 mg/dL 70-105 Serum or plasma calcium measurement (mass/volume) 8.8 mg/dL 8.5-10.1 Serum or plasma total bilirubin measurement (mass/volu me) 0.7 mg/dL 0.1-1.0 Serum or plasma alkaline phosphatase alvaro surement (enzymatic activity/volume) 80 U/L 40-136 Serum or plasma aspartate aminotransfera se measurement (enzymatic activity/volume) 17 U/L 5-34 Serum or plasma alanine aminotransferase measurement (enzymatic activity/volume) 16 U/L 0-55 Serum or plasma protein measurement (mass/volume) 6.4 g/dL 6.4-8.2 Serum or plasma albumin measurement (mass/volume) 3.7 g/dL 3.2-4.5 CALCIUM CORRECTED 9.0 mg/dL 8.5-10.1 Lipid 1996 panel - 09/18/19 04:57 Serum or plasma triglyceride measurement (mass/volume) 158 mg/dL <150 Serum or plasma cholesterol measurement (mass/volume) 113 mg/dL < 200 Serum or plasma cholesterol in HDL measurement (mass/v olume) 31 mg/dL 40-60 Cholesterol in LDL [mass/volume] in serum or plasma by direct assay 68 mg/dL 1-129 Serum or plasma cholesterol in VLDL measurement (mass/ volume) 32 mg/dL 5-40 Capillary blood glucose measurement by g lucometer (mass/volume) - 09/18/19 05:30 Capillary blood glucose measurement by glucometer (mas s/volume) 157 mg/dL 70-110 Capillary blood glucose measurement by g lucometer (mass/volume) - 09/18/19 11:24 Capillary blood glucose measurement by glucometer (mas s/volume) 217 mg/dL 70-110 Capillary blood glucose measurement by g lucometer (mass/volume) - 09/18/19 15:43 Capillary blood glucose measurement by glucometer (mas s/volume) 203 mg/dL 70-110 Capillary blood glucose measurement by g lucometer (mass/volume) - 09/18/19 20:35 Capillary blood glucose measurement by glucometer (mas s/volume) 208 mg/dL 70-110 Capillary blood glucose measurement by g lucometer (mass/volume) - 09/19/19 06:43 Capillary blood glucose measurement by glucometer (mas s/volume) 133 mg/dL 70-110 Capillary blood glucose measurement by g lucometer (mass/volume) - 09/19/19 12:18 Capillary blood glucose measurement by glucometer (mas s/volume) 202 mg/dL 70-110 Capillary blood glucose measurement by g lucometer (mass/volume) - 09/19/19 16:53 Capillary blood glucose measurement by glucometer (mas s/volume) 188 mg/dL 70-110 Capillary blood glucose measurement by g lucometer (mass/volume) - 09/19/19 21:13 Capillary blood glucose measurement by glucometer (mas s/volume) 134 mg/dL 70-110 Complete blood count (CBC) with automate d white blood cell (WBC) differential - 09/20/19 04:54 Blood leukocytes automated count (number/volume) 7.6 10*3/uL 4.3-11.0 Blood erythrocytes automated count (number/volume) 4.45 10*6/uL 4.35-5.85 Venous blood hemoglobin measurement (mass/volume) 12.3 g/dL 13.3-17.7 Blood hematocrit (volume fraction) 37 % 40-54 Automated erythrocyte mean corpuscular volume 83 [ foz_us] 80-99 Automated erythrocyte mean corpuscular h emoglobin (mass per erythrocyte) 28 pg 25-34 Automated erythrocyte mean corpuscular h emoglobin concentration measurement (mass/volume) 33 g/dL 32-36 Automated erythrocyte distribution width ratio 13. 9 % 10.0- 14.5 Automated blood platelet count (count/volume) 191 10*3/uL 130-400 Automated blood platelet mean volume measurement 11.4 [foz_us] 7.4-10.4 Automated blood neutrophils/100 leukocytes 71 % 42-75 Automated blood lymphocytes/100 leukocytes 18 % 12-44 Blood monocytes/100 leukocytes 10 % 0-12 Automated blood eosinophils/100 leukocytes 1 % 0-10 Automated blood basophils/100 leukocytes 0 % 0-10 Blood neutrophils automated count (number/volume) 5.4 10*3 1.8-7.8 Blood lymphocytes automated count (number/volume) 1.3 10*3 1.0-4.0 Blood monocytes automated count (number/volume) 0. 8 10*3 0.0-1.0 Automated eosinophil count 0.1 10*3/uL 0 .0-0.3 Automated blood basophil count (count/volume) 0.0 10*3/uL 0.0-0.1 Comprehensive metabolic panel - 09/20/19 04:54 Serum or plasma sodium measurement (moles/volume) 140 mmol/L 135-145 Serum or plasma potassium measurement (moles/volume) 3.6 mmol/L 3.6-5.0 Serum or plasma chloride measurement (moles/volume) 106 mmol/L 98-107 Carbon dioxide 24 mmol/L 21-32 Serum or plasma anion gap determination (moles/volume) 10 mmol/L 5-14 Serum or plasma urea nitrogen measurement (mass/volume ) 26 mg/dL 7-18 Serum or plasma creatinine measurement (mass/volume) 1.08 mg/dL 0.60-1.30 Serum or plasma urea nitrogen/creatinine mass ratio 24 NRG Serum or plasma creatinine measurement w ith calculation of estimated glomerular filtration rate > NRG Serum or plasma glucose measurement (mass/volume) 81 mg/dL 70-105 Serum or plasma calcium measurement (mass/volume) 8.7 mg/dL 8.5-10.1 Serum or plasma total bilirubin measurement (mass/volu me) 0.8 mg/dL 0.1-1.0 Serum or plasma alkaline phosphatase alvaro surement (enzymatic activity/volume) 71 U/L 40-136 Serum or plasma aspartate aminotransfera se measurement (enzymatic activity/volume) 18 U/L 5-34 Serum or plasma alanine aminotransferase measurement (enzymatic activity/volume) 13 U/L 0-55 Serum or plasma protein measurement (mass/volume) 6.1 g/dL 6.4-8.2 Serum or plasma albumin measurement (mass/volume) 3.5 g/dL 3.2-4.5 CALCIUM CORRECTED 9.1 mg/dL 8.5-10.1 Capillary blood glucose measurement by g lucometer (mass/volume) - 09/20/19 10:44 Capillary blood glucose measurement by glucometer (mas s/volume) 205 mg/dL 70-110 Capillary blood glucose measurement by g lucometer (mass/volume) - 09/20/19 16:41 Capillary blood glucose measurement by glucometer (mas s/volume) 216 mg/dL 70-110 Capillary blood glucose measurement by g lucometer (mass/volume) - 09/20/19 20:47 Capillary blood glucose measurement by glucometer (mas s/volume) 190 mg/dL 70-110 Capillary blood glucose measurement by g lucometer (mass/volume) - 09/21/19 05:29 Capillary blood glucose measurement by glucometer (mas s/volume) 75 mg/dL 70-110 Complete blood count (CBC) with automate d white blood cell (WBC) differential - 09/21/19 05:53 Blood leukocytes automated count (number/volume) 7.5 10*3/uL 4.3-11.0 Blood erythrocytes automated count (number/volume) 4.61 10*6/uL 4.35-5.85 Venous blood hemoglobin measurement (mass/volume) 13.0 g/dL 13.3-17.7 Blood hematocrit (volume fraction) 39 % 40-54 Automated erythrocyte mean corpuscular volume 84 [ foz_us] 80-99 Automated erythrocyte mean corpuscular h emoglobin (mass per erythrocyte) 28 pg 25-34 Automated erythrocyte mean corpuscular h emoglobin concentration measurement (mass/volume) 34 g/dL 32-36 Automated erythrocyte distribution width ratio 13. 7 % 10.0- 14.5 Automated blood platelet count (count/volume) 197 10*3/uL 130-400 Automated blood platelet mean volume measurement 11.3 [foz_us] 7.4-10.4 Automated blood neutrophils/100 leukocytes 63 % 42-75 Automated blood lymphocytes/100 leukocytes 25 % 12-44 Blood monocytes/100 leukocytes 10 % 0-12 Automated blood eosinophils/100 leukocytes 2 % 0-10 Automated blood basophils/100 leukocytes 0 % 0-10 Blood neutrophils automated count (number/volume) 4.7 10*3 1.8-7.8 Blood lymphocytes automated count (number/volume) 1.9 10*3 1.0-4.0 Blood monocytes automated count (number/volume) 0. 8 10*3 0.0-1.0 Automated eosinophil count 0.1 10*3/uL 0 .0-0.3 Automated blood basophil count (count/volume) 0.0 10*3/uL 0.0-0.1 Comprehensive metabolic panel - 09/21/19 05:53 Serum or plasma sodium measurement (moles/volume) 141 mmol/L 135-145 Serum or plasma potassium measurement (moles/volume) 3.8 mmol/L 3.6-5.0 Serum or plasma chloride measurement (moles/volume) 106 mmol/L 98-107 Carbon dioxide 24 mmol/L 21-32 Serum or plasma anion gap determination (moles/volume) 11 mmol/L 5-14 Serum or plasma urea nitrogen measurement (mass/volume ) 23 mg/dL 7-18 Serum or plasma creatinine measurement (mass/volume) 1.04 mg/dL 0.60-1.30 Serum or plasma urea nitrogen/creatinine mass ratio 22 NRG Serum or plasma creatinine measurement w ith calculation of estimated glomerular filtration rate > NRG Serum or plasma glucose measurement (mass/volume) 69 mg/dL 70-105 Serum or plasma calcium measurement (mass/volume) 9.1 mg/dL 8.5-10.1 Serum or plasma total bilirubin measurement (mass/volu me) 0.8 mg/dL 0.1-1.0 Serum or plasma alkaline phosphatase alvaro surement (enzymatic activity/volume) 78 U/L 40-136 Serum or plasma aspartate aminotransfera se measurement (enzymatic activity/volume) 21 U/L 5-34 Serum or plasma alanine aminotransferase measurement (enzymatic activity/volume) 19 U/L 0-55 Serum or plasma protein measurement (mass/volume) 6.5 g/dL 6.4-8.2 Serum or plasma albumin measurement (mass/volume) 3.6 g/dL 3.2-4.5 CALCIUM CORRECTED 9.4 mg/dL 8.5-10.1 Capillary blood glucose measurement by g lucometer (mass/volume) - 09/21/19 11:20 Capillary blood glucose measurement by glucometer (mas s/volume) 104 mg/dL 70-110 Capillary blood glucose measurement by g lucometer (mass/volume) - 09/21/19 15:24 Capillary blood glucose measurement by glucometer (mas s/volume) 155 mg/dL 70-110 Capillary blood glucose measurement by g lucometer (mass/volume) - 09/21/19 20:42 Capillary blood glucose measurement by glucometer (mas s/volume) 184 mg/dL 70-110 Capillary blood glucose measurement by g lucometer (mass/volume) - 09/22/19 05:41 Capillary blood glucose measurement by glucometer (mas s/volume) 65 mg/dL 70-110 Capillary blood glucose measurement by g lucometer (mass/volume) - 09/22/19 06:00 Capillary blood glucose measurement by glucometer (mas s/volume) 89 mg/dL 70-110 Capillary blood glucose measurement by g lucometer (mass/volume) - 09/22/19 11:09 Capillary blood glucose measurement by glucometer (mas s/volume) 210 mg/dL 70-110 Capillary blood glucose measurement by g lucometer (mass/volume) - 09/22/19 15:24 Capillary blood glucose measurement by glucometer (mas s/volume) 245 mg/dL 70-110 Capillary blood glucose measurement by g lucometer (mass/volume) - 09/22/19 20:24 Capillary blood glucose measurement by glucometer (mas s/volume) 228 mg/dL 70-110 Capillary blood glucose measurement by g lucometer (mass/volume) - 09/23/19 05:00 Capillary blood glucose measurement by glucometer (mas s/volume) 135 mg/dL 70-110 Capillary blood glucose measurement by g lucometer (mass/volume) - 09/23/19 10:52 Capillary blood glucose measurement by glucometer (mas s/volume) 225 mg/dL 70-110 Capillary blood glucose measurement by g lucometer (mass/volume) - 09/23/19 15:27 Capillary blood glucose measurement by glucometer (mas s/volume) 251 mg/dL 70-110 Capillary blood glucose measurement by g lucometer (mass/volume) - 09/23/19 21:03 Capillary blood glucose measurement by glucometer (mas s/volume) 181 mg/dL 70-110 Capillary blood glucose measurement by g lucometer (mass/volume) - 09/24/19 05:35 Capillary blood glucose measurement by glucometer (mas s/volume) 149 mg/dL 70-110 Capillary blood glucose measurement by g lucometer (mass/volume) - 09/24/19 10:49 Capillary blood glucose measurement by glucometer (mas s/volume) 201 mg/dL 70-110 Capillary blood glucose measurement by g lucometer (mass/volume) - 09/24/19 15:23 Capillary blood glucose measurement by glucometer (mas s/volume) 225 mg/dL 70-110 Capillary blood glucose measurement by g lucometer (mass/volume) - 09/24/19 20:26 Capillary blood glucose measurement by glucometer (mas s/volume) 219 mg/dL 70-110 Capillary blood glucose measurement by g lucometer (mass/volume) - 09/25/19 05:21 Capillary blood glucose measurement by glucometer (mas s/volume) 154 mg/dL 70-110 Capillary blood glucose measurement by g lucometer (mass/volume) - 09/25/19 10:55 Capillary blood glucose measurement by glucometer (mas s/volume) 241 mg/dL 70-110 Capillary blood glucose measurement by g lucometer (mass/volume) - 09/25/19 15:28 Capillary blood glucose measurement by glucometer (mas s/volume) 223 mg/dL 70-110 Capillary blood glucose measurement by g lucometer (mass/volume) - 09/25/19 22:02 Capillary blood glucose measurement by glucometer (mas s/volume) 239 mg/dL 70-110 Capillary blood glucose measurement by g lucometer (mass/volume) - 09/26/19 05:39 Capillary blood glucose measurement by glucometer (mas s/volume) 214 mg/dL 70-110 Capillary blood glucose measurement by g lucometer (mass/volume) - 09/26/19 10:49 Capillary blood glucose measurement by glucometer (mas s/volume) 260 mg/dL 70-110 Capillary blood glucose measurement by g lucometer (mass/volume) - 09/26/19 15:28 Capillary blood glucose measurement by glucometer (mas s/volume) 283 mg/dL 70-110 Capillary blood glucose measurement by g lucometer (mass/volume) - 09/26/19 20:51 Capillary blood glucose measurement by glucometer (mas s/volume) 228 mg/dL 70-110 Capillary blood glucose measurement by g lucometer (mass/volume) - 09/27/19 06:27 Capillary blood glucose measurement by glucometer (mas s/volume) 141 mg/dL 70-110 Capillary blood glucose measurement by g lucometer (mass/volume) - 09/27/19 10:46 Capillary blood glucose measurement by glucometer (mas s/volume) 224 mg/dL 70-110 Capillary blood glucose measurement by g lucometer (mass/volume) - 09/27/19 15:22 Capillary blood glucose measurement by glucometer (mas s/volume) 220 mg/dL 70-110 Capillary blood glucose measurement by g lucometer (mass/volume) - 09/27/19 20:35 Capillary blood glucose measurement by glucometer (mas s/volume) 269 mg/dL 70-110 Complete blood count (CBC) with automate d white blood cell (WBC) differential - 09/28/19 04:55 Blood leukocytes automated count (number/volume) 8.5 10*3/uL 4.3-11.0 Blood erythrocytes automated count (number/volume) 4.70 10*6/uL 4.35-5.85 Venous blood hemoglobin measurement (mass/volume) 13.3 g/dL 13.3-17.7 Blood hematocrit (volume fraction) 40 % 40-54 Automated erythrocyte mean corpuscular volume 84 [ foz_us] 80-99 Automated erythrocyte mean corpuscular h emoglobin (mass per erythrocyte) 28 pg 25-34 Automated erythrocyte mean corpuscular h emoglobin concentration measurement (mass/volume) 34 g/dL 32-36 Automated erythrocyte distribution width ratio 14. 2 % 10.0- 14.5 Automated blood platelet count (count/volume) 249 10*3/uL 130-400 Automated blood platelet mean volume measurement 11.3 [foz_us] 7.4-10.4 Automated blood neutrophils/100 leukocytes 71 % 42-75 Automated blood lymphocytes/100 leukocytes 17 % 12-44 Blood monocytes/100 leukocytes 10 % 0-12 Automated blood eosinophils/100 leukocytes 2 % 0-10 Automated blood basophils/100 leukocytes 0 % 0-10 Blood neutrophils automated count (number/volume) 6.0 10*3 1.8-7.8 Blood lymphocytes automated count (number/volume) 1.5 10*3 1.0-4.0 Blood monocytes automated count (number/volume) 0. 8 10*3 0.0-1.0 Automated eosinophil count 0.1 10*3/uL 0 .0-0.3 Automated blood basophil count (count/volume) 0.0 10*3/uL 0.0-0.1 Comprehensive metabolic panel - 09/28/19 04:55 Serum or plasma sodium measurement (moles/volume) 139 mmol/L 135-145 Serum or plasma potassium measurement (moles/volume) 3.9 mmol/L 3.6-5.0 Serum or plasma chloride measurement (moles/volume) 105 mmol/L 98-107 Carbon dioxide 23 mmol/L 21-32 Serum or plasma anion gap determination (moles/volume) 11 mmol/L 5-14 Serum or plasma urea nitrogen measurement (mass/volume ) 29 mg/dL 7-18 Serum or plasma creatinine measurement (mass/volume) 1.17 mg/dL 0.60-1.30 Serum or plasma urea nitrogen/creatinine mass ratio 25 NRG Serum or plasma creatinine measurement w ith calculation of estimated glomerular filtration rate > NRG Serum or plasma glucose measurement (mass/volume) 142 mg/dL 70-105 Serum or plasma calcium measurement (mass/volume) 8.8 mg/dL 8.5-10.1 Serum or plasma total bilirubin measurement (mass/volu me) 0.7 mg/dL 0.1-1.0 Serum or plasma alkaline phosphatase alvaro surement (enzymatic activity/volume) 83 U/L 40-136 Serum or plasma aspartate aminotransfera se measurement (enzymatic activity/volume) 17 U/L 5-34 Serum or plasma alanine aminotransferase measurement (enzymatic activity/volume) 23 U/L 0-55 Serum or plasma protein measurement (mass/volume) 6.6 g/dL 6.4-8.2 Serum or plasma albumin measurement (mass/volume) 3.8 g/dL 3.2-4.5 CALCIUM CORRECTED 9.0 mg/dL 8.5-10.1 Capillary blood glucose measurement by g lucometer (mass/volume) - 09/28/19 05:40 Capillary blood glucose measurement by glucometer (mas s/volume) 152 mg/dL 70-110 Capillary blood glucose measurement by g lucometer (mass/volume) - 09/28/19 10:58 Capillary blood glucose measurement by glucometer (mas s/volume) 194 mg/dL 70-110 Capillary blood glucose measurement by g lucometer (mass/volume) - 09/28/19 15:28 Capillary blood glucose measurement by glucometer (mas s/volume) 199 mg/dL 70-110 Capillary blood glucose measurement by g lucometer (mass/volume) - 09/28/19 20:17 Capillary blood glucose measurement by glucometer (mas s/volume) 233 mg/dL 70-110 Capillary blood glucose measurement by g lucometer (mass/volume) - 09/29/19 05:48 Capillary blood glucose measurement by glucometer (mas s/volume) 135 mg/dL 70-110 Capillary blood glucose measurement by g lucometer (mass/volume) - 09/29/19 11:17 Capillary blood glucose measurement by glucometer (mas s/volume) 172 mg/dL 70-110 Capillary blood glucose measurement by g lucometer (mass/volume) - 09/29/19 15:32 Capillary blood glucose measurement by glucometer (mas s/volume) 231 mg/dL 70-110 Capillary blood glucose measurement by g lucometer (mass/volume) - 09/29/19 20:14 Capillary blood glucose measurement by glucometer (mas s/volume) 185 mg/dL 70-110 Capillary blood glucose measurement by g lucometer (mass/volume) - 09/30/19 05:12 Capillary blood glucose measurement by glucometer (mas s/volume) 128 mg/dL 70-110 Capillary blood glucose measurement by g lucometer (mass/volume) - 09/30/19 10:58 Capillary blood glucose measurement by glucometer (mas s/volume) 139 mg/dL 70-110 Capillary blood glucose measurement by g lucometer (mass/volume) - 09/30/19 15:19 Capillary blood glucose measurement by glucometer (mas s/volume) 223 mg/dL 70-110 Capillary blood glucose measurement by g lucometer (mass/volume) - 09/30/19 20:30 Capillary blood glucose measurement by glucometer (mas s/volume) 190 mg/dL 70-110 Capillary blood glucose measurement by g lucometer (mass/volume) - 10/01/19 05:16 Capillary blood glucose measurement by glucometer (mas s/volume) 121 mg/dL 70-110 Capillary blood glucose measurement by g lucometer (mass/volume) - 10/01/19 10:55 Capillary blood glucose measurement by glucometer (mas s/volume) 153 mg/dL 70-110 Capillary blood glucose measurement by g lucometer (mass/volume) - 10/01/19 15:20 Capillary blood glucose measurement by glucometer (mas s/volume) 165 mg/dL 70-110 Capillary blood glucose measurement by g lucometer (mass/volume) - 10/01/19 20:21 Capillary blood glucose measurement by glucometer (mas s/volume) 168 mg/dL 70-110 Capillary blood glucose measurement by g lucometer (mass/volume) - 10/02/19 05:06 Capillary blood glucose measurement by glucometer (mas s/volume) 112 mg/dL 70-110 Capillary blood glucose measurement by g lucometer (mass/volume) - 10/02/19 10:59 Capillary blood glucose measurement by glucometer (mas s/volume) 148 mg/dL 70-110 Capillary blood glucose measurement by g lucometer (mass/volume) - 10/02/19 15:23 Capillary blood glucose measurement by glucometer (mas s/volume) 188 mg/dL 70-110 Capillary blood glucose measurement by g lucometer (mass/volume) - 10/02/19 20:02 Capillary blood glucose measurement by glucometer (mas s/volume) 201 mg/dL 70-110 Capillary blood glucose measurement by g lucometer (mass/volume) - 10/03/19 06:14 Capillary blood glucose measurement by glucometer (mas s/volume) 175 mg/dL 70-110 Capillary blood glucose measurement by g lucometer (mass/volume) - 10/03/19 11:23 Capillary blood glucose measurement by glucometer (mas s/volume) 247 mg/dL 70-110 Capillary blood glucose measurement by g lucometer (mass/volume) - 10/03/19 15:18 Capillary blood glucose measurement by glucometer (mas s/volume) 238 mg/dL 70-110 Capillary blood glucose measurement by g lucometer (mass/volume) - 10/03/19 20:26 Capillary blood glucose measurement by glucometer (mas s/volume) 199 mg/dL 70-110 Complete blood count (CBC) with automate d white blood cell (WBC) differential - 10/04/19 05:45 Blood leukocytes automated count (number/volume) 6.4 10*3/uL 4.3-11.0 Blood erythrocytes automated count (number/volume) 4.90 10*6/uL 4.35-5.85 Venous blood hemoglobin measurement (mass/volume) 13.7 g/dL 13.3-17.7 Blood hematocrit (volume fraction) 41 % 40-54 Automated erythrocyte mean corpuscular volume 84 [ foz_us] 80-99 Automated erythrocyte mean corpuscular h emoglobin (mass per erythrocyte) 28 pg 25-34 Automated erythrocyte mean corpuscular h emoglobin concentration measurement (mass/volume) 33 g/dL 32-36 Automated erythrocyte distribution width ratio 14. 3 % 10.0- 14.5 Automated blood platelet count (count/volume) 237 10*3/uL 130-400 Automated blood platelet mean volume measurement 11.1 [foz_us] 7.4-10.4 Automated blood neutrophils/100 leukocytes 64 % 42-75 Automated blood lymphocytes/100 leukocytes 24 % 12-44 Blood monocytes/100 leukocytes 10 % 0-12 Automated blood eosinophils/100 leukocytes 2 % 0-10 Automated blood basophils/100 leukocytes 1 % 0-10 Blood neutrophils automated count (number/volume) 4.1 10*3 1.8-7.8 Blood lymphocytes automated count (number/volume) 1.5 10*3 1.0-4.0 Blood monocytes automated count (number/volume) 0. 6 10*3 0.0-1.0 Automated eosinophil count 0.1 10*3/uL 0 .0-0.3 Automated blood basophil count (count/volume) 0.0 10*3/uL 0.0-0.1 Comprehensive metabolic panel - 10/04/19 05:45 Serum or plasma sodium measurement (moles/volume) 140 mmol/L 135-145 Serum or plasma potassium measurement (moles/volume) 4.0 mmol/L 3.6-5.0 Serum or plasma chloride measurement (moles/volume) 107 mmol/L 98-107 Carbon dioxide 24 mmol/L 21-32 Serum or plasma anion gap determination (moles/volume) 9 mmol/L 5-14 Serum or plasma urea nitrogen measurement (mass/volume ) 30 mg/dL 7-18 Serum or plasma creatinine measurement (mass/volume) 1.12 mg/dL 0.60-1.30 Serum or plasma urea nitrogen/creatinine mass ratio 27 NRG Serum or plasma creatinine measurement w ith calculation of estimated glomerular filtration rate > NRG Serum or plasma glucose measurement (mass/volume) 138 mg/dL 70-105 Serum or plasma calcium measurement (mass/volume) 9.2 mg/dL 8.5-10.1 Serum or plasma total bilirubin measurement (mass/volu me) 0.8 mg/dL 0.1-1.0 Serum or plasma alkaline phosphatase alvaro surement (enzymatic activity/volume) 90 U/L 40-136 Serum or plasma aspartate aminotransfera se measurement (enzymatic activity/volume) 20 U/L 5-34 Serum or plasma alanine aminotransferase measurement (enzymatic activity/volume) 22 U/L 0-55 Serum or plasma protein measurement (mass/volume) 6.9 g/dL 6.4-8.2 Serum or plasma albumin measurement (mass/volume) 4.0 g/dL 3.2-4.5 CALCIUM CORRECTED 9.2 mg/dL 8.5-10.1 Capillary blood glucose measurement by g lucometer (mass/volume) - 10/04/19 05:54 Capillary blood glucose measurement by glucometer (mas s/volume) 184 mg/dL 70-110 Capillary blood glucose measurement by g lucometer (mass/volume) - 10/04/19 10:50 Capillary blood glucose measurement by glucometer (mas s/volume) 185 mg/dL 70-110 Capillary blood glucose measurement by g lucometer (mass/volume) - 10/04/19 16:18 Capillary blood glucose measurement by glucometer (mas s/volume) 216 mg/dL 70-110 Capillary blood glucose measurement by g lucometer (mass/volume) - 10/04/19 20:24 Capillary blood glucose measurement by glucometer (mas s/volume) 248 mg/dL 70-110 Capillary blood glucose measurement by g lucometer (mass/volume) - 10/05/19 05:38 Capillary blood glucose measurement by glucometer (mas s/volume) 133 mg/dL 70-110 Capillary blood glucose measurement by g lucometer (mass/volume) - 10/05/19 11:14 Capillary blood glucose measurement by glucometer (mas s/volume) 143 mg/dL 70-110 Encounters ACCT No. Visit Date/Time Discharge Status Pt. Type Provider Facility Loc./Unit Complaint [id number] 06/17/2019 15:20:00 06/17/2019 23:59: 59 [facility] Outpatient [facility] [id number] 06/17/2019 15:20:00 Document Registration [id number] 02/25/2019 10:20:00 Document Registration [id number] 09/19/2019 10:20:00 15:06:00 DIS Inpatient DUGGAN DO SIA [facility] IRF CVA [id number] 09/17/2019 20:22:00 10:15:00 DIS Inpatient OLGA LIDIA LEE SIA V [facility] 4TH UTI, GAIT INSTABILITY [id number] 09/14/2019 17:41:00 20:00:00 DIS Emergency GONZALO BUCK [facility] ER DIZZINESS/HX DIABETES A ND DEMENTIA
[2019-11-18 18:15] LABS: BILIRUBIN,URINE NEGATIVE (NEGATIVE); CLARITY,URINE CLOUDY; COLOR,URINE YELLOW; GLUCOSE, URINE (UA) 3+ (NEGATIVE); KETONES,URINE NEGATIVE (NEGATIVE); LEUKOCYTE ESTERASE ,URINE TRACE (NEGATIVE); NITRITE,URINE NEGATIVE (NEGATIVE); PH,URINE 6.5 (5-9); PROTEIN,URINE 1+ (NEGATIVE)
[2019-11-18 18:24] LABS: AMORPHOUS SEDIMENT,UR MOD AMOR URATES /LPF; BACTERIA,URINE MODERATE /HPF; RBC,URINE 0-2 /HPF; WBC,URINE 50-100 /HPF
--- NOTE | 2019-11-18 18:31 | Diagnostic Imaging Report ---
EXAMINATION: Chest radiograph, portable AP view. DATE: 11/18/2019 6:24 PM hours. INDICATION: 69-year-old male, left-sided weakness. Fall this morning. COMPARISON: None. FINDINGS: Heart size and mediastinal contours are unremarkable. There is no identified pneumothorax. There is no large pleural effusion. There is no identified focal airspace consolidation. There is no identified significantly displaced rib fracture. IMPRESSION: No identified acute cardiopulmonary abnormality. Dictated by: Dictated on workstation # [id number]
--- NOTE | 2019-11-18 18:33 | NUR ---
[facility] TALKING TO [facility] STAFF VIA PHONE.
[2019-11-18] MEDS ORDERED: cefTRIAXone FOR IV USE 1,000 MG in WATER (STERILE) FOR INJECTION 10 ML IV ONE (18:45)
--- NOTE | 2019-11-18 18:51 | Diagnostic Imaging Report ---
EXAMINATION: CTA of the brain and neck dated 11/18/2019. TECHNIQUE: Contiguous noncontrast images were obtained from the skull base through the vertex. After intravenous contrast administration, helical CT angiography of the neck was performed. Source data was reformatted into 3D MIP projections. Delayed post contrast acquisition was also obtained. Auto Exposure Controls were utilized during the CT exam to meet ALARA standards for radiation dose reduction. INDICATION: Fell twice today, has history of stroke. Left-sided weakness. COMPARISON: 09/17/2019. FINDINGS: Diffuse atrophy similar to previous with no definite superimposed acute hemorrhage or infarct. No mass, mass effect, or midline shift. No hydrocephalus. Cavum septum pellucidum and vergae again noted and of no clinical significance. Paranasal sinuses and mastoid air cells appear to be clear. CTA: [id number] atherosclerotic disease is seen in terminal internal carotid arteries without significant stenosis. Bilateral middle cerebral arteries appear patent. The anterior cerebral arteries are patent. The intracranial vertebral arteries appear patent. Basilar artery is unremarkable. Posterior cerebral arteries are patent as visualized but limited. CTA imaging through the neck demonstrates patency of all major vessels including the common carotid arteries and internal carotid arteries as well as the external carotid arteries. Mild soft plaque at the origin of the left common carotid artery is noted. Vertebral arteries within the neck unremarkable. The lung apices demonstrate emphysematous changes. Please note the following imaging performed at 1.25 cuts rather than 0.63 thin cuts, somewhat limit evaluation of the vasculature. The carotid arteries within the brain poorly opacified and therefore quite limited in evaluation. Postcontrast delayed imaging of the brain unremarkable for abnormal enhancement. IMPRESSION: 1. Fairly stable-appearing atherosclerotic disease throughout the vasculature with no evidence for significant stenosis or occlusion of the major vessels as visualized, however, examination is limited especially the evaluation of the internal carotid arteries intracranially due to the large slice selection. The posterior cerebral arteries are also poorly evaluated.. If there is continued clinical concern, short-term follow-up using 0.63 mm cuts or MRA could further characterize as clinically indicated. 2. Chronic ischemic changes in the brain similar to previous with no acute intracranial hemorrhage or infarct appreciated. Dictated by: Dictated on workstation # [id number]
[2019-11-18] MEDS ORDERED: CEFU500T63 PO (19:18)
--- NOTE | 2019-11-18 19:27 | NUR ---
[facility] called senior living report given informed pt was ready for discharge.
[2019-11-18 19:50] VITALS: BP 176/113
== END 2019-11-18 20:24 | disposition home or self-care (01) ==
LOC: EDUNIT# 17:12 → ER 17:14
DX: N39.0 Urinary tract infection, site not specified (principal); M62.81 Muscle weakness (generalized); I69.920 Aphasia following unspecified cerebrovascular disease; I48.91 Unspecified atrial fibrillation; I10 Essential (primary) hypertension; E78.00 Pure hypercholesterolemia, unspecified; E11.9 Type 2 diabetes mellitus without complications; Z91.81 History of falling; Z79.82 Long term (current) use of aspirin; Z79.84 Long term (current) use of oral hypoglycemic drugs
CPT/HCPCS: 36415; 51702; 70496; 70498; 71045; 80053; 81000; 84484; 85025; 85379; 85610; 85730; 87088; 93005; 93041

== ENCOUNTER 2021-02-26 01:21 | Inpatient (IN) | payer MEDICARE ==
[~2021-02-26] VITALS: Ht 170.2 cm; Wt 79.5 kg
[~2021-02-26 01:21] MED LIST changes: +AMLO-250 PO; -AMLO5TAB9 PO; +ASPI-1238 PO; -ASPI-983 PO; +CEFU500T63 PO; +CLN.1T PO; -CLON0.1T PO; +ESCI20TA39 PO; -ESCI20TA45 PO; +GLBR2.5T PO; -GLYB2.5T4 PO
[2021-02-26] MEDS ORDERED: LACTATED RINGERS 1,000 ML IV ONE (01:30)
[2021-02-26 01:37] LABS: ABG BASE EXCESS -16.3 MMOL/L (-2.5-2.5); ABG OXYGEN SATURATION 99 % (94-100); ABG PO2 291 MMHG (79-93)
[2021-02-26] MEDS ORDERED: ACETAMINOPHEN 650 MG SUPP (TYLENOL) PR STA (01:38)
[2021-02-26 01:39] LABS: ABG PCO2 19 MMHG (35-45)
[2021-02-26 01:40] LABS: ABG TCO2 9.5 MMOL/L (21.0-31.0); ALLENS TEST YES-POS; INSPIRED O2 100%; PATIENT TEMP 37.6; VENTILATOR NO
[2021-02-26 01:45] LABS: BASOPHILS % (AUTO) 1 % (0-10); EOSINOPHILS % (AUTO) 0 % (0-10); HEMATOCRIT 48 % (40-54); HEMOGLOBIN 14.1 g/dL (13.3-17.7); LYMPHOCYTES # (AUTO) 2.1 10^3/uL (1.0-4.0); LYMPHOCYTES % (AUTO) 30 % (12-44); MEAN CORPUSCULAR HEMOGLOBIN 29 pg (25-34); MEAN CORPUSCULAR HGB CONC 29 g/dL (32-36); MEAN CORPUSCULAR VOLUME 98 fL (80-99); MEAN PLATELET VOLUME 13.3 fL (9.0-12.2); MONOCYTES # (AUTO) 0.7 10^3/uL (0.0-1.0); MONOCYTES % (AUTO) 9 % (0-12); NEUTROPHILS # (AUTO) 4.2 10^3/uL (1.8-7.8); NEUTROPHILS % (AUTO) 60 % (42-75); PLATELET COUNT 259 10^3/uL (130-400)
[2021-02-26] MEDS ORDERED: SODIUM BICARB 8.4% 50 MEQ/50 ML VIAL IV ONE (01:45)
[2021-02-26] MEDS ORDERED: NS IV 1000 ML 1,000 ML IV SCH (01:45)
[2021-02-26] MEDS ORDERED: CEFEPIME INJECTION 2,000 MG in WATER (STERILE) FOR INJECTION 10 ML IV ONE (01:45)
[2021-02-26 01:46] VITALS: BP 95/55
[2021-02-26] MEDS ORDERED: SODIUM BICARB 8.4% 50 MEQ/50 ML (ABBOTT) SYR ONE (01:48)
[2021-02-26 01:57] LABS: ALBUMIN 3.6 GM/DL (3.2-4.5); POTASSIUM 5.3 MMOL/L (3.6-5.0)
[2021-02-26 01:58] LABS: CALCIUM 9.7 MG/DL (8.5-10.1)
[2021-02-26 01:59] LABS: TOTAL PROTEIN 7.4 GM/DL (6.4-8.2)
[2021-02-26] MEDS: VANCOMYCIN INJECTION 750 MG in NS (IVPB) 250 ML IV SCH (02:00)
[2021-02-26 02:01] LABS: BILIRUBIN,TOTAL 0.7 MG/DL (0.1-1.0)
[2021-02-26 02:03] LABS: CREATININE SERUM 6.15 MG/DL (0.60-1.30)
[2021-02-26 02:06] LABS: MAGNESIUM 2.9 MG/DL (1.6-2.4)
[2021-02-26 02:08] LABS: FIBRIN DEGRADATION PRODUCTS 5.79 UG/ML (0.00-0.49); INR 1.3 (0.8-1.4); PROTHROMBIN TIME PATIENT 16.7 SEC (12.2-14.7)
[2021-02-26 02:14] LABS: CREATINE KINASE MB 1.1 NG/ML (<6.6)
[2021-02-26] MEDS ORDERED: 1/2 NS IV SOLUTION 1,000 ML IV SCH (02:15)
[2021-02-26 02:22] LABS: ERYTHROCYTE SEDIMENTATION RATE 57 MM/HR (0-30)
[2021-02-26 02:47] LABS: ABG BASE EXCESS -13.6 MMOL/L (-2.5-2.5); ABG OXYGEN SATURATION 99 % (94-100); ABG PCO2 26 MMHG (35-45); ABG PO2 154 MMHG (79-93); ABG TCO2 12.5 MMOL/L (21.0-31.0)
[2021-02-26 02:51] LABS: ABG PH 7.28 (7.37-7.43); ALLENS TEST YES-POS; INSPIRED O2 70%; PATIENT TEMP 37.8; VENTILATOR NO
[2021-02-26 03:06] LABS: BILIRUBIN,URINE NEGATIVE (NEGATIVE); CLARITY,URINE CLEAR; COLOR,URINE YELLOW; GLUCOSE, URINE (UA) 3+ (NEGATIVE); KETONES,URINE NEGATIVE (NEGATIVE); LEUKOCYTE ESTERASE ,URINE 1+ (NEGATIVE); NITRITE,URINE POSITIVE (NEGATIVE); PROTEIN,URINE 2+ (NEGATIVE)
[2021-02-26 03:12] LABS: AMORPHOUS SEDIMENT,UR MOD AMOR URATES /LPF; BACTERIA,URINE MODERATE /HPF
[2021-02-26 03:16] VITALS: BP 94/57
[2021-02-26] MEDS ORDERED: ATROPINE 1% OPHTHALMIC SOLN 2 ML SL PRN (03:30)
[2021-02-26] MEDS ORDERED: PROMETHAZINE INJ 25 MG/ML (PHENERGAN) AMP IVP PRN (03:30)
[2021-02-26] MEDS ORDERED: ARTIFICAL TEARS 0.4 ML UNIT DOSE (REFRESH PLUS) OU PRN (03:30)
[2021-02-26] MEDS ORDERED: LORazepam INJ 2 MG/ML (ATIVAN) VIAL IVP PRN (03:30)
[2021-02-26] MEDS ORDERED: GLYCOPYRROLATE 0.2 MG/ML (ROBINUL) 2 ML VIAL IV PRN (03:30)
[2021-02-26] MEDS ORDERED: morphine INJ 4 MG/ML 1 ML (VIAL/SYRINGE) IV PRN (03:30)
[2021-02-26] MEDS ORDERED: ACETAMINOPHEN 650 MG SUPP (TYLENOL) PR PRN (03:30)
[2021-02-26] MEDS ORDERED: SALIVA STIMULANT MOUTH SPRAY (BIOTENE) 1.5 OZ MM PRN (03:30)
[2021-02-26] MEDS ORDERED: RT-ALBUTEROL/IPRATROPIUM 3 ML (DUONEB) VIAL INH PRN (03:30)
[2021-02-26] MEDS ORDERED: BISACODYL 10 MG SUPP (DULCOLAX) PR PRN (03:30)
[2021-02-26] MEDS ORDERED: SCOPOLAMINE 1.5 MG (TRANSDERM-SCOP) PATCH TOP SCH (03:30)
[2021-02-26] MEDS ORDERED: ONDANSETRON 4 MG/2 ML (SDV) Z0FRAN IVP PRN (03:30)
[2021-02-26] MEDS ORDERED: CATHETER FLUSH 10 ML SYR IV PRN (03:30)
--- NOTE | 2021-02-26 05:52 | ED General ---
General Stated Complaint: ACUTE RESP FAILURE Source of Information: EMS, Intermediate Records, Old Records Exam Limitations: Other (PT IS ESSENTIALLY OBTUNDED AND UNABLE TO GIVE ANY INFORMATION, PT ALSO WITH KNOWN HISTORY OF DEMENTIA. ) History of Present Illness Date Seen by Provider: Feb 26, 2021 Time Seen by Provider: 01:22 Initial Comments PT ARRIVES VIA EMS FROM [facility] REPORTED THAT PT WAS "WELL" AT 2330 SHORTLY AFTER THAT, PT REPORTEDLY VOMITED, AND THEN HAS BEEN "LIKE THIS" EVER SINCE THEN EMS REPORT THAT WHEN THEY ARRIVED AT THE SCENE, PT WAS IN SEVERE RESPIRATORY DISTRESS AND INTERMEDIATE STAFF HAD PLACED PT ON NON-REBREATHER MASK, WITH O2 SATS IN THE 80'S FOR EMS EMS PLACED PT ON CPAP AND O2 SATS UP TO 96% EMS REPORT THAT PT HAS BEEN VERY HYPOTENSIVE WITH BLOOD PRESSURES 60'S/40'S ACCUCHECK WAS IN 200'S FOR EMS WAS REPORTED TO EMS BY INTERMEDIATE STAFF THAT PT LIKELY HAD A STROKE A COUPLE OF WEEKS AGO. PT HAS HAD A PRIOR CVA WITH DYSPHAGIA AND DYSARTHRIA, PT ALSO HAS DEMENTIA. PT IS A FULL CODE. NO OTHER INFORMATION IS OBTAINABLE ON ARRIVAL PCP: DR. VANG Allergies and Home Medications Allergies Coded Allergies: No Known Drug Allergies (Unverified , 09/14/19) Patient Home Medication List Amlodipine Besylate (Amlodipine Besylate) 5 Mg Tablet, 5 MG PO DAILY Prescribed by: SIA DUGGAN on 10/04/191820 Aspirin (Aspirin EC) 81 Mg Tablet.dr, 81 MG PO DAILY, (Reported) Entered as Reported by: NGA SHUKLA on 09/18/19 1324 Buspirone HCl (Buspirone HCl) 10 Mg Tablet, 10 MG PO TID Prescribed by: SIA DUGGAN on 10/04/191820 Cefuroxime Axetil (Cefuroxime) 500 Mg Tablet, 500 MG PO BID Prescribed by: MACY ORONA on 11/18/191917 Escitalopram Oxalate (Escitalopram Oxalate) 20 Mg Tablet, 20 MG PO DAILY, (Reported) Entered as Reported by: TIMOTEO MOY on 09/14/191827 Glyburide (Glyburide) 2.5 Mg Tablet, 1.25 MG PO DAILY@0630 Prescribed by: SIA DUGGAN on 10/04/191820 Metformin HCl (Metformin HCl ER) 500 Mg Tab.er.24h, 1,000 MG PO BID, (Reported) Entered as Reported by: TIMOTEO MOY on 09/14/191827 Rosuvastatin Calcium (Crestor) 40 Mg Tablet, 40 MG PO DAILY, (Reported) Entered as Reported by: NGA SHUKLA on 09/21/19 1214 Review of Systems Review of Systems Constitutional: other (UNABLE TO OBTAIN FROM PT) Respiratory: see HPI Past Rsmxyfd-Qzkena-Uhvolk Hx Patient Social History Smoking Status: Unknown if Ever Smoked Smokeless Tobacco Frequency: Unknown if Ever Used Use of E-Cig and/or Vaping Arron: Unknown if Ever Used Immunizations Up To Date Tetanus Booster (TDap): Unknown First/Initial COVID19 Vaccinat: APRIL 2020 Seasonal Allergies Seasonal Allergies: No Past Medical History Surgery/Hospitalization HX: PT HAD COVID-19 03/2020 Surgeries: Yes (RIGHT KNEE) Orthopedic Respiratory: No Cardiac: Yes Atrial Fibrillation, High Cholesterol, Hypertension Neurological: Yes (MULTIPLE CVA'S WITH DYSPHAGIA AND DYSARTHRIA) Dementia, Stroke Genitourinary: No Gastrointestinal: No Musculoskeletal: Yes (GENERALIZED WEAKNESS; RIGHT KNEE SURGERY) Endocrine: Yes Diabetes, Non-Insulin dep HEENT: Yes (DENTURES) Dysphagia Psychosocial: Yes (DEMENTIA) Depression Integumentary: Yes (MRSA; CELLULITIS) Blood Disorders: No Family Medical History PT HAD COVID-19 03/2020 AND HAS BEEN FULLY VACCINATED FOR COVID-19 PT'S FIRST VISIT HERE 08/2019 FOR CVA, WITH HX OF PRIOR CVA 8 YEARS PRIOR TO THAT, AND MRI SHOWING MULTIPLE OLD CVA'S PT WAS ADMITTED TO [facility] 09/2019 AFTER THAT HOSPITALIZATION Physical Exam Vital Signs Vital Signs - First Documented 02/26/21 01:46 Pulse 150 Resp 45 Pulse Ox 98 O2 Flow Rate 100.00 Capillary Refill : Height, Weight, BMI Height: '" Weight: lbs. oz. kg; 27.44 BMI Method: General Appearance: Cachetic, Severe Distress, Other (VOMITUS AROUND MOUTH. PT OBTUNDED WITH OCCASIONAL MOANING, SEVERE RESPIRATORY DISTRESS. ) HEENT: Other (UPPER DENTURE PLATE REMOVED. NO LOWER PLATE IS PRESENT. NO VOMITUS INSIDE ORAL CAVITY) Respiratory: Accessory Muscle Use, Respiratory Distress, Other (SEVERE RES PIRATORY DISTRESS, VERY LABORED BREATHING; LUNG SOUNDS ARE CLEAR--NO WHEEZING/RALES/RHONCHI, BUT VERY DIMINISHED IN RIGHT BASE. EQUAL CHEST RISE/FALL AND NO SUB Q AIR. NO GURGLING OR UPPER AIRWAY NOISE. ) Cardiovascular: Tachycardia Gastrointestinal: No Pulsatile Mass, Soft Extremity: No Pedal Edema, Slow Capillary Refill Neurologic/Psychiatric: Other (OBTUNDED) Skin: Warm/Dry, Mottled, Pallor, Other (WARM; STAGE 2 DECUBITUS ULCERS ON BUTTOCKS/SACRUM/COCCYX. HAS ERYTHEM AND EXCORIATION TO KAMINI AREA WELL. ) Focused Exam Sepsis Stage: Septic Shock Possible Source: Pulmonary Lactate Level 02/26/21 01:30: Lactic Acid Level 3.48*H Time of Focused Exam: 02:15 Respiratory: Other (ON BIPAP--RESPIRATIONS STILL SOMEWHAT LABORED BUT OVERALL IMPROVED FROM ARRIVAL) Cardiovascular: Tachycardia (BUT HEART RATE DOWN FROM 150'S ON ARRIVAL) Capillary Refill: Greater Than 3 Seconds Skin: cyanosis, mottled, pallor Lactic Acid Level Laboratory Tests Test 02/26/21 01:30 Lactic Acid Level 3.48 MMOL/L (0.50-2.00) *H Within 3hrs of presentation: Admin fluids, Admin ABX, Blood cultures prior to ABX's, Focus exam, Lactate level Progress/Results/Core Measures Suspected Sepsis SIRS Temperature: Pulse: 100 Respiratory Rate: 36 Laboratory Tests 02/26/21 01:30: White Blood Count 7.0 Blood Pressure 94 /57 Mean: 69 02/26/21 01:30: Lactic Acid Level 3.48*H Laboratory Tests 02/26/21 01:30: Creatinine 6.15H, INR Comment 1.3, Platelet Count 259, Total Bilirubin 0.7 Results/Orders Lab Results Laboratory Tests Test 02/26/21 01:30 02/26/21 01:37 02/26/21 01:40 Range/Units White Blood Count 7.0 4.3-11.0 10^3/uL Red Blood Count 4.93 4.30-5.52 10^6/uL Hemoglobin 14.1 13.3-17.7 g/dL Hematocrit 48 40-54 % Mean Corpuscular Volume 98 80-99 fL Mean Corpuscular Hemoglobin 29 25-34 pg Mean Corpuscular Hemoglobin Concent 29 L 32-36 g/dL Red Cell Distribution Width 14.6 H 10.0-14.5 % Platelet Count 259 130-400 10^3/uL Mean Platelet Volume 13.3 H 9.0-12.2 fL Immature Granulocyte % (Auto) 0 % Neutrophils (%) (Auto) 60 42-75 % Lymphocytes (%) (Auto) 30 12-44 % Monocytes (%) (Auto) 9 0-12 % Eosinophils (%) (Auto) 0 0-10 % Basophils (%) (Auto) 1 0-10 % Neutrophils # (Auto) 4.2 1.8-7.8 10^3/uL Lymphocytes # (Auto) 2.1 1.0-4.0 10^3/uL Monocytes # (Auto) 0.7 0.0-1.0 10^3/uL Eosinophils # (Auto) 0.0 0.0-0.3 10^3/uL Basophils # (Auto) 0.0 0.0-0.1 10^3/uL Immature Granulocyte # (Auto) 0.0 0.0-0.1 10^3/uL Erythrocyte Sedimentation Rate 57 H 0-30 MM/HR Prothrombin Time 16.7 H 12.2-14.7 SEC INR Comment 1.3 0.8-1.4 Activated Partial Thromboplast Time 30 24-35 SEC D-Dimer 5.79 H 0.00-0.49 UG/ML Sodium Level 164 *H 135-145 MMOL/L Potassium Level 5.3 H 3.6-5.0 MMOL/L Chloride Level 122 H 98-107 MMOL/L Carbon Dioxide Level 11 L 21-32 MMOL/L Anion Gap 31 H 5-14 MMOL/L Blood Urea Nitrogen 109 *H 7-18 MG/DL Creatinine 6.15 H 0.60-1.30 MG/DL Estimat Glomerular Filtration Rate 9 BUN/Creatinine Ratio 18 Glucose Level 236 H 70-105 MG/DL Lactic Acid Level 3.48 *H 0.50-2.00 MMOL/L Calcium Level 9.7 8.5-10.1 MG/DL Corrected Calcium 10.0 8.5-10.1 MG/DL Magnesium Level 2.9 H 1.6-2.4 MG/DL Total Bilirubin 0.7 0.1-1.0 MG/DL Aspartate Amino Transf (AST/SGOT) 111 H 5-34 U/L Alanine Aminotransferase (ALT/SGPT) 91 H 0-55 U/L Alkaline Phosphatase 109 40-136 U/L Total Creatine Kinase 333 H 30-200 U/L Creatine Kinase MB 1.1 <6.6 NG/ML Myoglobin 2248.2 H 10.0-92.0 NG/ML Troponin I 0.050 H <0.028 NG/ML C-Reactive Protein High Sensitivity 2.21 H 0.00-0.50 MG/DL B-Type Natriuretic Peptide 44.5 <100.0 PG/ML Total Protein 7.4 6.4-8.2 GM/DL Albumin 3.6 3.2-4.5 GM/DL Procalcitonin 2.85 H <0.10 NG/ML Blood Gas Puncture Site RIGHT RADIAL Blood Gas Patient Temperature 37.6 Arterial Blood pH 7.30 *L 7.37-7.43 Arterial Blood Partial Pressure CO2 19 *L 35-45 MMHG Arterial Blood Partial Pressure O2 291 H 79-93 MMHG Arterial Blood HCO3 9 *L 23-27 MMOL/L Arterial Blood Total CO2 9.5 *L 21.0-31.0 MMOL/L Arterial Blood Oxygen Saturation 99 94-100 % Arterial Blood Base Excess -16.3 L -2.5-2.5 MMOL/L Armando Test YES-POS Blood Gas Ventilator Setting NO Blood Gas Inspired Oxygen 100% Influenza Type A (RT-PCR) Not Detected Not Detecte Influenza Type B (RT-PCR) Not Detected Not Detecte SARS-CoV-2 RNA (RT-PCR) Not Detected Not Detecte My Orders Orders - KENA MCDANIELS DO Chest 1 View, Ap/Pa Only (02/26/21) Ed Iv/Invasive Line Start (02/26/21) Ekg Tracing (02/26/21) Catheter(Urinary) Insert & Ass 03,15 (02/26/21) O2 (02/26/21) Monitor-Rhythm Ecg Trace Only (02/26/21) BNP (02/26/21) Cbc With Automated Diff (02/26/21) Comprehensive Metabolic Panel (02/26/21) Creatine Kinase (02/26/21) Creatine Kinase Mb (02/26/21) Hs C Reactive Protein (02/26/21:) Fibrin Degradation Products (02/26/21:) Lactic Acid Analyzer (02/26/21) Magnesium (02/26/21) Procalcitonin (Pct) (02/26/21:) Protime With Inr (02/26/21:) Partial Thromboplastin Time (02/26/21:) Ua Culture If Indicated (02/26/21) Blood Culture (02/26/21) Influenza A And B By Pcr (02/26/21) Erythrocyte Sedimentation Rate (02/26/21:) Myoglobin Serum (02/26/21) Troponin I (02/26/21) Ed Iv/Invasive Line Start (02/26/21:28) Lactated Ringers (Lr 1000 Ml Iv Solution (02/26/21 01:30) Urine Culture (02/26/21:) Ed Iv/Invasive Line Start (02/26/21:) Ed Iv/Invasive Line Start (02/26/21:28) Vital Signs Adult Sepsis Patie Q15M (02/26/21:28) O2 (02/26/21:28) Remove Rings In Anticipation O (02/26/21:) Covid 19 Inhouse Test (02/26/21:28) Arterial Blood Gas (02/26/21 01:37) Ed Iv/Invasive Line Start (02/26/21:38) Ns Iv 1000 Ml (Sodium Chloride 0.9%) (02/26/21 01:45) Acetaminophen Suppository (Tylenol Suppo (02/26/21 01:38) Cefepime Injection (Maxipime Injection) (02/26/21 01:45) Vancomycin Injection (Vancomycin Injecti (02/26/21 01:45) Sodium Bicarbonate 8.4% Vial (Sodium Bic (02/26/21 01:45) Sodium Bicarbonate 8.4% Syr (Sodium Bica (02/26/21 01:48) Arterial Blood Draw (02/26/21 ) 1/2 Ns Iv Solution (0.45% Sodium Chlorid (02/26/21 02:15) Vital Signs/I&O 02/26/21 01:46 Pulse 150 Resp 45 Pulse Ox 98 O2 Flow Rate 100.00 Capillary Refill : Blood Pressure Mean: 69 Progress Note : Progress Note TEMP IS 101 ON ARRIVAL--GIVEN TYLENOL SUPPOSITORIES IMMEDIATELY SWITCHED FROM EMS CPAP TO ER BIPAP PT DID HAVE BRIEF EPISODE OF APNEA. LASTING 15-20 SECONDS, SHORTLY AFTER ARRIVAL, THEN SPONTANEOUSLY BEGAN BREATHING AGAIN RESPIRATIONS DID BECOME MUCH LESS LABORED ONCE PT WAS ON BIPAP, AND O2 SATS 96- 100% PT CONTINUED TO BE VERY MOTTLED WITH CYANOSIS OF FEET AND HANDS. PT GIVEN 3 LITERS OF FLUIDS TOTAL, WITH BLOOD PRESSURES UP TO > 100 SYSTOLIC, THEN GRADUALLY BEGAN TO TREND DOWN TO 80'S AND 90'S SYSTOLIC HEART RATE DOWN TO 110'S MATHIAS CATHETER PLACED WITH IMMEDIATE RETURN OF > 1500 ML OF VERY CLOUDY URINE. ECG Initial ECG Impression Date: Feb 26, 2021 Initial ECG Impression Time: 01:37 Initial ECG Rate: 152 Initial ECG Rhythm: S.Tach Diagnostic Imaging Comments CXR--RIGHT MID AND LOWER LUNG INFILTRATES, PENDING RADIOLOGIST REVIEW Reviewed: Reviewed by Me Departure Communication (Admissions) Family Conversation 214--SPOKE WITH PT'S SON, FARZAD, WHO IS ALSO PT'S DPOA. DISCUSSED AT LENGTH PT'S VERY CRITICAL AND GRAVE CONDITION AND VERY POOR PROGNOSIS. DISCUSSED CODE STATUS AND WHAT THAT INVOLVED, REGARDING VENTILATOR, CPR, ETC. ALSO DISCUSSED DIALYSIS AND TRANSFER TO A FACILITY THAT COULD PROVIDE HIGHER LEVEL OF CARE DUE HIS MULTIPLE AND COMPLEX PROBLEMS. SON THEN STATES THAT HE DOES NOT WISH FOR PT TO BE TRANSFERRED OR HAVE ANY OF THE ABOVE TREATMENTS, AND NOW STATES THAT HE WOULD LIKE PT TO BE DNR, AND COMFORT MEASURES DONE. 227--SPOKE WITH DR. DUGGAN, HOSPITALIST FOR [facility] ACCEPTS PT FOR ADMIT, WITH COMFORT CARE ORDERS. ADVISES TO TAKE PT OFF BIPAP AND PLACE ON O2 VIA NASAL CANULA Impression Primary Impression: SEPTIC SHOCK Additional Impressions: Acute respiratory failure Aspiration pneumonia Renal failure UTI (urinary tract infection) Acidosis History of multiple cerebrovascular accidents (CVAs) Dementia NIDDM History of atrial fibrillation Disposition: ADMITTED INPATIENT Condition: Critical Admissions Decision to Admit Reason: Admit from ER (General) Decision to Admit/Date: Feb 26, 2021 Time/Decision to Admit Time: 02:30 Departure-Patient Inst. Referrals: [facility] (PCP) Primary Care Physician BELINAD WILSON (Family) Primary Care Physician KENA MCDANIELS DO Feb 26, 2021 05:52
--- NOTE | 2021-02-26 05:56 | Diagnostic Imaging Report ---
INDICATION: DYPSNEA. TECHNIQUE: Single view chest 1:38 AM. CORRELATION STUDY: 11/18/2019 FINDINGS: The heart size, mediastinal configuration and pulmonary vascularity are within normal limits. There is development of new consolidation at the right mid and lower lung field most compatible with pneumonia. Lucency at the left lung base likely overlapping skinfold. IMPRESSION: 1. Development of fairly prominent area of consolidation right mid and lower lung field most likely reflecting pneumonia. Follow-up imaging is recommended. Dictated by: Dictated on workstation # [id number]
[2021-02-26] MEDS ORDERED: CATHETER FLUSH 10 ML SYR IV SCH (06:00)
--- NOTE | 2021-02-26 06:56 | Short Stay Summary-Hospitalist ---
History of Present Illness HPI/Chief Complaint Patient not seen before Source: RN/MD Exam Limitations: clinical condition Date Seen 02/26/21 Time Seen by a Provider: 00:00 Attending Physician Nelda Tomlin DO [facility] Referring Physician Date of Admission Feb 26, 2021 at 02:28 Home Medications & Allergies Home Medications Reviewed patient Home Medication Reconciliation performed by pharmacy medication reconciliations central sterilization technician and/or nursing. Patients Allergies have been reviewed. Allergies Allergies Coded Allergies No Known Drug Allergies (Unverified09/14/19) Past Oyxlmbm-Hbokcv-Qyiway Hx Patient Social History Smoking Status: Unknown if Ever Smoked Smokeless Tobacco Frequency: Unknown if Ever Used Use of E-Cig and/or Vaping Arron: Unknown if Ever Used Immunizations Up To Date First/Initial COVID19 Vaccinat: APRIL 2020 Tetanus Booster (TDap): Unknown Seasonal Allergies Seasonal Allergies: No Current Status Advance Directives: Unable to obtain Communicates: Does Not Communicate Primary Language: Bhutanese Preferred Spoken Language: Bhutanese Is interpretation needed?: No Past Medical History Surgeries: Orthopedic Atrial Fibrillation, High Cholesterol, Hypertension Dementia, Stroke Diabetes, Non-Insulin dep Dysphagia Depression Blood Disorders: No Family Medical History PT HAD COVID-19 03/2020 AND HAS BEEN FULLY VACCINATED FOR COVID-19 PT'S FIRST VISIT HERE 08/2019 FOR CVA, WITH HX OF PRIOR CVA 8 YEARS PRIOR TO THAT, AND MRI SHOWING MULTIPLE OLD CVA'S PT WAS ADMITTED TO [facility] 09/2019 AFTER THAT HOSPITALIZATION Review of Systems ROS-Unable to Obtain: Constitutional: see HPI (Patient not seen before ) Physical Exam Physical Exam Vital Signs Vital Signs - First Documented 02/26/21 02/26/21 02/26/21 01:46 03:15 03:16 Temp 36.2 Pulse 150 Resp 45 B/P (MAP) 94/57 (69) Pulse Ox 98 O2 Delivery Nasal Cannula O2 Flow Rate 100.00 Capillary Refill : Greater Than 3 Seconds Height, Weight, BMI Height: '" Weight: lbs. oz. kg; 27.44 BMI Method: General Appearance: Cachetic, Severe Distress, Other (VOMITUS AROUND MOUTH. PT OBTUNDED WITH OCCASIONAL MOANING, SEVERE RESPIRATORY DISTRESS. ) HEENT: Other (UPPER DENTURE PLATE REMOVED. NO LOWER PLATE IS PRESENT. NO VOMITUS INSIDE ORAL CAVITY) Respiratory: Other (ON BIPAP--RESPIRATIONS STILL SOMEWHAT LABORED BUT OVERALL IMPROVED FROM ARRIVAL) Cardiovascular: Tachycardia (BUT HEART RATE DOWN FROM 150'S ON ARRIVAL) Gastrointestinal: No Pulsatile Mass, Soft Extremity: No Pedal Edema, Slow Capillary Refill Neurologic/Psychiatric: Other (OBTUNDED) Skin: Warm/Dry, Mottled, Pallor, Other (WARM; STAGE 2 DECUBITUS ULCERS ON BUTTOCKS/SACRUM/COCCYX. HAS ERYTHEM AND EXCORIATION TO KAMINI AREA WELL. ) Results Results/Procedures Labs Laboratory Tests 02/26/21 01:30 Patient resulted labs reviewed. Short Stay Diagnosis Discharge Diagnosis-Short Stay Admission Diagnosis Patient not seen before Final Discharge Diagnosis Patient not seen before Conclusion Plan Patient not seen before Diagnosis/Problems Diagnosis/Problems (1) Renal failure Status: Acute NELDA TOMLIN DO Feb 26, 2021 06:56
== END 2021-02-26 06:10 | disposition expired | DRG 871 ==
LOC: EDUNIT# 01:21 → ER 01:22 → 4TH 02:28
PROVIDERS: ADMIT Internal Medicine; ATTEND Internal Medicine
PROC: 5A09357 Assistance with Respiratory Ventilation, Less than 24 Consecutive Hours, Continuous Positive Airway Pressure (ICD-10-PCS; principal; 2021-02-26)
DX: A41.9 Sepsis, unspecified organism (principal); R65.21 Severe sepsis with septic shock; J96.00 Acute respiratory failure, unspecified whether with hypoxia or hypercapnia; J69.0 Pneumonitis due to inhalation of food and vomit; N39.0 Urinary tract infection, site not specified; N17.9 Acute kidney failure, unspecified; E87.2 Acidosis; Z79.82 Long term (current) use of aspirin; Z79.84 Long term (current) use of oral hypoglycemic drugs; Z79.899 Other long term (current) drug therapy; I48.91 Unspecified atrial fibrillation; E78.00 Pure hypercholesterolemia, unspecified; I10 Essential (primary) hypertension; F03.90 Unspecified dementia, unspecified severity, without behavioral disturbance, psychotic disturbance, mood disturbance, and anxiety; Z86.73 Personal history of transient ischemic attack (TIA), and cerebral infarction without residual deficits; E11.9 Type 2 diabetes mellitus without complications; F32.A Depression, unspecified; Z20.822 Contact with and (suspected) exposure to COVID-19; Z66 Do not resuscitate; Z51.5 Encounter for palliative care
CPT/HCPCS: 36415; 36600; 71045; 80053; 81000; 82550; 82553; 82805; 83605; 83735; 83874; 83880; 84145; 84484; 85025; 85379; 85610; 85652; 85730; 86141; 87040; 87088; 87636; 93005; 93041; 94660; 99291